=== PATIENT | female | born 1995 | race Caucasian/White ===

== ENCOUNTER 2021-10-05 17:05 | Outpatient (CLI) | payer OTHER, SELFPAY ==
[2021-10-11 13:43] LABS: HPV Reflexed? NOT INDICATED
== END 2021-10-05 23:59 | disposition home or self-care (01) ==
PROVIDERS: Visit Provider Obstetrics & Gynecology
DX: Z12.4 Encounter for screening for malignant neoplasm of cervix (principal)
CPT/HCPCS: 88175; G0145

== ENCOUNTER → 2023-07-27 | Outpatient (CLI) | payer OTHER, SELFPAY ==
--- NOTE | 2023-07-27 13:58 | ECHOD_ITS ---
Reason For Study: Murmur Procedure This was a 2D Doppler, Color Flow transthoracic echocardiogram. Exam performed in department. Left Ventricle Normal size and thickness. The left ventricular ejection fraction is 70 %. Normal diastololic function. Right Ventricle Normal right ventricle. Atria The left and right atria are normal. Mitral Valve Trivial mitral valve insufficiency. Tricuspid Valve Mild tricuspid valve insufficiency. Normal pulmonary artery pressure. Aortic Valve Trisinus/trileaflet aortic valve. Pulmonic Valve The pulmonic valve is not well visualized. Great Vessels Normal sized aortic root. Pericardium/Pleural No pericardial effusion. MMode/2D Measurements & Calculations LVIDd: 5.0 cm IVSd: 0.59 cm Ao root diam: 2.6 cm LVIDs: 3.3 cm LVPWd: 0.76 cm LA dimension: 4.2 cm RVDd: 4.3 cm FS: 33.3 % LAV(MOD-bp): 57.5 ml LVAd ap4: 24.7 cm2 SV(MOD-sp4): 46.9 ml LAV(MOD-bp) Indexed: 30.5 ml/m2 LVLd ap4: 6.9 cm LAV(MOD-sp2): 51.2 ml EDV(MOD-sp4): 71.1 ml LAV(MOD-sp4): 54.7 ml EDV(sp4-el): 75.1 ml LVAs ap4: 12.5 cm2 LVLs ap4: 5.5 cm ESV(MOD-sp4): 24.2 ml ESV(sp4-el): 24.2 ml EF(MOD-sp4): 66.0 % EF(sp4-el): 67.7 % SV(sp4-el): 50.9 ml LA A4 area: 19.9 cm2 RA A4 area: 16.2 cm2 TAPSE: 2.3 cm Time Measurements MV dec time: 0.12 sec Doppler Measurements & Calculations MV E max victor manuel: 101.2 cm/sec Lat Peak E' Victor Manuel: 20.2 cm/sec Med Peak E' Victor Manuel: 13.2 cm/sec MV A max victor manuel: 65.8 cm/sec E/E' lat: 5.0 E/E' med: 7.6 MV E/A: 1.5 MV V2 max: 128.2 cm/sec MV P1/2t max victor manuel: 129.4 cm/sec Ao V2 max: 177.6 cm/sec MV max P.6 mmHg MV P1/2t: 48.0 msec Ao max P.6 mmHg MV V2 mean: 61.7 cm/sec MV dec slope: 790.3 cm/sec2 Ao V2 mean: 124.6 cm/sec MV mean P.9 mmHg Ao mean P.1 mmHg MV V2 VTI: 27.0 cm MVA(P1/2t): 4.6 cm2 Ao V2 VTI: 34.5 cm AV (velocity ratio): 0.90 LV V1 max: 157.7 cm/sec PA V2 max: 107.5 cm/sec TR max victor manuel: 245.4 cm/sec LV V1 max P.0 mmHg PA V2 mean: 75.7 cm/sec TR max P.1 mmHg LV V1 mean P.6 mmHg LV V1 mean: 111.9 cm/sec LV V1 VTI: 31.2 cm ECHO/Echo Complete Interpretation Summary The left ventricular ejection fraction is 70 %. Mild tricuspid valve insufficiency. Ordering Physician: Sandra Kimbrough Referring Physician: Sandra Kimbrough Performed By: Mukesh Kern RCS
== END | disposition home or self-care (01) ==
LOC: CVS 13:57
PROVIDERS: PCP Family Medicine; Referring Provider Family Medicine; Visit Provider Family Medicine
DX: R01.1 Cardiac murmur, unspecified (principal)
CPT/HCPCS: 93306

== ENCOUNTER → 2024-03-20 | Outpatient (CLI) | payer OTHER, SELFPAY ==
--- NOTE | 2024-03-20 16:10 | RAD_ITS ---
STUDY: X-RAY - LUMBAR SPINE REASON FOR EXAM: Female, 28 years old. SCIATICA TECHNIQUE: 5 view(s) of the lumbar spine were obtained. COMPARISON: None FINDINGS: Normal lumbar lordosis. There is no substantial scoliosis. 2 mm retrolisthesis of L4 on L5. Normal vertebral bodies and endplates. Focal disc space narrowing and osteophyte formation at L4/L5. The soft tissue structures are unremarkable. RAD/L/S Spine Min 4 Views IMPRESSION: Focal degenerative disc disease at L4/L5 with 2 mm retrolisthesis of L4 on L5. MRI may be useful. Electronically Signed: Gerson Morales MD at 9:33 EDT ,
== END | disposition home or self-care (01) ==
LOC: MTRAD 16:07
PROVIDERS: PCP Family Medicine; Referring Provider Family Medicine; Visit Provider Family Medicine
DX: M54.30 Sciatica, unspecified side (principal)
CPT/HCPCS: 72110

== ENCOUNTER → 2024-04-23 | Outpatient (CLI) | payer OTHER, SELFPAY ==
--- NOTE | 2024-04-23 16:10 | MRI_ITS ---
STUDY: MRI LUMBAR SPINE WITHOUT CONTRAST REASON FOR EXAM: Female, 28 years old. L4L5 degeneration TECHNIQUE: Standardized fat and water weighted pulse sequences were obtained in the sagittal and axial planes. COMPARISON: X-ray March 20, 2024 FINDINGS: T12-L1: Normal endplates. Normal disc height, hydration and morphology. Normal bilateral facet joints. Normal central canal and bilateral lateral recesses. Normal bilateral intervertebral neural foramina. Normal lumbar lordosis. There is grade 1 retrolisthesis at L4-5. There is no substantial scoliosis. Normal conus medullaris that terminates at the L1 level. L1-2: Normal endplates. Normal disc height, hydration and morphology. Normal bilateral facet joints. Normal central canal and bilateral lateral recesses. Normal bilateral intervertebral neural foramina. L2-3: Normal endplates. Normal disc height, hydration and morphology. Normal bilateral facet joints. Normal central canal and bilateral lateral recesses. Normal bilateral intervertebral neural foramina. L3-4: Disc bulge with shallow central disc protrusion. Normal bilateral facet joints. Normal central canal and bilateral lateral recesses. Normal bilateral intervertebral neural foramina. L4-5: Disc space narrowing with endplate change. Disc bulging, spurring, and right paracentral disc extrusion with fragment extending superior to the disc space encroaching upon the right lateral recess, series 10 images 11 through 13. Facet spurring with effusions. Moderately severe canal stenosis. Bilateral foraminal narrowing L5-S1: Disc space narrowing. Central left paracentral disc protrusion series 10 image 6. Facet spurring. No canal stenosis. Left foraminal narrowing. Normal visualized sacral ala. Normal visualized paraspinous soft tissue structures. MRI/Spine Lumbar (Routine) IMPRESSION: Degenerative change with disc herniations. There is extruded fragment, endplate change, canal stenosis, and foraminal narrowing at L4-5. Electronically Signed: Uzair Zamora MD at 23:41 EDT ,
== END | disposition home or self-care (01) ==
LOC: MRI 15:49
PROVIDERS: PCP Family Medicine; Referring Provider Family Medicine; Visit Provider Family Medicine
DX: M54.30 Sciatica, unspecified side (principal); M47.816 Spondylosis without myelopathy or radiculopathy, lumbar region
CPT/HCPCS: 72148

== ENCOUNTER → 2024-12-02 | Outpatient (CLI) | payer OTHER, SELFPAY ==
[2024-12-02 17:11] LABS: hCG Titer Quant., Serum 457 mIU/mL (<9 non-preg)
== END | disposition home or self-care (01) ==
PROVIDERS: PCP Family Medicine; Referring Provider Obstetrics & Gynecology; Visit Provider Obstetrics & Gynecology
DX: Z34.90 Encounter for supervision of normal pregnancy, unspecified, unspecified trimester (principal)
CPT/HCPCS: 36415; 84702

== ENCOUNTER → 2024-12-04 | Outpatient (CLI) | payer OTHER, SELFPAY ==
[2024-12-04 17:39] LABS: hCG Titer Quant., Serum 1022 mIU/mL (<9 non-preg)
== END | disposition home or self-care (01) ==
PROVIDERS: Obstetrics & Gynecology; PCP Family Medicine; Referring Provider Obstetrics & Gynecology; Visit Provider Obstetrics & Gynecology
DX: Z34.90 Encounter for supervision of normal pregnancy, unspecified, unspecified trimester (principal); Z3A.00 Weeks of gestation of pregnancy not specified
CPT/HCPCS: 36415; 84702

== ENCOUNTER → 2024-12-23 | Outpatient (CLI) | payer OTHER, SELFPAY ==
[2024-12-23 18:24] LABS: hCG Titer Quant., Serum 26543 mIU/mL (<9 non-preg)
== END | disposition home or self-care (01) ==
LOC: BWCLAB 16:32
PROVIDERS: PCP Family Medicine; Visit Provider Obstetrics & Gynecology
DX: Z34.90 Encounter for supervision of normal pregnancy, unspecified, unspecified trimester (principal)
CPT/HCPCS: 36415; 84702

== ENCOUNTER → 2024-12-25 | Outpatient (CLI) | payer OTHER, SELFPAY ==
[2024-12-25 17:44] LABS: hCG Titer Quant., Serum 30175 mIU/mL (<9 non-preg)
== END | disposition home or self-care (01) ==
LOC: BWCLAB 16:04
PROVIDERS: PCP Family Medicine; Referring Provider Obstetrics & Gynecology; Visit Provider Obstetrics & Gynecology
DX: O26.859 Spotting complicating pregnancy, unspecified trimester (principal); Z3A.00 Weeks of gestation of pregnancy not specified
CPT/HCPCS: 36415; 84702

== ENCOUNTER → 2025-01-02 | Outpatient (CLI) | payer OTHER, SELFPAY ==
[2025-01-06 23:07] LABS: Chlamydia By Nucleic Acid AMP Negative (Negative); Gonococcus By Nucleic Acid AMP Negative (Negative)
== END | disposition home or self-care (01) ==
LOC: LABSPEC 16:20
PROVIDERS: PCP Family Medicine; Visit Provider Obstetrics & Gynecology
DX: O09.90 Supervision of high risk pregnancy, unspecified, unspecified trimester (principal); Z3A.00 Weeks of gestation of pregnancy not specified
CPT/HCPCS: 87086; 87491; 87591; 88175; G0145

== ENCOUNTER → 2025-01-29 | Outpatient (CLI) | payer OTHER, SELFPAY ==
[2025-01-29 16:28] LABS: Basophil# 0.05 X10^3/uL; Basophil% 0.4 % (0-1); Eosinophil# 0.11 X10^3/uL; Eosinophils% 0.9 % (0-5); Hematocrit 39.2 % (37-47); Hemoglobin 13.6 g/dL (12.0-15.0); Lymphocyte % 16.8 % (19-41); Mean Corp Hgb Conc 34.7 g/dL (32-36); Mean Corpuscular Hgb 29.2 pg (27.0-32.0); Mean Corpuscular Volume 84.1 fL (81-99); Mean Platelet Vol. 10.6 fl (6.2-12.0); Monocyte# 0.63 X10^3/uL; Monocyte% 5.3 % (0-10); NRBC Flagged by Analyzer 0 % (0-5); Neutrophil # 9.04 X10^3/uL (2.7-7.7); Neutrophil % 76.1 % (47-70); Platelet Count 275 K/mm3 (150-450); RBC Distribution Width CV 12.2 % (11.6-14.6); RBC Distribution Width SD 36.7 fl (35.1-43.9); Red Blood Count 4.66 M/mm3 (4.2-5.4); White Blood Count 11.9 K/mm3 (4.4-11.0)
[2025-01-29 17:45] LABS: HIV Nonreactive (Nonreactive); Hepatitis B Surface Antigen Nonreactive (Nonreactive); Hepatitis C Antibody Nonreactive (Nonreactive); Rubella IgG REAC (Nonreactive); Syphilis Antibodies Nonreactive (Nonreactive)
== END | disposition home or self-care (01) ==
PROVIDERS: Obstetrics & Gynecology; PCP Family Medicine; Referring Provider Advanced Practice Midwife; Visit Provider Advanced Practice Midwife
DX: O99.210 Obesity complicating pregnancy, unspecified trimester (principal); Z3A.00 Weeks of gestation of pregnancy not specified
CPT/HCPCS: 36415; 83036; 85025; 86703; 86762; 86780; 86803; 86850; 86900; 86901; 87340

== ENCOUNTER → 2025-05-19 | Outpatient (CLI) | payer OTHER, SELFPAY ==
--- OUTSIDE RECORDS SUMMARY | 2025-04-24 13:29 | XMS RPT_ITS ---
Author Name Auto Generated Organization [facility] Care Team Providers Care Pedicurist Name Role Phone PAUL WIGGINS Primary Care Unavailable EDITA PENA Referring Unavailable LANDON SORTO Attending Unavailable NICHOLAS THORPE Attending Unavailable YARITZA BELLAMY Referring Unavailab PAUL [facility] Unavailable PROBLEMS No Problem Records Found PROCEDURES No Procedure Records Found RESULTS No Result Records Found ALLERGIES No Allergies Records Found ENCOUNTERS ADMIT/DISCHARGE ACCOUNT NUMBER ADMITTING ENCOUNTER CLASS LOCATION SOURCE 04/24/2025/04/24/2025 [id number] Ambulatory Saavedra lding:[facility] 03/17/2025/03/17/2025 [id number] Ambulatory Saavedra lding:[facility] PAYERS ENCOUNTER GUARANTOR PAYER SUBSCRIBER SOURCE [address] JOSE L MARRERO: [place], [place] [address]Pon: [phone] Primary Insurance:BERTPo fabian Number: [id number] kateryna Date: JOSE L MARRERO: [id number] [place] [address] [facility] 03/17/2025 JOSE L MARRERO: [place], [place] [address]Lmk: ~[phone] Primary Insurance:CIGNAPo licy Number: [id number] kateryna Date: JOSE L MARRERO: [id number] [place] [address] [facility]
[2025-05-19 16:39] LABS: Hematocrit 33.8 % (37-47); Hemoglobin 11.8 g/dL (12.0-15.0); Immature Granulocytes Count 0.130 X10^3/uL (0.0-0.0); Mean Corp Hgb Conc 34.9 g/dL (32-36); Mean Corpuscular Volume 85.6 fL (81-99); Mean Platelet Vol. 10.1 fl (6.2-12.0); NRBC Flagged by Analyzer 0 % (0-5); Platelet Count 235 K/mm3 (150-450); RBC Distribution Width CV 12.6 % (11.6-14.6); RBC Distribution Width SD 38.6 fl (35.1-43.9); Red Blood Count 3.95 M/mm3 (4.2-5.4); White Blood Count 10.5 K/mm3 (4.4-11.0)
[2025-05-19 17:22] LABS: Glucose Challenge Gest 1H 50g 148 mg/dL (70-140); HIV Nonreactive (Nonreactive); Syphilis Antibodies Nonreactive (Nonreactive)
== END | disposition home or self-care (01) ==
LOC: BWCLAB 15:15
PROVIDERS: PCP Family Medicine; Referring Provider Obstetrics & Gynecology; Visit Provider Obstetrics & Gynecology
DX: O09.92 Supervision of high risk pregnancy, unspecified, second trimester (principal); Z3A.00 Weeks of gestation of pregnancy not specified
CPT/HCPCS: 36415; 82950; 85025; 86703; 86780

== ENCOUNTER 2025-05-28 06:50 | Outpatient (CLI) | payer OTHER, SELFPAY ==
[2025-05-28 07:34] LABS: Glucose GTT-Gestation. Fasting 90 mg/dL (<105)
[2025-05-28 09:49] LABS: Glucose GTT-Gestational 1 Hr 126 mg/dL (<190)
[2025-05-28 11:20] LABS: Glucose GTT-Gestational 2 Hr 103 mg/dL (<165)
[2025-05-28 11:33] LABS: Glucose GTT-Gestational 3 Hr 68 L (<145)
== END 2025-05-28 23:59 | disposition home or self-care (01) ==
PROVIDERS: PCP Family Medicine; Referring Provider Obstetrics & Gynecology; Visit Provider Obstetrics & Gynecology
DX: O99.810 Abnormal glucose complicating pregnancy (principal); Z3A.00 Weeks of gestation of pregnancy not specified
CPT/HCPCS: 36415; 82951; 82952

== ENCOUNTER → 2025-07-08 | Outpatient (CLI) | payer OTHER, SELFPAY ==
--- NOTE | 2025-07-08 17:44 | US_ITS ---
PROCEDURE: OB LIMITED WITH BIOMETRICS 07/08/2025 REASON FOR EXAM: GROWTH TECHNIQUE: Procedure Code: [id number] Modality: US Procedure: OB LIMITED WITH BIOMETRICS COMPARISON: None FINDINGS LMP: November 02, 2024. Number: 1 Position: Vertex Placental Position: Posterior and not low-lying Placental Abnormalities: No evidence of previa. DIMENSIONS: Biparietal Diameter: 9.4 cm: 38 weeks and 2 days: 9 9 percentile/ Head Circumference: 34.2 cm: 39 weeks and 3 days: 96 percentile/ Abdominal Circumference: 31.4 cm: 35 weeks and 2 days: 55th percentile/ Femur Length: 6.1 cm: 31 weeks and 5 days: 1 percentile/ ESTIMATED WEIGHT: 2543 g plus/-381 g ESTIMATED WEIGHT PERCENTILE (24+ weeks): 34 ESTIMATED GESTATIONAL AGE: Baseline: 35 weeks and 3 days By Ultrasound: 36 weeks and 4 days ESTIMATED DATE OF DELIVERY: Baseline: August 09, 2025 By Ultrasound: August 01, 2025 BIOPHYSICAL ASSESSMENT: Amniotic Fluid Volume: 7.6 cm Amniotic Fluid Index: 20.1 (8-24 cm normal range) Cardiac Motion: 145 beats per minute (average) Trunk and Limb Motion: Present. MATERNAL ANATOMY: Adnexa: Both maternal ovaries are visualized and unremarkable. US/OB Limited With Biometrics IMPRESSION: Single live intrauterine gestation with a mean gestational age of 36 weeks and 4 days. Reading Location: [id number]
== END | disposition home or self-care (01) ==
LOC: US 17:42
PROVIDERS: PCP Family Medicine; Referring Provider Obstetrics & Gynecology; Visit Provider Obstetrics & Gynecology
DX: Z34.90 Encounter for supervision of normal pregnancy, unspecified, unspecified trimester (principal)
CPT/HCPCS: 76816

== ENCOUNTER → 2025-07-15 | Outpatient (CLI) | payer OTHER, SELFPAY | END | disposition home or self-care (01) | LOC: LABSPEC 16:35 | PROVIDERS: PCP Family Medicine; Referring Provider Obstetrics & Gynecology; Visit Provider Obstetrics & Gynecology | DX: O09.92 Supervision of high risk pregnancy, unspecified, second trimester (principal); Z3A.00 Weeks of gestation of pregnancy not specified | CPT/HCPCS: 87081 ==

== ENCOUNTER → 2025-08-06 | Outpatient (CLI) | payer OTHER, SELFPAY ==
[2025-08-06 15:45] LABS: ROM Internal Control Test YES-OK TO RESULT pt. (Internal QC); ROM Patient Test Negative (Negative); Record Kit Lot#, ROM+ K3607
== END | disposition home or self-care (01) ==
LOC: LABSPEC 14:35
PROVIDERS: PCP Family Medicine; Visit Provider Nurse Practitioner Women's Health
DX: O26.899 Other specified pregnancy related conditions, unspecified trimester (principal); N89.8 Other specified noninflammatory disorders of vagina; Z3A.00 Weeks of gestation of pregnancy not specified; O99.891 Other specified diseases and conditions complicating pregnancy
CPT/HCPCS: 84112

== ENCOUNTER 2025-08-11 07:53 | Inpatient (IN) | payer OTHER, SELFPAY ==
[2025-08-11] VITALS (50 sets, daily range): BP systolic 111–189; BP diastolic 57–136; PULSE 82–125; RESP 15–18; TEMP 35.8–37.4; O2SAT 94–100; BMI 37.7
--- OUTSIDE RECORDS SUMMARY | 2025-08-11 06:34 | XMS RPT_ITS | CCD ---
Author Organization [facility] Care Team Providers Care Senior Scheduler Name Role Phone LUANN MAHER (PRESSURE TANK OPERATOR) Unavailable Unavailabl e [facility] Unavailable Unavailable [facility] Unavailable Unavailable LUANN MAHER (PRESSURE TANK OPERATOR) Unavailable Unavailabl e [facility] Unavailable Unavailable LUANN MAHER (PRESSURE TANK OPERATOR) Unavailable Unavailabl e LUANN MAHER (PRESSURE TANK OPERATOR) Unavailable Unavailabl e LUANN MAHER (PRESSURE TANK OPERATOR) Unavailable Unavailabl e LUANN MAHER (PRESSURE TANK OPERATOR) Unavailable Unavailabl e DO Sandra Kimbrough Primary Care Provider 1([facility] )[phone] Dr. Tia Goldman Attending Provider [phone] Dr. Yao Owusu MD Primary Care Provider 1([facility] )[phone] Dr. Ceci Spencer DO Attending Provider Dr. Ceci Spencer DO Referring Provider Dr. Isabel Muñoz MD Attending Provider Dr. Isabel Muñoz MD Referring Provider [phone] Dr. Yao Owusu MD Referring Provider 1([facility])[phone] Caro Cho CNM Attending Provider 1([facility]) -[phone] Edita Padilla Attending Provider Caro Cho CNM Referring Provider [phone] Dr. Yao Owusu MD Primary Care Provider Dr. Ceci Spencer DO Attending Provider Dr. Ceci Spencer DO Referring Provider Dr. Yao Owusu MD Referring Provider 1([facility])[phone] PAUL WIGGINS Primary Care Unavailable EDITA PENA Referring Unavailable LANDON SORTO Attending Unavailable NICHOLAS THORPE Attending Unavailable CECI BELLAMY Referring Unavailab PAUL Henderson Primary Care Unavailable Francoise BRISENO, Dr. Samayoa Primary Care Physician [phone] Francoise BRISENO, Dr. Saamyoa Referring Provider Caro Cho CNM Attending Physician [phone] Hollie DOCUMENT CLERK-CEdita Attending Physician [phone] Alexa Hall DO, Dr. Ornelas Attending Physician Toni BRISENO, Dr. Hall Attending Physician Toni BRISENO, Dr. Hall Referring Provider [phone] Francoise BRISENO, Dr. Samayoa Primary Care Physician Francoise BRISENO, Dr. Samayoa Referring Provider Hollie DOCUMENT CLERK-C, Edita Attending Physician [phone] Caro Cho CNM Attending Physician [phone] Yao Owusu Referring Unavailable Vande Isabel, Ceci Attending Unavailabl e Owusu, Yao Primary Care Unavailable Owusu, Yao Primary Care Unavailable Owusu, Yao Referring Unavailable Caro Cho Attending Unavailable Isabel Muñoz Attending Unavailable Owusu, Yao Referring Unavailable Owusu, Yao Primary Care Unavailable Owusu, Yao Referring Unavailable Caro Cho Attending Unavailable Owusu, Yao Primary Care Unavailable Owusu, Yao Primary Care Unavailable Caro Cho Attending Unavailable Owusu, Yao Referring Unavailable Vande Velde, Ceci Attending Unavailabl e Owusu, Yao Referring Unavailable Owusu, Yao Primary Care Unavailable Isabel Muñoz Attending Unavailable Owusu, Yao Referring Unavailable Owusu, Yao Primary Care Unavailable Owusu, Yao Referring Unavailable Owusu, Yao Primary Care Unavailable Vande Velayo, Ceci Attending UnavailCaro Richey Referring Unavailable Caro Cho Attending Unavailable Owusu, Yao Primary Care Unavailable Vande Velde, Ceci Referring Unavailabl e Vande Velde, Ceci Attending Unavailabl e Owusu, Yao Primary Care Unavailable Isabel Muñoz Referring Unavailable Isabel Muñoz Attending Unavailable Owusu, Yao Primary Care Unavailable Owusu, Yao Primary Care Unavailable Vande Velde, Ceci Attending UnavailIsabel Borges Referring Unavailable Isabel Muñoz Attending Unavailable Owusu, Yao Primary Care Unavailable Isabel Muñoz Attending Unavailable Isabel Muñoz Referring Unavailable Owusu, Yao Primary Care Unavailable Vande Velde, Ceci Referring Unavailabl e Owusu, Yao Primary Care Unavailable Alexa Hall, Ceci Attending Unavailabl e Alexa Hall, Ceci Attending Unavailabl e Owusu, Yao Primary Care Unavailable Owusu, Yao Referring Unavailable Hollie DOCUMENT CLERK, Edita Attending Unavailable Owusu, Yao Primary Care Unavailable Owusu, Yao Referring Unavailable Caro Cho Attending Unavailable Owusu, Yao Primary Care Unavailable Owusu, Yao Referring Unavailable Hollie DOCUMENT CLERK, Edita Attending Unavailable Owusu, Yao Primary Care Unavailable Medications Current Medications Medication Drug Class(es) Dates Sig (Normalized) Sig (Original) Multivit 90-Pbzn-Dzruol 1-Dha (Pnv-Dha) 27 mg iron-1 mg -300 mg capsule (14 sources) Start: 12-24-2024 Multivit 66-Voya-Hwaxrk 1-Dha (Pnv-Dha) 27 mg iron-1 mg -300 mg capsule Active NMA PO December 24, 2024 12:00am Complies with drug therapy Start: 12-24-2024 Start: 12-24-2024 Multivit 47-Ir on-Folate 1-Dha (Pnv-Dha) 27 mg iron-1 mg -300 mg capsule Active NMA PO December 24, 2024 12:00am Completed/Discontinued Medications Medication Drug Class(es) Dates Sig (Normalized) Sig (Original) copper 313 mg drug implant (17 sources) Copper-containing Intrauterine Device Start: 10-05-2021 End: 03-04-2024 Copper (Paragard T 380a) 380 square mm intrauterine device Discontinued 1 NMA INTRA-UTER ONCE October 05, 2021 1:00am March 04, 2024 2:19pm as a single dose Start: 10-05-2021 Copper (Paraga rd T 380a) 380 square mm intrauterine device Active 1 DEVICE INTRA-UTER ONCE October 05, 2021 12:00am as a single dose cyclobenzaprine hydrochloride 5 mg oral tablet (16 sources) Muscle Relaxant Start: 03-04-2024 End: 06-03-2024 take 1 tablet by mouth at bedtime as needed for muscle spasms Cyclobenzaprine 5 mg tablet Discontinued 5 mg PO AT BEDTIME as needed for muscle spasm 30 3 March 04, 2024 12:00am June 03, 2024 3:13pm docosahexaenoic acid 200 mg oral capsule (16 sources) Start: 06-03-2024 End: 12-24-2024 Docosahexaenoic Acid ( Dha) 200 mg capsule Discontinued mg PO June 03, 2024 12:00am December 24, 2024 10:09am Problems Active Problems Problem Classification Problem Date Documented Date Episodic/Chronic Diabetes or abnormal glucose tolerance complicating ; childbirth; or the puerperium (8 sources) Abnormal glucose level; Translations: [Abnormal glucose complicating ] Onset: 06-17-2025 05-21-2025 Episodic Comment on above: needs GTT nl GTT Heart valve disorders (20 sources) Heart murmur; Translations: [Cardiac murmur, unspecified] Onset: 05-19-2025 10-05-2021 Episodic Immunizations and screening for infectious disease (1 source) Encounter for immunization; Translations: [Encounter for immunization] Onset: 06-05-2025 Episodic Other complications of (20 sources) Maternal obesity complicating , childbirth and the puerperium, antepartum; Translations: [Obesity complicating , unspecified trimester] 12-24-2024 Chronic Comment on above: HgbA1c Other complications of (1 source) Obesity complicating , second trimester; Translations: [Obesity complicating , second trimester] Onset: 06-17-2025 Chronic Other complications of (1 source) Obesity complicating , unspecified trimester; Translations: [Obesity complicating , unspecified trimester] Onset: 02-04-2025 Chronic Other complications of (20 sources) Spotting per vagina in ; Translations: [Spotting complicating , unspecified trimester] 12-16-2024 Episodic Other complications of (20 sources) High risk ; Translations: [Supervision of high risk , unspecified, unspecified trimester] 12-24-2024 Episodic Comment on above: , WARREN 08/09/25, Wade PRR , WARREN , girl Wade Other complications of (1 source) Supervision of high risk , unspecified, second trimester; Translations: [Supervision of high risk , unspecified, second trimester] Onset: 06-17-2025 Episodic Other complications of (1 source) Spotting complicating , unspecified trimester; Translations: [Spotting complicating , unspecified trimester] Onset: 05-19-2025 Episodic Residual codes; unclassified (20 sources) Family history of malignant neoplasm of ovary; Translations: [Family history of malignant neoplasm of ovary] 12-24-2024 Episodic Comment on above: Maternal Grandmother Residual codes; unclassified (20 sources) Carrier of cystic fibrosis gene mutation; Translations: [Cystic fibrosis carrier] 02-10-2025 Episodic Comment on above: FOB negative Residual codes; unclassified (1 source) Cystic fibrosis carrier; Translations: [Cystic fibrosis carrier] Onset: 06-17-2025 Episodic Residual codes; unclassified (1 source) 32 weeks gestation of ; Translations: [32 weeks gestation of ] Onset: 06-17-2025 Episodic Residual codes; unclassified (1 source) 28 weeks gestation of ; Translations: [28 weeks gestation of ] Onset: 05-19-2025 Episodic Spondylosis; intervertebral disc disorders; other back problems (20 sources) Prolapsed lumbar intervertebral disc; Translations: [Other intervertebral disc displacement, lumbar region] Onset: 05-19-2025 06-04-2024 Chronic Spondylosis; intervertebral disc disorders; other back problems (20 sources) Low back pain; Translations: [Low back pain] 06-03-2024 Episodic Unclassified (1 source) Unknown / UNK(Unknown) Onset: 10-10-2017 Unclassified (1 source) Low back pain, unspecified; Translations: [Low back pain, unspecified] Onset: 05-19-2025 Past or Other Problems Problem Classification Problem Date Documented Da te Episodic/Chronic Other complications of (1 source) Supervision of high risk , unspecified, unspecified trimester; Translations: [Supervision of high risk , unspecified, unspecified trimester] Onset: 01-07-2025 Episodic Other and delivery including normal (20 sources) Early stage of ; Translations: [Encounter for supervision of normal , unspecified, unspecified trimester] Onset: 01-02-2025 12-02-2024 Episodic Comment on above: discussed NIPT & Car rier testing discussed NIPT, martin ier neg. discussed NIPT, martin ier neg. . nl anatomy. Other screening for suspected conditions (not mental disorders or infectious disease) (1 source) Encounter for screening for malignant neoplasm of cervix; Translations: [Encounter for screening for malignant neoplasm of cervix] Onset: 12-24-2024 Episodic Residual codes; unclassified (1 source) Family history of malignant neoplasm of ovary; Translations: [Family history of malignant neoplasm of ovary] Onset: 01-02-2025 Episodic Residual codes; unclassified (1 source) 8 weeks gestation of ; Translations: [8 weeks gestation of ] Onset: 01-02-2025 Episodic Unclassified (2 sources) Other general symptoms and signs; Translations: [Other general symptoms and signs] Onset: 10-10-2017 Episodic Results Test Name Value Interpretation Reference Range Facility Laboratory - Chemistry and C hemistry - challengeOrdered By: Isabel Muñoz on 06-17-2025 Glucose Ql (U) Negative [facility] Laboratory - UrinalysisOrder ed By: Isabel Muñoz on 06-17-2025 Protein Ql (U) Negative [facility] Flocculator Operator Office Visit Reporton 06-17-2025 Flocculator Operator Office Visit Report [facility] [address], [address] [place] [address] OFFICE VISIT Date of Service: 06/17/25 MR#: [id number] Acct: [id number] Name: JOVANYJOSE L HOUGH Rep #: [id number] : 1995 Provider: Dr. Isabel figueredo MD Age/Sex: 30/F Location: [facility] [place] Status: Signed Intake Vital Signs 04/24/25 15:11 06/05/25 15:57 06/17/25 15:07 Height 5 ft 3 in 5 ft 3 in 5 ft 3 in Weight: 203 lb 9 oz BMI 36.0 BP 111/73 Intake Visit Reasons: 32wk ob Occupational Therapist Assistants Required: No Is patient in pain?: No Allergies No Known Allergies Allergy (Verified 06/17/25 15:07) Medications ???Medication ???Instructions ???Recorded ???Confirmed ???Type multivitamin no.47-iron fum 27 cap PO 12/24/24 06/17/25 History mg-folate no.1 1 mg-dha 300 mg capsule (PNV-DHA) Last Menstrual Period: 11/02/24 Zika: Zika virus screening: Negative : No PFSH PFSH Medical History (Updated 06/17/25 @ 15:[address] Isabel Muñoz MD) Cystic fibrosis carrier FH: ovarian cancer Surgical History [place] teeth extracted H/O thumb surgery Family History Grandmother Ovarian cancer, Onset Age: 45 Maternal Heart disease Paternal Grandfather Lung cancer, Onset Age: 80 Paternal Cancer, Onset Age: 80 Paternal- Prostate Mother Diabetes Uncle Heart disease Maternal Father Hyperlipidemia Social History adopted: No household members: spouse housing: house current occupational status: employed current occupation: [employer] current occupational exposures/hazards: No pets and animals: Yes (Avoid litter) pets and animals: cat(s) history of recent travel: Yes (November) out of state: Yes out of country: No sexually active: Yes Smoking Status: Never smoker alcohol intake: current alcohol intake frequency: a few times a month details: not while substance use type: does not use well-balanced diet: daily or most days caffeine: No eating out: 1-3 times/week during the past year weight has: remained stable what type of physical activity do you participate in: walking frequency: 3-4 times per week duration: 15-30 minutes/day zoe/hoahaoism: Yazidi seatbelt use: always do you feel safe at home: Yes additional 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: --[place]- Photo Checker History 1 Elective abortions Hx Para 0 Spontaneous abortions Hx # Term Pregnancies Ectopic pregnancies Hx # Pregnancies Multiple births # of living children HPI 32wk ob Details: JOSE L MANZO is a 30 year old who presents for routine OB visit. OB Visit WARREN Calculator Estimated Delivery Date Method Current WG Current Estimate 08/09/25 LMP (Certain) 32w 3d Other Estimates 08/10/25 Ultrasound #1 32w 2d Expected Delivery Route/Plan Labor Preferences- CB/BF classes: [] labor support person: [] labor intervention preferences: [] pain management options preferred: epidural cut cord/dad catch: [] : [] PP control planned: [] discussed possible routes of delivery and associated risks: [] special requests: [] Specific Issue/Plans Covid status: [] Flu vaccine: declined Tdap vaccine: given Rhogam: na LARC form signed: [] movement and labor precautions reviewed. Problem list reviewed and updated with the most current plan of care details and appropriate orders placed. Relevant counseling for the gestational age provided. Continue routine care and follow up unless otherwise noted in visit notes/problem list details Initial Weight: 188 lb Date -???-???-???-???-???-???-? ??-???-???-???-???-???- EGA Weight BP Urine Prot -???-???-???-???-???-???-? ??-???-???-???-???-???- Glucose FHR FuHt Pres Dilation -???-???-???-???-???-???-? ??-???-???-???-???-???- Effaced St Visit Note 01/02/25 -???-???-???-???-???-???-? ??-???-???-???-???-???- 8w 5d 188 lb 8 oz (+8 oz) 132/84 -???-???-???-???-???-???-? ??-???-???-???-???-???- 185 -???-???-???-???-???-???-? ??-???-???-???-???-???- KW- CRL cons with dates. Accepts NIPT and carrier. 01/24/25 -???-???-???-???-???-???-? ??-???-???-???-???-???- 11w 6d 190 lb 4 oz (+2 lb 4 oz) 135/82 Negative -???-???-???-???-???-???-? ??-???-???-???-???-???- Negative 175 -???-???-???-???-???-???-? ??-???-???-???-???-???- KW- work in for FHT. had spotting over the last couple days. CRL cons with 12.0 weeks. active fetus on US 01/29/25 -???-???-???-???-???-???-? ??-???-???-???-???-???- 12w 4d 188 lb 4 oz (+4 oz) 120/78 Negative -???-???-???-???-???-???-? ??-???-???-???-???-???- Negative 163 -???-???-???-???-???-??? (more content not included)... Normal [facility] Laboratory - Chemistry and C hemistry - challengeOrdered By: Ceci Hall on 06-05-2025 Glucose Ql (U) Negative [facility] Laboratory - UrinalysisOrder ed By: Ceci Hall on 06-05-2025 Protein Ql (U) Negative [facility] Flocculator Operator Office Visit Reporton 06-05-2025 Flocculator Operator Office Visit Report [address], [address] [place] [address] OFFICE VISIT Date of Service: 06/05/25 MR#: [id number] Acct: [id number] Name: JOSE L MANZO Rep #: [id number] : 1995 Provider: Dr. Ceci Daniels DO Age/Sex: 30/F Location: [facility] [place] Status: Signed Intake Vital Signs 02/26/25 15:52 05/19/25 15:12 06/05/25 15:55 06/05/25 15:57 Height 5 ft 3 in 5 ft 3 in 5 ft 3 in 5 ft 3 in Weight: 200 lb 3 oz BMI 35.4 BP 124/81 H Intake Visit Reasons: 30 WK OB Occupational Therapist Assistants Required: No Is patient in pain?: No Allergies No Known Allergies Allergy (Verified 06/05/25 15:55) Medications ???Medication ???Instructions ???Recorded ???Confirmed ???Type multivitamin no.47-iron fum 27 cap PO 12/24/24 06/05/25 History mg-folate no.1 1 mg-dha 300 mg capsule (PNV-DHA) Last Menstrual Period: 11/02/24 Zika: Zika virus screening: Negative : No PFSH PFSH Medical History Cystic fibrosis carrier FH: ovarian cancer Surgical History [place] teeth extracted H/O thumb surgery Family History Grandmother Ovarian cancer, Onset Age: 45 Maternal Heart disease Paternal Grandfather Lung cancer, Onset Age: 80 Paternal Cancer, Onset Age: 80 Paternal- Prostate Mother Diabetes Uncle Heart disease Maternal Father Hyperlipidemia Social History adopted: No household members: spouse housing: house current occupational status: employed current occupation: [employer] current occupational exposures/hazards: No pets and animals: Yes (Avoid litter) pets and animals: cat(s) history of recent travel: Yes (November) out of state: Yes out of country: No sexually active: Yes Smoking Status: Never smoker alcohol intake: current alcohol intake frequency: a few times a month details: not while substance use type: does not use well-balanced diet: daily or most days caffeine: No eating out: 1-3 times/week during the past year weight has: remained stable what type of physical activity do you participate in: walking frequency: 3-4 times per week duration: 15-30 minutes/day zoe/hoahaoism: Yazidi seatbelt use: always do you feel safe at home: Yes additional 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: --[place]- Photo Checker History 1 Elective abortions Hx Para 0 Spontaneous abortions Hx # Term Pregnancies Ectopic pregnancies Hx # Pregnancies Multiple births # of living children HPI 30 WK OB Details: JOSE L MANZO is a 30 year old who presents for routine OB visit. OB Visit WARREN Calculator Estimated Delivery Date Method Current WG Current Estimate 08/09/25 LMP (Certain) 30w 5d Other Estimates 08/10/25 Ultrasound #1 30w 4d Expected Delivery Route/Plan Labor Preferences- CB/BF classes: [] labor support person: [] labor intervention preferences: [] pain management options preferred: [] cut cord/dad catch: [] : [] PP control planned: [] discussed possible routes of delivery and associated risks: [] special requests: [] Specific Issue/Plans Covid status: [] Flu vaccine: [] Tdap vaccine: [] Rhogam: [] LARC form signed: [] Problem list reviewed and updated with the most current plan of care details and appropriate orders placed. Relevant counseling for the gestational age provided. Continue routine care and follow up unless otherwise noted in visit notes/problem list details Initial Weight: 188 lb Date -???-???-???-???-???-???-? ??-???-???-???-???-???- EGA Weight BP Urine Prot -???-???-???-???-???-???-? ??-???-???-???-???-???- Glucose FHR FuHt Pres Dilation -???-???-???-???-???-???-? ??-???-???-???-???-???- Effaced St Visit Note 01/02/25 -???-???-???-???-???-???-? ??-???-???-???-???-???- 8w 5d 188 lb 8 oz (+8 oz) 132/84 -???-???-???-???-???-???-? ??-???-???-???-???-???- 185 -???-???-???-???-???-???-? ??-???-???-???-???-???- KW- CRL cons with dates. Accepts NIPT and carrier. 01/24/25 -???-???-???-???-???-???-? ??-???-???-???-???-???- 11w 6d 190 lb 4 oz (+2 lb 4 oz) 135/82 Negative -???-???-???-???-???-???-? ??-???-???-???-???-???- Negative 175 -???-???-???-???-???-???-? ??-???-???-???-???-???- KW- work in for FHT. had spotting over the last couple days. CRL cons with 12.0 weeks. active fetus on US 01/29/25 -???-???-???-???-???-???-? ??-???-???-???-???-???- 12w 4d 188 lb 4 oz (+4 oz) 120/78 Negative -???-???-???-???-???-???-? ??-???-???-???-???-???- Negative 163 -???-???-???-???-???-???-? ??-???-???-???-???-???- MH-No furthe (more content not included)... Normal [facility] Gestational GTT 3HR 100gon 1 GEST GTT 100gm Normal [facility] Comment on above: Order Comment: Y Result Comment: FAST ING 90 Col: 05/28/25 0656 GLUCOSE TOLERANCE TEST FOR Reference Interval GESTATIONAL DIABETES Fasting <105 mg/dL 1 hour <190 mg/dl 2 hour <165 mg/dl 3 hour <145 mg/dl 1 HR GLU 126 Col: 05/28/25 0845 2 HR GLU 103 Col: 05/28/25 0945 3 HR GLU 68 Col: 05/28/25 1045 Performed By: #### L 500.4710 ####[facility] [id number] [place], [address] Quantitative serum or plasma 3 hour gestational glucose tolerance panelOrdered By: Isabel Muñoz on 05-28-2025 Glucose tolerance 3 hours gestational panel See comment [facility] Comment on above: FASTING 90 Col: 04/14 0656GLUCOSE TOLERANCE TEST FOR Reference Interval GESTATIONAL DIABETES Fasting <105 mg/dL 1 hour <190 mg/dl 2 hour <165 mg/dl 3 hour <145 mg/dl 1 HR GLU 126 Col: 05/28/25 0845 2 HR GLU 103 Col: 05/28/25 0945 3 HR GLU 68 Col: 05/28/25 1045 Absolute lymphocyte countOrd ered By: Isabel Muñoz on 05-19-2025 Lymphocytes Auto (Unsp spec) [#/Vol] 1.61 10*3/uL 0.83-4.[address] [facility] Absolute neutrophil countOrd ered By: Isabel Muñoz on 05-19-2025 Neutrophils (Bld) [#/Vol] 8.2 10*3/uL High 2.0-7.[address] [facility] Automated lymphocyte count a s percentage of total leukocytesOrdered By: Isabel Muñoz on 05-19-2025 Lymphocytes/100 WBC Auto (Unsp spec) 15.3 % Low 19-[address] [facility] Basophil percentageOrdered B y: Isabel Mñuoz on 05-19-2025 Basophils/100 WBC (Bld) 0.2 % 0-[address] [facility] CBC W/Diff, [place] 04-22 Absolute Lymph 1.61 X10 3/uL Normal 0.83-4.[address] [facility] Comment on above: Performed By: #### L 3890.6006, L501.0250, L509.8002, L100.0100 #### [facility] [address] [place], [address] Absolute Neut 8.2 X10 3/uL High 2.0-7.[address] [facility] Comment on above: Performed By: #### L 3890.6006, L501.0250, L509.8002, L100.0100 #### [facility] [address] [place], [address] Basophils/100 WBC (Bld) 0.2 % Normal 0-[address] [facility] Comment on above: Performed By: #### L 3890.6006, L501.0250, L509.8002, L100.0100 #### [facility] [address] [place], [address] Eosinophils/100 WBC (Bld) 0.7 % Normal 0-[address] [facility] Comment on above: Performed By: #### L 3890.6006, L501.0250, L509.8002, L100.0100 #### [facility] [address] [place], [address] Erythrocyte distribution width (RBC) [Ratio] 12.6 % Normal 11.6-14.[address] [facility] Comment on above: Performed By: #### L 3890.6006, L501.0250, L509.8002, L100.0100 #### [facility] [address] [place], [address] Hematocrit (Bld) [Volume fraction] 33.8 % Low 37-[address] [facility] Comment on above: Performed By: #### L 3890.6006, L501.0250, L509.8002, L100.0100 #### [facility] [address] [place], [address] Hemoglobin (Bld) [Mass/Vol] 11.8 g/dL Low 12.0-15.[address] [facility] Comment on above: Performed By: #### L 3890.6006, L501.0250, L509.8002, L100.0100 #### [facility] [address] [place], [address] IG% 1.200 High 0.0-0.[address] [facility] Comment on above: Result Comment: IG% - Immature Granulocytes (promyelocytes, myelocytes and metamyelocytes) > 1% indicates that a LEFT SHIFT is Present. Performed By: #### L 3890.6006, L501.0250, L509.8002, L100.0100 #### [facility] [address] [place] [place], [address] Lymphocytes/100 WBC (Bld) 15.3 % Low 19-[address] [facility] Comment on above: Performed By: #### L 3890.6006, L501.0250, L509.8002, L100.0100 #### [facility] [facility] [address], [address] MCH (RBC) [Entitic mass] 29.9 pg Normal 27.0-32.[address] [facility] Comment on above: Performed By: #### L 3890.6006, L501.0250, L509.8002, L100.0100 #### [facility] [address] [place], [address] MCHC (RBC) [Mass/Vol] 34.9 g/dL Normal 32-36 [facility] Comment on above: Performed By: #### L 3890.6006, L501.0250, L509.8002, L100.0100 #### [facility] [address] [place], [address] MCV (RBC) [Entitic vol] 85.6 fL Normal 81-[address] [facility] Comment on above: Performed By: #### L 3890.6006, L501.0250, L509.8002, L100.0100 #### [facility] [address] [place], [address] Monocytes/100 WBC (Bld) 4.2 % Normal 0-[address] [facility] Comment on above: Performed By: #### L 3890.6006, L501.0250, L509.8002, L100.0100 #### [facility] [address] [place], [address] Neutrophils/100 WBC (Bld) 78.4 % High 47-[address] [facility] Comment on above: Performed By: #### L 3890.6006, L501.0250, L509.8002, L100.0100 #### [facility] [address] [place], [address] Nucleated RBC (Bld) [#/Vol] 0 10*3/uL Normal 0-[address] [facility] Comment on above: Performed By: #### L 3890.6006, L501.0250, L509.8002, L100.0100 #### [facility] [address] [place], [address] Platelet mean volume (Bld) [Entitic vol] 10.1 fL Normal 6.2-12.[address] [facility] Comment on above: Performed By: #### L 3890.6006, L501.0250, L509.8002, L100.0100 #### [facility] [address] [place], [address] Platelets (Bld) [#/Vol] 235 10*3/uL Normal 150-[address] [facility] Comment on above: Performed By: #### L 3890.6006, L501.0250, L509.8002, L100.0100 #### [facility] [address] [place], [address] RBC (Bld) [#/Vol] 3.95 10*6/uL Low 4.2-5.4 [facility] Comment on above: Performed By: #### L 3890.6006, L501.0250, L509.8002, L100.0100 #### [facility] [address] [place], [address] RDW SD 38.6 fl Normal 35.1-43.[address] [facility] Comment on above: Performed By: #### L 3890.6006, L501.0250, L509.8002, L100.0100 #### [facility] [address] [place], [address] WBC (Bld) [#/Vol] 10.5 10*3/uL Normal 4.4-11.0 [facility] Comment on above: Performed By: #### L 3890.6006, L501.0250, L509.8002, L100.0100 #### [facility] [address] [place], [address] Eosinophil percentageOrdered By: Isabel Muñoz on 05-19-2025 Eosinophils/100 WBC (Bld) 0.7 % 0-[address] [facility] Erythrocyte distribution wid th ratioOrdered By: Isabel Muñoz on 05-19-2025 Erythrocyte distribution width (RBC) [Ratio] 12.6 % 11.6-14.[address] [facility] Erythrocyte distribution wid th standard deviationOrdered By: Isabel Muñoz on 05-19-2025 Erythrocyte distribution width (RBC) [Ratio] 38.6 fl 35.1-43.[address] [facility] Glucose Challenge Gest 1H 50 yeimi 05-19-2025 GLU GEST 50g 1H 148 mg/dL High 70-[address] [facility] Comment on above: Performed By: #### L 3890.6006, L501.0250, L509.8002, L100.0100 #### [facility] [address] [place], [place], [id number] Glucose measurement at 2 melissa rs post-dose gestational glucose tolerance testOrdered By: Isabel Muñoz on 05-19-2025 Glucose [Mass/Vol] 148 mg/dL High 70-140 [facility] HIVon 05-19-2025 HIV Non-Reactive Normal Nonreactive [facility] Comment on above: Result Comment: Non- Reactive Reactive Repeatedly reactive samples must be confirmed according to CDC recommended confirmatory algorithms. The subresults for either HIVAG or AHIV can be used as an aid in the selection of the confirmation algorithm for reactive samples. Send out specimens with Reactive results to [facility] for confirmation. Order the HIV antibody detection and differentiation: lc#[id number] Performed By: #### L 3890.6006, L501.0250, L509.8002, L100.0100 #### [facility] [address] [place], [place], [id number] Hematocrit Auto (Bld) [Volum e fraction]Ordered By: Isabel Muñoz on 05-19-2025 Hematocrit (Bld) [Volume fraction] 33.8 % Low 37-[address] [facility] Hemoglobin measurementOrdere d By: Isabel Muñoz on 05-19-2025 Hemoglobin (Bld) [Mass/Vol] 11.8 g/dL Low 12.0-15.[address] [facility] Immature granulocytes/100 WB C Auto (Bld)Ordered By: Isabel Muñoz on 05-19-2025 Immature granulocytes/100 WBC (Bld) 1.200 % High 0.0-0.[address] [facility] Comment on above: IG% - Immature Granu locytes (promyelocytes, myelocytes and metamyelocytes) > 1% indicates that a LEFT SHIFT is Present. Laboratory - Chemistry and C hemistry - challengeOrdered By: Caro Cho on 05-19-2025 Glucose Ql (U) Negative [facility] - UrinalysisOrder ed By: Caro Cho on 05-19-2025 Protein Ql (U) Negative [facility] MCV (mean corpuscular volume ) determinationOrdered By: Isabel Muñoz on 05-19-2025 MCV (RBC) [Entitic vol] 85.6 fL 81-[address] [facility] Mean corpuscular hemoglobin (MCH) determinationOrdered By: Isabel Muñoz on 05-19-2025 MCH (RBC) [Entitic mass] 29.9 pg 27.0-32.[address] [facility] Mean corpuscular hemoglobin concentration (MCHC) determinationOrdered By: Isabel Muñoz on 05-19-2025 MCHC (RBC) [Mass/Vol] 34.9 g/dL 32-36 [facility] Mean platelet volume determi nationOrdered By: Isabel Muñoz on 05-19-2025 Platelet mean volume (Bld) [Entitic vol] 10.1 fL 6.2-12.[address] [facility] Monocyte percentageOrdered B y: Isabel Muñoz on 05-19-2025 Monocytes/100 WBC (Bld) 4.2 % 0-[address] [facility] Neutrophil percentageOrdered By: Isabel Muñoz on 05-19-2025 Neutrophils/100 WBC (Bld) 78.4 % High 47-[address] [facility] No Panel InformationOrdered By: Isabel Muñoz on 05-19-2025 HIV (1&2) Antibody Non-Reactive Nonreactive [facility] Comment on above: Non-ReactiveReactive Repeatedly reactive samples must be confirmed according to CDC recommended confirmatory algorithms. The subresults for either HIVAG or AHIV can be used as an aid in the selection of the confirmation algorithm for reactive samples.Send out specimens with Reactive results to [facility] for confirmation.Order the HIV antibody detection and differentiation: #[id number] Nucleated red blood cell per centageOrdered By: Isabel Muñoz on 05-19-2025 Nucleated RBC/100 WBC (Bld) [Ratio] 0 % 0-[address] [facility] Flocculator Operator Office Visit Reporton 05-19-2025 Flocculator Operator Office Visit Report [facility]'[address], [address] [place] [address] OFFICE VISIT Date of Service: 05/19/25 MR#: [id number] Acct: [id number] Name: JOSE L MANZO Rep #: [id number] : 1995 Provider: MIYA Alaniz ams Age/Sex: 30/F Location: [facility] [place] Status: Signed Intake Vital Signs 02/26/25 15:52 04/24/25 15:11 05/19/25 15:10 05/19/25 15:12 Height 5 ft 3 in 5 ft 3 in 5 ft 3 in 5 ft 3 in Weight: 198 lb 6 oz BMI 35.1 BP 121/79 H Intake Visit Reasons: 28wk ob/glucose Occupational Therapist Assistants Required: No Is patient in pain?: No Allergies No Known Allergies Allergy (Verified 05/19/25 15:10) Medications ???Medication ???Instructions ???Recorded ???Confirmed ???Type multivitamin no.47-iron fum 27 cap PO 12/24/24 05/19/25 History mg-folate no.1 1 mg-dha 300 mg capsule (PNV-DHA) Last Menstrual Period: 11/02/24 Zika: Zika virus screening: Negative : No PFSH PFSH Medical History Cystic fibrosis carrier FH: ovarian cancer Surgical History [place] teeth extracted H/O thumb surgery Family History Grandmother Ovarian cancer, Onset Age: 45 Maternal Heart disease Paternal Grandfather Lung cancer, Onset Age: 80 Paternal Cancer, Onset Age: 80 Paternal- Prostate Mother Diabetes Uncle Heart disease Maternal Father Hyperlipidemia Social History adopted: No household members: spouse housing: house current occupational status: employed current occupation: [employer] current occupational exposures/hazards: No pets and animals: Yes (Avoid litter) pets and animals: cat(s) history of recent travel: Yes (November) out of state: Yes out of country: No sexually active: Yes Smoking Status: Never smoker alcohol intake: current alcohol intake frequency: a few times a month details: not while substance use type: does not use well-balanced diet: daily or most days caffeine: No eating out: 1-3 times/week during the past year weight has: remained stable what type of physical activity do you participate in: walking frequency: 3-4 times per week duration: 15-30 minutes/day zoe/hoahaoism: Yazidi seatbelt use: always do you feel safe at home: Yes additional 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: --[place]- Photo Checker History 1 Elective abortions Hx Para 0 Spontaneous abortions Hx # Term Pregnancies Ectopic pregnancies Hx # Pregnancies Multiple births # of living children HPI 28wk ob/glucose Details: JOSE L MANZO is a 30 year old who presents for routine OB visit. OB Visit WARREN Calculator Estimated Delivery Date Method Current WG Current Estimate 08/09/25 LMP (Certain) 28w 2d Other Estimates 08/10/25 Ultrasound #1 28w 1d Expected Delivery Route/Plan Labor Preferences- CB/BF classes: [] labor support person: [] labor intervention preferences: [] pain management options preferred: [] cut cord/dad catch: [] : [] PP control planned: [] discussed possible routes of delivery and associated risks: [] special requests: [] Specific Issue/Plans Covid status: [] Flu vaccine: [] Tdap vaccine: [] Rhogam: [] LARC form signed: [] Problem list reviewed and updated with the most current plan of care details and appropriate orders placed. Relevant counseling for the gestational age provided. Continue routine care and follow up unless otherwise noted in visit notes/problem list details Initial Weight: 188 lb Date -???-???-???-???-???-???-? ??-???-???-???-???-???- EGA Weight BP Urine Prot -???-???-???-???-???-???-? ??-???-???-???-???-???- Glucose FHR FuHt Pres Dilation -???-???-???-???-???-???-? ??-???-???-???-???-???- Effaced St Visit Note 01/02/25 -???-???-???-???-???-???-? ??-???-???-???-???-???- 8w 5d 188 lb 8 oz (+8 oz) 132/84 -???-???-???-???-???-???-? ??-???-???-???-???-???- 185 -???-???-???-???-???-???-? ??-???-???-???-???-???- KW- CRL cons with dates. Accepts NIPT and carrier. 01/24/25 -???-???-???-???-???-???-? ??-???-???-???-???-???- 11w 6d 190 lb 4 oz (+2 lb 4 oz) 135/82 Negative -???-???-???-???-???-???-? ??-???-???-???-???-???- Negative 175 -???-???-???-???-???-???-? ??-???-???-???-???-???- KW- work in for FHT. had spotting over the last couple days. CRL cons with 12.0 weeks. active fetus on US 01/29/25 -???-???-???-???-???-???-? ??-???-???-???-???-???- 12w 4d 188 lb 4 oz (+4 oz) 120/78 Negative -???-???-???-???-???-???-? ??-???-???-???-???-???- Negative 163 -???-???-???-???-???-???-? ??-???-???-???-???-???- MH-No fu (more content not included)... Normal [facility] Platelet countOrdered By: Rom Muñoz on 05-19-2025 Platelets (Bld) [#/Vol] 235 10*3/uL 150-[address] [facility] RBC Auto (Bld) [#/Vol]Ordere d By: Isabel Muñoz on 05-19-2025 RBC (Bld) [#/Vol] 3.95 10*6/uL Low 4.2-5.4 [facility] Syphilis Antibodieson 2024 Syphilis Abs Non-Reactive Normal Nonreactive [facility] Comment on above: Performed By: #### L 3890.6006, L501.0250, L509.8002, L100.0100 #### [facility] [address] [place], [address] White blood cell (WBC) count Ordered By: Isabel Muñoz on 05-19-2025 WBC (Bld) [#/Vol] 10.5 10*3/uL 4.4-11.0 [facility] - Chemistry and C hemistry - challengeOrdered By: Isabel Muñoz on 2025 Glucose Ql (U) Negative [facility] - UrinalysisOrder ed By: Isabel Muñoz on 2025 Protein Ql (U) Negative [facility] Flocculator Operator Office Visit Reporton 2025 Flocculator Operator Office Visit Report [facility]'[address], [address] [place] [address] OFFICE VISIT Date of Service: 04/24/25 MR#: [id number] Acct: [id number] Name: JOVANYJOSE L HOUGH Rep #: [id number] : 1995 Provider: MIYA Alaniz ams Age/Sex: 30/F Location: [facility] [place] Status: Signed Intake Vital Signs 01/29/25 14:04 03/25/25 15:55 04/24/25 15:11 Height 5 ft 3 in 5 ft 3 in 5 ft 3 in Weight: 194 lb 6 oz BMI 34.4 BP 103/62 Intake Visit Reasons: 24 WK OB Occupational Therapist Assistants Required: No Is patient in pain?: No Allergies No Known Allergies Allergy (Verified 04/24/25 15:14) Medications ???Medication ???Instructions ???Recorded ???Confirmed ???Type multivitamin no.47-iron fum 27 cap PO 12/24/24 04/24/25 History mg-folate no.1 1 mg-dha 300 mg capsule (PNV-DHA) Last Menstrual Period: 11/02/24 Zika: Zika virus screening: Negative : No PFSH PFSH Medical History Cystic fibrosis carrier FH: ovarian cancer Surgical History [place] teeth extracted H/O thumb surgery Family History Grandmother Ovarian cancer, Onset Age: 45 Maternal Heart disease Paternal Grandfather Lung cancer, Onset Age: 80 Paternal Cancer, Onset Age: 80 Paternal- Prostate Mother Diabetes Uncle Heart disease Maternal Father Hyperlipidemia Social History adopted: No household members: spouse housing: house current occupational status: employed current occupation: [employer] current occupational exposures/hazards: No pets and animals: Yes (Avoid litter) pets and animals: cat(s) history of recent travel: Yes (November) out of state: Yes out of country: No sexually active: Yes Smoking Status: Never smoker alcohol intake: current alcohol intake frequency: a few times a month details: not while substance use type: does not use well-balanced diet: daily or most days caffeine: No eating out: 1-3 times/week during the past year weight has: remained stable what type of physical activity do you participate in: walking frequency: 3-4 times per week duration: 15-30 minutes/day zoe/hoahaoism: Yazidi seatbelt use: always do you feel safe at home: Yes additional 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: --[place]- Photo Checker History 1 Elective abortions Hx Para 0 Spontaneous abortions Hx # Term Pregnancies Ectopic pregnancies Hx # Pregnancies Multiple births # of living children HPI 24 WK OB Details: JOSE L MANZO is a 30 year old who presents for routine OB visit. OB Visit WARREN Calculator Estimated Delivery Date Method Current WG Current Estimate 08/09/25 LMP (Certain) 24w 5d Other Estimates 08/10/25 Ultrasound #1 24w 4d Expected Delivery Route/Plan Labor Preferences- CB/BF classes: [] labor support person: [] labor intervention preferences: [] pain management options preferred: [] cut cord/dad catch: [] : [] PP control planned: [] discussed possible routes of delivery and associated risks: [] special requests: [] Specific Issue/Plans Covid status: [] Flu vaccine: [] Tdap vaccine: [] Rhogam: [] LARC form signed: [] Problem list reviewed and updated with the most current plan of care details and appropriate orders placed. Relevant counseling for the gestational age provided. Continue routine care and follow up unless otherwise noted in visit notes/problem list details Initial Weight: 188 lb Date -???-???-???-???-???-???-? ??-???-???-???-???-???- EGA Weight BP Urine Prot -???-???-???-???-???-???-? ??-???-???-???-???-???- Glucose FHR FuHt Pres Dilation -???-???-???-???-???-???-? ??-???-???-???-???-???- Effaced St Visit Note 01/02/25 -???-???-???-???-???-???-? ??-???-???-???-???-???- 8w 5d 188 lb 8 oz (+8 oz) 132/84 -???-???-???-???-???-???-? ??-???-???-???-???-???- 185 -???-???-???-???-???-???-? ??-???-???-???-???-???- KW- CRL cons with dates. Accepts NIPT and carrier. 01/24/25 -???-???-???-???-???-???-? ??-???-???-???-???-???- 11w 6d 190 lb 4 oz (+2 lb 4 oz) 135/82 Negative -???-???-???-???-???-???-? ??-???-???-???-???-???- Negative 175 -???-???-???-???-???-???-? ??-???-???-???-???-???- KW- work in for FHT. had spotting over the last couple days. CRL cons with 12.0 weeks. active fetus on US 01/29/25 -???-???-???-???-???-???-? ??-???-???-???-???-???- 12w 4d 188 lb 4 oz (+4 oz) 120/78 Negative -???-???-???-???-???-???-? ??-???-???-???-???-???- Negative 163 -???-???-???-???-???-???-? ??-???-???-???-???-???- MH-No furthe r vaginal bleeding. Doing well. Br US confir (more content not included)... Normal [facility] - Chemistry and C hemistry - challengeOrdered By: Ceci Hall on 03-25-2025 Glucose Ql (U) Negative [facility] - UrinalysisOrder ed By: Ceci Hall on 03-25-2025 Protein Ql (U) Negative [facility] Flocculator Operator Office Visit Reporton 03-25-2025 Flocculator Operator Office Visit Report [facility]'s [address], [address] [place] [address] OFFICE VISIT Date of Service: 03/25/25 MR#: [id number] Acct: [id number] Name: JOSE L MANZO Rep #: [id number] : 1995 Provider: Dr. Ceci Daniels DO Age/Sex: 29/F Location: [facility] [place] Status: Signed Intake Vital Signs 01/29/25 14:04 02/26/25 15:52 03/25/25 15:55 03/25/25 15:55 Height 5 ft 3 in 5 ft 3 in 5 ft 3 in 5 ft 3 in Weight: 189 lb 8 oz BMI 33.5 BP 127/86 H Intake Visit Reasons: 20 WK OB Occupational Therapist Assistants Required: No Is patient in pain?: No Allergies No Known Allergies Allergy (Verified 03/25/25 15:54) Medications ???Medication ???Instructions ???Recorded ???Confirmed ???Type multivitamin no.47-iron fum 27 cap PO 12/24/24 03/25/25 History mg-folate no.1 1 mg-dha 300 mg capsule (PNV-DHA) Last Menstrual Period: 11/02/24 Zika: Zika virus screening: Negative : No PFSH PFSH Medical History Cystic fibrosis carrier FH: ovarian cancer Surgical History [place] teeth extracted H/O thumb surgery Family History Grandmother Ovarian cancer, Onset Age: 45 Maternal Heart disease Paternal Grandfather Lung cancer, Onset Age: 80 Paternal Cancer, Onset Age: 80 Paternal- Prostate Mother Diabetes Uncle Heart disease Maternal Father Hyperlipidemia Social History adopted: No household members: spouse housing: house current occupational status: employed current occupation: [employer] current occupational exposures/hazards: No pets and animals: Yes (Avoid litter) pets and animals: cat(s) history of recent travel: Yes (November) out of state: Yes out of country: No sexually active: Yes Smoking Status: Never smoker alcohol intake: current alcohol intake frequency: a few times a month details: not while substance use type: does not use well-balanced diet: daily or most days caffeine: No eating out: 1-3 times/week during the past year weight has: remained stable what type of physical activity do you participate in: walking frequency: 3-4 times per week duration: 15-30 minutes/day zoe/hoahaoism: Yazidi seatbelt use: always do you feel safe at home: Yes additional 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: --[place]- Photo Checker History 1 Elective abortions Hx Para 0 Spontaneous abortions Hx # Term Pregnancies Ectopic pregnancies Hx # Pregnancies Multiple births # of living children HPI 20 WK OB Details: JOSE L MANZO is a 29 year old who presents for routine OB visit. OB Visit WARREN Calculator Estimated Delivery Date Method Current WG Current Estimate 08/09/25 LMP (Certain) 20w 3d Other Estimates 08/10/25 Ultrasound #1 20w 2d Expected Delivery Route/Plan Labor Preferences- CB/BF classes: [] labor support person: [] labor intervention preferences: [] pain management options preferred: [] cut cord/dad catch: [] : [] PP control planned: [] discussed possible routes of delivery and associated risks: [] special requests: [] Specific Issue/Plans Covid status: [] Flu vaccine: [] Tdap vaccine: [] Rhogam: [] LARC form signed: [] Problem list reviewed and updated with the most current plan of care details and appropriate orders placed. Relevant counseling for the gestational age provided. Continue routine care and follow up unless otherwise noted in visit notes/problem list details Initial Weight: 188 lb Date -???-???-???-???-???-???-? ??-???-???-???-???-???- EGA Weight BP Urine Prot -???-???-???-???-???-???-? ??-???-???-???-???-???- Glucose FHR FuHt Pres Dilation -???-???-???-???-???-???-? ??-???-???-???-???-???- Effaced St Visit Note 01/02/25 -???-???-???-???-???-???-? ??-???-???-???-???-???- 8w 5d 188 lb 8 oz (+8 oz) 132/84 -???-???-???-???-???-???-? ??-???-???-???-???-???- 185 -???-???-???-???-???-???-? ??-???-???-???-???-???- KW- CRL cons with dates. Accepts NIPT and carrier. 01/24/25 -???-???-???-???-???-???-? ??-???-???-???-???-???- 11w 6d 190 lb 4 oz (+2 lb 4 oz) 135/82 Negative -???-???-???-???-???-???-? ??-???-???-???-???-???- Negative 175 -???-???-???-???-???-???-? ??-???-???-???-???-???- KW- work in for FHT. had spotting over the last couple days. CRL cons with 12.0 weeks. active fetus on US 01/29/25 -???-???-???-???-???-???-? ??-???-???-???-???-???- 12w 4d 188 lb 4 oz (+4 oz) 120/78 Negative -???-???-???-???-???-???-? ??-???-???-???-???-???- Negative 163 -???-???-???-???-???-???-? ??-???-???-???-???-???- MH-No furthe (more content not included)... Normal [facility] - Chemistry and C hemistry - challengeOrdered By: Edita Pena on 02-26-2025 Glucose Ql (U) Negative [facility] - UrinalysisOrder ed By: Edita Pena on 02-26-2025 Protein Ql (U) Negative [facility] Flocculator Operator Office Visit Reporton 02-26-2025 Flocculator Operator Office Visit Report [facility]'[address], [facility] [address] [place] [address] OFFICE VISIT Date of Service: 02/26/25 MR#: [id number] Acct: [id number] Name: JOSE L MANZO Rep #: [id number] : 1995 Provider: HERMILA richmond Age/Sex: 29/F Location: [facility] [place] Status: Signed Intake Vital Signs 01/02/25 14:13 01/29/25 14:04 02/26/25 15:52 Height 5 ft 3 in 5 ft 3 in 5 ft 3 in Weight: 190 lb 4 oz BMI 33.7 BP 114/77 Intake Visit Reasons: 16 wk ob Occupational Therapist Assistants Required: No Is patient in pain?: No Feel stressed/tense/nervous/anx ious/difficulty sleeping: not at all Allergies No Known Allergies Allergy (Verified 02/26/25 15:53) Medications ???Medication ???Instructions ???Recorded ???Confirmed ???Type multivitamin no.47-iron fum 27 cap PO 12/24/24 02/26/25 History mg-folate no.1 1 mg-dha 300 mg capsule (PNV-DHA) Last Menstrual Period: 11/02/24 Zika: Zika virus screening: Negative : No PFSH PFSH Medical History Cystic fibrosis carrier FH: ovarian cancer Surgical History [place] teeth extracted H/O thumb surgery Family History Grandmother Ovarian cancer, Onset Age: 45 Maternal Heart disease Paternal Grandfather Lung cancer, Onset Age: 80 Paternal Cancer, Onset Age: 80 Paternal- Prostate Mother Diabetes Uncle Heart disease Maternal Father Hyperlipidemia Social History adopted: No household members: spouse housing: house current occupational status: employed current occupation: [employer] current occupational exposures/hazards: No pets and animals: Yes (Avoid litter) pets and animals: cat(s) history of recent travel: Yes (November) out of state: Yes out of country: No sexually active: Yes Smoking Status: Never smoker alcohol intake: current alcohol intake frequency: a few times a month details: not while substance use type: does not use well-balanced diet: daily or most days caffeine: No eating out: 1-3 times/week during the past year weight has: remained stable what type of physical activity do you participate in: walking frequency: 3-4 times per week duration: 15-30 minutes/day zoe/hoahaoism: Yazidi seatbelt use: always do you feel safe at home: Yes additional 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: --[place]ade- Photo Checker History 1 Elective abortions Hx Para 0 Spontaneous abortions Hx # Term Pregnancies Ectopic pregnancies Hx # Pregnancies Multiple births # of living children HPI 16 wk ob Details: JOSE L MANZO is a 29 year old who presents for routine OB visit. OB Visit WARREN Calculator Estimated Delivery Date Method Current WG Current Estimate 08/09/25 LMP (Certain) 16w 4d Other Estimates 08/10/25 Ultrasound #1 16w 3d Expected Delivery Route/Plan Labor Preferences- CB/BF classes: [] labor support person: [] labor intervention preferences: [] pain management options preferred: [] cut cord/dad catch: [] : [] PP control planned: [] discussed possible routes of delivery and associated risks: [] special requests: [] Specific Issue/Plans Covid status: [] Flu vaccine: [] Tdap vaccine: [] Rhogam: [] LARC form signed: [] Problem list reviewed and updated with the most current plan of care details and appropriate orders placed. Relevant counseling for the gestational age provided. Continue routine care and follow up unless otherwise noted in visit notes/problem list details Initial Weight: 188 lb Date -???-???-???-???-???-???-? ??-???-???-???-???-???- EGA Weight BP Urine Prot -???-???-???-???-???-???-? ??-???-???-???-???-???- Glucose FHR FuHt Pres Dilation -???-???-???-???-???-???-? ??-???-???-???-???-???- Effaced St Visit Note 01/02/25 -???-???-???-???-???-???-? ??-???-???-???-???-???- 8w 5d 188 lb 8 oz (+8 oz) 132/84 -???-???-???-???-???-???-? ??-???-???-???-???-???- 185 -???-???-???-???-???-???-? ??-???-???-???-???-???- KW- CRL cons with dates. Accepts NIPT and carrier. 01/24/25 -???-???-???-???-???-???-? ??-???-???-???-???-???- 11w 6d 190 lb 4 oz (+2 lb 4 oz) 135/82 Negative -???-???-???-???-???-???-? ??-???-???-???-???-???- Negative 175 -???-???-???-???-???-???-? ??-???-???-???-???-???- KW- work in for FHT. had spotting over the last couple days. CRL cons with 12.0 weeks. active fetus on US 01/29/25 -???-???-???-???-???-???-? ??-???-???-???-???-???- 12w 4d 188 lb 4 oz (+4 oz) 120/78 Negative -???-???-???-???-???-???-? ??-???-???-???-???-???- Negative 163 -???-???-???-???-???-???-? ??-???-???-??? (more content not included)... Normal [facility] Absolute lymphocyte countOrd ered By: Ceci Hall on 01-29-2025 Lymphocytes Auto (Unsp spec) [#/Vol] 2.00 10*3/uL 0.83-4.[address] [facility] Absolute neutrophil countOrd ered By: Ceci Hall on 01-29-2025 Neutrophils (Bld) [#/Vol] 9.0 10*3/uL High 2.0-7.[address] [facility] Automated lymphocyte count a s percentage of total leukocytesOrdered By: Ceci Hall on 01-29-2025 Lymphocytes/100 WBC Auto (Unsp spec) 16.8 % Low 19-[address] [facility] Basophil percentageOrdered B y: Ceci Hall on 01-29-2025 Basophils/100 WBC (Bld) 0.4 % 0-[address] [facility] CBC W/Diff, Automatedon 01-19-2024 Absolute Lymph 2.00 X10 3/uL Normal 0.83-4.[address] [facility] Comment on above: Performed By: #### L 3890.6102, L100.0100, BTS, L3890.6006, L509.8002, L501.9985, L3890.6301, L509.4006 ####[facility] [address] [place], [address] Absolute Neut 9.0 X10 3/uL High 2.0-7.[address] [facility] Comment on above: Performed By: #### L 3890.6102, L100.0100, BTS, L3890.6006, L509.8002, L501.9985, L3890.6301, L509.4006 ####[facility] [address] [place], [address] Basophils/100 WBC (Bld) 0.4 % Normal 0-[address] [facility] Comment on above: Performed By: #### L 3890.6102, L100.0100, BTS, L3890.6006, L509.8002, L501.9985, L3890.6301, L509.4006 ####[facility] [address] [place], [address] Eosinophils/100 WBC (Bld) 0.9 % Normal 0-[address] [facility] Comment on above: Performed By: #### L 3890.6102, L100.0100, BTS, L3890.6006, L509.8002, L501.9985, L3890.6301, L509.4006 ####[facility] [address] [place], [address] Erythrocyte distribution width (RBC) [Ratio] 12.2 % Normal 11.6-14.[address] [facility] Comment on above: Performed By: #### L 3890.6102, L100.0100, BTS, L3890.6006, L509.8002, L501.9985, L3890.6301, L509.4006 ####[facility] [address] [place], [address] Hematocrit (Bld) [Volume fraction] 39.2 % Normal 37-[address] [facility] Comment on above: Performed By: #### L 3890.6102, L100.0100, BTS, L3890.6006, L509.8002, L501.9985, L3890.6301, L509.4006 ####[facility] [address] [place], [address] Hemoglobin (Bld) [Mass/Vol] 13.6 g/dL Normal 12.0-15.[address] [facility] Comment on above: Performed By: #### L 3890.6102, L100.0100, BTS, L3890.6006, L509.8002, L501.9985, L3890.6301, L509.4006 ####[facility] [address] [place], [address] IG% 0.500 Normal 0.0-0.[address] [facility] Comment on above: Result Comment: IG% - Immature Granulocytes (promyelocytes, myelocytes and metamyelocytes) > 1% indicates that a LEFT SHIFT is Present. Performed By: #### L 3890.6102, L100.0100, BTS, L3890.6006, L509.8002, L501.9985, L3890.6301, L509.4006 ####[facility] [address] [place], [address] Lymphocytes/100 WBC (Bld) 16.8 % Low 19-[address] [facility] Comment on above: Performed By: #### L 3890.6102, L100.0100, BTS, L3890.6006, L509.8002, L501.9985, L3890.6301, L509.4006 ####[facility] [address] [place], [address] MCH (RBC) [Entitic mass] 29.2 pg Normal 27.0-32.[address] [facility] Comment on above: Performed By: #### L 3890.6102, L100.0100, BTS, L3890.6006, L509.8002, L501.9985, L3890.6301, L509.4006 ####[facility] [address] [place], [address] MCHC (RBC) [Mass/Vol] 34.7 g/dL Normal 32-36 [facility] Comment on above: Performed By: #### L 3890.6102, L100.0100, BTS, L3890.6006, L509.8002, L501.9985, L3890.6301, L509.4006 ####[facility] [address] [place], [address] MCV (RBC) [Entitic vol] 84.1 fL Normal 81-[address] [facility] Comment on above: Performed By: #### L 3890.6102, L100.0100, BTS, L3890.6006, L509.8002, L501.9985, L3890.6301, L509.4006 ####[facility] [address] [place], [address] Monocytes/100 WBC (Bld) 5.3 % Normal 0-[address] [facility] Comment on above: Performed By: #### L 3890.6102, L100.0100, BTS, L3890.6006, L509.8002, L501.9985, L3890.6301, L509.4006 ####[facility] [address] [place], [address] Neutrophils/100 WBC (Bld) 76.1 % High 47-[address] [facility] Comment on above: Performed By: #### L 3890.6102, L100.0100, BTS, L3890.6006, L509.8002, L501.9985, L3890.6301, L509.4006 ####[facility] [address] [place], [address] Nucleated RBC (Bld) [#/Vol] 0 10*3/uL Normal 0-[address] [facility] Comment on above: Performed By: #### L 3890.6102, L100.0100, BTS, L3890.6006, L509.8002, L501.9985, L3890.6301, L509.4006 ####[facility] [address] [place], [address] Platelet mean volume (Bld) [Entitic vol] 10.6 fL Normal 6.2-12.[address] [facility] Comment on above: Performed By: #### L 3890.6102, L100.0100, BTS, L3890.6006, L509.8002, L501.9985, L3890.6301, L509.4006 ####[facility] [address] [place], [address] Platelets (Bld) [#/Vol] 275 10*3/uL Normal 150-[address] [facility] Comment on above: Performed By: #### L 3890.6102, L100.0100, BTS, L3890.6006, L509.8002, L501.9985, L3890.6301, L509.4006 ####[facility] [address] [place], [address] RBC (Bld) [#/Vol] 4.66 10*6/uL Normal 4.2-5.4 [facility] Comment on above: Performed By: #### L 3890.6102, L100.0100, BTS, L3890.6006, L509.8002, L501.9985, L3890.6301, L509.4006 ####[facility] [address] [place], [address] RDW SD 36.7 fl Normal 35.1-43.[address] [facility] Comment on above: Performed By: #### L 3890.6102, L100.0100, BTS, L3890.6006, L509.8002, L501.9985, L3890.6301, L509.4006 ####[facility] [address] [place], [address] WBC (Bld) [#/Vol] 11.9 10*3/uL High 4.4-11.0 [facility] Comment on above: Performed By: #### L 3890.6102, L100.0100, BTS, L3890.6006, L509.8002, L501.9985, L3890.6301, L509.4006 ####[facility] [address] [place], [address] Eosinophil percentageOrdered By: Ceci Hall on 01-29-2025 Eosinophils/100 WBC (Bld) 0.9 % 0-[address] [facility] Erythrocyte distribution wid th ratioOrdered By: Ceci Hall on 01-29-2025 Erythrocyte distribution width (RBC) [Ratio] 12.2 % 11.6-14.[address] [facility] Erythrocyte distribution wid th standard deviationOrdered By: Ceci Hall on 01-29-2025 Erythrocyte distribution width (RBC) [Ratio] 36.7 fl 35.1-43.[address] [facility] HIVon 01-29-2025 HIV Non-Reactive Normal Nonreactive [facility] Comment on above: Result Comment: Non- Reactive Reactive Repeatedly reactive samples must be confirmed according to CDC recommended confirmatory algorithms. The subresults for either HIVAG or AHIV can be used as an aid in the selection of the confirmation algorithm for reactive samples. Send out specimens with Reactive results to [facility] for confirmation. Order the HIV antibody detection and differentiation: lc#[id number] Performed By: #### L 3890.6102, L100.0100, BTS, L3890.6006, L509.8002, L501.9985, L3890.6301, L509.4006 ####[facility] [address] [place], [place], [id number] Hematocrit Auto (Bld) [Volum e fraction]Ordered By: Ceci Hall on 01-29-2025 Hematocrit (Bld) [Volume fraction] 39.2 % 37-[address] [facility] Hemoglobin A1con 01-29-2025 HbA1c (Bld) [Mass fraction] 5.0 % Normal <=5.[address] [facility] Comment on above: Result Comment: Norm al < 5.7 % Prediabetic 5.7 - 6.4 % Diabetic >or= 6.5 % Please note range changes. Performed By: #### L 3890.6102, L100.0100, BTS, L3890.6006, L509.8002, L501.9985, L3890.6301, L509.4006 ####[facility] [address] [place], [place], [phone]) Hemoglobin A1c percentageOrd ered By: Ceci Hall on 01-29-2025 HbA1c (Bld) [Mass fraction] 5.0 % <5.[address] [facility] Comment on above: Normal < 5.7 % Predi abetic 5.7 - 6.4 % Diabetic >or= 6.5 % Please note range changes. Hemoglobin measurementOrdere d By: Ceci Hlal on 01-29-2025 Hemoglobin (Bld) [Mass/Vol] 13.6 g/dL 12.0-15.[address] [facility] Hepatitis C Antibodyon 01-29 Hepatitis C Ab Non-Reactive Normal Nonreactive [facility] Comment on above: Result Comment: Reac tive: Presumptive evidence of antibodies to HCV. Follow CDC recommendations for supplemental testing. Non-Reactive: Antibodies to HCV were not detected; does not exclude the possibility of exposure to HCV Reactive Results are presumptive evidence of antibodies to HCV. Follow CDC recommendations for supplemental testing. Order confirmation testing: HCV Quant by PCR testing - HCVPCR #[id number] Non Reactive: < 0.8 Equivocal: >/= 0.8 to < 1.0 Reactive: >/= 1.0 The [facility] requires that a reactive/equivocal HCV antibody result be sent out for confirmation. HCV Quant by PCR testing. Performed By: #### L 3890.6102, L100.0100, BTS, L3890.6006, L509.8002, L501.9985, L3890.6301, L509.4006 ####[facility] [address] [place], [place], [id number] Immature granulocytes/100 WB C Auto (Bld)Ordered By: Ceci Hall on 01-29-2025 Immature granulocytes/100 WBC (Bld) 0.500 % 0.0-0.[address] [facility] Comment on above: IG% - Immature Granu locytes (promyelocytes, myelocytes and metamyelocytes) > 1% indicates that a LEFT SHIFT is Present. L3890.6102on 01-29-2025 HEP B Surf Ag Non-Reactive Normal Nonreactive [facility] Comment on above: Result Comment: Reac tive: Presumptive evidence of HBV. Repeatedly reactive samples must be confirmed using a neutralization test ([employer] HBsAg Confirmatory Test) Non-Reactive: HBsAg not detected; does not exclude the possibility of exposure to HBV Performed By: #### L 3890.6102, L100.0100, BTS, L3890.6006, L509.8002, L501.9985, L3890.6301, L509.4006 ####[facility] [address] [place], [place], [id number] L509.4006on 01-29-2025 Rubella IgG REAC Normal Nonreactive [facility] Comment on above: Result Comment: Anti body Result: Interpretation Non-Reactive: Non-Immune Reactive: Immune The following results were obtained with the [employer] Rubella IgG assay. Results from assays of other manufacturers cannot be used interchangeably. Performed By: #### L 3890.6102, L100.0100, BTS, L3890.6006, L509.8002, L501.9985, L3890.6301, L509.4006 ####[facility] [address] [place], [address] Laboratory - Chemistry and C hemistry - challengeOrdered By: Edita Pena on 01-29-2025 Glucose Ql (U) Negative [facility] Laboratory - Microbiology an d Antimicrobial susceptibilityOrdered By: Ceci Hall on 01-29-2025 HBV surface Ag Ql (S) Non-Reactive Nonreactive [facility] Comment on above: Reactive: Presumptiv e evidence of HBV. Repeatedly reactive samples must be confirmed using a neutralization test ([employer] HBsAg Confirmatory Test)Non-Reactive: HBsAg not detected; does not exclude the possibility of exposure to HBV Laboratory - UrinalysisOrder ed By: Edita Pena on 01-29-2025 Protein Ql (U) Negative [facility] MCV (mean corpuscular volume ) determinationOrdered By: Ceci Hall on 01-29-2025 MCV (RBC) [Entitic vol] 84.1 fL 81-[address] [facility] Mean corpuscular hemoglobin (MCH) determinationOrdered By: Ceci Hall on 01-29-2025 MCH (RBC) [Entitic mass] 29.2 pg 27.0-32.[address] [facility] Mean corpuscular hemoglobin concentration (MCHC) determinationOrdered By: Ceci Hall on 01-29-2025 MCHC (RBC) [Mass/Vol] 34.7 g/dL 32-36 [facility] Mean platelet volume determi nationOrdered By: Ceci Hall on 01-29-2025 Platelet mean volume (Bld) [Entitic vol] 10.6 fL 6.2-12.[address] [facility] Monocyte percentageOrdered B y: Ceci Hall on 01-29-2025 Monocytes/100 WBC (Bld) 5.3 % 0-[address] [facility] NATERAon 01-29-2025 NATURA SEE SCANNED REPORT Normal [facility] Comment on above: Performed By: #### L 900.0098 ####[facility] [address] [place], [address] Neutrophil percentageOrdered By: Ceci Hall on 01-29-2025 Neutrophils/100 WBC (Bld) 76.1 % High 47-[address] [facility] No Panel InformationOrdered By: Ceci Hall on 01-29-2025 HIV (1&2) Antibody Non-Reactive Nonreactive [facility] Comment on above: Non-ReactiveReactive Repeatedly reactive samples must be confirmed according to CDC recommended confirmatory algorithms. The subresults for either HIVAG or AHIV can be used as an aid in the selection of the confirmation algorithm for reactive samples.Send out specimens with Reactive results to [facility] for confirmation.Order the HIV antibody detection and differentiation: #[id number] Nucleated red blood cell per centageOrdered By: Ceci Hall on 01-29-2025 Nucleated RBC/100 WBC (Bld) [Ratio] 0 % 0-[address] [facility] Flocculator Operator Office Visit Reporton 01-29-2025 Flocculator Operator Office Visit Report [facility]'[address], [address] [place] [address] OFFICE VISIT Date of Service: 01/29/25 MR#: [id number] Acct: [id number] Name: JOSE L MANZO Rep #: [id number] : 1995 Provider: HERMILA richmond Age/Sex: 29/F Location: [facility] [place] Status: Signed Intake Vital Signs 03/04/24 14:15 01/24/25 14:51 01/29/25 14:04 Height 5 ft 3 in 5 ft 3 in 5 ft 3 in Weight: 188 lb 4 oz BMI 33.3 BP 120/78 Intake Visit Reasons: 12wk ob Chief Complaint: 12 Week OB Occupational Therapist Assistants Required: No Is patient in pain?: No Allergies No Known Allergies Allergy (Verified 01/29/25 14:06) Medications ???Medication ???Instructions ???Recorded ???Confirmed ???Type multivitamin no.47-iron fum 27 cap PO 12/24/24 01/29/25 History mg-folate no.1 1 mg-dha 300 mg capsule (PNV-DHA) Last Menstrual Period: 11/02/24 Zika: Zika virus screening: Negative : No PFSH PFSH Medical History FH: ovarian cancer Surgical History [place] teeth extracted H/O thumb surgery Family History Grandmother Ovarian cancer, Onset Age: 45 Maternal Heart disease Paternal Grandfather Lung cancer, Onset Age: 80 Paternal Cancer, Onset Age: 80 Paternal- Prostate Mother Diabetes Uncle Heart disease Maternal Father Hyperlipidemia Social History adopted: No household members: spouse housing: house current occupational status: employed current occupation: [employer] current occupational exposures/hazards: No pets and animals: Yes (Avoid litter) pets and animals: cat(s) history of recent travel: Yes (November) out of state: Yes out of country: No sexually active: Yes Smoking Status: Never smoker alcohol intake: current alcohol intake frequency: a few times a month details: not while substance use type: does not use well-balanced diet: daily or most days caffeine: No eating out: 1-3 times/week during the past year weight has: remained stable what type of physical activity do you participate in: walking frequency: 3-4 times per week duration: 15-30 minutes/day zoe/hoahaoism: Yazidi seatbelt use: always do you feel safe at home: Yes additional 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: --[place]- Photo Checker History 1 Elective abortions Hx Para 0 Spontaneous abortions Hx # Term Pregnancies Ectopic pregnancies Hx # Pregnancies Multiple births # of living children HPI 12wk ob Details: JOSE L MANZO is a 29 year old who presents for routine OB visit. OB Visit WARREN Calculator Estimated Delivery Date Method Current WG Current Estimate 08/09/25 LMP (Certain) 12w 4d Other Estimates 08/10/25 Ultrasound #1 12w 3d Expected Delivery Route/Plan Labor Preferences- CB/BF classes: [] labor support person: [] labor intervention preferences: [] pain management options preferred: [] cut cord/dad catch: [] : [] PP control planned: [] discussed possible routes of delivery and associated risks: [] special requests: [] Specific Issue/Plans Covid status: [] Flu vaccine: [] Tdap vaccine: [] Rhogam: [] LARC form signed: [] Problem list reviewed and updated with the most current plan of care details and appropriate orders placed. Relevant counseling for the gestational age provided. Continue routine care and follow up unless otherwise noted in visit notes/problem list details Initial Weight: 188 lb Date -???-???-???-???-???-???-? ??-???-???-???-???-???- EGA Weight BP Urine Prot -???-???-???-???-???-???-? ??-???-???-???-???-???- Glucose FHR FuHt Pres Dilation -???-???-???-???-???-???-? ??-???-???-???-???-???- Effaced St Visit Note 01/02/25 -???-???-???-???-???-???-? ??-???-???-???-???-???- 8w 5d 188 lb 8 oz (+8 oz) 132/84 -???-???-???-???-???-???-? ??-???-???-???-???-???- 185 -???-???-???-???-???-???-? ??-???-???-???-???-???- KW- CRL cons with dates. Accepts NIPT and carrier. 01/24/25 -???-???-???-???-???-???-? ??-???-???-???-???-???- 11w 6d 190 lb 4 oz (+2 lb 4 oz) 135/82 Negative -???-???-???-???-???-???-? ??-???-???-???-???-???- Negative 175 -???-???-???-???-???-???-? ??-???-???-???-???-???- KW- work in for FHT. had spotting over the last couple days. CRL cons with 12.0 weeks. active fetus on US 01/29/25 -???-???-???-???-???-???-? ??-???-???-???-???-???- 12w 4d 188 lb 4 oz (+4 oz) 120/78 Negative -???-???-???-???-???-???-? ??-???-???-???-???-???- Negative 163 -???-???-???-???-???-???-? ??-???-???-???-???-???- -No furthe r vaginal bleeding. 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 Normal [facility] Platelet countOrdered By: Jovan Hall on 01-29-2025 Platelets (Bld) [#/Vol] 275 10*3/uL 150-[address] [facility] RBC Auto (Bld) [#/Vol]Ordere d By: Ceci Hall on 01-29-2025 RBC (Bld) [#/Vol] 4.66 10*6/uL 4.2-5.4 [facility] Syphilis Antibodieson 2024 Syphilis Abs Non-Reactive Normal Nonreactive [facility] Comment on above: Performed By: #### L 3890.6102, L100.0100, BTS, L3890.6006, L509.8002, L501.9985, L3890.6301, L509.4006 ####[facility] [address] [place], [address] Type AND Screenon 01-29-2025 ABO and Rh group Nom (Bld) Blood group O Rh(D) positive Normal [facility] Comment on above: Order Comment: PN Performed By: #### L 3890.6102, L100.0100, BTS, L3890.6006, L509.8002, L501.9985, L3890.6301, L509.4006 ####[facility] [address] [place], [address] White blood cell (WBC) count Ordered By: Ceci Hall on 01-29-2025 WBC (Bld) [#/Vol] 11.9 10*3/uL High 4.4-11.0 [facility] Laboratory - Chemistry and C hemistry - challengeOrdered By: Caro Cho on 01-24-2025 Glucose Ql (U) Negative [facility] Laboratory - UrinalysisOrder ed By: Caro Cho on 01-24-2025 Protein Ql (U) Negative [facility] Flocculator Operator Office Visit Reporton 01-24-2025 Flocculator Operator Office Visit Report [facility] [address], [address] [place] [address] OFFICE VISIT Date of Service: 01/24/25 MR#: [id number] Acct: [id number] Name: JOSE L MANZO Rep #: [id number] : 1995 Provider: MIYA Alaniz ams Age/Sex: 29/F Location: [facility] [place] Status: Signed Intake Vital Signs 01/02/25 14:13 01/24/25 11:10 01/24/25 14:51 Height 5 ft 3 in 5 ft 3 in 5 ft 3 in Weight: 190 lb 4 oz BMI 33.7 BP 135/82 H Intake Visit Reasons: Heartbeat Check *spotting Chief Complaint: Spotting- Heartbeat check Occupational Therapist Assistants Required: No Is patient in pain?: No Allergies No Known Allergies Allergy (Verified 01/24/25 14:50) Medications ???Medication ???Instructions ???Recorded ???Confirmed ???Type multivitamin no.47-iron fum 27 cap PO 12/24/24 01/24/25 History mg-folate no.1 1 mg-dha 300 mg capsule (PNV-DHA) Last Menstrual Period: 11/02/24 Zika: Zika virus screening: Negative : No PFSH PFSH Surgical History [place] teeth extracted H/O thumb surgery Family History Grandmother Ovarian cancer, Onset Age: 45 Maternal Heart disease Paternal Grandfather Lung cancer, Onset Age: 80 Paternal Cancer, Onset Age: 80 Paternal- Prostate Mother Diabetes Uncle Heart disease Maternal Father Hyperlipidemia Social History adopted: No household members: spouse housing: house current occupational status: employed current occupation: [employer] current occupational exposures/hazards: No pets and animals: Yes (Avoid litter) pets and animals: cat(s) history of recent travel: Yes (November) out of state: Yes out of country: No sexually active: Yes Smoking Status: Never smoker alcohol intake: current alcohol intake frequency: a few times a month details: not while substance use type: does not use well-balanced diet: daily or most days caffeine: No eating out: 1-3 times/week during the past year weight has: remained stable what type of physical activity do you participate in: walking frequency: 3-4 times per week duration: 15-30 minutes/day zoe/hoahaoism: Yazidi seatbelt use: always do you feel safe at home: Yes additional 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: --Wade- Photo Checker History 1 Elective abortions Hx Para 0 Spontaneous abortions Hx # Term Pregnancies Ectopic pregnancies Hx # Pregnancies Multiple births # of living children HPI Heartbeat Check *spotting Details: JOSE L MANZO is a 29 year old who presents for routine OB visit. OB Visit WARREN Calculator Estimated Delivery Date Method Current WG Current Estimate 08/09/25 LMP (Certain) 11w 6d Other Estimates 08/10/25 Ultrasound #1 11w 5d Expected Delivery Route/Plan Labor Preferences- CB/BF classes: [] labor support person: [] labor intervention preferences: [] pain management options preferred: [] cut cord/dad catch: [] : [] PP control planned: [] discussed possible routes of delivery and associated risks: [] special requests: [] Specific Issue/Plans Covid status: [] Flu vaccine: [] Tdap vaccine: [] Rhogam: [] LARC form signed: [] Problem list reviewed and updated with the most current plan of care details and appropriate orders placed. Relevant counseling for the gestational age provided. Continue routine care and follow up unless otherwise noted in visit notes/problem list details Initial Weight: 188 lb Date -???-???-???-???-???-???-? ??-???-???-???-???-???- EGA Weight BP Urine Prot -???-???-???-???-???-???-? ??-???-???-???-???-???- Glucose FHR FuHt Pres Dilation -???-???-???-???-???-???-? ??-???-???-???-???-???- Effaced St Visit Note 01/02/25 -???-???-???-???-???-???-? ??-???-???-???-???-???- 8w 5d 188 lb 8 oz (+8 oz) 132/84 -???-???-???-???-???-???-? ??-???-???-???-???-???- 185 -???-???-???-???-???-???-? ??-???-???-???-???-???- KW- CRL cons with dates. Accepts NIPT and carrier. 01/24/25 -???-???-???-???-???-???-? ??-???-???-???-???-???- 11w 6d 190 lb 4 oz (+2 lb 4 oz) 135/82 -???-???-???-???-???-???-? ??-???-???-???-???-???- 175 -???-???-???-???-???-???-? ??-???-???-???-???-???- KW- work in for FHT. had spotting over the last couple days. CRL cons with 12.0 weeks. active fetus on US ACOG First Trimester First Trimester: Desire for , Alcohol, Tobacco Cessation, Illicit/Recreational Drug/Substance Use, Intimate Partner Violence, Barriers to care, Unstable Housing, Communication Barriers, Environmental/Work Hazards, Anticipated Course of Care, Toxoplasmosis Precations, Use of Any m (more content not included)... Normal [facility] PAP I-G w/rfx hrHPV-Aptimaon 01-07-2025 ADEQ Comment Normal . [facility] Comment on above: Order Comment: Coy gaines Comment: [id number] Comment: No. of containers..01 ThinPrep Vial Result Comment: Sati sfactory for evaluation. No endocervical component is identified. An endocervical component is not commonly seen in the patient. Performed By: #### L 7000.1800, L7400.0353, M100.2200 ####[facility] [address] [place], [address] COMM . Normal . [facility] Comment on above: Order Comment: Coy gaines Comment: [id number] Comment: No. of containers..01 ThinPrep Vial Performed By: #### L 7000.1800, L7400.0353, M100.2200 ####[facility] [address] [place], [place], [address] COMMENT Comment Normal . [facility] Comment on above: Order Comment: Speci men Comment: [id number] Comment: No. of containers..01 ThinPrep Vial Result Comment: This liquid based ThinPrep(R) pap test was screened with the use of an image guided system. Performed By: #### L 7000.1800, L7400.0353, M100.2200 ####[facility] [address] [place], [place], [id number] DIAG Comment Normal . [facility] Comment on above: Order Comment: Speci men Comment: [id number] Comment: No. of containers..01 ThinPrep Vial Result Comment: NEGA TIVE FOR INTRAEPITHELIAL LESION OR MALIGNANCY. Performed By: #### L 7000.1800, L7400.0353, M100.2200 ####[facility] [address] [place], [place], [address] HPV RFLX Comment Normal . [facility] Comment on above: Order Comment: Speci men Comment: [id number] Comment: No. of containers..01 ThinPrep Vial Result Comment: The HPV DNA reflex criteria were not met with this specimen result therefore, no HPV testing was performed. Performed at: - [facility] [id number] Paper Bags Sewing Machine Operator: Nereida Garcia MD, Phone: [phone] Performed By: #### L 7000.1800, L7400.0353, M100.2200 ####[facility] [address] [place], [place], [address] PAPSMR Comment Normal . [facility] Comment on above: Order Comment: Speci men Comment: [id number] Comment: No. of containers..01 ThinPrep Vial Result Comment: The Pap smear is a screening test designed to aid in the detection of premalignant and malignant conditions of the uterine cervix. It is not a diagnostic procedure and should not be used as the sole means of detecting cervical cancer. Both false-positive and false-negative reports do occur. Performed By: #### L 7000.1800, L7400.0353, M100.2200 ####[facility] [address] [place], [address] PERFORM Comment Normal . [facility] Comment on above: Order Comment: Speci men Comment: [id number] Comment: No. of containers..01 ThinPrep Vial Result Comment: Carol Ann Car, Educational Program Director (ASCP) Performed By: #### L 7000.1800, L7400.0353, M100.2200 ####[facility] [address] [place], [address] Chlamydia/GC DEEPALI aptimaon CHLAMY,NUC ACID Negative Normal Negative [facility] Comment on above: Performed By: #### L 7000.1800, L7400.0353, M100.2200 ####[facility] [address] [place], [address] GC BY NUC ACID Negative Normal Negative [facility] Comment on above: Result Comment: Perf ormed at: =G - [facility] [address] [id number] Paper Bags Sewing Machine Operator: Nereida Garcia MD, Phone: [phone] Performed By: #### L 7000.1800, L7400.0353, M100.2200 ####[facility] [address] [place], [address] Urine Cultureon 01-03-2025 URC Culture exhibits no growth. Normal [facility] Comment on above: Performed By: #### L 7000.1800, L7400.0353, M100.2200 ####[facility] [address] [place], [address] Cervical or vagninal specime n microscopic examination by cytology stain (reported asOrdered By: Ceci Hall on 01-02-2025 Cytology report Cyto stain Doc (Cvx/Vag) Comment . [facility] Comment on above: The Pap smear is a s creening test designed to aid in thedetection of premalignant and malignant conditions of theuterine cervix. It is not a diagnostic procedure andshould not be used as the sole means of detecting cervicalcancer. Both false-positive and false-negative reports dooccur. Chlamydia trachomatis rRNA d etection by probe and target amplification methodOrdered By: Ceci Hall on 01-02-2025 C. trachomatis rRNA DEEPALI+probe Ql (Unsp spec) Negative Negative [facility] Laboratory - CytologyOrdered By: Ceci Hall on 01-02-2025 Educational Program Director Cyto stain Nom (Cvx/Vag) [ID] Comment . [facility] Comment on above: Amita Car Cytolog ist (ASCP) Laboratory - Miscellaneous t estsOrdered By: Ceci Hall on 01-02-2025 Service comment (Unsp spec) [Interp] . . [facility] Neisseria gonorrhoeae nuclei c acid detection by amplified probe techniqueOrdered By: Ceci Hall on 01-02-2025 N. gonorrhoeae DNA DEEPALI+probe Ql (Unsp spec) Negative Negative [facility] Comment on above: Performed at: =[address] [id number] Director: Nereida Garcia MD, Phone: [phone] No Panel InformationOrdered By: Ceci Hall on 01-02-2025 Pap Smear Specimen Adequacy Comment . [facility] Comment on above: Satisfactory for rosario luation. No endocervical component is identified.An endocervical component is not commonly seen in the patient. Flocculator Operator Office Visit Reporton 01-02-2025 Flocculator Operator Office Visit Report [facility] [address], [address] [place] [address] OFFICE VISIT Date of Service: 01/02/25 MR#: [id number] Acct: [id number] Name: JOSE L MANZO Rep #: [id number] : 1995 Provider: MIYA Alaniz ams Age/Sex: 29/F [place] [facility] [place] Status: Signed Intake Vital Signs 03/04/24 14:15 12/24/24 11:14 01/02/25 14:13 Height 5 ft 3 in 5 ft 3 in 5 ft 3 in Weight: 188 lb 8 oz BMI 33.3 BP 132/84 H Intake Visit Reasons: NOB LMP 11/02 WARREN 08/09 Chief Complaint: New OB Occupational Therapist Assistants Required: No Is patient in pain?: No Allergies No Known Allergies Allergy (Verified 01/02/25 14:11) Medications ???Medication ???Instructions ???Recorded ???Confirmed ???Type multivitamin no.47-iron fum 27 cap PO 12/24/24 01/02/25 History mg-folate no.1 1 mg-dha 300 mg capsule (PNV-DHA) Last Menstrual Period: 11/02/24 : Yes PFSH PFSH Surgical History [place] teeth extracted H/O thumb surgery Family History Grandmother Ovarian cancer, Onset Age: 45 Maternal Heart disease Paternal Grandfather Lung cancer, Onset Age: 80 Paternal Cancer, Onset Age: 80 Paternal- Prostate Mother Diabetes Uncle Heart disease Maternal Father Hyperlipidemia Social History adopted: No household members: spouse housing: house current occupational status: employed current occupation: [employer] current occupational exposures/hazards: No pets and animals: Yes (Avoid litter) pets and animals: cat(s) history of recent travel: Yes (November) out of state: Yes out of country: No sexually active: Yes Smoking Status: Never smoker alcohol intake: current alcohol intake frequency: a few times a month details: not while substance use type: does not use well-balanced diet: daily or most days caffeine: No eating out: 1-3 times/week during the past year weight has: remained stable what type of physical activity do you participate in: walking frequency: 3-4 times per week duration: 15-30 minutes/day zoe/hoahaoism: Yazidi seatbelt use: always do you feel safe at home: Yes additional 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 OB Visit WARREN Calculator Estimated Delivery Date Method Current WG Current Estimate 08/09/25 LMP (Certain) 8w 5d Other Estimates 08/10/25 Ultrasound #1 8w 4d Estimated Due Date: 08/09/25 Expected Delivery Route/Plan Labor Preferences- CB/BF classes: [] labor support person: [] labor intervention preferences: [] pain management options preferred: [] cut cord/dad catch: [] : [] PP control planned: [] discussed possible routes of delivery and associated risks: [] special requests: [] Specific Issue/Plans Covid status: [] Flu vaccine: [] Tdap vaccine: [] Rhogam: [] LARC form signed: [] Problem list reviewed and updated with the most current plan of care details and appropriate orders placed. Relevant counseling for the gestational age provided. Continue routine care and follow up unless otherwise noted in visit notes/problem list details Initial Weight: 188 lb Date -???-???-???-???-???-???-? ??-???-???-???-???-???- EGA Weight BP Urine Prot -???-???-???-???-???-???-? ??-???-???-???-???-???- Glucose FHR FuHt Pres Dilation -???-???-???-???-???-???-? ??-???-???-???-???-???- Effaced St Visit Note 01/02/25 -???-???-???-???-???-???-? ??-???-???-???-???-???- 8w 5d 188 lb 8 oz (+8 oz) 132/84 -???-???-???-???-???-???-? ??-???-???-???-???-???- 185 -???-???-???-???-???-???-? ??-???-???-???-???-???- KW- CRL cons with dates. Accepts NIPT and carrier. Menstrual History Last Menstrual Period: 11/02/24 Reported LMP: definite Normal amount/duration: Yes Frequency in days: 28-29 On hormonal BC at conception: No hCG+: 11/29/24 Antepartum Record Genetic Screening: Congenital Heart Defect: Patient (heart murmur), Neural Tube Defect: Other, Hemoglobinopathy Or Carrier: Other, Cystic Fibrosis: Other, Chromosome Abnormality: Other, Perez- Sachs: Other, Hemophilia: Other, Intellectual Disability/Autism: Other, Recurrent Loss/Stillbirth: Other, Other Structural Defect: Other, Other Genetic Disease: Other and Maternal Metabolic Disorder: Other Infection History: Live with someone with TB or Exposed to TB: (more content not included)... Normal [facility] Urine cultureOrdered By: Diane Hall on 01-02-2025 Bacteria identified Cx Nom (U) Culture exhibits no growth. [facility] Serum human chorionic gonado tropin detection for pregnancyOrdered By: Ceci Hlal on 12-25-2024 HCG ( [place]) [place] [address] mIU/mL High <[address] [facility] Comment on above: Gestational Age0.2-1 Week: 5-50 mIU/mL1-2 Weeks: 50-500 mIU/mL2-3 Weeks: 100-5000 mIU/mL3-4 Weeks: 500-10,000 mIU/mL4-5 Weeks:1000-50,000 mIU/mL5-6 Weeks: 10,000-100,000 mIU/mL6-8 Weeks: 15,000-200,000 mIU/mL2-3 Months:10,000-100,000 mIU/mL hCG Titer Quant., Serumon HCG QUANT. 84550 mIU/mL High <9 non-preg [facility] Comment on above: Order Comment: itz dumas 48H Result Comment: Gest ational Age 0.2-1 Week: 5-50 mIU/mL 1-2 Weeks: 50-500 mIU/mL 2-3 Weeks: 100-5000 mIU/mL 3-4 Weeks: 500-10,000 mIU/mL 4-5 Weeks:1000-50,000 mIU/mL 5-6 Weeks: 10,000-100,000 mIU/mL 6-8 Weeks: 15,000-200,000 mIU/mL 2-3 Months:10,000-100,000 mIU/mL Performed By: #### L 700.8000 ####[facility] [address] [place], [address] Laboratory - Chemistry and C hemistry - challengeOrdered By: Ceci Hall on 12-24-2024 HCG ( test) Ql (U) Positive [facility] Office Visit Reporton 2024 Office Visit Report [facility] [address] [place] [address] OFFICE VISIT Date of Service: 12/24/24 MR#: [id number] Acct: [id number] Patient: JOSE L MANZO Rep #: [id number] : 1995 Provider: Dr. Ceci Daniels DO Age/Sex: 29/F Location: [facility] [place] Status: Signed Intake Vital Signs 03/04/24 14:15 12/24/24 11:14 Height 5 ft 3 in 5 ft 3 in Weight: 189 lb 4 oz BMI 33.5 BP 110/72 Blood Pressure Location Rt brachial Position Sitting Intake Visit Reasons: pre new ob, est/ vitals Occupational Therapist Assistants Required: No Is patient in pain?: No Allergies No Known Allergies Allergy (Verified 12/24/24 11:15) Medications ???Medication ???Instructions ???Recorded ???Confirmed ???Type multivitamin no.47-iron fum 27 cap PO 12/24/24 12/24/24 History mg-folate no.1 1 mg-dha 300 mg capsule (PNV-DHA) Is last menstrual period known: Yes Last menstrual period: 11/02/24 Post menopausal: No Patient : Yes Current gender identity: female Nurse's Note: Pt here for PNOB. Office UPT: positive. Vitals WNL. PNOB questions completed. Problem list, allergies, and medications updated. Results POC Urine Office , Urine Positive Last Edit by Naomi Cotter on 12/24/24 11:16 Assessment and Plan Assessment and Plan (1) Obesity affecting : Status: Acute Comment: HgbA1c (2) Supervision of high-risk : Status: Acute Comment: , WARREN 08/09/25, Wade (3) FH: ovarian cancer: Status: Acute Comment: Maternal Grandmother (4) : Status: Acute Comment: discussed NIPT Carrier testing (5) Heart murmur: Status: Acute (6) Spotting in early : Status: Acute (7) at early stage: Status: Acute (8) Lumbar disc herniation: Status: Acute (9) Low back pain: Status: Acute (10) Heart murmur: Status: Acute Orders: Orders CBC W/Diff, Automated 12/24/24 O09.90 - Supervision of high risk , unspecified, unspecified trimester Type Screen 12/24/24 O09.90 - Supervision of high risk , unspecified, unspecified trimester Rubella IgG 12/24/24 O09.90 - Supervision of high risk , unspecified, unspecified trimester Hepatitis C Antibody 12/24/24 O09.90 - Supervision of high risk , unspecified, unspecified trimester Hepatitis B Surface Antigen 12/24/24 O09.90 - Supervision of high risk , unspecified, unspecified trimester Culture, Urine 12/24/24 O09.90 - Supervision of high risk , unspecified, unspecified trimester Syphilis Antibodies 12/24/24 O09.90 - Supervision of high risk , unspecified, unspecified trimester Chlamydia/GC DEEPALI aptima 12/24/24 O09.90 - Supervision of high risk , unspecified, unspecified trimester HIV 12/24/24 O09.90 - Supervision of high risk , unspecified, unspecified trimester Hemoglobin A1c 12/24/24 O09.90 - Supervision of high risk , unspecified, unspecified trimester, O99.210 - Obesity complicating , unspecified trimester PAP I-G w/rfx hrHPV-Aptima 12/24/24 O09.90 - Supervision of high risk , unspecified, unspecified trimester, Z12.4 - Encounter for screening for malignant neoplasm of cervix POC Urine 12/24/24 N91.2 - Amenorrhea, unspecified Plan patient is here for prenew ob intake with nurse. RTO for new ob exam with provider soon 12/26/24 1419 Date Ceci Spencer DO [facility] Signature: Date (if applicable) CC: Normal [facility] Serum human chorionic gonado tropin detection for pregnancyOrdered By: Ceci Hall on 12-23-2024 HCG ( [place]) [place]l [address] mIU/mL High <[address] [facility] Comment on above: Gestational Age0.2-1 Week: 5-50 mIU/mL1-2 Weeks: 50-500 mIU/mL2-3 Weeks: 100-5000 mIU/mL3-4 Weeks: 500-10,000 mIU/mL4-5 Weeks:1000-50,000 mIU/mL5-6 Weeks: 10,000-100,000 mIU/mL6-8 Weeks: 15,000-200,000 mIU/mL2-3 Months:10,000-100,000 mIU/mL hCG Titer Quant., Serumon HCG QUANT. 46582 mIU/mL High <9 non-preg [facility] Comment on above: Order Comment: PER P T JUST THIS TEST Result Comment: Gest ational Age 0.2-1 Week: 5-50 mIU/mL 1-2 Weeks: 50-500 mIU/mL 2-3 Weeks: 100-5000 mIU/mL 3-4 Weeks: 500-10,000 mIU/mL 4-5 Weeks:1000-50,000 mIU/mL 5-6 Weeks: 10,000-100,000 mIU/mL 6-8 Weeks: 15,000-200,000 mIU/mL 2-3 Months:10,000-100,000 mIU/mL Performed By: #### L 700.8000 #### [facility] [address] [place], [address] HCG ( test) QlOrder ed By: Ceci Hall on 12-04-2024 Human Chorionic Gonadotropin, Quant 1022 mIU/mL High <[address] [facility] Comment on above: Gestational Age0.2-1 Week: 5-50 mIU/mL1-2 Weeks: 50-500 mIU/mL2-3 Weeks: 100-5000 mIU/mL3-4 Weeks: 500-10,000 mIU/mL4-5 Weeks:1000-50,000 mIU/mL5-6 Weeks: 10,000-100,000 mIU/mL6-8 Weeks: 15,000-200,000 mIU/mL2-3 Months:10,000-100,000 mIU/mL Serum human chorionic gonado tropin detection for pregnancyOrdered By: Ceci Hall on 12-04-2024 HCG ( test) Ql 1022 mIU/mL High <[address] [facility] Comment on above: Gestational Age0.2-1 Week: 5-50 mIU/mL1-2 Weeks: 50-500 mIU/mL2-3 Weeks: 100-5000 mIU/mL3-4 Weeks: 500-10,000 mIU/mL4-5 Weeks:1000-50,000 mIU/mL5-6 Weeks: 10,000-100,000 mIU/mL6-8 Weeks: 15,000-200,000 mIU/mL2-3 Months:10,000-100,000 mIU/mL hCG Titer Quant., Serumon HCG QUANT. 1022 mIU/mL High <9 non-preg [facility] Comment on above: Result Comment: Gest ational Age 0.2-1 Week: 5-50 mIU/mL 1-2 Weeks: 50-500 mIU/mL 2-3 Weeks: 100-5000 mIU/mL 3-4 Weeks: 500-10,000 mIU/mL 4-5 Weeks:1000-50,000 mIU/mL 5-6 Weeks: 10,000-100,000 mIU/mL 6-8 Weeks: 15,000-200,000 mIU/mL 2-3 Months:10,000-100,000 mIU/mL Performed By: #### L 700.8000 ####[facility] [address] [place], [address] HCG ( test) QlOrder ed By: Ceci Hall on 12-02-2024 Human Chorionic Gonadotropin, Quant 457 mIU/mL High <[address] [facility] Comment on above: Gestational Age0.2-1 Week: 5-50 mIU/mL1-2 Weeks: 50-500 mIU/mL2-3 Weeks: 100-5000 mIU/mL3-4 Weeks: 500-10,000 mIU/mL4-5 Weeks:1000-50,000 mIU/mL5-6 Weeks: 10,000-100,000 mIU/mL6-8 Weeks: 15,000-200,000 mIU/mL2-3 Months:10,000-100,000 mIU/mL Serum human chorionic gonado tropin detection for pregnancyOrdered By: Ceci Hall on 12-02-2024 HCG ( test) Ql 457 mIU/mL High <[address] [facility] Comment on above: Gestational Age0.2-1 Week: 5-50 mIU/mL1-2 Weeks: 50-500 mIU/mL2-3 Weeks: 100-5000 mIU/mL3-4 Weeks: 500-10,000 mIU/mL4-5 Weeks:1000-50,000 mIU/mL5-6 Weeks: 10,000-100,000 mIU/mL6-8 Weeks: 15,000-200,000 mIU/mL2-3 Months:10,000-100,000 mIU/mL hCG Titer Quant., Serumon HCG QUANT. 457 mIU/mL High <9 non-preg [facility] Comment on above: Result Comment: Gest ational Age 0.2-1 Week: 5-50 mIU/mL 1-2 Weeks: 50-500 mIU/mL 2-3 Weeks: 100-5000 mIU/mL 3-4 Weeks: 500-10,000 mIU/mL 4-5 Weeks:1000-50,000 mIU/mL 5-6 Weeks: 10,000-100,000 mIU/mL 6-8 Weeks: 15,000-200,000 mIU/mL 2-3 Months:10,000-100,000 mIU/mL Performed By: #### L 700.8000 #### [facility] [address] [place], [address] CNCOon 10-13-2017 CN[facility] Letter TextLuann Maher RN, MSN, CNPCertified Nurse PractitionerTallmad Express [facility] [place], [place] [address]Jbfats:[phone] brured oak 2017[address] [place] [address]XFR#: [id number] Esvin Eagle,This letter is to notify you of your positive influenza culture. The resultsheet is attached for your information. If you have any questions pleasefeel free to call.Yours Truly,Luann Maher RN, MSN, PRESSURE TANK OPERATOR [facility] Office Visit (EXPTALAG) JSOE L EAGLE ([id number]) 1995 FDate Time Provider Department10/10/17 6:45 PM LUANN MAHER (VNAESSA) EXPTALAG During your visit today, we recorded the following information about you: Temperature Pulse Respiration Blood pressure 99.1 degrees 115/minute 18/minute 137/84 Weight Height 70.3 kg 1.6 Randee Maher CNP 10/10/2017 6:48 PM SignedSubjectiveHPI Comments: Presents for evaluation of: body aches, sore throat, chills,fever (100 TMAX yesterday), and cough for one day.OTC: Ibuprofen, Tylenol, SudafedReports influenza vaccination this year.Patient is a 22 year old female presenting with cough. The history is providedby the patient. No foreign language teacher was used.CoughThis is a new problem. The current episode started yesterday. The problemoccurs every few minutes. The problem has not changed since onset.The cough isnon-productive. The maximum temperature recorded prior to her arrival was 100to 100.9 F. The fever has been present for less than 1 day. Associated symptomsinclude chills, rhinorrhea, sore throat and myalgias. Pertinent negativesinclude no chest pain, no sweats, no weight loss, no ear congestion, no earpain, no headaches, no shortness of breath, no wheezing and no eye redness. Sheis not a smoker. Her past medical history does not include COPD, emphysema orasthma.Review of SystemsConstitutional: Positive for chills and fever. Negative for diaphoresis,malaise/fatigu e and weight loss.HENT: Positive for rhinorrhea and sore throat. Negative for congestion, earpain and sinus pain.Eyes: Negative for pain, discharge and redness.Respiratory: Positive for cough. Negative for hemoptysis, sputum production,shortness of breath and wheezing.Cardiovascular: Negative for chest pain and palpitations.Gastrointesti nal: Negative for abdominal pain, diarrhea, nausea and vomiting.Musculoskeletal: Positive for myalgias. Negative for neck pain.Skin: Negative for itching and rash.Neurological: Negative for dizziness and headaches.ObjectivePhysica l ExamConstitutional: She is oriented to person, place, and time and well-developed,well-nouris hed, and in no distress. She appears healthy. No distress.HENT:Head: Normocephalic and atraumatic.Right Ear: Hearing, tympanic membrane, external ear and ear canal normal. Nodrainage, swelling or tenderness. Tympanic membrane is not injected, notscarred, not perforated, not erythematous, not retracted and not bulging. Nomiddle ear effusion. No decreased hearing is noted.Left Ear: Hearing, tympanic membrane, external ear and ear canal normal. Nodrainage, swelling or tenderness. Tympanic membrane is not injected, notscarred, not perforated, not erythematous, not retracted and not bulging. Nomiddle ear effusion. No decreased hearing is noted.Nose: Mucosal edema and rhinorrhea (clear) present. Right sinus exhibits nomaxillary sinus tenderness and no frontal sinus tenderness. Left sinus exhibitsno maxillary sinus tenderness and no frontal sinus tenderness.Mouth/Throat: Uvula is midline and oropharynx is clear and moist. Nooropharyngeal exudate, posterior oropharyngeal edema or posterior oropharyngealerythema.Eyes : Conjunctivae are normal. Right eye exhibits no discharge. Left eyeexhibits no discharge.Neck: Normal range of motion. Neck supple.Cardiovascular: Normal rate, regular rhythm and intact distal pulses.Pulmonary/Chest: Effort normal and breath sounds normal. No respiratorydistress. She has no decreased breath sounds. She has no wheezes. She has norhonchi. She has no rales. She exhibits no tenderness.Respirations are easy and non-labored. There is good air exchange appreciatedto bilateral upper and lower lobes. Frequent cough present during exam.Musculoskeletal: Normal range of motion. She exhibits no edema, tenderness ordeformity.Lymphadenopath y: She has no cervical adenopathy.Neurological: She is alert and oriented to person, place, and time. Gaitnormal.Skin: Skin is warm and dry. No rash noted. She is not diaphoretic. No erythema.No pallor.Psychiatric: Memory, affect and judgment normal.Nursing note and vitals reviewed. ASSESSMENT/PLAN:1. Flu-like symptoms - ICD9: 780.99, ICD10: R68.89- Increase oral hydration- Monitor for signs and symptoms of worsening disease including wheezing,shortness of breath, fever, fatigue, and/or chest pain- Discussed viral etiology- Educated on course of illness and contagiousness- Follow up in 3-5 days with PCP or ER if symptoms worsen or fail to improve- RAPID FLU A AND B (AG/LAKEWOOD/SHEFF/AMHERST ONLY)- OSELTAMIVIR 75 MG CAPSULE- BENZONATATE 100 MG Troy Oliveira CNP 10/10/2017 6:46 PM SignedFlu (Influenza)What is the flu?The flu is a viral infection of the nose, throat, trachea, and bronchi thatoccurs every winter. Major epidemics every 3 or 4 years (for example, Asianinfluenza). The main symptoms are a stuffy nose, sore throat, and naggingcough. There may be more muscle pain, headache, fever, and chills than coldsusually cause.For most people, influenza is just a ANDquot;badANDquot; cold and bed rest is notnecessary. Flu is not dangerous to people who are otherwise healthy.How can I take care of my child?The treatment of flu depends on a child's main symptoms and is no differentfrom the treatment for other viral respiratory infections. Bed rest is notnecessary.Fever or aches Use acetaminophen (Tylenol) every 6 hours or ibuprofen (Advil)every 8 hours for fever over 102?F (39?C). Children and adolescents who mayhave influenza should never take aspirin because it may cause Guilherme's syndrome.Cough or hoarseness For children over age 4 give cough drops. If your child is1 to 4 years old, give corn syrup (1/2 to 1 teaspoon as needed).Sore throat Use hard candy for children over 4 years old. Warm chicken brothmay also help children over 1 year old.Stuffy nose Warm-water or saline nosedrops and suction (or nose blowing) willopen most blocked noses. Use nasal washes at least four times a day or wheneveryour child can't breathe through the nose. Saline nosedrops are made by adding1/2 teaspoon of salt to 1 cup of warm water.Contagiousness Influenza spreads rapidly because the incubation period is only24 to 36 hours and the virus is very contagious. Your child may return to daycare or school after the fever is gone and he feels up to it.Does my child need antiviral medicine?Most healthcare providers do not use antiviral medicines because they onlyreduce the time that your child is sick by a day or so. Usually the runny noselasts 7 to 14 days and the cough lasts 2 to 3 weeks. All antiviral medicinesmust be given within 48 hours of the start of influenza symptoms to have aneffect. Antiviral medicine is usually only used to treat children at high-riskfor complications from the flu. Talk with your healthcare provider about this.Does my child need a flu shot?Yearly flu shots have always been recommended for high-risk children over 6months of age. These children often have complications from influenza, such aspneumonia. Parents and siblings of high-risk children should also get a flushot. Children are considered high-risk if they have the following conditions:Lung disease, such as asthmaHeart disease, such as a congenital heart diseaseMuscle disease, such as muscular dystrophyMetabolic disease, such as diabetesRenal disease, such as nephrotic syndromeCancer or immune system conditionsDiseases requiring long-term aspirin therapy.In 2006, the [place] [employer] added all children age 6 months to5 years to the list of people who should get a flu shot. Recent research hasshown that healthy children younger than 24 months are at as great a risk ofcomplications as children with the high-risk conditions listed above.When should I call my child's healthcare provider?Call IMMEDIATELY if:Your child is having trouble breathing.Your child starts to act very sick.Call during office hours if:Your child develops any complications such as an earache, sinus pain orpressure, or a fever lasting over 3 days.You have other questions or concerns.Published by [employer].This content is reviewed periodically and is subject to change as new healthinformation becomes available. The information is intended to inform andeducate and is not a replacement for medical evaluation, advice, diagnosis ortreatment by a healthcare professional.Written by Mehrdad Padilla M.D., author of ANDquot;Your Child's Health,ANDquot;[employer].Copyright ? 2007 [employer] and/or one of its subsidiaries. AllRights Reserved.Copyright ? [employer] 2008Pediatric AdvisorIf you begin to experience a severe reaction or complication from the [facility], please go to the nearest emergency room forfurther evaluation.? Follow up with your primary care doctor in 2-3 days? Report to Emergency Department with any worsening of symptoms orlife-threatening concerns? Warning signs of worsening conditions explained to patient? Educational information regarding today's complaint given to patient? Patient left in stable condition after questions answered? Patient verbalized understandingReferring Provider: SELF [[id number]]Allergies As of Date: 10/10/2017(No Known Allergies)Date Reviewed: 10/10/2017Reviewed by: Lynn Bustamante) Aleksandr - Shruti AssessedReason for Visit: Cough [28]Primary Visit Diagnosis:Flu-like symptoms [R68.89]Order(s):RAPID FLU A AND B (AG/LAKEWOOD/SHEFF/AMHERST ONLY) [SQFLUEIA] Order #: [id number] FUTURE [] oseltamivir (TAMIFLU) 75 mg capsuleTake 1 capsule by mouth twice daily for 5 days.Disp: 10 capsuleRfl: 0 benzonatate (TESSALON PERLE) 100 mg capsuleTake 1 capsule by mouth three times daily as needed for up to 10 days.Disp: 30 capsuleRfl: 0Prescriptions as of 10/10/2017 Sig: OSELTAMIVIR 75 MG CAPSULE Take 1 capsule by mouth twice* BENZONATATE 100 MG CAPSULE Take 1 capsule by mouth three* NUVARING 0.12 MG -0.015 MG/24*Problem List As Of Date: 10/10/2017(None) Other instructions from your clinician: Flu (Influenza) What is the flu? The flu is a viral infection of the nose, throat, trachea, and bronchi that occurs every winter. Major epidemics every 3 or 4 years (for example, influenza). The main symptoms are a stuffy nose, sore throat, and nagging cough. There may be more muscle pain, headache, fever, and chills than colds usually cause. For most people, influenza is just a bad cold and bed rest is not necessary. Flu is not dangerous to people who are otherwise healthy. How can I take care of my child? The treatment of flu depends on a child's main symptoms and is no different from the treatment for other viral respiratory infections. Bed rest is not necessary. Fever or aches Use acetaminophen (Tylenol) every 6 hours or ibuprofen (Advil) every 8 hours for fever over 102?F (39?C). Children and adolescents who may have influenza should never take aspirin because it may cause Guilherme's syndrome. Cough or hoarseness For children over age 4 give cough drops. If your child is 1 to 4 years old, give corn syrup (1/2 to 1 teaspoon as needed). Sore throat Use hard candy for children over 4 years old. Warm chicken broth may also help children over 1 year old. Stuffy nose Warm-water or saline nosedrops and suction (or nose blowing) will open most blocked noses. Use nasal washes at least four times a day or whenever your child can't breathe through the nose. Saline nosedrops are made by adding 1/2 teaspoon of salt to 1 cup of warm water. Contagiousness Influenza spreads rapidly because the incubation period is only 24 to 36 hours and the virus is very contagious. Your child may return to day care or school after the fever is gone and he feels up to it. Does my child need antiviral medicine? Most healthcare providers do not use antiviral medicines because they only reduce the time that your child is sick by a day or so. Usually the runny nose lasts 7 to 14 days and the cough lasts 2 to 3 weeks. All antiviral medicines must be given within 48 hours of the start of influenza symptoms to have an effect. Antiviral medicine is usually only used to treat children at high-risk for complications from the flu. Talk with your healthcare provider about this. Does my child need a flu shot? Yearly flu shots have always been recommended for high-risk children over 6 months of age. These children often have complications from influenza, such as pneumonia. Parents and siblings of high-risk children should also get a flu shot. Children are considered high-risk if they have the following conditions: Lung disease, such as asthma Heart disease, such as a congenital heart disease Muscle disease, such as muscular dystrophy Metabolic disease, such as diabetes Renal disease, such as nephrotic syndrome Cancer or immune system conditions Diseases requiring long-term aspirin therapy. In 2006, the [place] [employer] added all children age 6 months to 5 years to the list of people who should get a flu shot. Recent research has shown that healthy children younger than 24 months are at as great a risk of complications as children with the high-risk conditions listed above. When should I call my child's healthcare provider? Call IMMEDIATELY if: Your child is having trouble breathing. Your child starts to act very sick. Call during office hours if: Your child develops any complications such as an earache, sinus pain or pressure, or a fever lasting over 3 days. You have other questions or concerns. Published by [employer]. This content is reviewed periodically and is subject to change as new health information becomes available. The information is intended to inform and educate and is not a replacement for medical evaluation, advice, diagnosis or treatment by a healthcare professional. Written by Mehrdad Padilla M.D., author of Your Child's Health, [employer]. Copyright ? 2006 [employer] and/or one of its subsidiaries. All Rights Reserved. Copyright ? [employer] 2008 Pediatric Advisor If you begin to experience a severe reaction or complication from the treatment you received at the [facility], please go to the nearest emergency room for further evaluation. ? Follow up with your primary care doctor in 2-3 days ? Report to Emergency Department with any worsening of symptoms or life-threatening concerns ? Warning signs of worsening conditions explained to patient ? Educational information regarding today's complaint given to patient ? Patient left in stable condition after questions answered ? Patient verbalized understandingPrescriptions ordered this encounter Disp Refills Start End OSELTAMIVIR 75 MG CAPSULE 10 c* 0 10/10/2017 10/15/2017 Route: ORAL Sig: Take 1 capsule by mouth twice daily for 5 days. BENZONATATE 100 MG CAPSULE 30 c* 0 10/10/2017 10/20/2017 Route: ORAL Sig: Take 1 capsule by mouth three times daily as needed for up to 10 days.Letter TextEncounter Number: [id number] Status:Closed by LUANN MAHER CNP on 10/10/17 [facility] PROGRESSon 10-10-2017 PROGRESS HNO ID: [id number] thor: Luann (Vanessa) NikaService: (none)Author Type: Nurse PractitionerType: Progress NotesFiled: 10/10/2017 6:48 PMNote Text:SubjectiveHPI Comments: Presents for evaluation of: body aches, sore throat, chills,fever (100 TMAX yesterday), and cough for one day.OTC: Ibuprofen, Tylenol, SudafedReports influenza vaccination this year.Patient is a 22 year old female presenting with cough. The history isprovided by the patient. No foreign language teacher was used.CoughThis is a new problem. The current episode started yesterday. The problemoccurs every few minutes. The problem has not changed since onset.Thecough is non-productive. The maximum temperature recorded prior to herarrival was 100 to 100.9 F. The fever has been present for less than 1day. Associated symptoms include chills, rhinorrhea, sore throat andmyalgias. Pertinent negatives include no chest pain, no sweats, no weightloss, no ear congestion, no ear pain, no headaches, no shortness ofbreath, no wheezing and no eye redness. She is not a smoker. Her pastmedical history does not include COPD, emphysema or asthma.Review of SystemsConstitutional: Positive for chills and fever. Negative for diaphoresis,malaise/fatigu e and weight loss.HENT: Positive for rhinorrhea and sore throat. Negative for congestion,ear pain and sinus pain.Eyes: Negative for pain, discharge and redness.Respiratory: Positive for cough. Negative for hemoptysis, sputumproduction, shortness of breath and wheezing.Cardiovascular: Negative for chest pain and palpitations.Gastrointesti nal: Negative for abdominal pain, diarrhea, nausea andvomiting.Musculoskeleta l: Positive for myalgias. Negative for neck pain.Skin: Negative for itching and rash.Neurological: Negative for dizziness and headaches.ObjectivePhysica l ExamConstitutional: She is oriented to person, place, and time andwell-developed, well-nourished, and in no distress. She appears healthy.No distress.HENT:Head: Normocephalic and atraumatic.Right Ear: Hearing, tympanic membrane, external ear and ear canal normal.No drainage, swelling or tenderness. Tympanic membrane is not injected,not scarred, not perforated, not erythematous, not retracted and notbulging. No middle ear effusion. No decreased hearing is noted.Left Ear: Hearing, tympanic membrane, external ear and ear canal normal.No drainage, swelling or tenderness. Tympanic membrane is not injected,not scarred, not perforated, not erythematous, not retracted and notbulging. No middle ear effusion. No decreased hearing is noted.Nose: Mucosal edema and rhinorrhea (clear) present. Right sinus exhibitsno maxillary sinus tenderness and no frontal sinus tenderness. Left sinusexhibits no maxillary sinus tenderness and no frontal sinus tenderness.Mouth/Throat: Uvula is midline and oropharynx is clear and moist. Nooropharyngeal exudate, posterior oropharyngeal edema or posteriororopharyngeal erythema.Eyes: Conjunctivae are normal. Right eye exhibits no discharge. Left eyeexhibits no discharge.Neck: Normal range of motion. Neck supple.Cardiovascular: Normal rate, regular rhythm and intact distal pulses.Pulmonary/Chest: Effort normal and breath sounds normal. No respiratorydistress. She has no decreased breath sounds. She has no wheezes. She hasno rhonchi. She has no rales. She exhibits no tenderness.Respirations are easy and non-labored. There is good air exchangeappreciated to bilateral upper and lower lobes. Frequent cough presentduring exam.Musculoskeletal: Normal range of motion. She exhibits no edema, tendernessor deformity.Lymphadenopathy: She has no cervical adenopathy.Neurological: She is alert and oriented to person, place, and time. Gaitnormal.Skin: Skin is warm and dry. No rash noted. She is not diaphoretic. Noerythema. No pallor.Psychiatric: Memory, affect and judgment normal.Nursing note and vitals reviewed. ASSESSMENT/PLAN:1. Flu-like symptoms - ICD9: 780.99, ICD10: R68.89- Increase oral hydration- Monitor for signs and symptoms of worsening disease including wheezing,shortness of breath, fever, fatigue, and/or chest pain- Discussed viral etiology- Educated on course of illness and contagiousness- Follow up in 3-5 days with PCP or ER if symptoms worsen or fail toimprove- RAPID FLU A AND B (AG/EWING/NAVIN/YISSELERST ONLY)- OSELTAMIVIR 75 MG CAPSULE- BENZONATATE 100 MG CAPSULELuann Maher CNP Normal [facility] Rapid Influenza A/B Agon Rapid Influenza A/B Ag Test performed at [facility] Influenza A antigen detected Presumptive negative for the presence of Influenza B antigen Normal [facility] Comment on above: Performed By: #### I NAB3 ####[facility] [place], [place] [address] Vital Signs Date Time Vital Sign Value Performing Clinician Luiz coronado 06-17-2025 15:07-0400 Body height 160.[address] Yao Owusu MD Work Phone: [facility] 06-17-2025 15:07-0400 Body mass index (BMI) [Ratio] 36 kg/m2 Dr. Yao Owusu MD Work Phone: 2(183)991-901048 [place] [address] 06-17-2025 15:07-0400 Body weight 92.[address] Yao Owusu MD Work Phone: 4(357)300-892248 [place] [address] 06-17-2025 15:07-0400 Diastolic blood pressure 73 mm[Hg] Dr. Yao Owusu MD Work Phone: 6(377)076-523968 [address] 06-17-2025 15:07-0400 Systolic blood pressure 111 mm[Hg] Dr. Yao Owusu MD Work Phone: 9(666)869-698449 [place] [address] 06-05-2025 15:57-0400 Body height 160.[address] Yao Owusu MD Work Phone: 9(902)349-424049 [place] [address] 06-05-2025 15:55-0400 Body mass index (BMI) [Ratio] 35.4 kg/m2 Dr. Yao Owusu MD Work Phone: 9(719)434-195849 [place] [address] 06-05-2025 15:55-0400 Body weight 90.[address] Yao Owusu MD Work Phone: 9(489)350-901049 [place] [address] 06-05-2025 15:55-0400 Diastolic blood pressure 81 mm[Hg] Dr. Yao Owusu MD Work Phone: 6(856)567-260549 [place] [address] 06-05-2025 15:55-0400 Systolic blood pressure 124 mm[Hg] Dr. Yao Owusu MD Work Phone: 0(628)912-046248 [place] [address] 05-19-2025 15:12-0400 Body height 160.[address] Yao Owusu MD Work Phone: 5(049)461-698468 [address] 05-19-2025 15:10-0400 Body mass index (BMI) [Ratio] 35.1 kg/m2 Dr. Yao Owusu MD Work Phone: 6(115)586-774548 [place] [address] 05-19-2025 15:10-0400 Body weight 89.[address] Yao Owusu MD Work Phone: 9(489)807-072148 [place] [address] 05-19-2025 15:10-0400 Diastolic blood pressure 79 mm[Hg] Dr. Yao Owusu MD Work Phone: [facility] 05-19-2025 15:10-0400 Systolic blood pressure 121 mm[Hg] Dr. Yao Owusu MD Work Phone: [facility] 2025 15:11-0400 Body height 160.[address] Yao Owusu MD Work Phone: 3(638)733-474048 [place] [address] 2025 15:11-0400 Body mass index (BMI) [Ratio] 34.4 kg/m2 Dr. Yao Owusu MD Work Phone: 9(355)236-015848 [place] [address] 2025 15:11-0400 Body weight 88.[address] Yao Owusu MD Work Phone: 8(079)354-167868 [address] 2025 15:11-0400 Diastolic blood pressure 62 mm[Hg] Dr. Yao Owusu MD Work Phone: 0(546)452-749148 [place] [address] 2025 15:11-0400 Systolic blood pressure 103 mm[Hg] Dr. Yao Owusu MD Work Phone: 0(530)035-449548 [place] [address] 03-25-2025 15:55-0400 Body height 160.[address] Yao Owusu MD Work Phone: 7(340)126-158048 [place] [address] 03-25-2025 15:55-0400 Body mass index (BMI) [Ratio] 33.5 kg/m2 Dr. Yao Owusu MD Work Phone: [facility] 03-25-2025 15:55-0400 Body weight 85.[address] Yao Owusu MD Work Phone: [facility] 03-25-2025 15:55-0400 Diastolic blood pressure 86 mm[Hg] Dr. Yao Owusu MD Work Phone: [facility] 03-25-2025 15:55-0400 Systolic blood pressure 127 mm[Hg] Dr. Yao Owusu MD Work Phone: [facility] 02-26-2025 15:52-0400 Body height 160.[address] Yao Owusu MD Work Phone: 6(606)780-248848 [place] [address] 02-26-2025 15:52-0400 Body mass index (BMI) [Ratio] 33.7 kg/m2 Dr. Yao Owusu MD Work Phone: 6(266)905-352748 [place] [address] 02-26-2025 15:52-0400 Body weight 86.[address] Yao Owusu MD Work Phone: 7(553)644-552448 [place] [address] 02-26-2025 15:52-0400 Diastolic blood pressure 77 mm[Hg] Dr. Yao Owusu MD Work Phone: 4(099)076-985849 [place] [address] 02-26-2025 15:52-0400 Systolic blood pressure 114 mm[Hg] Dr. Yao Owusu MD Work Phone: 8(660)799-970249 [place] [address] 01-29-2025 14:04-0400 Body height 160.[address] Yao Owusu MD Work Phone: 1(695)483-917349 [place] [address] 01-29-2025 14:04-0400 Body mass index (BMI) [Ratio] 33.3 kg/m2 Dr. Yao Owusu MD Work Phone: 5(464)175-983049 [place] [address] 01-29-2025 14:04-0400 Body weight 85.[address] Yao Owusu MD Work Phone: 4(632)416-547049 [place] [address] 01-29-2025 14:04-0400 Diastolic blood pressure 78 mm[Hg] Dr. Yao Owusu MD Work Phone: 7(421)041-513668 [address] 01-29-2025 14:04-0400 Systolic blood pressure 120 mm[Hg] Dr. Yao Owusu MD Work Phone: 9(219)475-338249 [place] [address] 01-24-2025 14:51-0400 Body height 160.[address] Yao Owusu MD Work Phone: 7(960)805-442049 [place] [address] 01-24-2025 14:51-0400 Body mass index (BMI) [Ratio] 33.7 kg/m2 Dr. Yao Owusu MD Work Phone: 5(212)518-139648 [place] [address] 01-24-2025 14:51-0400 Body weight 86.[address] Yao Owusu MD Work Phone: 2(103)013-472248 [place] [address] 01-24-2025 14:51-0400 Diastolic blood pressure 82 mm[Hg] Dr. Yao Owusu MD Work Phone: 2(614)854-694848 [place] [address] 01-24-2025 14:51-0400 Systolic blood pressure 135 mm[Hg] Dr. Yao Owusu MD Work Phone: 7(218)952-764668 [address] 01-02-2025 14:13-0400 Body height 160.[address] Yao Owusu MD Work Phone: 8(437)225-020449 [place] [address] 01-02-2025 14:13-0400 Body mass index (BMI) [Ratio] 33.3 kg/m2 Dr. Yao Owusu MD Work Phone: 6(705)837-465749 [place] [address] 01-02-2025 14:13-0400 Body weight 85.[address] Yao Owusu MD Work Phone: 0(227)244-073649 [place] [address] 01-02-2025 14:13-0400 Diastolic blood pressure 84 mm[Hg] Dr. Yao Owusu MD Work Phone: 2(509)665-606868 [address] 01-02-2025 14:13-0400 Systolic blood pressure 132 mm[Hg] Dr. Yao Owusu MD Work Phone: 6(164)078-899668 [address] 12-24-2024 11:14-0400 Body height 160.[address] Yao Owusu MD Work Phone: 1(477)564-214168 [address] 12-24-2024 11:14-0400 Body mass index (BMI) [Ratio] 33.5 kg/m2 Dr. Yao Owusu MD Work Phone: 1(692)725-734468 [address] 12-24-2024 11:14-0400 Body weight 85.[address] Yao Owusu MD Work Phone: [phone] [place] [address] 12-24-2024 11:14-0400 Diastolic blood pressure 72 mm[Hg] Dr. Yao Owusu MD Work Phone: [phone] [address] 12-24-2024 11:14-0400 Systolic blood pressure 110 mm[Hg] Dr. Yao Owusu MD Work Phone: [facility] Encounters Encounter Date Encounter Type Care Provider Facility Start: 07-02-2025 ambulatory Isabel Andinomarni lity:[facility] Start: 06-17-2025 End: 06-17-2025 ambulatory Isabel Mñuoz Facility[facility] Start: 06-05-2025 End: 06-05-[address] [facility] Work Phone: Start: 06-05-2025 End: 06-05-[address] Yao Owusu MD [facility] Phone[facility] Start: 05-28-2025 End: 05-28-[address] Isabel Muñoz MD -Laboratory Work Phone: Start: 05-28-2025 End: 05-28-[address] Yao Owusu MD Work Phone: -Laboratory Start: 05-19-2025 End: 05-19-2025 Patient encounter procedure Caro Cho CN[facility] Work Phone: Start: 05-19-2025 End: 05-19-[address] Yao Owusu MD Work Phone: [facility] Start: 05-19-2025 End: 05-19-2025 ambulatory Isabel Muñoz Facility:[facility] Start: 2025 End: 2025 Patient encounter procedure Caro Cho CNM [facility] Work Phone: Start: 2025 End: [address] Yao Owusu MD Work Phone: [facility] Start: 2025 End: [address] [facility] Start: 03-25-2025 End: 03-25-[address] Ceci [facility] Work Phone: Start: 03-25-2025 End: 03-25-[address] Yao Owusu MD Work Phone: [facility] Start: 03-17-2025 End: 03-17-2025 ambulatory PAUL [facility] Start: 02-26-2025 End: 02-26-[address] Yao Owusu MD Work Phone: [facility] Start: 02-26-2025 End: 02-26-2025 Patient encounter procedure Edita Pena DOCUMENT CLERK-C [facility] Work Phone: Start: 01-29-2025 End: 01-29-2025 Patient encounter procedure Edita Pena DOCUMENT CLERK-C [facility] Work Phone: Start: 01-29-2025 End: 01-29-[address] Yao Owusu MD Work Phone: [facility] Work Phone: Start: 01-29-2025 End: 01-29-2025 ambulatory Caro Cho Facility:[facility] Start: 01-24-2025 End: 01-24-2025 Patient encounter procedure Caro Cho [facility] Work Phone: Start: 01-24-2025 End: 01-24-[address] Yao Owusu MD Work Phone: [facility] Work Phone: Start: 01-02-2025 End: 01-02-[address] Yao Owusu MD Work Phone: [facility] Work Phone: Start: 01-02-2025 End: 01-02-[address] Ceci Spencer DO -Laboratory Specimen Work Phone: Start: 01-02-2025 End: 01-02-2025 Patient encounter procedure Caro Cho [facility] Work Phone: Start: 01-02-2025 End: 01-02-[address] Yao Owusu MD Work Phone: [facility] Work Phone: Start: 01-02-2025 End: 01-02-20[facility] Start: 12-25-2024 End: 12-25-[address] Yao Owusu MD Work Phone: [facility] Work Phone: Start: 12-25-2024 End: 12-25-[address] [facility] Start: 12-24-2024 End: 12-24-[address] Ceci Spencer DO [facility] Work Phone: Start: 12-24-2024 End: 12-25-2024 ambulatory [facility] Facility:[facility] Start: 12-23-2024 End: 12-23-[address] Yao Owusu MD Work Phone: [facility] Work Phone: Start: 12-23-2024 End: 12-23-[address] Ceic [facility] Start: 12-23-2024 End: 12-23-2024 ambulatory Yao Owusu Facility:[facility] Start: 12-04-2024 End: 12-04-[address] Yao Owusu MD Work Phone: [facility] Work Phone: Start: 12-04-2024 End: 12-04-[address] Isabel Mu[facility]oz [facility] Start: 12-04-2024 End: 12-04-2024 ambulatory Isabel Muñoz Facility:[facility] Start: 12-02-2024 End: 12-02-[address] Yao Owusu MD Work Phone: [facility] Work Phone: Start: 12-02-2024 End: 12-02-[address] Ceci Spencer DO [facility] Start: 12-02-2024 End: 12-02-2024 ambulatory Ceci Spencer Facility:[facility] Start: 07-27-2023 Non-patient / Non-visit DO Sandra Kimbrough Work Phone: [facility] Start: 07-27-2023 End: 07-27-2023 ambulatory DO Sandra Kimbrough Work Phone: [facility] Work Phone: Start: 07-27-2023 End: 07-27-2023 Patient encounter procedure DO Sandra Kimbrough Work Phone: [facility] Work Phone: Start: 10-11-2017 Ambulatory LUANN (PRESSURE TANK OPERATOR) NIKA [facility] Start: 10-10-2017 Ambulatory LUANN (PRESSURE TANK OPERATOR) NIKA Fa cility:[facility] Start: 10-10-2017 End: 10-11-2017 Ambulatory LUANN (PRESSURE TANK OPERATOR) NIKA Facility:[facility] Procedures Date Procedure Procedure Detail Performing Clinician Start: 05-19-2025 Serologic test for syphilis Dr. Yao Owusu MD Work Phone: Start: 01-29-[address] Yao casillas MD Work Phone: Start: 01-29-2025 Hepatitis C antibody measurement Dr. Yao Owusu MD Work Phone: Comment on above: Reactive: Presumptiv e evidence of antibodies to HCV. Follow CDC recommendations for supplemental testing.Non-Reactive: Antibodies to HCV were not detected; does not exclude the possibility of exposure to HCVReactive Results are presumptive evidence of antibodies to HCV. Follow CDC recommendations for supplemental testing.Order confirmation testing: HCV Quant by PCR testing - HCVPCR #[id number] Non Reactive: < 0.8 Equivocal: >/= 0.8 to < 1.0 Reactive: >/= 1.0The CDC requires that a reactive/equivocal HCV antibody result be sent out for confirmation. HCV Quant by PCR testing. Start: 01-29-[address] Yao Owusu MD Work Phone: Comment on above: Antibody Result: Int erpretationNon-Reactive: Non- ImmuneReactive: ImmuneThe following results were obtained with the [employer] Rubella IgG assay. Results from assays of other manufacturers cannot be used interchangeably. Start: 01-29-2025 Serologic test for syphilis Dr. Yao Owusu MD Work Phone: Start: 01-02-2025 Liquid based cervica l cytology screening Dr. Yao Owusu MD Work Phone: Comment on above: NEGATIVE FOR INTRAEP ITHELIAL LESION OR MALIGNANCY. This liquid based Th inPrep(R) pap test was screened withthe use of an image guided system. The HPV DNA reflex c riteria were not met with this specimenresult therefore, no HPV testing was performed.Performed at: [facility] [id number] Director: Nereida Garcia MD, Phone: [phone] Start: 01-02-[address] Yao Owusu MD Work Phone: Plan of Treatment Date Care Activity Detail Author Start: 06-17-2025 End: 06-17-2025 Patient encounter procedure Abnormal glucose affecting -[facility] Work Phone: Start: 01-29-2025 CBC W Auto Differential panel - Blood [facility] Start: 01-29-2025 Hemoglobin A1c/Hemoglobin.total in Blood [facility] Start: 01-29-2025 Hepatitis C antibody measurement [facility] Start: 01-29-2025 Rubella IgG measurement [facility] Start: 01-29-2025 Serologic test for syphilis [facility] Start: 01-29-[address] [facility] Start: 01-02-2025 Liquid based cervical cytology screening [facility] CBC W Auto Different ial panel - Blood [facility] CBC W Auto Different ial panel - Blood [facility] Chlamydia deoxyribon ucleic acid detection [facility] Chlamydia deoxyribon ucleic acid detection [facility] Erythrocyte mean cor puscular volume determination [facility] Hematocrit [Volume F raction] of Blood [facility] Hemoglobin [Mass/vol ume] in Blood [facility] Hemoglobin A1c/Hemoglobin.total in Blood [facility] Hepatitis B virus rene rface Ag [Presence] in Serum [facility] Hepatitis C antibody measurement [facility] Leukocytes [#/volume ] in Blood [facility] Liquid based cervica l cytology screening [facility] Mean corpuscular hem oglobin concentration determination [facility] Mean corpuscular hem oglobin determination [facility] Measurement of gluco se 2 hours after glucose challenge for glucose tolerance test [facility] Neutrophil count [facility] Neutrophil percent differential count [facility] Platelets [#/volume] in Blood [facility] Procedure [facility] Red blood cell count [facility] Red cell distributio n width determination [facility] Rubella IgG measurement [facility] Serologic test for syphilis [facility] Serologic test for syphilis [facility] Immunizations Immunization Date Immunization Notes Care Provider Fa willem 06-05-2025 tetanus toxoid, redu bertha diphtheria toxoid, and acellular pertussis vaccine, adsorbed Dr. Yao Owusu MD Work Phone: [facility] Payers Date Payer Category Payer Private Health Insurance [id number] [id number] Self-pay [id number] 1995 Unknown [id number] 1995 Unknown [id number] .[id number]. [id number] Unknown [id number] Unknown [id number] .16.8 40.1.555954.3.579.2.462 Unknown [id number] 2.16.8 40.1.285115.3.579.2.462 Unknown [id number] 2.16.8 40.1.386325.3.579.2.462 Unknown [id number] 2.16.8 40.1.093164.3.579.2.462 Unknown [id number] 2.16.8 40.1.689598.3.579.2.462 Unknown [id number] 2.16.8 40.1.364926.3.579.2.462 Unknown [id number] 2.16.8 40.1.275365.3.579.2.462 Unknown [id number] 2.16.8 40.1.379928.3.579.2.462 Unknown [id number] 2.16.8 40.1.373659.3.579.2.462 Unknown [id number] 2.16.8 40.1.841936.3.579.2.462 Unknown [id number] 2.16.8 40.1.778391.3.579.2.462 Unknown [id number] 2.16.8 40.1.510371.3.579.2.462 Unknown [id number] 2.16.8 40.1.805228.3.579.2.462 Unknown [id number] 2.16.8 40.1.500372.3.579.2.462 Unknown [id number] 2.16.8 40.1.248001.3.579.2.462 Unknown [id number] 2.16.8 40.1.015168.3.579.2.462 Unknown [id number] 2.16.8 40.1.597807.3.579.2.462 Unknown [id number] 2.16.8 40.1.207983.3.579.2.462 Unknown [id number] 2.16.8 40.1.611217.3.579.2.462 Social History Date Type Detail Facility Start: 11-29-2022 Tobacco smoking stat us NHIS Unknown if ever smoked [facility] Start: 1995 Sex Assigned At Female W [facility] Start: 03-04-2024 End: 01-24-2025 Tobacco smoking status NHIS Never smoked tobacco (finding) [facility] Start: 12-05-2024 End: 12-11-2024 Sex Female (finding) [facility] Gender Identity Identifies as fe male gender (finding) [facility] Clinical Notes 12-24-2024 to 06-05-2025 Note Date & Type Note Facility 06-05-2025 Progress note [facility] 06-05-2025 Progress note Note Date/Time June 05, 2025 4:28pm [facility] [address], [address] [place] [address] OFFICE VISIT Date of Service: 06/05/25 MR#: [id number] Acct: [id number] Name: JOSE L MANZO Rep #: [id number] : 1995 Provider: Dr. Aliyah Spencer DO Age/Sex: 30/F Location: [facility] Status: Signed Intake Vital Signs 02/26/25 15:52 05/19/25 15:12 06/05/25 15:55 06/05/25 15:57 Height 5 ft 3 in 5 ft 3 in 5 ft 3 in 5 ft 3 in Weight: 200 lb 3 oz BMI 35.4 BP 124/81 H Intake Visit Reasons: 30 WK OB Occupational Therapist Assistants Required: No Is patient in pain?: No Allergies No Known Allergies Allergy (Verified 06/05/25 15:55) Medications ?Medication ?Instructions ?Recorded ?Confirmed ?Type multivitamin no.47-iron fum 27 cap PO 12/24/24 5 History mg-folate no.1 1 mg-dha 300 mg capsule (PNV-DHA) Last Menstrual Period: 11/02/24 Zika: Zika virus screening: Negative : No PFSH PFSH Medical History Cystic fibrosis carrier FH: ovarian cancer Surgical History [place] teeth extracted H/O thumb surgery Family History Grandmother Ovarian cancer, Onset Age: 45 Maternal Heart disease Paternal Grandfather Lung cancer, Onset Age: 80 Paternal Cancer, Onset Age: 80 Paternal- Prostate Mother Diabetes Uncle Heart disease Maternal Father Hyperlipidemia Social History adopted: No household members: spouse housing: house current occupational status: employed current occupation: [employer] current occupational exposures/hazards: No pets and animals: Yes (Avoid litter) pets and animals: cat(s) history of recent travel: Yes (November) out of state: Yes out of country: No sexually active: Yes Smoking Status: Never smoker alcohol intake: current alcohol intake frequency: a few times a month details: not while substance use type: does not use well-balanced diet: daily or most days caffeine: No eating out: 1-3 times/week during the past year weight has: remained stable what type of physical activity do you participate in: walking frequency: 3-4 times per week duration: 15-30 minutes/day zoe/hoahaoism: Yazidi seatbelt use: always do you feel safe at home: Yes additional 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: --[place]- Photo Checker History 1 Elective abortions Hx Para 0 Spontaneous abortions Hx # Term Pregnancies Ectopic pregnancies Hx # Pregnancies Multiple births # of living children HPI 30 WK OB Details: JOSE L MANZO is a 30 year old who presents for routine OB visit. OB Visit WARREN Calculator Estimated Delivery Date Method Current WG Current Estimate 08/09/25 LMP (Certain) 30w 5d Other Estimates 08/10/25 Ultrasound #1 30w 4d Expected Delivery Route/Plan Labor Preferences- CB/BF classes: [] labor support person: [] labor intervention preferences: [] pain management options preferred: [] cut cord/dad catch: [] : [] PP control planned: [] discussed possible routes of delivery and associated risks: [] special requests: [] Specific Issue/Plans Covid status: [] Flu vaccine: [] Tdap vaccine: [] Rhogam: [] LARC form signed: [] Problem list reviewed and updated with the most current plan of care details and appropriate orders placed. Relevant counseling for the gestational age provided. Continue routine care and follow up unless otherwise noted in visit notes/problem list details Initial Weight: 188 lb Date -?-?-?-?-?-?-?-?-?-?-?-?- EGA Weight BP Urine Prot -?-?-?-?-?-?-?-?-?-?-?-?- Glucose FHR FuHt Pres Dilation -?-?-?-?-?-?-?-?-?-?-?-?- Effaced St Visit Note 01/02/25 -?-?-?-?-?-?-?-?-?-?-?-?- 8w 5d 188 lb 8 oz (+8 oz) 132/84 -?-?-?-?-?-?-?-?-?-?-?-?- 185 -?-?-?-?-?-?-?-?-?-?-?-?- KW- CRL cons wit h dates. Accepts NIPT and carrier. 01/24/25 -?-?-?-?-?-?-?-?-?-?-?-?- 11w 6d 190 lb 4 oz (+2 lb 4 oz) 135/82 Negative -?-?-?-?-?-?-?-?-?-?-?-?- Negative 175 -?-?-?-?-?-?-?-?-?-?-?-?- KW- work in for FHT. had spotting over the last couple days. CRL cons with 12.0 weeks. active fetus on US 01/29/25 -?-?-?-?-?-?-?-?-?-?-?-?- 12w 4d 188 lb 4 oz (+4 oz) 120/78 Negative -?-?--?-?-?-?-?-?-?-?-?-?- Negative 163 -?-?-?-?-?-?-?-?-?-?-?-?- MH-No further va ginal bleeding. Doing well. Br US confirm FHT. PN labs today 02/26/25 -?-?-?-?-?-?-?-?-?-?-?-?- 16w 4d 190 lb 4 oz (+2 lb 4 oz) 114/77 Negative -?-?-?-?-?-?-?-?-?-?-?-?- Negative 153 -?-?-?-?-?-?-?-?-?-?--?-?- MH-No VB. No flu tters yet. Denies concerns 03/25/25 -?-?-?-?-?-?-?-?-?-?-?-?- 20w 3d 189 lb 8 oz (+1 lb 8 oz) 127/86 Negative -?-?-?-?-?-?-?-?-?-?-?-?- Negative 150 -?-?-?-?-?-?-?-?-?-?-?-?- JV- patient has questions about her anatomy scan that was done a week ago. results not to us yet. will request. no other complaints. 04/24/25 -?-?-?-?-?-?-?-?-?-?-?-?- 24w 5d 194 lb 6 oz (+6 lb 6 oz) 103/62 Negative -?-?-?-?--?-?-?-?-?-?-?-?- Negative 145 24 -?-?-?-?-?-?-?-?-?-?-?-?- KW- work in for . had follow up US for additional views. no vb/cramping. 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 05/19/25 -?-?-?-?-?-?-?-?-?-?-?-?- 28w 2d 198 lb 6 oz (+10 lb 6 oz) 121/79 Negative -?-?-?-?-?-?-?-?-?-?-?-?- Negative 150 80 -?-?-?-?-?-?-?-?-?-?-?-?- KW- no vb/crampi ng. good fm. US reviewed. glucose pending. tdap next visit. 06/05/25 -?-?-?-?-?-?-?-?-?-?-?-?- 30w 5d 200 lb 3 oz (+12 lb 3 oz) 124/81 Negative -?-?-?-?-?-?-?-?-?-?-?-?- Negative 144 30 -?-?-?-?-?-?-?-?-?-?-?-?- JV- no lof, vagi nal bleeding, or cramping. discussed vaccines. recommend flu and rsv but did tdap today. will offer next visit. ACOG First Trimester First Trimester: Desire for , Alcohol, Tobacco Cessation, Illicit/Recreational Drug/Substance Use, Intimate Partner Violence, Barriers to care, Unstable Housing, Communication Barriers, Environmental/Work Hazards, Anticipated Course of Care, Toxoplasmosis Precations, Use of Any medications, Sexual activity, Exercise, Dental Care, Sauna/Hot tub use, Seat Belt use, Childbirth classes/Hospital facilities, Travel, Indications for Ultrasound and Screening for Aneuploidy; Discussed Second Trimester Second Trimester: Signs and Symptoms of Labor, Selecting a care provider, Reproductive Life Planning & Contreception, Care Planning, Depression/Anxiety and Intimate Partner Violence; Discussed Tobacco Cessation Third Trimester Third Trimester: Pain Management Plans, Labor support person(s), Immediate Larc, Signs and Symptoms of Preeclampsia, Infant Feeding No , [place] Education and Family Medical Leave or Disability Forms Results POC Urinalysis 2 Dip (Clinic) Office Urine Glucose Negative Last Edit by Lexus Jimenez on 06/05/25 16: 08 Office Urine Protein Negative Last Edit by Lexus Jimenez on 06/05/25 16: 08 Immunizations Adacel(Tdap Adolesn/Adult)(PF) 2 Lf-(2.5-5-3-5)-5 Lf/0.5 mL IM syringe Performing Provider: Ceci Spencer DO Performing Location: [facility] Administered by: Lexus Jimenez on 06/05/25 16:06 Dose Route Admin Location Dispensed Lot Number Expiration Date Pack age NDC NDC Fitting Room Maintenance Mechanic 0.5 mL IM Left Deltoid 0.5 mL [id number] 04/20/27 [id number] SANOFI- PASTEUR VIS Given Date VIS Provided VIS Publication Date 06/05/25 Single Vaccine 24 Eligibility Eligibility Date Funding Source Not Applicable Coding Level of Care Code OB Routine Diagnoses Abnormal glucose affecting O99.810 Cystic fibrosis carrier Z14.1 Obesity affecting in second trimester, unspecified obesity type O99.212 Trimester: second trimester Obesity type affecting : unspecified obesity Supervision of high risk in second trimester O09.92 Trimester: second trimester 28 weeks gestation of Z3A.28 Weeks of gestation: 28 weeks Heart murmur R01.1 Spotting in early O26.859 Lumbar disc herniation M51.26 Low back pain M54.50 Assessment and Plan Assessment and Plan (1) Abnormal glucose affecting : Status: Acute Comment: needs GTT (2) Cystic fibrosis carrier: Status: Acute (3) Obesity affecting : Status: Acute Qualifiers: Trimester: second trimester Obesity type affecting : unspecified obesity Qualified Code(s): O99.212 - Obesity complicating , second trimester Comment: HgbA1c (4) Supervision of high-risk : Status: Acute Qualifiers: Trimester: second trimester Qualified Code(s): O09.92 - Supervision of high risk , unspecified, second trimester Comment: , WARREN 08/09/25, Wade (5) : Status: Acute Qualifiers: Weeks of gestation: 28 weeks Qualified Code(s): Z3A.28 - 28 weeks gestation of Comment: discussed NIPT, carrier neg. (6) Heart murmur: Status: Acute (7) Spotting in early : Status: Acute (8) Lumbar disc herniation: Status: Acute (9) Low back pain: Status: Acute (10) Heart murmur: Status: Acute Orders: Orders POC Urinalysis 2 Dip (Clinic) Today Tdap Immunization Today Z23 - Encounter for immunization 06/05/25 1628 <Electronically signed by Ceci Zavala DO> Date _ Ceci Spencer DO Cosigner Signature: Date (if applicable) CC: ~ [facility] Work Phone: 1(994) 146-806609-29-2025 [facility] [address], [address] [place] [address] OFFICE VISIT Date of Service: 05/19/25 MR#: [id number] Acct: [id number] Name: JOSE L MANZO Rep #: [id number] : 1995 Provider: MIYA Cho Age/Sex: 30/F Location: [facility] Status: Signed Intake Vital Signs 02/26/25 15:52 04/24/25 15:11 05/19/25 15:10 05/19/25 15:12 Height 5 ft 3 in 5 ft 3 in 5 ft 3 in 5 ft 3 in Weight: 198 lb 6 oz BMI 35.1 BP 121/79 H Intake Visit Reasons: 28wk ob/glucose Occupational Therapist Assistants Required: No Is patient in pain?: No Allergies No Known Allergies Allergy (Verified 05/19/25 15:10) Medications ?Medication ?Instructions ?Recorded ?Confirmed ?Type multivitamin no.47-iron fum 27 cap PO 12/24/24 5 History mg-folate no.1 1 mg-dha 300 mg capsule (PNV-DHA) Last Menstrual Period: 11/02/24 Zika: Zika virus screening: Negative : No PFSH PFSH Medical History Cystic fibrosis carrier FH: ovarian cancer Surgical History [place] teeth extracted H/O thumb surgery Family History Grandmother Ovarian cancer, Onset Age: 45 Maternal Heart disease Paternal Grandfather Lung cancer, Onset Age: 80 Paternal Cancer, Onset Age: 80 Paternal- Prostate Mother Diabetes Uncle Heart disease Maternal Father Hyperlipidemia Social History adopted: No household members: spouse housing: house current occupational status: employed current occupation: [employer] current occupational exposures/hazards: No pets and animals: Yes (Avoid litter) pets and animals: cat(s) history of recent travel: Yes (November) out of state: Yes out of country: No sexually active: Yes Smoking Status: Never smoker alcohol intake: current alcohol intake frequency: a few times a month details: not while substance use type: does not use well-balanced diet: daily or most days caffeine: No eating out: 1-3 times/week during the past year weight has: remained stable what type of physical activity do you participate in: walking frequency: 3-4 times per week duration: 15-30 minutes/day zoe/hoahaoism: Yazidi seatbelt use: always do you feel safe at home: Yes additional 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: --[place]- Photo Checker History 1 Elective abortions Hx Para 0 Spontaneous abortions Hx # Term Pregnancies Ectopic pregnancies Hx # Pregnancies Multiple births # of living children HPI 28wk ob/glucose Details: JOSE L MANZO is a 30 year old who presents for routine OB visit. OB Visit WARREN Calculator Estimated Delivery Date Method Current WG Current Estimate 08/09/25 LMP (Certain) 28w 2d Other Estimates 08/10/25 Ultrasound #1 28w 1d Expected Delivery Route/Plan Labor Preferences- CB/BF classes: [] labor support person: [] labor intervention preferences: [] pain management options preferred: [] cut cord/dad catch: [] : [] PP control planned: [] discussed possible routes of delivery and associated risks: [] special requests: [] Specific Issue/Plans Covid status: [] Flu vaccine: [] Tdap vaccine: [] Rhogam: [] LARC form signed: [] Problem list reviewed and updated with the most current plan of care details and appropriate ordersplaced. Relevant counseling for the gestational age provided. Continue routine care and follow up unless otherwise noted in visit notes/problem list details Initial Weight: 188 lb Date -?-?-?-?-?-?-?-?-?-?-?-?- EGA Weight BP Urine Prot -?-?-?-?-?-?-?-?-?-?-?-?- Glucose FHR FuHt Pres Dilation -?-?-?-?-?-?-?-?-?-?-?-?- Effaced St Visit Note 01/02/25 -?-?-?-?-?-?-?-?-?-?-?-?- 8w 5d 188 lb 8 oz (+8 oz) 132/84 -?-?-?-?-?-?-?-?-?-?-?-?- 185 -?-?-?-?-?-?-?-?-?-?-?-?- KW- CRL cons wit h dates. Accepts NIPT and carrier. 01/24/25 -?-?-?-?-?-?-?-?-?-?-?-?- 11w 6d 190 lb 4 oz (+2 lb 4 oz) 135/82 Negative -?-?-?-?-?-?-?-?-?-?-?-?- Negative 175 -?-?-?-?-?-?-?-?-?-?-?-?- KW- work in for FHT. had spotting over the last couple days. CRL cons with 12.0 weeks. active fetus on US 01/29/25 -?-?-?-?-?-?-?-?-?-?-?-?- 12w 4d 188 lb 4 oz (+4 oz) 120/78 Negative -?-?-?-?-?-?-?-?-?-?-?-?- Negative 163 -?-?-?-?-?-?-?-?-?-?-?-?- -No further va ginal bleeding. Doing well. Br US confirm FHT. PN labs today 02/26/25 -?-?-?-?-?-?-?-?-?-?-?-?- 16w 4d 190 lb 4 oz (+2 lb 4 oz) 114/77 Negative -?-?-?-?-?-?-?-?-?-?-?-?- Negative 153 -?-?-?-?-?--?-?-?-?-?-?-?- MH-No VB. No flu tters yet. Denies concerns 03/25/25 -?-?-?-?-?-?-?-?-?-?-?-?- 20w 3d 189 lb 8 oz (+1 lb 8 oz) 127/86 Negative -?-?-?-?-?-?-?-?-?-?-?-?- Negative 150 -?-?-?-?-?-?-?-?-?-?-?-?- JV- patient has questions about her anatomy scan that was done a week ago. results not to us yet. will request. no other complaints. 04/24/25 -?-?-?-?-?-?-?-?-?-?-?-?- 24w 5d 194 lb 6 oz (+6 lb 6 oz) 103/62 Negative -?-?-?-?-?-?-?-?-?-?-?-?- Negative 145 24 -?-?-?-?-?-?-?-?-?-?-?-?- KW- work in for . had follow up US for additional views. no vb/cramping. yessy munson. 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 05/19/25 -?-?-?-?-?-?-?-?-?-?-?-?- 28w 2d 198 lb 6 oz (+10 lb 6 oz) 121/79 Negative -?-?-?-?-?-?-?-?-?-?-?-?- Negative 150 80 -?-?-?-?-?-?-?-?-?-?-?-?- KW- no vb/crampi ng. yessy munson. US reviewed. glucose pending. tdap next visit. ACOG First Trimester First Trimester: Desire for , Alcohol, Tobacco Cessation, Illicit/Recreational Drug/Substance Use, Intimate Partner Violence, Barriers to care, Unstable Housing, Communication Barriers, Environmental/Work Hazards, Anticipated Course of Care, Toxoplasmosis Precations, Use of Any med ications, Sexual activity, Exercise, Dental Care, Sauna/Hot tub use, Seat Belt use, Childbirth classes/Hospital facilities, Travel, Indications for Ultrasound and Screening for Aneuploidy; Discussed Second Trimester Second Trimester: Signs and Symptoms of Labor, Selecting a care provider, Reproductive Life Planning & Contreception, Care Planning, Depression/Anxiety and Intimate Partner Violence; Discussed Tobacco Cessation Third Trimester Third Trimester: Pain Management Plans, Labor support person(s), Immediate Larc, Signs and Symptoms of Preeclampsia, Infant Feeding No , [place] Education and Family Medical Leave or Disability Forms ROS Const Reports system reviewed and no additional complaints, except as documented Eyes Reports system reviewed and no additional complaints, except as documented ENT Reports system reviewed and no additional complaints, except as documented Card Reports system reviewed and no additional complaints, except as documented Resp Reports system reviewed and no additional complaints, except as documented GI Reports system reviewed and no additional complaints, except as documented, Denies nausea and Denies vomiting Reports system reviewed and no additional complaints, except as documented Musc Reports system reviewed and no additional complaints, except as documented Skin/Breast Reports system reviewed and no additional complaints, except as documented Neuro Yes system reviewed and no additional complaints, except as documented Psych Reports system reviewed and no additional complaints, except as documented Endo Reports system reviewed and no additional complaints, except as documented Siddhartha/Lymph Reports system reviewed and no additional complaints, except as documented Aller/Immun Reports system reviewed and no additional complaints, except as documented Exam Const General: cooperative, healthy appearing and no acute distress Orientation: alert, awake and oriented x3 Neck Neck: normal visual inspection and full ROM Resp Effort & Inspection: normal respiratory effort, able to speak in complete sentences and symmetric chest movement GI Inspection: normal to inspection Palpation: soft and other Other: gravid Skin General: no rashes or lesions noted Neuro General: patient alert, patient awake and patient oriented x3 Cognition: normal cognition Speech: speech normal Gait: normal gait Motor: muscle tone normal throughout Extrem General: normal to inspection and full ROM Psych Appearance: grossly normal Mental Status: mental status grossly normal Mood: congruent mood Affect: normal affect Speech and Movement: speech and movement normal Attitude: cooperative Thought Process: normal Thought Content: normal Judgment: judgment good Results POC Urinalysis 2 Dip (Clinic) Office Urine Glucose Negative Last Edit by Lexus Jimenez on 05/19/25 15: 25 Office Urine Protein Negative Last Edit by Lexus Jimenez on 05/19/25 15: 25 Coding Level of Care Code OB Routine Diagnoses Cystic fibrosis carrier Z14.1 Obesity affecting in second trimester, unspecified obesity type O99.212 Obesity type affecting : unspecified obesity Trimester: second trimester Supervision of high risk in second trimester O09.92 Trimester: second trimester 28 weeks gestation of Z3A.28 Weeks of gestation: 28 weeks Heart murmur R01.1 Spotting in early O26.859 Lumbar disc herniation M51.26 Low back pain M54.50 Assessment and Plan Assessment and Plan (1) Cystic fibrosis carrier: Status: Acute (2) Obesity affecting : Status: Acute Qualifiers: Obesity type affecting : unspecified obesity Trimester: second trimester Qualified Code(s): O99.212 - Obesity complicating , second trimester Comment: HgbA1c (3) Supervision of high-risk : Status: Acute Qualifiers: Trimester: second trimester Qualified Code(s): O09.92 - Supervision of high risk , unspecified, second trimester Comment: , WARREN 08/09/25, Wade (4) : Status: Acute Qualifiers: Weeks of gestation: 28 weeks Qualified Code(s): Z3A.28 - 28 weeks gestation of Comment: discussed NIPT, carrier neg. (5) Heart murmur: Status: Acute (6) Spotting in early : Status: Acute (7) Lumbar disc herniation: Status: Acute (8) Low back pain: Status: Acute (9) Heart murmur: Status: Acute Orders: Orders POC Urinalysis 2 Dip (Clinic) Today Plan Details Additional Comments: ACOG trimester education reviewed and updated. see problem list details for updated plan management information and see below for orders placed atthis visit. [place] appropriate handout given. 05/19/25 1542 s CNM> Date _ Caro Cho CNM Cosigner Signature: Date (if applicable) CC: ~ [facility]09-29-2025 Progress note Author Caro Cho [facility] Note Date/Time May 19, 2025 3:42pm [facility] [address], [address] [place] [address] OFFICE VISIT Date of Service: 05/19/25 MR#: [id number] Acct: [id number] Name: JOSE L MANZO Rep #: [id number] : 1995 Provider: MIYA Cho Age/Sex: 30/F Location: [facility] [place] Status: Signed Intake Vital Signs 02/26/25 15:52 04/24/25 15:11 05/19/25 15:10 05/19/25 15:12 Height 5 ft 3 in 5 ft 3 in 5 ft 3 in 5 ft 3 in Weight: 198 lb 6 oz BMI 35.1 BP 121/79 H Intake Visit Reasons: 28wk ob/glucose Occupational Therapist Assistants Required: No Is patient in pain?: No Allergies No Known Allergies Allergy (Verified 05/19/25 15:10) Medications ?Medication ?Instructions ?Recorded ?Confirmed ?Type multivitamin no.47-iron fum 27 cap PO 12/24/24 5 History mg-folate no.1 1 mg-dha 300 mg capsule (PNV-DHA) Last Menstrual Period: 11/02/24 Zika: Zika virus screening: Negative : No PFSH PFSH Medical History Cystic fibrosis carrier FH: ovarian cancer Surgical History [place] teeth extracted H/O thumb surgery Family History Grandmother Ovarian cancer, Onset Age: 45 Maternal Heart disease Paternal Grandfather Lung cancer, Onset Age: 80 Paternal Cancer, Onset Age: 80 Paternal- Prostate Mother Diabetes Uncle Heart disease Maternal Father Hyperlipidemia Social History adopted: No household members: spouse housing: house current occupational status: employed current occupation: [employer] current occupational exposures/hazards: No pets and animals: Yes (Avoid litter) pets and animals: cat(s) history of recent travel: Yes (November) out of state: Yes out of country: No sexually active: Yes Smoking Status: Never smoker alcohol intake: current alcohol intake frequency: a few times a month details: not while substance use type: does not use well-balanced diet: daily or most days caffeine: No eating out: 1-3 times/week during the past year weight has: remained stable what type of physical activity do you participate in: walking frequency: 3-4 times per week duration: 15-30 minutes/day zoe/hoahaoism: Yazidi seatbelt use: always do you feel safe at home: Yes additional 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: --Wade- Photo Checker History 1 Elective abortions Hx Para 0 Spontaneous abortions Hx # Term Pregnancies Ectopic pregnancies Hx # Pregnancies Multiple births # of living children HPI 28wk ob/glucose Details: JOSE L MANZO is a 30 year old who presents for routine OB visit. OB Visit WARREN Calculator Estimated Delivery Date Method Current WG Current Estimate 08/09/25 LMP (Certain) 28w 2d Other Estimates 08/10/25 Ultrasound #1 28w 1d Expected Delivery Route/Plan Labor Preferences- CB/BF classes: [] labor support person: [] labor intervention preferences: [] pain management options preferred: [] cut cord/dad catch: [] : [] PP control planned: [] discussed possible routes of delivery and associated risks: [] special requests: [] Specific Issue/Plans Covid status: [] Flu vaccine: [] Tdap vaccine: [] Rhogam: [] LARC form signed: [] Problem list reviewed and updated with the most current plan of care details and appropriate orders placed. Relevant counseling for the gestational age provided. Continue routine care and follow up unless otherwise noted in visit notes/problem list details Initial Weight: 188 lb Date -?-?-?-?-?-?-?-?-?-?-?-?- EGA Weight BP Urine Prot -?-?-?-?-?-?-?-?-?-?-?-?- Glucose FHR FuHt Pres Dilation -?-?-?-?-?-?-?-?-?-?-?-?- Effaced St Visit Note 01/02/25 -?-?-?-?-?-?-?-?-?-?-?-?- 8w 5d 188 lb 8 oz (+8 oz) 132/84 -?-?-?-?-?-?-?-?-?-?-?-?- 185 -?-?-?-?-?-?-?-?-?-?-?-?- KW- CRL cons wit h dates. Accepts NIPT and carrier. 01/24/25 -?-?-?-?-?-?-?-?-?-?-?-?- 11w 6d 190 lb 4 oz (+2 lb 4 oz) 135/82 Negative -?-?-?-?-?-?-?-?-?-?-?-?- Negative 175 -?-?-?-?-?-?-?-?-?-?-?-?- KW- work in for FHT. had spotting over the last couple days. CRL cons with 12.0 weeks. active fetus on US 01/29/25 -?-?-?-?-?-?-?-?-?-?-?-?- 12w 4d 188 lb 4 oz (+4 oz) 120/78 Negative -?-?-?-?-?-?-?-?-?-?-?-?- Negative 163 -?-?-?-?-?-?-?-?-?-?-?-?- -No further va ginal bleeding. Doing well. Br US confirm FHT. PN labs today 02/26/25 -?-?-?-?-?-?-?-?-?-?-?-?- 16w 4d 190 lb 4 oz (+2 lb 4 oz) 114/77 Negative -?-?-?-?-?-?-?-?-?-?-?-?- Negative 153 -?-?-?-?-?--?-?-?-?-?-?-?- MH-No VB. No flu tters yet. Denies concerns 03/25/25 -?-?-?-?-?-?-?-?-?-?-?-?- 20w 3d 189 lb 8 oz (+1 lb 8 oz) 127/86 Negative -?-?-?-?-?-?-?-?-?-?-?-?- Negative 150 -?-?-?-?-?-?-?-?-?-?-?-?- JV- patient has questions about her anatomy scan that was done a week ago. results not to us yet. will request. no other complaints. 04/24/25 -?-?-?-?-?-?-?-?-?-?-?-?- 24w 5d 194 lb 6 oz (+6 lb 6 oz) 103/62 Negative -?-?-?-?-?-?-?-?-?-?-?-?- Negative 145 24 -?-?-?-?-?-?-?-?-?-?-?-?- KW- work in for . had follow up US for additional views. no vb/cramping. yessy munson. 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 05/19/25 -?-?-?-?-?-?-?-?-?-?-?-?- 28w 2d 198 lb 6 oz (+10 lb 6 oz) 121/79 Negative -?-?-?-?-?-?-?-?-?-?-?-?- Negative 150 80 -?-?-?-?-?-?-?-?-?-?-?-?- KW- no vb/crampi ng. yessy munson. US reviewed. glucose pending. tdap next visit. ACOG First Trimester First Trimester: Desire for , Alcohol, Tobacco Cessation, Illicit/Recreational Drug/Substance Use, Intimate Partner Violence, Barriers to care, Unstable Housing, Communication Barriers, Environmental/Work Hazards, Anticipated Course of Care, Toxoplasmosis Precations, Use of Any medications, Sexual activity, Exercise, Dental Care, Sauna/Hot tub use, Seat Belt use, Childbirth classes/Hospital facilities, Travel, Indications for Ultrasound and Screening for Aneuploidy; Discussed Second Trimester Second Trimester: Signs and Symptoms of Labor, Selecting a care provider, Reproductive Life Planning & Contreception, Care Planning, Depression/Anxiety and Intimate Partner Violence; Discussed Tobacco Cessation Third Trimester Third Trimester: Pain Management Plans, Labor support person(s), Immediate Larc, Signs and Symptoms of Preeclampsia, Feeding No , Education and Family Medical Leave or Disability Forms ROS Const Reports system reviewed and no additional complaints, except as documented Eyes Reports system reviewed and no additional complaints, except as documented ENT Reports system reviewed and no additional complaints, except as documented Card Reports system reviewed and no additional complaints, except as documented Resp Reports system reviewed and no additional complaints, except as documented GI Reports system reviewed and no additional complaints, except as documented, Denies nausea and Denies vomiting Reports system reviewed and no additional complaints, except as documented Musc Reports system reviewed and no additional complaints, except as documented Skin/Breast Reports system reviewed and no additional complaints, except as documented Neuro Yes system reviewed and no additional complaints, except as documented Psych Reports system reviewed and no additional complaints, except as documented Endo Reports system reviewed and no additional complaints, except as documented Siddhartha/Lymph Reports system reviewed and no additional complaints, except as documented Aller/Immun Reports system reviewed and no additional complaints, except as documented Exam Const General: cooperative, healthy appearing and no acute distress Orientation: alert, awake and oriented x3 Neck Neck: normal visual inspection and full ROM Resp Effort & Inspection: normal respiratory effort, able to speak in complete sentences and symmetric chest movement GI Inspection: normal to inspection Palpation: soft and other Other: gravid Skin General: no rashes or lesions noted Neuro General: patient alert, patient awake and patient oriented x3 Cognition: normal cognition Speech: speech normal Gait: normal gait Motor: muscle tone normal throughout Extrem General: normal to inspection and full ROM Psych Appearance: grossly normal Mental Status: mental status grossly normal Mood: congruent mood Affect: normal affect Speech and Movement: speech and movement normal Attitude: cooperative Thought Process: normal Thought Content: normal Judgment: judgment good Results POC Urinalysis 2 Dip (Clinic) Office Urine Glucose Negative Last Edit by Lexus Jimenez on 05/19/25 15: 25 Office Urine Protein Negative Last Edit by Lexus Jimenez on 05/19/25 15: 25 Coding Level of Care Code OB Routine Diagnoses Cystic fibrosis carrier Z14.1 Obesity affecting in second trimester, unspecified obesity type O99.212 Obesity type affecting : unspecified obesity Trimester: second trimester Supervision of high risk in second trimester O09.92 Trimester: second trimester 28 weeks gestation of Z3A.28 Weeks of gestation: 28 weeks Heart murmur R01.1 Spotting in early O26.859 Lumbar disc herniation M51.26 Low back pain M54.50 Assessment and Plan Assessment and Plan (1) Cystic fibrosis carrier: Status: Acute (2) Obesity affecting : Status: Acute Qualifiers: Obesity type affecting : unspecified obesity Trimester: second trimester Qualified Code(s): O99.212 - Obesity complicating , second trimester Comment: HgbA1c (3) Supervision of high-risk : Status: Acute Qualifiers: Trimester: second trimester Qualified Code(s): O09.92 - Supervision of high risk , unspecified, second trimester Comment: , WARREN 08/09/25, Wade (4) : Status: Acute Qualifiers: Weeks of gestation: 28 weeks Qualified Code(s): Z3A.28 - 28 weeks gestation of Comment: discussed NIPT, carrier neg. (5) Heart murmur: Status: Acute (6) Spotting in early : Status: Acute (7) Lumbar disc herniation: Status: Acute (8) Low back pain: Status: Acute (9) Heart murmur: Status: Acute Orders: Orders POC Urinalysis 2 Dip (Clinic) Today Plan Details Additional Comments: ACOG trimester education reviewed and updated. see problem list details for updated plan management information and see below for orders placed at this visit. [place] appropriate handout given. 05/19/25 [id number] <Electronically signed by Caro gonzalez CNM> Date _ Caro Maldonado Signature: Date (if applicable) CC: ~ [facility] Work Phone: [phone]) 971-383909-04-2025 [facility] [address] [place] [address], [address] [place] [address] OFFICE VISIT Date of Service: 04/24/25 MR#: [id number] Acct: [id number] Name: JOSE L MANZO Rep #: [id number] : 1995 Provider: MIYA Cho Age/Sex: 30/F Location: [facility] Status: Signed Intake Vital Signs 01/29/25 14:04 03/25/25 15:55 04/24/25 15:11 Height 5 ft 3 in 5 ft 3 in 5 ft 3 in Weight: 194 lb 6 oz BMI 34.4 BP 103/62 Intake Visit Reasons: 24 WK OB Occupational Therapist Assistants Required: No Is patient in pain?: No Allergies No Known Allergies Allergy (Verified 04/24/25 15:14) Medications ?Medication ?Instructions ?Recorded ?Confirmed ?Type multivitamin no.47-iron fum 27 cap PO 12/24/24 5 History mg-folate no.1 1 mg-dha 300 mg capsule (PNV-DHA) Last Menstrual Period: 11/02/24 Zika: Zika virus screening: Negative : No PFSH PFSH Medical History Cystic fibrosis carrier FH: ovarian cancer Surgical History [place] teeth extracted H/O thumb surgery Family History Grandmother Ovarian cancer, Onset Age: 45 Maternal Heart disease Paternal Grandfather Lung cancer, Onset Age: 80 Paternal Cancer, Onset Age: 80 Paternal- Prostate Mother Diabetes Uncle Heart disease Maternal Father Hyperlipidemia Social History adopted: No household members: spouse housing: house current occupational status: employed current occupation: [employer] current occupational exposures/hazards: No pets and animals: Yes (Avoid litter) pets and animals: cat(s) history of recent travel: Yes (November) out of state: Yes out of country: No sexually active: Yes Smoking Status: Never smoker alcohol intake: current alcohol intake frequency: a few times a month details: not while substance use type: does not use well-balanced diet: daily or most days caffeine: No eating out: 1-3 times/week during the past year weight has: remained stable what type of physical activity do you participate in: walking frequency: 3-4 times per week duration: 15-30 minutes/day zoe/hoahaoism: Yazidi seatbelt use: always do you feel safe at home: Yes additional 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: --Wade- Photo Checker History 1 Elective abortions Hx Para 0 Spontaneous abortions Hx # Term Pregnancies Ectopic pregnancies Hx # Pregnancies Multiple births # of living children HPI 24 WK OB Details: JOSE L MANZO is a 30 year old who presents for routine OB visit. OB Visit WARREN Calculator Estimated Delivery Date Method Current WG Current Estimate 08/09/25 LMP (Certain) 24w 5d Other Estimates 08/10/25 Ultrasound #1 24w 4d Expected Delivery Route/Plan Labor Preferences- CB/BF classes: [] labor support person: [] labor intervention preferences: [] pain management options preferred: [] cut cord/dad catch: [] : [] PP control planned: [] discussed possible routes of delivery and associated risks: [] special requests: [] Specific Issue/Plans Covid status: [] Flu vaccine: [] Tdap vaccine: [] Rhogam: [] LARC form signed: [] Problem list reviewed and updated with the most current plan of care details and appropriate ordersplaced. Relevant counseling for the gestational age provided. Continue routine care and follow up unless otherwise noted in visit notes/problem list details Initial Weight: 188 lb Date -?-?-?-?-?-?-?-?-?-?-?-?- EGA Weight BP Urine Prot -?-?-?-?-?-?-?-?-?-?-?-?- Glucose FHR FuHt Pres Dilation -?-?-?-?-?-?-?-?-?-?-?-?- Effaced St Visit Note 01/02/25 -?-?-?-?-?-?-?-?-?-?--?-?- 8w 5d 188 lb 8 oz (+8 oz) 132/84 -?-?-?-?-?-?-?-?-?-?-?-?- 185 -?-?-?-?-?-?-?-?-?-?-?-?- KW- CRL cons wit h dates. Accepts NIPT and carrier. 01/24/25 -?-?-?-?-?-?-?-?-?-?-?-?- 11w 6d 190 lb 4 oz (+2 lb 4 oz) 135/82 Negative -?-?-?-?-?-?-?-?-?-?-?-?- Negative 175 -?-?-?-?-?-?-?-?-?-?-?-?- KW- work in for FHT. had spotting over the last couple days. CRL cons with 12.0 weeks. active fetus on US 01/29/25 -?-?-?-?-?-?-?-?-?-?-?-?- 12w 4d 188 lb 4 oz (+4 oz) 120/78 Negative -?-?-?-?-?-?-?-?-?-?-?-?- Negative 163 -?-?-?-?-?-?-?-?-?-?-?-?- MH-No further va ginal bleeding. Doing well. Br US confirm FHT. PN labs today 02/26/25 -?-?-?-?-?-?-?-?-?-?-?-?- 16w 4d 190 lb 4 oz (+2 lb 4 oz) 114/77 Negative -?-?-?-?-?-?-?-?-?-?-?-?- Negative 153 -?-?-?-?-?-?-?-?-?-?-?-?- MH-No VB. No flu tters yet. Denies concerns 03/25/25 -?-?-?-?-?-?-?-?-?-?-?-?- 20w 3d 189 lb 8 oz (+1 lb 8 oz) 127/86 Negative -?-?-?-?-?-?-?-?-?-?-?-?- Negative 150 -?-?-?-?-?-?-?-?-?-?-?-?- JV- patient has questions about her anatomy scan that was done a week ago. results not to us yet. will request. no other complaints. 04/24/25 -?-?-?-?-?-?-?-?-?-?-?-?- 24w 5d 194 lb 6 oz (+6 lb 6 oz) 103/62 Negative -?-?-?-?-?-?-?-?-?-?-?-?- Negative 145 24 -?-?-?-?-?-?-?-?-?-?-?-?- KW- work in for SM. had follow up US for additional views. no vb/cramping. 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 ACOG First Trimester First Trimester: Desire for , Alcohol, Tobacco Cessation, Illicit/Recreational Drug/Substance Use, Intimate Partner Violence, Barriers to care, Unstable Housing, Communication Barriers, Environmental/Work Hazards, Anticipated Course of Care, Toxoplasmosis Precations, Use of Any med ications, Sexual activity, Exercise, Dental Care, Sauna/Hot tub use, Seat Belt use, Childbirth classes/Hospital facilities, Travel, Indications for Ultrasound and Screening for Aneuploidy; Discussed Second Trimester Second Trimester: Signs and Symptoms of Labor, Selecting a care provider, Reproductive Life Planning & Contreception, Care Planning, Depression/Anxiety and Intimate Partner Violence; Discussed Tobacco Cessation Third Trimester Third Trimester: Pain Management Plans, Labor support person(s), Immediate Larc, Signs and Symptoms of Preeclampsia, Feeding No , Education and Family Medical Leave or Disability Forms ROS Const Reports system reviewed and no additional complaints, except as documented Eyes Reports system reviewed and no additional complaints, except as documented ENT Reports system reviewed and no additional complaints, except as documented Card Reports system reviewed and no additional complaints, except as documented Resp Reports system reviewed and no additional complaints, except as documented GI Reports system reviewed and no additional complaints, except as documented, Denies nausea and Denies vomiting Reports system reviewed and no additional complaints, except as documented Musc Reports system reviewed and no additional complaints, except as documented Skin/Breast Reports system reviewed and no additional complaints, except as documented Neuro Yes system reviewed and no additional complaints, except as documented Psych Reports system reviewed and no additional complaints, except as documented Endo Reports system reviewed and no additional complaints, except as documented Siddhartha/Lymph Reports system reviewed and no additional complaints, except as documented Aller/Immun Reports system reviewed and no additional complaints, except as documented Exam Const General: cooperative, healthy appearing and no acute distress Orientation: alert, awake and oriented x3 Neck Neck: normal visual inspection and full ROM Resp Effort & Inspection: normal respiratory effort, able to speak in complete sentences and symmetric chest movement GI Inspection: normal to inspection Palpation: soft and other Other: gravid Skin General: no rashes or lesions noted Neuro General: patient alert, patient awake and patient oriented x3 Cognition: normal cognition Speech: speech normal Gait: normal gait Motor: muscle tone normal throughout Extrem General: normal to inspection and full ROM Psych Appearance: grossly normal Mental Status: mental status grossly normal Mood: congruent mood Affect: normal affect Speech and Movement: speech and movement normal Attitude: cooperative Thought Process: normal Thought Content: normal Judgment: judgment good Results POC Urinalysis 2 Dip (Clinic) Office Urine Glucose Negative Last Edit by Edita Duckworth on 04/24/25 15:24 Office Urine Protein Negative Last Edit by Edita Duckworth on 04/24/25 15:24 Coding Level of Care Code OB Routine Diagnoses Cystic fibrosis carrier Z14.1 Obesity affecting in second trimester, unspecified obesity type O99.212 Obesity type affecting : unspecified obesity Trimester: second trimester Supervision of high risk in second trimester O09.92 Trimester: second trimester 24 weeks gestation of Z3A.24 Weeks of gestation: 24 weeks Heart murmur R01.1 Spotting in early O26.859 Lumbar disc herniation M51.26 Low back pain M54.50 Assessment and Plan Assessment and Plan (1) Cystic fibrosis carrier: Status: Acute (2) Obesity affecting : Status: Acute Qualifiers: Obesity type affecting : unspecified obesity Trimester: second trimester Qualified Code(s): O99.212 - Obesity complicating , second trimester Comment: HgbA1c (3) Supervision of high-risk : Status: Acute Qualifiers: Trimester: second trimester Qualified Code(s): O09.92 - Supervision of high risk , unspecified, second trimester Comment: , WARREN 08/09/25, Wade (4) : Status: Acute Qualifiers: Weeks of gestation: 24 weeks Qualified Code(s): Z3A.24 - 24 weeks gestation of Comment: discussed NIPT, carrier neg. (5) Heart murmur: Status: Acute (6) Spotting in early : Status: Acute (7) Lumbar disc herniation: Status: Acute (8) Low back pain: Status: Acute (9) Heart murmur: Status: Acute Orders: Orders POC Urinalysis 2 Dip (Clinic) Today O09.92 - Supervision of high risk , unspecified, second trimester CBC W/Diff, Automated Today O09. - Supervision of high risk , unspecified, second trimester Glucose Challenge Gest 1H 50g Today O09.92 - Supervision of high risk , unspecified, second trimester, Z13.1 - Encounter for screening for diabetes mellitus HIV Today O09.92 - Supervision of high risk , unspecified, second trimester Syphilis Antibodies Today O09.92 - Supervision of high risk , unspecified, second trimester Plan Details Additional Comments: ACOG trimester education reviewed and updated. see problem list details for updated plan management information and see below for orders placed atthis visit. [place] appropriate handout given. 04/24/25 1553 s MIYA> Date _ Caro Marquis MIYA Cosigner Signature: Date (if applicable) CC: ~ [facility]09-04-2025 Progress note Author Caro Cho [facility] Note Date/Time 2025 3:53pm [facility] [address] [place] [address], [address] [place] [address] OFFICE VISIT Date of Service: 04/24/25 MR#: [id number] Acct: [id number] Name: JOSE L MANZO Rep #: [id number] : 1995 Provider: MIYA Cho Age/Sex: 30/F Location: [facility] [place] Status: Signed Intake Vital Signs 01/29/25 14:04 03/25/25 15:55 04/24/25 15:11 Height 5 ft 3 in 5 ft 3 in 5 ft 3 in Weight: 194 lb 6 oz BMI 34.4 BP 103/62 Intake Visit Reasons: 24 WK OB Occupational Therapist Assistants Required: No Is patient in pain?: No Allergies No Known Allergies Allergy (Verified 04/24/25 15:14) Medications ?Medication ?Instructions ?Recorded ?Confirmed ?Type multivitamin no.47-iron fum 27 cap PO 12/24/24 5 History mg-folate no.1 1 mg-dha 300 mg capsule (PNV-DHA) Last Menstrual Period: 11/02/24 Zika: Zika virus screening: Negative : No PFSH PFSH Medical History Cystic fibrosis carrier FH: ovarian cancer Surgical History [place] teeth extracted H/O thumb surgery Family History Grandmother Ovarian cancer, Onset Age: 45 Maternal Heart disease Paternal Grandfather Lung cancer, Onset Age: 80 Paternal Cancer, Onset Age: 80 Paternal- Prostate Mother Diabetes Uncle Heart disease Maternal Father Hyperlipidemia Social History adopted: No household members: spouse housing: house current occupational status: employed current occupation: [employer] current occupational exposures/hazards: No pets and animals: Yes (Avoid litter) pets and animals: cat(s) history of recent travel: Yes (November) out of state: Yes out of country: No sexually active: Yes Smoking Status: Never smoker alcohol intake: current alcohol intake frequency: a few times a month details: not while substance use type: does not use well-balanced diet: daily or most days caffeine: No eating out: 1-3 times/week during the past year weight has: remained stable what type of physical activity do you participate in: walking frequency: 3-4 times per week duration: 15-30 minutes/day zoe/hoahaoism: Yazidi seatbelt use: always do you feel safe at home: Yes additional 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: --Wade- Photo Checker History 1 Elective abortions Hx Para 0 Spontaneous abortions Hx # Term Pregnancies Ectopic pregnancies Hx # Pregnancies Multiple births # of living children HPI 24 WK OB Details: JOSE L MANZO is a 30 year old who presents for routine OB visit. OB Visit WARREN Calculator Estimated Delivery Date Method Current WG Current Estimate 08/09/25 LMP (Certain) 24w 5d Other Estimates 08/10/25 Ultrasound #1 24w 4d Expected Delivery Route/Plan Labor Preferences- CB/BF classes: [] labor support person: [] labor intervention preferences: [] pain management options preferred: [] cut cord/dad catch: [] : [] PP control planned: [] discussed possible routes of delivery and associated risks: [] special requests: [] Specific Issue/Plans Covid status: [] Flu vaccine: [] Tdap vaccine: [] Rhogam: [] LARC form signed: [] Problem list reviewed and updated with the most current plan of care details and appropriate orders placed. Relevant counseling for the gestational age provided. Continue routine care and follow up unless otherwise noted in visit notes/problem list details Initial Weight: 188 lb Date -?-?-?-?-?-?-?-?-?-?-?-?- EGA Weight BP Urine Prot -?-?-?-?-?-?-?-?-?-?-?-?- Glucose FHR FuHt Pres Dilation -?-?-?-?-?-?-?-?-?-?-?-?- Effaced St Visit Note 01/02/25 -?-?-?-?-?-?-?-?-?-?--?-?- 8w 5d 188 lb 8 oz (+8 oz) 132/84 -?-?-?-?-?-?-?-?-?-?-?-?- 185 -?-?-?-?-?-?-?-?-?-?-?-?- KW- CRL cons wit h dates. Accepts NIPT and carrier. 01/24/25 -?-?-?-?-?-?-?-?-?-?-?-?- 11w 6d 190 lb 4 oz (+2 lb 4 oz) 135/82 Negative -?-?-?-?-?-?-?-?-?-?-?-?- Negative 175 -?-?-?-?-?-?-?-?-?-?-?-?- KW- work in for FHT. had spotting over the last couple days. CRL cons with 12.0 weeks. active fetus on US 01/29/25 -?-?-?-?-?-?-?-?-?-?-?-?- 12w 4d 188 lb 4 oz (+4 oz) 120/78 Negative -?-?-?-?-?-?-?-?-?-?-?-?- Negative 163 -?-?-?-?-?-?-?-?-?-?-?-?- MH-No further va ginal bleeding. Doing well. Br US confirm FHT. PN labs today 02/26/25 -?-?-?-?-?-?-?-?-?-?-?-?- 16w 4d 190 lb 4 oz (+2 lb 4 oz) 114/77 Negative -?-?-?-?-?-?-?-?-?-?-?-?- Negative 153 -?-?-?-?-?-?-?-?-?-?-?-?- MH-No VB. No flu tters yet. Denies concerns 03/25/25 -?-?-?-?-?-?-?-?-?-?-?-?- 20w 3d 189 lb 8 oz (+1 lb 8 oz) 127/86 Negative -?-?-?-?-?-?-?-?-?-?-?-?- Negative 150 -?-?-?-?-?-?-?-?-?-?-?-?- JV- patient has questions about her anatomy scan that was done a week ago. results not to us yet. will request. no other complaints. 04/24/25 -?-?-?-?-?-?-?-?-?-?-?-?- 24w 5d 194 lb 6 oz (+6 lb 6 oz) 103/62 Negative -?-?-?-?-?-?-?-?-?-?-?-?- Negative 145 24 -?-?-?-?-?-?-?-?-?-?-?-?- KW- work in for . had follow up US for additional views. no vb/cramping. 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 ACOG First Trimester First Trimester: Desire for , Alcohol, Tobacco Cessation, Illicit/Recreational Drug/Substance Use, Intimate Partner Violence, Barriers to care, Unstable Housing, Communication Barriers, Environmental/Work Hazards, Anticipated Course of Care, Toxoplasmosis Precations, Use of Any medications, Sexual activity, Exercise, Dental Care, Sauna/Hot tub use, Seat Belt use, Childbirth classes/Hospital facilities, Travel, Indications for Ultrasound and Screening for Aneuploidy; Discussed Second Trimester Second Trimester: Signs and Symptoms of Labor, Selecting a care provider, Reproductive Life Planning & Contreception, Care Planning, Depression/Anxiety and Intimate Partner Violence; Discussed Tobacco Cessation Third Trimester Third Trimester: Pain Management Plans, Labor support person(s), Immediate Larc, Signs and Symptoms of Preeclampsia, Infant Feeding No , [place] Education and Family Medical Leave or Disability Forms ROS Const Reports system reviewed and no additional complaints, except as documented Eyes Reports system reviewed and no additional complaints, except as documented ENT Reports system reviewed and no additional complaints, except as documented Card Reports system reviewed and no additional complaints, except as documented Resp Reports system reviewed and no additional complaints, except as documented GI Reports system reviewed and no additional complaints, except as documented, Denies nausea and Denies vomiting Reports system reviewed and no additional complaints, except as documented Musc Reports system reviewed and no additional complaints, except as documented Skin/Breast Reports system reviewed and no additional complaints, except as documented Neuro Yes system reviewed and no additional complaints, except as documented Psych Reports system reviewed and no additional complaints, except as documented Endo Reports system reviewed and no additional complaints, except as documented Siddhartha/Lymph Reports system reviewed and no additional complaints, except as documented Aller/Immun Reports system reviewed and no additional complaints, except as documented Exam Const General: cooperative, healthy appearing and no acute distress Orientation: alert, awake and oriented x3 Neck Neck: normal visual inspection and full ROM Resp Effort & Inspection: normal respiratory effort, able to speak in complete sentences and symmetric chest movement GI Inspection: normal to inspection Palpation: soft and other Other: gravid Skin General: no rashes or lesions noted Neuro General: patient alert, patient awake and patient oriented x3 Cognition: normal cognition Speech: speech normal Gait: normal gait Motor: muscle tone normal throughout Extrem General: normal to inspection and full ROM Psych Appearance: grossly normal Mental Status: mental status grossly normal Mood: congruent mood Affect: normal affect Speech and Movement: speech and movement normal Attitude: cooperative Thought Process: normal Thought Content: normal Judgment: judgment good Results POC Urinalysis 2 Dip (Clinic) Office Urine Glucose Negative Last Edit by Edita Duckworth on 04/24/25 15:24 Office Urine Protein Negative Last Edit by Edita Duckworth on 04/24/25 15:24 Coding Level of Care Code OB Routine Diagnoses Cystic fibrosis carrier Z14.1 Obesity affecting in second trimester, unspecified obesity type O99.212 Obesity type affecting : unspecified obesity Trimester: second trimester Supervision of high risk in second trimester O09.92 Trimester: second trimester 24 weeks gestation of Z3A.24 Weeks of gestation: 24 weeks Heart murmur R01.1 Spotting in early O26.859 Lumbar disc herniation M51.26 Low back pain M54.50 Assessment and Plan Assessment and Plan (1) Cystic fibrosis carrier: Status: Acute (2) Obesity affecting : Status: Acute Qualifiers: Obesity type affecting : unspecified obesity Trimester: second trimester Qualified Code(s): O99.212 - Obesity complicating , second trimester Comment: HgbA1c (3) Supervision of high-risk : Status: Acute Qualifiers: Trimester: second trimester Qualified Code(s): O09.92 - Supervision of high risk , unspecified, second trimester Comment: , WARREN 08/09/25, Wade (4) : Status: Acute Qualifiers: Weeks of gestation: 24 weeks Qualified Code(s): Z3A.24 - 24 weeks gestation of Comment: discussed NIPT, carrier neg. (5) Heart murmur: Status: Acute (6) Spotting in early : Status: Acute (7) Lumbar disc herniation: Status: Acute (8) Low back pain: Status: Acute (9) Heart murmur: Status: Acute Orders: Orders POC Urinalysis 2 Dip (Clinic) Today O09.92 - Supervision of high risk , unspecified, second trimester CBC W/Diff, Automated Today O09.92 - Supervision of high risk , unspecified, second trimester Glucose Challenge Gest 1H 50g Today O09.92 - Supervision of high risk , unspecified, second trimester, Z13.1 - Encounter for screening for diabetes mellitus HIV Today O09.92 - Supervision of high risk , unspecified, second trimester Syphilis Antibodies Today O09.92 - Supervision of high risk , unspecified, second trimester Plan Details Additional Comments: ACOG trimester education reviewed and updated. see problem list details for updated plan management information and see below for orders placed at this visit. [place] appropriate handout given. 04/24/25 3857 <Electronically signed by Caro gonzalez CNM> Date _ Caro Cho CNM [facility] Signature: Date (if applicable) CC: ~ [facility] Work Phone: [phone] [facility] [address], [address] [place] [address] OFFICE VISIT Date of Service: 03/25/25 MR#: [id number] Acct: [id number] Name: JOSE L MANZO Rep #: [id number] : 1995 Provider: Dr. Aliyah Spencer DO Age/Sex: 29/F Location: [facility] [place] Status: Signed Intake Vital Signs 01/29/25 14:04 02/26/25 15:52 03/25/25 15:55 03/25/25 15:55 Height 5 ft 3 in 5 ft 3 in 5 ft 3 in 5 ft 3 in Weight: 189 lb 8 oz BMI 33.5 BP 127/86 H Intake Visit Reasons: 20 WK OB Occupational Therapist Assistants Required: No Is patient in pain?: No Allergies No Known Allergies Allergy (Verified 03/25/25 15:54) Medications ?Medication ?Instructions ?Recorded ?Confirmed ?Type multivitamin no.47-iron fum 27 cap PO 12/24/24 5 History mg-folate no.1 1 mg-dha 300 mg capsule (PNV-DHA) Last Menstrual Period: 11/02/24 Zika: Zika virus screening: Negative : No PFSH PFSH Medical History Cystic fibrosis carrier FH: ovarian cancer Surgical History [place] teeth extracted H/O thumb surgery Family History Grandmother Ovarian cancer, Onset Age: 45 Maternal Heart disease Paternal Grandfather Lung cancer, Onset Age: 80 Paternal Cancer, Onset Age: 80 Paternal- Prostate Mother Diabetes Uncle Heart disease Maternal Father Hyperlipidemia Social History adopted: No household members: spouse housing: house current occupational status: employed current occupation: [employer] current occupational exposures/hazards: No pets and animals: Yes (Avoid litter) pets and animals: cat(s) history of recent travel: Yes (November) out of state: Yes out of country: No sexually active: Yes Smoking Status: Never smoker alcohol intake: current alcohol intake frequency: a few times a month details: not while substance use type: does not use well-balanced diet: daily or most days caffeine: No eating out: 1-3 times/week during the past year weight has: remained stable what type of physical activity do you participate in: walking frequency: 3-4 times per week duration: 15-30 minutes/day zoe/hoahaoism: Yazidi seatbelt use: always do you feel safe at home: Yes additional 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: --Wade- Photo Checker History 1 Elective abortions Hx Para 0 Spontaneous abortions Hx # Term Pregnancies Ectopic pregnancies Hx # Pregnancies Multiple births # of living children HPI 20 WK OB Details: JOSE L MANZO is a 29 year old who presents for routine OB visit. OB Visit WARREN Calculator Estimated Delivery Date Method Current WG Current Estimate 08/09/25 LMP (Certain) 20w 3d Other Estimates 08/10/25 Ultrasound #1 20w 2d Expected Delivery Route/Plan Labor Preferences- CB/BF classes: [] labor support person: [] labor intervention preferences: [] pain management options preferred: [] cut cord/dad catch: [] : [] PP control planned: [] discussed possible routes of delivery and associated risks: [] special requests: [] Specific Issue/Plans Covid status: [] Flu vaccine: [] Tdap vaccine: [] Rhogam: [] LARC form signed: [] Problem list reviewed and updated with the most current plan of care details and appropriate ordersplaced. Relevant counseling for the gestational age provided. Continue routine care and follow up unless otherwise noted in visit notes/problem list details Initial Weight: 188 lb Date -?-?-?-?-?-?-?-?-?-?-?-?- EGA Weight BP Urine Prot -?-?-?-?-?-?-?-?-?-?-?-?- Glucose FHR FuHt Pres Dilation -?-?-?-?-?-?-?-?-?-?-?-?- Effaced St Visit Note 01/02/25 -?-?-?-?-?-?-?-?-?-?-?-?- 8w 5d 188 lb 8 oz (+8 oz) 132/84 -?-?-?-?-?-?-?-?-?-?-?-?- 185 -?-?-?-?-?-?-?-?-?-?-?-?- KW- CRL cons wit h dates. Accepts NIPT and carrier. 01/24/25 -?-?-?-?-?-?-?-?-?-?-?-?- 11w 6d 190 lb 4 oz (+2 lb 4 oz) 135/82 Negative -?-?-?-?-?-?-?-?-?-?-?-?- Negative 175 -?-?-?-?-?-?-?-?-?-?-?-?- KW- work in for FHT. had spotting over the last couple days. CRL cons with 12.0 weeks. active fetus on US 01/29/25 -?-?-?-?-?-?-?-?-?-?-?-?- 12w 4d 188 lb 4 oz (+4 oz) 120/78 Negative -?--?-?-?-?-?-?-?-?-?-?-?- Negative 163 -?-?-?-?-?-?-?-?-?-?-?-?- MH-No further va ginal bleeding. Doing well. Br US confirm FHT. PN labs today 02/26/25 -?-?-?-?-?-?-?-?-?-?-?-?- 16w 4d 190 lb 4 oz (+2 lb 4 oz) 114/77 Negative -?-?-?-?-?-?-?-?-?-?-?-?- Negative 153 -?-?-?-?-?-?-?-?-?--?-?-?- MH-No VB. No flu tters yet. Denies concerns 03/25/25 -?-?-?-?-?-?-?-?-?-?-?-?- 20w 3d 189 lb 8 oz (+1 lb 8 oz) 127/86 Negative -?-?-?-?-?-?-?-?-?-?-?-?- Negative 150 -?-?-?-?-?-?-?-?-?-?-?-?- JV- patient has questions about her anatomy scan that was done a week ago. results not to us yet. will request. no other complaints. ACOG First Trimester First Trimester: Desire for , Alcohol, Tobacco Cessation, Illicit/Recreational Drug/Substance Use, Intimate Partner Violence, Barriers to care, Unstable Housing, Communication Barriers, Environmental/Work Hazards, Anticipated Course of Care, Toxoplasmosis Precations, Use of Any med ications, Sexual activity, Exercise, Dental Care, Sauna/Hot tub use, Seat Belt use, Childbirth classes/Hospital facilities, Travel, Indications for Ultrasound and Screening for Aneuploidy; Discussed Second Trimester Second Trimester: Signs and Symptoms of Labor, Selecting a care provider, Reproductive Life Planning & Contreception, Care Planning, Depression/Anxiety and Intimate Partner Violence; Discussed Tobacco Cessation Third Trimester Third Trimester: Pain Management Plans, Labor support person(s), Immediate Larc, Signs and Symptoms of Preeclampsia, Infant Feeding No , [place] Education and Family Medical Leave or Disability Forms Results POC Urinalysis 2 Dip (Clinic) Office Urine Glucose Negative Last Edit by Lexus Jimenez on 03/25/25 16: 18 Office Urine Protein Negative Last Edit by Lexus Jimenez on 03/25/25 16: 18 Coding Level of Care Code OB Routine Diagnoses Cystic fibrosis carrier Z14.1 Obesity affecting in second trimester, unspecified obesity type O99.212 Obesity type affecting : unspecified obesity Trimester: second trimester Supervision of high risk in second trimester O09.92 Trimester: second trimester 20 weeks gestation of Z3A.20 Weeks of gestation: 20 weeks Heart murmur R01.1 Spotting in early O26.859 Lumbar disc herniation M51.26 Low back pain M54.50 Assessment and Plan Assessment and Plan (1) Cystic fibrosis carrier: Status: Acute (2) Obesity affecting : Status: Acute Qualifiers: Obesity type affecting : unspecified obesity Trimester: second trimester Qualified Code(s): O99.212 - Obesity complicating , second trimester Comment: HgbA1c (3) Supervision of high-risk : Status: Acute Qualifiers: Trimester: second trimester Qualified Code(s): O09.92 - Supervision of high risk , unspecified, second trimester Comment: , WARREN 08/09/25, Wade (4) : Status: Acute Qualifiers: Weeks of gestation: 20 weeks Qualified Code(s): Z3A.20 - 20 weeks gestation of Comment: discussed NIPT, carrier neg. (5) Heart murmur: Status: Acute (6) Spotting in early : Status: Acute (7) Lumbar disc herniation: Status: Acute (8) Low back pain: Status: Acute (9) Heart murmur: Status: Acute Orders: Orders POC Urinalysis 2 Dip (Clinic) Today 03/25/25 1630 e Isabel DO> Date _ Ceci Spencer DO [facility] Signature: Date (if applicable) CC: ~ [facility]08-05-2025 Progress note Author Ceci Hall [facility] Note Date/Time March 25, 2025 4:3 0pm [facility] [address], [address] [place] [address] OFFICE VISIT Date of Service: 03/25/25 MR#: [id number] Acct: [id number] Name: JOSE L MANZO Rep #: [id number] : 1995 Provider: Dr. Aliyah Spencer DO Age/Sex: 29/F Location: [facility] [place] Status: Signed Intake Vital Signs 01/29/25 14:04 02/26/25 15:52 03/25/25 15:55 03/25/25 15:55 Height 5 ft 3 in 5 ft 3 in 5 ft 3 in 5 ft 3 in Weight: 189 lb 8 oz BMI 33.5 BP 127/86 H Intake Visit Reasons: 20 WK OB Occupational Therapist Assistants Required: No Is patient in pain?: No Allergies No Known Allergies Allergy (Verified 03/25/25 15:54) Medications ?Medication ?Instructions ?Recorded ?Confirmed ?Type multivitamin no.47-iron fum 27 cap PO 12/24/24 5 History mg-folate no.1 1 mg-dha 300 mg capsule (PNV-DHA) Last Menstrual Period: 11/02/24 Zika: Zika virus screening: Negative : No PFSH PFSH Medical History Cystic fibrosis carrier FH: ovarian cancer Surgical History [place] teeth extracted H/O thumb surgery Family History Grandmother Ovarian cancer, Onset Age: 45 Maternal Heart disease Paternal Grandfather Lung cancer, Onset Age: 80 Paternal Cancer, Onset Age: 80 Paternal- Prostate Mother Diabetes Uncle Heart disease Maternal Father Hyperlipidemia Social History adopted: No household members: spouse housing: house current occupational status: employed current occupation: [employer] current occupational exposures/hazards: No pets and animals: Yes (Avoid litter) pets and animals: cat(s) history of recent travel: Yes (November) out of state: Yes out of country: No sexually active: Yes Smoking Status: Never smoker alcohol intake: current alcohol intake frequency: a few times a month details: not while substance use type: does not use well-balanced diet: daily or most days caffeine: No eating out: 1-3 times/week during the past year weight has: remained stable what type of physical activity do you participate in: walking frequency: 3-4 times per week duration: 15-30 minutes/day zoe/hoahaoism: Yazidi seatbelt use: always do you feel safe at home: Yes additional 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: --Wade- Photo Checker History 1 Elective abortions Hx Para 0 Spontaneous abortions Hx # Term Pregnancies Ectopic pregnancies Hx # Pregnancies Multiple births # of living children HPI 20 WK OB Details: JOSE L MANZO is a 29 year old who presents for routine OB visit. OB Visit WARREN Calculator Estimated Delivery Date Method Current WG Current Estimate 08/09/25 LMP (Certain) 20w 3d Other Estimates 08/10/25 Ultrasound #1 20w 2d Expected Delivery Route/Plan Labor Preferences- CB/BF classes: [] labor support person: [] labor intervention preferences: [] pain management options preferred: [] cut cord/dad catch: [] : [] PP control planned: [] discussed possible routes of delivery and associated risks: [] special requests: [] Specific Issue/Plans Covid status: [] Flu vaccine: [] Tdap vaccine: [] Rhogam: [] LARC form signed: [] Problem list reviewed and updated with the most current plan of care details and appropriate orders placed. Relevant counseling for the gestational age provided. Continue routine care and follow up unless otherwise noted in visit notes/problem list details Initial Weight: 188 lb Date -?-?-?-?-?-?-?-?-?-?-?-?- EGA Weight BP Urine Prot -?-?-?-?-?-?-?-?-?-?-?-?- Glucose FHR FuHt Pres Dilation -?-?-?-?-?-?-?-?-?-?-?-?- Effaced St Visit Note 01/02/25 -?-?-?-?-?-?-?-?-?-?-?-?- 8w 5d 188 lb 8 oz (+8 oz) 132/84 -?-?-?-?-?-?-?-?-?-?-?-?- 185 -?-?-?-?-?-?-?-?-?-?-?-?- KW- CRL cons wit h dates. Accepts NIPT and carrier. 01/24/25 -?-?-?-?-?-?-?-?-?-?-?-?- 11w 6d 190 lb 4 oz (+2 lb 4 oz) 135/82 Negative -?-?-?-?-?-?-?-?-?-?-?-?- Negative 175 -?-?-?-?-?-?-?-?-?-?-?-?- KW- work in for FHT. had spotting over the last couple days. CRL cons with 12.0 weeks. active fetus on US 01/29/25 -?-?-?-?-?-?-?-?-?-?-?-?- 12w 4d 188 lb 4 oz (+4 oz) 120/78 Negative -?--?-?-?-?-?-?-?-?-?-?-?- Negative 163 -?-?-?-?-?-?-?-?-?-?-?-?- -No further va ginal bleeding. Doing well. Br US confirm FHT. PN labs today 02/26/25 -?-?-?-?-?-?-?-?-?-?-?-?- 16w 4d 190 lb 4 oz (+2 lb 4 oz) 114/77 Negative -?-?-?-?-?-?-?-?-?-?-?-?- Negative 153 -?-?-?-?-?-?-?-?-?--?-?-?- -No VB. No flu tters yet. Denies concerns 03/25/25 -?-?-?-?-?-?-?-?-?-?-?-?- 20w 3d 189 lb 8 oz (+1 lb 8 oz) 127/86 Negative -?-?-?-?-?-?-?-?-?-?-?-?- Negative 150 -?-?-?-?-?-?-?-?-?-?-?-?- JV- patient has questions about her anatomy scan that was done a week ago. results not to us yet. will request. no other complaints. ACOG First Trimester First Trimester: Desire for , Alcohol, Tobacco Cessation, Illicit/Recreational Drug/Substance Use, Intimate Partner Violence, Barriers to care, Unstable Housing, Communication Barriers, Environmental/Work Hazards, Anticipated Course of Care, Toxoplasmosis Precations, Use of Any medications, Sexual activity, Exercise, Dental Care, Sauna/Hot tub use, Seat Belt use, Childbirth classes/Hospital facilities, Travel, Indications for Ultrasound and Screening for Aneuploidy; Discussed Second Trimester Second Trimester: Signs and Symptoms of Labor, Selecting a care provider, Reproductive Life Planning & Contreception, Care Planning, Depression/Anxiety and Intimate Partner Violence; Discussed Tobacco Cessation Third Trimester Third Trimester: Pain Management Plans, Labor support person(s), Immediate Larc, Signs and Symptoms of Preeclampsia, Feeding No , [place] Education and Family Medical Leave or Disability Forms Results POC Urinalysis 2 Dip (Clinic) Office Urine Glucose Negative Last Edit by Lexus Jimenez on 03/25/25 16: 18 Office Urine Protein Negative Last Edit by Lexus Jimenez on 03/25/25 16: 18 Coding Level of Care Code OB Routine Diagnoses Cystic fibrosis carrier Z14.1 Obesity affecting in second trimester, unspecified obesity type O99.212 Obesity type affecting : unspecified obesity Trimester: second trimester Supervision of high risk in second trimester O09.92 Trimester: second trimester 20 weeks gestation of Z3A.20 Weeks of gestation: 20 weeks Heart murmur R01.1 Spotting in early O26.859 Lumbar disc herniation M51.26 Low back pain M54.50 Assessment and Plan Assessment and Plan (1) Cystic fibrosis carrier: Status: Acute (2) Obesity affecting : Status: Acute Qualifiers: Obesity type affecting : unspecified obesity Trimester: second trimester Qualified Code(s): O99.212 - Obesity complicating , second trimester Comment: HgbA1c (3) Supervision of high-risk : Status: Acute Qualifiers: Trimester: second trimester Qualified Code(s): O09.92 - Supervision of high risk , unspecified, second trimester Comment: , WARREN 08/09/25, Wade (4) : Status: Acute Qualifiers: Weeks of gestation: 20 weeks Qualified Code(s): Z3A.20 - 20 weeks gestation of Comment: discussed NIPT, carrier neg. (5) Heart murmur: Status: Acute (6) Spotting in early : Status: Acute (7) Lumbar disc herniation: Status: Acute (8) Low back pain: Status: Acute (9) Heart murmur: Status: Acute Orders: Orders POC Urinalysis 2 Dip (Clinic) Today 03/25/25 1630 <Electronically signed by Ceci Zavala DO> Date _ Ceci Spencer DO Cosigner Signature: Date (if applicable) CC: ~ [facility] Work Phone: 1(870) 499-435707-09-2025 Evaluation note* Diagnosis Onset Date Resolution Status Admit Date Cystic fibrosis carrier acute J ruth [id number] 3:50pm Heart murmur acute February 26 3:50pm Obesity affecting acute February 26, 2025 3:50pm acute February 26, 2025 3:50pm Supervision of high-risk acute February 26, 2025 3 :50pm Cystic fibrosis carrier acute A [id number] 3:49pm Heart murmur acute March 25, 2025 3:49pm Low back pain acute March 25, 2025 3:49pm Lumbar disc herniation acute Au 2024 3:49pm Obesity affecting acute March 25, 2025 3:49pm acute March 25 3:49pm Spotting in early acute March 25, 2025 3:49pm Supervision of high-risk acute March 25, 2025 3:49pm Cystic fibrosis carrier acute S eptember 2024 3:29pm Heart murmur acute April 3:29pm Low back pain acute April 242024 3:29pm Lumbar disc herniation acute Se ptember 2024 3:29pm Obesity affecting acute 2025 3:29pm acute 2025 3:29pm Spotting in early acute 2025 3:29pm Supervision of high-risk acute April 24, 025 3:29pm Cystic fibrosis carrier acute S eptember 2024 3:09pm Heart murmur acute May 192024 3:09pm Low back pain acute April 222024 3:09pm Lumbar disc herniation acute Se ptember 2024 3:09pm Obesity affecting acute May 19, 2025 3:09pm acute April 3:09pm Spotting in early acute May 19, 2025 3:09pm Supervision of high-risk acute May 19, 2025 3:09pm Abnormal glucose affecting acute June 05 3:53pm Cystic fibrosis carrier acute O ctober 2024 3:53pm Heart murmur acute May 3:53pm Low back pain acute May 3:53pm Lumbar disc herniation acute Oc tober 2024 3:53pm Obesity affecting acute June 05, 2025 3:53pm acute June 05, 2025 3:53pm Spotting in early acute June 05, 2025 3:53pm Supervision of high-risk acute June 05 3:53pm [facility] Work Phone: 1(449) 355-348807-09-2025 Evaluation note* Diagnosis Onset Date Resolution Status Admit Date Cystic fibrosis carrier acute J ruth ann 2024 3:50pm Obesity affecting acute February 26, 2025 3:50pm acute February 26, 2025 3:50pm Supervision of high-risk acute February 26, 2025 3 :50pm Heart murmur resolved February 26 3:50pm Cystic fibrosis carrier acute A [id number] 3:49pm Obesity affecting acute March 25, 2025 3:49pm acute March 25 3:49pm Supervision of high-risk acute March 25, 2025 3:49pm Heart murmur resolved March 25, 2025 3:49pm Low back pain resolved March 25, 2025 3:49pm Lumbar disc herniation resolved Au omar 2024 3:49pm Spotting in early resolved March 25, 2025 3:49pm Cystic fibrosis carrier acute S eptember 2024 3:29pm Obesity affecting acute 2025 3:29pm acute 2025 3:29pm Supervision of high-risk acute April 24 025 3:29pm Heart murmur resolved April 3:29pm Low back pain resolved April 242024 3:29pm Lumbar disc herniation resolved Se ptember 2024 3:29pm Spotting in early resolved 2025 3:29pm Cystic fibrosis carrier acute S eptember 2024 3:09pm Obesity affecting acute May 19, 2025 3:09pm acute April 3:09pm Supervision of high-risk acute May 19, 2025 3:09pm Heart murmur resolved May 192024 3:09pm Low back pain resolved April 222024 3:09pm Lumbar disc herniation resolved Se ptember 2024 3:09pm Spotting in early resolved May 19, 2025 3:09pm Abnormal glucose affecting acute June 05 3:53pm Cystic fibrosis carrier acute O ctober 2024 3:53pm Obesity affecting acute June 05, 2025 3:53pm acute June 05, 2025 3:53pm Supervision of high-risk acute June 05 3:53pm Heart murmur resolved May 3:53pm Low back pain resolved May 3:53pm Lumbar disc herniation resolved Oc tober 2024 3:53pm Spotting in early resolved June 05, 2025 3:53pm Abnormal glucose affecting acute June 17 3:04pm Cystic fibrosis carrier acute O ctober 2024 3:04pm Obesity affecting acute June 17, 2025 3:04pm acute June 17, 2025 3:04pm Supervision of high-risk acute June 17 3:04pm [facility] Work Phone: 1(301) 985-907406-06-2025 Evaluation note* Diagnosis Onset Date Resolution Status Admit Date Heart murmur acute January 24 2:47pm Low back pain acute January 24, 2 025 2:47pm Lumbar disc herniation acute Ju 2024 2:47pm Obesity affecting acute January 24, 2025 2:47pm acute January 24, 2025 2:47pm Spotting in early acute January 24, 2025 2:47pm Supervision of high-risk acute January 24, 2025 2 :47pm FH: ovarian cancer inactive January 242024 2:47pm at early stage deleted January 24, 2025 2:47pm Heart murmur acute January 29, 2 025 2:00pm Lumbar disc herniation acute Ju 2024 2:00pm Obesity affecting acute January 29, 2025 2:00pm acute January 29 2:00pm Spotting in early acute January 29, 2025 2:00pm Supervision of high-risk acute January 29, 2025 2:00pm Cystic fibrosis carrier acute J ruth ann 2024 3:50pm Heart murmur acute February 26 3:50pm Obesity affecting acute February 26, 2025 3:50pm acute February 26, 2025 3:50pm Supervision of high-risk acute February 26, 2025 3 :50pm Cystic fibrosis carrier acute A ug2024 3:49pm Heart murmur acute March 25, 2025 3:49pm Low back pain acute March 25, 2025 3:49pm Lumbar disc herniation acute Au omar 2024 3:49pm Obesity affecting acute March 25, 2025 3:49pm acute March 25 3:49pm Spotting in early acute March 25, 2025 3:49pm Supervision of high-risk acute March 25, 2025 3:49pm Cystic fibrosis carrier acute S eptember 2024 3:29pm Heart murmur acute April 3:29pm Low back pain acute April 242024 3:29pm Lumbar disc herniation acute Se ptember 2024 3:29pm Obesity affecting acute 2025 3:29pm acute 2025 3:29pm Spotting in early acute 2025 3:29pm Supervision of high-risk acute April 24 3:29pm Cystic fibrosis carrier acute S eptember 2024 3:09pm Heart murmur acute May 192024 3:09pm Low back pain acute April 222024 3:09pm Lumbar disc herniation acute Se ptember 2024 3:09pm Obesity affecting acute May 19, 2025 3:09pm acute April 3:09pm Spotting in early acute May 19, 2025 3:09pm Supervision of high-risk acute May 19, 2025 3:09pm [facility] Work Phone: 1(369) 572-273406-06-2025 [facility] [address] [place] [address], [address] [place] [address] OFFICE VISIT Date of Service: 01/24/25 MR#: [id number] Acct: [id number] Name: JOSE L MANZO Rep #: [id number] : 1995 Provider: MIYA Cho Age/Sex: 29/F Location: [facility] [place] Status: Signed Intake Vital Signs 01/02/25 14:13 01/24/25 11:10 01/24/25 14:51 Height 5 ft 3 in 5 ft 3 in 5 ft 3 in Weight: 190 lb 4 oz BMI 33.7 BP 135/82 H Intake Visit Reasons: Heartbeat Check *spotting Chief Complaint: Spotting- Heartbeat check Occupational Therapist Assistants Required: No Is patient in pain?: No Allergies No Known Allergies Allergy (Verified 01/24/25 14:50) Medications ?Medication ?Instructions ?Recorded ?Confirmed ?Type multivitamin no.47-iron fum 27 cap PO 12/24/24 5 History mg-folate no.1 1 mg-dha 300 mg capsule (PNV-DHA) Last Menstrual Period: 11/02/24 Zika: Zika virus screening: Negative : No PFSH PFSH Surgical History [place] teeth extracted H/O thumb surgery Family History Grandmother Ovarian cancer, Onset Age: 45 Maternal Heart disease Paternal Grandfather Lung cancer, Onset Age: 80 Paternal Cancer, Onset Age: 80 Paternal- Prostate Mother Diabetes Uncle Heart disease Maternal Father Hyperlipidemia Social History adopted: No household members: spouse housing: house current occupational status: employed current occupation: [employer] current occupational exposures/hazards: No pets and animals: Yes (Avoid litter) pets and animals: cat(s) history of recent travel: Yes (November) out of state: Yes out of country: No sexually active: Yes Smoking Status: Never smoker alcohol intake: current alcohol intake frequency: a few times a month details: not while substance use type: does not use well-balanced diet: daily or most days caffeine: No eating out: 1-3 times/week during the past year weight has: remained stable what type of physical activity do you participate in: walking frequency: 3-4 times per week duration: 15-30 minutes/day zoe/hoahaoism: Yazidi seatbelt use: always do you feel safe at home: Yes additional 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: --Wade- Photo Checker History 1 Elective abortions Hx Para 0 Spontaneous abortions Hx # Term Pregnancies Ectopic pregnancies Hx # Pregnancies Multiple births # of living children HPI Heartbeat Check *spotting Details: JOSE L MANZO is a 29 year old who presents for routine OB visit. OB Visit WARREN Calculator Estimated Delivery Date Method Current WG Current Estimate 08/09/25 LMP (Certain) 11w 6d Other Estimates 08/10/25 Ultrasound #1 11w 5d Expected Delivery Route/Plan Labor Preferences- CB/BF classes: [] labor support person: [] labor intervention preferences: [] pain management options preferred: [] cut cord/dad catch: [] : [] PP control planned: [] discussed possible routes of delivery and associated risks: [] special requests: [] Specific Issue/Plans Covid status: [] Flu vaccine: [] Tdap vaccine: [] Rhogam: [] LARC form signed: [] Problem list reviewed and updated with the most current plan of care details and appropriate ordersplaced. Relevant counseling for the gestational age provided. Continue routine care and follow up unless otherwise noted in visit notes/problem list details Initial Weight: 188 lb Date -?-?-?-?-?-?-?-?-?-?-?-?- EGA Weight BP Urine Prot -?-?-?-?-?-?-?-?-?-?-?-?- Glucose FHR FuHt Pres Dilation -?-?-?-?-?-?-?-?-?-?-?-?- Effaced St Visit Note 01/02/25 -?-?-?-?-?-?-?-?-?-?-?-?- 8w 5d 188 lb 8 oz (+8 oz) 132/84 -?-?-?-?-?-?-?-?-?-?-?-?- 185 -?-?-?-?-?-?-?-?-?-?-?-?- KW- CRL cons wit h dates. Accepts NIPT and carrier. 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 had spotting over the last couple days. CRL cons with 12.0 weeks. active fetus on US ACOG First Trimester First Trimester: Desire for , Alcohol, Tobacco Cessation, Illicit/Recreational Drug/Substance Use, Intimate Partner Violence, Barriers to care, Unstable Housing, Communication Barriers, Environmental/Work Hazards, Anticipated Course of Care, Toxoplasmosis Precations, Use of Any med ications, Sexual activity, Exercise, Dental Care, Sauna/Hot tub use, Seat Belt use, Childbirth classes/Hospital facilities, Travel, Indications for Ultrasound and Screening for Aneuploidy; Discussed Second Trimester Second Trimester: Signs and Symptoms of Labor, Selecting a care provider, Reproductive Life Planning & Contreception, Care Planning, Depression/Anxiety and Intimate Partner Violence; Discussed Tobacco Cessation Third Trimester Third Trimester: Pain Management Plans, Labor support person(s), Immediate Larc, Signs and Symptoms of Preeclampsia, Infant Feeding No , Education and Family Medical Leave or Disability Forms ROS Const Reports system reviewed and no additional complaints, except as documented Eyes Reports system reviewed and no additional complaints, except as documented ENT Reports system reviewed and no additional complaints, except as documented Card Reports system reviewed and no additional complaints, except as documented Resp Reports system reviewed and no additional complaints, except as documented GI Reports system reviewed and no additional complaints, except as documented, Denies nausea and Denies vomiting Reports system reviewed and no additional complaints, except as documented Musc Reports system reviewed and no additional complaints, except as documented Skin/Breast Reports system reviewed and no additional complaints, except as documented Neuro Yes system reviewed and no additional complaints, except as documented Psych Reports system reviewed and no additional complaints, except as documented Endo Reports system reviewed and no additional complaints, except as documented Siddhartha/Lymph Reports system reviewed and no additional complaints, except as documented Aller/Immun Reports system reviewed and no additional complaints, except as documented Exam Const General: cooperative, healthy appearing and no acute distress Orientation: alert, awake and oriented x3 Neck Neck: normal visual inspection and full ROM Resp Effort & Inspection: normal respiratory effort, able to speak in complete sentences and symmetric chest movement GI Inspection: normal to inspection Palpation: soft and other Other: gravid Skin General: no rashes or lesions noted Neuro General: patient alert, patient awake and patient oriented x3 Cognition: normal cognition Speech: speech normal Gait: normal gait Motor: muscle tone normal throughout Extrem General: normal to inspection and full ROM Psych Appearance: grossly normal Mental Status: mental status grossly normal Mood: congruent mood Affect: normal affect Speech and Movement: speech and movement normal Attitude: cooperative Thought Process: normal Thought Content: normal Judgment: judgment good Coding Level of Care Code OB Routine Diagnoses 11 weeks gestation of Z3A.11 Weeks of gestation: 11 weeks Supervision of high-risk O09.90 Obesity affecting O99.210 FH: ovarian cancer Z80.41 Heart murmur R01.1 Spotting in early O26.859 at early stage Z34.90 Lumbar disc herniation M51.26 Low back pain M54.50 Assessment and Plan Assessment and Plan (1) : Status: Acute Qualifiers: Weeks of gestation: 11 weeks Qualified Code(s): Z3A.11 - 11 weeks gestation of Comment: discussed NIPT & Carrier testing (2) Supervision of high-risk : Status: Acute Comment: , WARREN 08/09/25, Wade (3) Obesity affecting : Status: Acute Comment: HgbA1c (4) FH: ovarian cancer: Status: Acute Comment: Maternal Grandmother (5) Heart murmur: Status: Acute (6) Spotting in early : Status: Acute (7) at early stage: Status: Acute (8) Lumbar disc herniation: Status: Acute (9) Low back pain: Status: Acute (10) Heart murmur: Status: Acute Orders: Orders POC Urinalysis 2 Dip (Clinic) Today Plan Details Additional Comments: ACOG trimester education reviewed and updated. see problem list details for updated plan management information and see below for orders placed atthis visit. GA appropriate handout given. 01/24/25 1524 s IANM> Date _ Caro Cho CNM Cosigner Signature: Date (if applicable) CC: ~ [facility]06-06-2025 Progress note Author Caro Cho [facility] Note Date/Time January 24, 2025 3:24p [facility] [address], [address] [place] [address] OFFICE VISIT Date of Service: 01/24/25 MR#: [id number] Acct: [id number] Name: JOSE L MANZO Rep #: [id number] : 1995 Provider: MIYA Cho Age/Sex: 29/F Location: [facility] [place] Status: Signed Intake Vital Signs 01/02/25 14:13 01/24/25 11:10 01/24/25 14:51 Height 5 ft 3 in 5 ft 3 in 5 ft 3 in Weight: 190 lb 4 oz BMI 33.7 BP 135/82 H Intake Visit Reasons: Heartbeat Check *spotting Chief Complaint: Spotting- Heartbeat check Occupational Therapist Assistants Required: No Is patient in pain?: No Allergies No Known Allergies Allergy (Verified 01/24/25 14:50) Medications ?Medication ?Instructions ?Recorded ?Confirmed ?Type multivitamin no.47-iron fum 27 cap PO 12/24/24 5 History mg-folate no.1 1 mg-dha 300 mg capsule (PNV-DHA) Last Menstrual Period: 11/02/24 Zika: Zika virus screening: Negative : No PFSH PFSH Surgical History [place] teeth extracted H/O thumb surgery Family History Grandmother Ovarian cancer, Onset Age: 45 Maternal Heart disease Paternal Grandfather Lung cancer, Onset Age: 80 Paternal Cancer, Onset Age: 80 Paternal- Prostate Mother Diabetes Uncle Heart disease Maternal Father Hyperlipidemia Social History adopted: No household members: spouse housing: house current occupational status: employed current occupation: [employer] current occupational exposures/hazards: No pets and animals: Yes (Avoid litter) pets and animals: cat(s) history of recent travel: Yes (November) out of state: Yes out of country: No sexually active: Yes Smoking Status: Never smoker alcohol intake: current alcohol intake frequency: a few times a month details: not while substance use type: does not use well-balanced diet: daily or most days caffeine: No eating out: 1-3 times/week during the past year weight has: remained stable what type of physical activity do you participate in: walking frequency: 3-4 times per week duration: 15-30 minutes/day zoe/hoahaoism: Yazidi seatbelt use: always do you feel safe at home: Yes additional 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: --Wade- Photo Checker History 1 Elective abortions Hx Para 0 Spontaneous abortions Hx # Term Pregnancies Ectopic pregnancies Hx # Pregnancies Multiple births # of living children HPI Heartbeat Check *spotting Details: JOSE L MANZO is a 29 year old who presents for routine OB visit. OB Visit WARREN Calculator Estimated Delivery Date Method Current WG Current Estimate 08/09/25 LMP (Certain) 11w 6d Other Estimates 08/10/25 Ultrasound #1 11w 5d Expected Delivery Route/Plan Labor Preferences- CB/BF classes: [] labor support person: [] labor intervention preferences: [] pain management options preferred: [] cut cord/dad catch: [] : [] PP control planned: [] discussed possible routes of delivery and associated risks: [] special requests: [] Specific Issue/Plans Covid status: [] Flu vaccine: [] Tdap vaccine: [] Rhogam: [] LARC form signed: [] Problem list reviewed and updated with the most current plan of care details and appropriate orders placed. Relevant counseling for the gestational age provided. Continue routine care and follow up unless otherwise noted in visit notes/problem list details Initial Weight: 188 lb Date -?-?-?-?-?-?-?-?-?-?-?-?- EGA Weight BP Urine Prot -?-?-?-?-?-?-?-?-?-?-?-?- Glucose FHR FuHt Pres Dilation -?-?-?-?-?-?-?-?-?-?-?-?- Effaced St Visit Note 01/02/25 -?-?-?-?-?-?-?-?-?-?-?-?- 8w 5d 188 lb 8 oz (+8 oz) 132/84 -?-?-?-?-?-?-?-?-?-?-?-?- 185 -?-?-?-?-?-?-?-?-?-?-?-?- KW- CRL cons wit h dates. Accepts NIPT and carrier. 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 had spotting over the last couple days. CRL cons with 12.0 weeks. active fetus on US ACOG First Trimester First Trimester: Desire for , Alcohol, Tobacco Cessation, Illicit/Recreational Drug/Substance Use, Intimate Partner Violence, Barriers to care, Unstable Housing, Communication Barriers, Environmental/Work Hazards, Anticipated Course of Care, Toxoplasmosis Precations, Use of Any medications, Sexual activity, Exercise, Dental Care, Sauna/Hot tub use, Seat Belt use, Childbirth classes/Hospital facilities, Travel, Indications for Ultrasound and Screening for Aneuploidy; Discussed Second Trimester Second Trimester: Signs and Symptoms of Labor, Selecting a care provider, Reproductive Life Planning & Contreception, Care Planning, Depression/Anxiety and Intimate Partner Violence; Discussed Tobacco Cessation Third Trimester Third Trimester: Pain Management Plans, Labor support person(s), Immediate Larc, Signs and Symptoms of Preeclampsia, Infant Feeding No , [place] Education and Family Medical Leave or Disability Forms ROS Const Reports system reviewed and no additional complaints, except as documented Eyes Reports system reviewed and no additional complaints, except as documented ENT Reports system reviewed and no additional complaints, except as documented Card Reports system reviewed and no additional complaints, except as documented Resp Reports system reviewed and no additional complaints, except as documented GI Reports system reviewed and no additional complaints, except as documented, Denies nausea and Denies vomiting Reports system reviewed and no additional complaints, except as documented Musc Reports system reviewed and no additional complaints, except as documented Skin/Breast Reports system reviewed and no additional complaints, except as documented Neuro Yes system reviewed and no additional complaints, except as documented Psych Reports system reviewed and no additional complaints, except as documented Endo Reports system reviewed and no additional complaints, except as documented Siddhartha/Lymph Reports system reviewed and no additional complaints, except as documented Aller/Immun Reports system reviewed and no additional complaints, except as documented Exam Const General: cooperative, healthy appearing and no acute distress Orientation: alert, awake and oriented x3 Neck Neck: normal visual inspection and full ROM Resp Effort & Inspection: normal respiratory effort, able to speak in complete sentences and symmetric chest movement GI Inspection: normal to inspection Palpation: soft and other Other: gravid Skin General: no rashes or lesions noted Neuro General: patient alert, patient awake and patient oriented x3 Cognition: normal cognition Speech: speech normal Gait: normal gait Motor: muscle tone normal throughout Extrem General: normal to inspection and full ROM Psych Appearance: grossly normal Mental Status: mental status grossly normal Mood: congruent mood Affect: normal affect Speech and Movement: speech and movement normal Attitude: cooperative Thought Process: normal Thought Content: normal Judgment: judgment good Coding Level of Care Code OB Routine Diagnoses 11 weeks gestation of Z3A.11 Weeks of gestation: 11 weeks Supervision of high-risk O09.90 Obesity affecting O99.210 FH: ovarian cancer Z80.41 Heart murmur R01.1 Spotting in early O26.859 at early stage Z34.90 Lumbar disc herniation M51.26 Low back pain M54.50 Assessment and Plan Assessment and Plan (1) : Status: Acute Qualifiers: Weeks of gestation: 11 weeks Qualified Code(s): Z3A.11 - 11 weeks gestation of Comment: discussed NIPT & Carrier testing (2) Supervision of high-risk : Status: Acute Comment: , WARREN 08/09/25, Wade (3) Obesity affecting : Status: Acute Comment: HgbA1c (4) FH: ovarian cancer: Status: Acute Comment: Maternal Grandmother (5) Heart murmur: Status: Acute (6) Spotting in early : Status: Acute (7) at early stage: Status: Acute (8) Lumbar disc herniation: Status: Acute (9) Low back pain: Status: Acute (10) Heart murmur: Status: Acute Orders: Orders POC Urinalysis 2 Dip (Clinic) Today Plan Details Additional Comments: ACOG trimester education reviewed and updated. see problem list details for updated plan management information and see below for orders placed at this visit. GA appropriate handout given. 01/24/25 1524 <Electronically signed by Caro gonzalez CNM> Date _ Caro Cho CNM Cosigner Signature: Date (if applicable) CC: ~ [facility] Work Phone: 1(141) 488-150405-15-2025 Evaluation note* Diagnosis Onset Date Resolution Status Admit Date Heart murmur acute January 02 2:09pm Low back pain acute May 15th, 2 025 2:09pm Lumbar disc herniation acute Ma y 2024 2:09pm Obesity affecting acute January 02, 2025 2:09pm acute January 02, 2025 2:09pm Spotting in early acute January 02, 2025 2:09pm Supervision of high-risk acute January 02, 2025 2 :09pm FH: ovarian cancer inactive January 022024 2:09pm at early stage deleted January 02, 2025 2:09pm Heart murmur acute January 24 2:47pm Low back pain acute January 24, 2 025 2:47pm Lumbar disc herniation acute Ju 2024 2:47pm Obesity affecting acute January 24, 2025 2:47pm acute January 24, 2025 2:47pm Spotting in early acute January 24, 2025 2:47pm Supervision of high-risk acute January 24, 2025 2 :47pm FH: ovarian cancer inactive January 242024 2:47pm at early stage deleted January 24, 2025 2:47pm Heart murmur acute January 29, 2 025 2:00pm Lumbar disc herniation acute Ju 2024 2:00pm Obesity affecting acute January 29, 2025 2:00pm acute January 29 2:00pm Spotting in early acute January 29, 2025 2:00pm Supervision of high-risk acute January 29, 2025 2:00pm Cystic fibrosis carrier acute J ruth [id number] 3:50pm Heart murmur acute February 26 3:50pm Obesity affecting acute February 26, 2025 3:50pm acute February 26, 2025 3:50pm Supervision of high-risk acute February 26, 2025 3 :50pm Cystic fibrosis carrier acute A [id number] 3:49pm Heart murmur acute March 25, 2025 3:49pm Low back pain acute March 25, 2025 3:49pm Lumbar disc herniation acute Au omar 2024 3:49pm Obesity affecting acute March 25, 2025 3:49pm acute March 25 3:49pm Spotting in early acute March 25, 2025 3:49pm Supervision of high-risk acute March 25, 2025 3:49pm Cystic fibrosis carrier acute S eptember 2024 3:29pm Heart murmur acute April 3:29pm Low back pain acute April 242024 3:29pm Lumbar disc herniation acute Se ptember 2024 3:29pm Obesity affecting acute 2025 3:29pm acute 2025 3:29pm Spotting in early acute 2025 3:29pm Supervision of high-risk acute April 24, 025 3:29pm [facility] Work Phone: 1(795) 398-429705-15-2025 [facility] [address] [place] [address], [address] [place] [address] OFFICE VISIT Date of Service: 01/02/25 MR#: [id number] Acct: [id number] Name: JOSE L MANZO Rep #: [id number] : 1995 Provider: MIYA Cho Age/Sex: 29/F Location: [facility] [place] Status: Signed Intake Vital Signs 03/04/24 14:15 12/24/24 11:14 01/02/25 14:13 Height 5 ft 3 in 5 ft 3 in 5 ft 3 in Weight: 188 lb 8 oz BMI 33.3 BP 132/84 H Intake Visit Reasons: NOB LMP 11/02 WARREN 08/09 Chief Complaint: New OB Occupational Therapist Assistants Required: No Is patient in pain?: No Allergies No Known Allergies Allergy (Verified 01/02/25 14:11) Medications ?Medication ?Instructions ?Recorded ?Confirmed ?Type multivitamin no.47-iron fum 27 cap PO 12/24/24 5 History mg-folate no.1 1 mg-dha 300 mg capsule (PNV-DHA) Last Menstrual Period: 11/02/24 : Yes PFSH PFSH Surgical History [place] teeth extracted H/O thumb surgery Family History Grandmother Ovarian cancer, Onset Age: 45 Maternal Heart disease Paternal Grandfather Lung cancer, Onset Age: 80 Paternal Cancer, Onset Age: 80 Paternal- Prostate Mother Diabetes Uncle Heart disease Maternal Father Hyperlipidemia Social History adopted: No household members: spouse housing: house current occupational status: employed current occupation: [employer] current occupational exposures/hazards: No pets and animals: Yes (Avoid litter) pets and animals: cat(s) history of recent travel: Yes (November) out of state: Yes out of country: No sexually active: Yes Smoking Status: Never smoker alcohol intake: current alcohol intake frequency: a few times a month details: not while substance use type: does not use well-balanced diet: daily or most days caffeine: No eating out: 1-3 times/week during the past year weight has: remained stable what type of physical activity do you participate in: walking frequency: 3-4 times per week duration: 15-30 minutes/day zoe/hoahaoism: Yazidi seatbelt use: always do you feel safe at home: Yes additional 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 OB Visit WARREN Calculator Estimated Delivery Date Method Current WG Current Estimate 08/09/25 LMP (Certain) 8w 5d Other Estimates 08/10/25 Ultrasound #1 8w 4d Estimated Due Date: 08/09/25 Expected Delivery Route/Plan Labor Preferences- CB/BF classes: [] labor support person: [] labor intervention preferences: [] pain management options preferred: [] cut cord/dad catch: [] : [] PP control planned: [] discussed possible routes of delivery and associated risks: [] special requests: [] Specific Issue/Plans Covid status: [] Flu vaccine: [] Tdap vaccine: [] Rhogam: [] LARC form signed: [] Problem list reviewed and updated with the most current plan of care details and appropriate ordersplaced. Relevant counseling for the gestational age provided. Continue routine care and follow up unless otherwise noted in visit notes/problem list details Initial Weight: 188 lb Date -?-?-?-?-?-?-?-?-?-?-?-?- EGA Weight BP Urine Prot -?-?-?-?-?-?-?-?-?-?-?-?- Glucose FHR FuHt Pres Dilation -?-?-?-?-?-?-?-?-?-?-?-?- Effaced St Visit Note 01/02/25 -?-?-?-?-?-?-?-?-?-?-?-?- 8w 5d 188 lb 8 oz (+8 oz) 132/84 -?-?-?-?-?-?-?-?-?-?-?-?- 185 -?-?-?-?-?-?-?-?-?-?-?-?- KW- CRL cons wit h dates. Accepts NIPT and carrier. Menstrual History Last Menstrual Period: 11/02/24 Reported LMP: definite Normal amount/duration: Yes Frequency in days: 28-29 On hormonal BC at conception: No hCG+: 11/29/24 Antepartum Record Genetic Screening: Congenital Heart Defect: Patient (heart murmur), Neural Tube Defect: Other, Hemoglobinopathy Or Carrier: Other, Cystic Fibrosis: Other, Chromosome Abnormality: Other, Perez-Sachs: Other, Hemophilia: Other, Intellectual Disability/Autism: Other, Recurrent Loss/Stillbirth: Other, Other Structural Defect: Other, Other Genetic Disease: Other and Maternal Metabolic Disorder: Other Infection History: Live with someone with TB or Exposed to TB: No, Patient or Partner has history of Genital Herpes: No, Rash or Viral illness since last mentrual period: No, Prior GBS-Infected child: No, History of STD: No, HIV Infection: No, History of Hepatitis: No, Recent travel outside of [place]: No, Concern for hepatitis exposure: No, Varicella immune: Yes (immune-virus) and Covid Vaccinated: No Medical History Medical History: Positive: Operations/hospitalizations (thumb, wisdom teeth), Relevant family history (See PFSH) and Other (herniated disc 2023 L4&L5) and Negative: Diabetes, Hypertension, Heart disease, Auto-immune disorder, Kidney disease/UTI, Neurologic/epilepsy, Psychiatric, Depression/ depression, Hepatitis/liver disease, Varicosities/phlebitis, Thyroid dysfunction, Trauma/domestic violence, History of blood transfusions, D (Rh) Sensitized, Pulmonary (e.g.,TB,Asthma), Seasonal allergies, Drug/latex allergies/reactions, Breast, 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, Anesthetic complications, History of abnormal pap, Uterine anomaly/minerva, Infertility and Anti-retroviral treatment ACOG First Trimester First Trimester: Desire for , Alcohol, Tobacco Cessation, Illicit/Recreational Drug/Substance Use, Intimate Partner Violence, Barriers to care, Unstable Housing, Communication Barriers, Environmental/Work Hazards, Anticipated Course of Care, Toxoplasmosis Precations, Use of Any med ications, Sexual activity, Exercise, Dental Care, Sauna/Hot tub use, Seat Belt use, Childbirth classes/Hospital facilities, , Travel, Indications for Ultrasound and Screening for Aneuploidy Second Trimester Second Trimester: Signs and Symptoms of Labor, Selecting a care provider, Reproductive Life Planning & Contreception, Care Planning, Depression/Anxiety and Intimate Partner Violence; Discussed Tobacco Cessation Third Trimester Third Trimester: Pain Management Plans, Labor support person(s), Immediate Larc, Signs and Symptoms of Preeclampsia, Feeding Yes , [place] Education and Family Medical Leave or Disability Forms ROS Const Reports system reviewed and no additional complaints, except as documented, Denies fatigue, Denies headache(s) and Denies lethargy ENT Denies headache(s) Card Reports system reviewed and no additional complaints, except as documented Resp Reports system reviewed and no additional complaints, except as documented GI Reports system reviewed and no additional complaints, except as documented, Denies abdominal pain, Denies constipation, Denies cramping, Denies diarrhea and Denies dyspepsia Reports system reviewed and no additional complaints, except as documented, Denies abnormal vaginalbleeding, Denies difficulty voiding, Denies dyspareunia and Denies dysuria Musc Reports system reviewed and no additional complaints, except as documented Skin/Breast Reports system reviewed and no additional complaints, except as documented Neuro Yes system reviewed and no additional complaints, except as documented and No headache(s) Psych Reports system reviewed and no additional complaints, except as documented, Denies anhedonia and Denies anxiety Endo Reports system reviewed and no additional complaints, except as documented and Denies fatigue Exam Const General: cooperative, healthy appearing and comfortable Neck Neck: normal visual inspection and full ROM Chest Chest palpation & inspection: normal inspection of the chest Breast inspection: normal inspection of the breasts and normal inspection of the axillae Breast palpation: normal palpation of the breasts and normal palpation of the axillae Resp Effort & Inspection: normal respiratory effort and able to speak in complete sentences GI Inspection: normal to inspection Palpation: soft External Female Exam: normal external appearance and normal appearance of the urethra Urethra: normal appearance of the urethra Skin General: no rashes or lesions noted Neuro General: patient alert, patient awake and patient oriented x3 Extrem General: normal to inspection and full ROM Psych Appearance: grossly normal and well kempt Mental Status: mental status grossly normal Mood: congruent mood Affect: normal affect Speech and Movement: speech and movement normal Thought Process: normal Thought Content: normal Coding Level of Care Code OB Routine Diagnoses Obesity affecting O99.210 Supervision of high-risk O09.90 FH: ovarian cancer Z80.41 8 weeks gestation of Z3A.08 Weeks of gestation: 8 weeks Heart murmur R01.1 Spotting in early O26.859 at early stage Z34.90 Low back pain M54.50 Lumbar disc herniation M51.26 Assessment and Plan Assessment and Plan (1) Obesity affecting : Status: Acute Comment: HgbA1c (2) Supervision of high-risk : Status: Acute Comment: , WARREN 08/09/25, Wade (3) FH: ovarian cancer: Status: Acute Comment: Maternal Grandmother (4) : Status: Acute Qualifiers: Weeks of gestation: 8 weeks Qualified Code(s): Z3A.08 - 8 weeks gestation of Comment: discussed NIPT & Carrier testing (5) Heart murmur: Status: Acute (6) Spotting in early : Status: Acute (7) at early stage: Status: Acute (8) Low back pain: Status: Acute (9) Lumbar disc herniation: Status: Acute (10) Heart murmur: Status: Acute Comments Comments: Patient oriented to practice and discussed care expectations and screenings. ACOG book offered to patient. Discussed routine and specially indicated labs if needed- patient consents to testing. See problem list details for plan information. Optional screening including maternal carrier screenings, neural tube defect screening, genetic screening options including quad screen, nuchal translucency, sequential screening, and NIPT screening offered to patient and patient chose: NIPT and carrier 05/15/25 1452 s CNM> Date _ Caro Cho CNM Cosigner Signature: Date (if applicable) CC: ~ [facility]05-15-2025 Progress note Author Caro Cho [facility] Note Date/Time January 02, 2025 2:52p [facility] [address], [address] [place] [address] OFFICE VISIT Date of Service: 01/02/25 MR#: [id number] Acct: [id number] Name: JOSE L MANZO Rep #: [id number] : 1995 Provider: MIYA Cho Age/Sex: 29/F Location: [facility] [place] Status: Signed Intake Vital Signs 03/04/24 14:15 12/24/24 11:14 01/02/25 14:13 Height 5 ft 3 in 5 ft 3 in 5 ft 3 in Weight: 188 lb 8 oz BMI 33.3 BP 132/84 H Intake Visit Reasons: NOB LMP 11/02 WARREN 08/09 Chief Complaint: New OB Occupational 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 Assistants Required: No Is patient in pain?: No Allergies No Known Allergies Allergy (Verified 01/02/25 14:11) Medications ?Medication ?Instructions ?Recorded ?Confirmed ?Type multivitamin no.47-iron fum 27 cap PO 12/24/24 5 History mg-folate no.1 1 mg-dha 300 mg capsule (PNV-DHA) Last Menstrual Period: 11/02/24 : Yes PFSH PFSH Surgical History [place] teeth extracted H/O thumb surgery Family History Grandmother Ovarian cancer, Onset Age: 45 Maternal Heart disease Paternal Grandfather Lung cancer, Onset Age: 80 Paternal Cancer, Onset Age: 80 Paternal- Prostate Mother Diabetes Uncle Heart disease Maternal Father Hyperlipidemia Social History adopted: No household members: spouse housing: house current occupational status: employed current occupation: [employer] current occupational exposures/hazards: No pets and animals: Yes (Avoid litter) pets and animals: cat(s) history of recent travel: Yes (November) out of state: Yes out of country: No sexually active: Yes Smoking Status: Never smoker alcohol intake: current alcohol intake frequency: a few times a month details: not while substance use type: does not use well-balanced diet: daily or most days caffeine: No eating out: 1-3 times/week during the past year weight has: remained stable what type of physical activity do you participate in: walking frequency: 3-4 times per week duration: 15-30 minutes/day zoe/hoahaoism: Yazidi seatbelt use: always do you feel safe at home: Yes additional 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 OB Visit WRAREN Calculator Estimated Delivery Date Method Current WG Current Estimate 08/09/25 LMP (Certain) 8w 5d Other Estimates 08/10/25 Ultrasound #1 8w 4d Estimated Due Date: 08/09/25 Expected Delivery Route/Plan Labor Preferences- CB/BF classes: [] labor support person: [] labor intervention preferences: [] pain management options preferred: [] cut cord/dad catch: [] : [] PP control planned: [] discussed possible routes of delivery and associated risks: [] special requests: [] Specific Issue/Plans Covid status: [] Flu vaccine: [] Tdap vaccine: [] Rhogam: [] LARC form signed: [] Problem list reviewed and updated with the most current plan of care details and appropriate orders placed. Relevant counseling for the gestational age provided. Continue routine care and follow up unless otherwise noted in visit notes/problem list details Initial Weight: 188 lb Date -?-?-?-?-?-?-?-?-?-?-?-?- EGA Weight BP Urine Prot -?-?-?-?-?-?-?-?-?-?-?-?- Glucose FHR FuHt Pres Dilation -?-?-?-?-?-?-?-?-?-?-?-?- Effaced St Visit Note 01/02/25 -?-?-?-?-?-?-?-?-?-?-?-?- 8w 5d 188 lb 8 oz (+8 oz) 132/84 -?-?-?-?-?-?-?-?-?-?-?-?- 185 -?-?-?-?-?-?-?-?-?-?-?-?- KW- CRL cons wit h dates. Accepts NIPT and carrier. Menstrual History Last Menstrual Period: 11/02/24 Reported LMP: definite Normal amount/duration: Yes Frequency in days: 28-29 On hormonal BC at conception: No hCG+: 11/29/24 Antepartum Record Genetic Screening: Congenital Heart Defect: Patient (heart murmur), Neural Tube Defect: Other, Hemoglobinopathy Or Carrier: Other, Cystic Fibrosis: Other, Chromosome Abnormality: Other, Perez-Sachs: Other, Hemophilia: Other, Intellectual Disability/Autism: Other, Recurrent Loss/Stillbirth: Other, Other Structural Defect: Other, Other Genetic Disease: Other and Maternal Metabolic Disorder: Other Infection History: Live with someone with TB or Exposed to TB: No, Patient or Partner has history of Genital Herpes: No, Rash or Viral illness since last mentrual period: No, Prior GBS-Infected child: No, History of STD: No, HIV Infection: No, History of Hepatitis: No, Recent travel outside of [place]: No, Concern for hepatitis exposure: No, Varicella immune: Yes (immune-virus) and Covid Vaccinated: No Medical History Medical History: Positive: Operations/hospitalizations (thumb, wisdom teeth), Relevant family history (See PFSH) and Other (herniated disc 2023 L4&L5) and Negative: Diabetes, Hypertension, Heart disease, Auto-immune disorder, Kidney disease/UTI, Neurologic/epilepsy, Psychiatric, Depression/ depression, Hepatitis/liver disease, Varicosities/phlebitis, Thyroid dysfunction, Trauma/domestic violence, History of blood transfusions, D (Rh) Sensitized, Pulmonary (e.g.,TB,Asthma), Seasonal allergies, Drug/latex allergies/reactions, Breast, 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, Anesthetic complications, History of abnormal pap, Uterine anomaly/minerva, Infertility and Anti-retroviral treatment ACOG First Trimester First Trimester: Desire for , Alcohol, Tobacco Cessation, Illicit/Recreational Drug/Substance Use, Intimate Partner Violence, Barriers to care, Unstable Housing, Communication Barriers, Environmental/Work Hazards, Anticipated Course of Care, Toxoplasmosis Precations, Use of Any medications, Sexual activity, Exercise, Dental Care, Sauna/Hot tub use, Seat Belt use, Childbirth classes/Hospital facilities, , Travel, Indications for Ultrasound and Screening for Aneuploidy Second Trimester Second Trimester: Signs and Symptoms of Labor, Selecting a care provider, Reproductive Life Planning & Contreception, Care Planning, Depression/Anxiety and Intimate Partner Violence; Discussed Tobacco Cessation Third Trimester Third Trimester: Pain Management Plans, Labor support person(s), Immediate Larc, Signs and Symptoms of Preeclampsia, Infant Feeding Yes , [place] Education and Family Medical Leave or Disability Forms ROS Const Reports system reviewed and no additional complaints, except as documented, Denies fatigue, Denies headache(s) and Denies lethargy ENT Denies headache(s) Card Reports system reviewed and no additional complaints, except as documented Resp Reports system reviewed and no additional complaints, except as documented GI Reports system reviewed and no additional complaints, except as documented, Denies abdominal pain, Denies constipation, Denies cramping, Denies diarrhea and Denies dyspepsia Reports system reviewed and no additional complaints, except as documented, Denies abnormal vaginal bleeding, Denies difficulty voiding, Denies dyspareunia and Denies dysuria Musc Reports system reviewed and no additional complaints, except as documented Skin/Breast Reports system reviewed and no additional complaints, except as documented Neuro Yes system reviewed and no additional complaints, except as documented and No headache(s) Psych Reports system reviewed and no additional complaints, except as documented, Denies anhedonia and Denies anxiety Endo Reports system reviewed and no additional complaints, except as documented and Denies fatigue Exam Const General: cooperative, healthy appearing and comfortable Neck Neck: normal visual inspection and full ROM Chest Chest palpation & inspection: normal inspection of the chest Breast inspection: normal inspection of the breasts and normal inspection of the axillae Breast palpation: normal palpation of the breasts and normal palpation of the axillae Resp Effort & Inspection: normal respiratory effort and able to speak in complete sentences GI Inspection: normal to inspection Palpation: soft External Female Exam: normal external appearance and normal appearance of the urethra Urethra: normal appearance of the urethra Skin General: no rashes or lesions noted Neuro General: patient alert, patient awake and patient oriented x3 Extrem General: normal to inspection and full ROM Psych Appearance: grossly normal and well kempt Mental Status: mental status grossly normal Mood: congruent mood Affect: normal affect Speech and Movement: speech and movement normal Thought Process: normal Thought Content: normal Coding Level of Care Code OB Routine Diagnoses Obesity affecting O99.210 Supervision of high-risk O09.90 FH: ovarian cancer Z80.41 8 weeks gestation of Z3A.08 Weeks of gestation: 8 weeks Heart murmur R01.1 Spotting in early O26.859 at early stage Z34.90 Low back pain M54.50 Lumbar disc herniation M51.26 Assessment and Plan Assessment and Plan (1) Obesity affecting : Status: Acute Comment: HgbA1c (2) Supervision of high-risk : Status: Acute Comment: , WARREN 08/09/25, Wade (3) FH: ovarian cancer: Status: Acute Comment: Maternal Grandmother (4) : Status: Acute Qualifiers: Weeks of gestation: 8 weeks Qualified Code(s): Z3A.08 - 8 weeks gestation of Comment: discussed NIPT & Carrier testing (5) Heart murmur: Status: Acute (6) Spotting in early : Status: Acute (7) at early stage: Status: Acute (8) Low back pain: Status: Acute (9) Lumbar disc herniation: Status: Acute (10) Heart murmur: Status: Acute Comments Comments: Patient oriented to practice and discussed care expectations and screenings. ACOG book offered to patient. Discussed routine and specially indicated labs if needed- patient consents to testing. See problem list details for plan information. Optional screening including maternal carrier screenings, neural tube defect screening, genetic screening options including quad screen, nuchal translucency, sequential screening, and NIPT screening offered to patient and patient chose: NIPT and carrier 01/02/25 5102 <Electronically signed by Caro Rigoberto s CNM> Date _ Caro Cho CNM Cosigner Signature: Date (if applicable) CC: ~ [facility] Work Phone: 1(169) 637-322505-06-2025 Evaluation note* Diagnosis Onset Date Resolution Status Admit Date FH: ovarian cancer acute December h2024 9:58am Heart murmur acute December 24 9:58am Low back pain acute December 24 9:58am Lumbar disc herniation acute Ma y 2024 9:58am Obesity affecting acute December 24, 2024 9:58am acute December 24, 2024 9:58am at early stage acute December 24, 2024 9:58am Spotting in early acute December 24, 2024 9:58am Supervision of high-risk a cute December 24, 2024 9:58am [facility] Work Phone: [phone]) 372-770605-06-2025 Evaluation note* Diagnosis Onset Date Resolution Status Admit Date FH: ovarian cancer acute December h2024 9:58am Heart murmur acute December 24 9:58am Low back pain acute December 24 9:58am Lumbar disc herniation acute Ma y 2024 9:58am Obesity affecting acute December 24, 2024 9:58am acute December 24, 2024 9:58am at early stage acute December 24, 2024 9:58am Spotting in early acute December 24, 2024 9:58am Supervision of high-risk a cute December 24, 2024 9:58am FH: ovarian cancer acute January 022024 2:09pm Heart murmur acute January 02, 2:09pm Low back pain acute January 02, 2 025 2:09pm Lumbar disc herniation acute Ma y 2024 2:09pm Obesity affecting acute January 02, 2025 2:09pm acute January 02, 2025 2:09pm at early stage acute January 02, 2025 2:09pm Spotting in early acute January 02, 2025 2:09pm Supervision of high-risk a cute January 02, 2025 2:09pm [employer] [facility] Work Phone: [phone] 416-647905-06-2025 Evaluation note* Diagnosis Onset Date Resolution Status Admit Date FH: ovarian cancer acute December 9:58am Heart murmur acute December 24 9:58am Low back pain acute December 24 9:58am Lumbar disc herniation acute Ma 2024 9:58am Obesity affecting acute December 24, 2024 9:58am acute December 24, 2024 9:58am at early stage acute December 24, 2024 9:58am Spotting in early acute December 24, 2024 9:58am Supervision of high-risk a cute December 24, 2024 9:58am FH: ovarian cancer acute January 022024 2:09pm Heart murmur acute January 02 2:09pm Low back pain acute January 02, 2 025 2:09pm Lumbar disc herniation acute Ma 2024 2:09pm Obesity affecting acute January 02, 2025 2:09pm acute January 02, 2025 2:09pm at early stage acute January 02, 2025 2:09pm Spotting in early acute January 02, 2025 2:09pm Supervision of high-risk a cute January 02, 2025 2:09pm FH: ovarian cancer acute January 242024 2:47pm Heart murmur acute January 24 2:47pm Low back pain acute January 24, 2 025 2:47pm Lumbar disc herniation acute 2024 2:47pm Obesity affecting acute January 24, 2025 2:47pm acute January 24, 2025 2:47pm at early stage acute January 24, 2025 2:47pm Spotting in early acute January 24, 2025 2:47pm Supervision of high-risk a cute January 24, 2025 2:47pm [employer] [facility] Work Phone: [phone] 555-183405-06-2025 Evaluation note* Diagnosis Onset Date Resolution Status Admit Date Heart murmur acute December 24 9:58am Low back pain acute December 24 9:58am Lumbar disc herniation acute Ma 2024 9:58am Obesity affecting acute December 24, 2024 9:58am acute December 24, 2024 9:58am Spotting in early acute December 24, 2024 9:58am Supervision of high-risk acute December 24, 2024 9: 58am FH: ovarian cancer inactive December 9:58am at early stage deleted December 24, 2024 9:58am Heart murmur acute January 02 2:09pm Low back pain acute January 02, 2 025 2:09pm Lumbar disc herniation acute Ma 2024 2:09pm Obesity affecting acute January 02, 2025 2:09pm acute January 02, 2025 2:09pm Spotting in early acute January 02, 2025 2:09pm Supervision of high-risk acute January 02, 2025 2 :09pm FH: ovarian cancer inactive January 022024 2:09pm at early stage deleted January 02, 2025 2:09pm Heart murmur acute January 24 2:47pm Low back pain acute January 24, 2 025 2:47pm Lumbar disc herniation acute 2024 2:47pm Obesity affecting acute January 24, 2025 2:47pm acute January 24, 2025 2:47pm Spotting in early acute January 24, 2025 2:47pm Supervision of high-risk acute January 24, 2025 2 :47pm FH: ovarian cancer inactive January 242024 2:47pm at early stage deleted January 24, 2025 2:47pm Heart murmur acute January 29, 2 025 2:00pm Low back pain acute January 29, 2025 2:00pm Lumbar disc herniation acute Ju 2024 2:00pm Obesity affecting acute January 29, 2025 2:00pm acute January 29 2:00pm Spotting in early acute January 29, 2025 2:00pm Supervision of high-risk acute January 29, 2025 2:00pm [facility] Work Phone: [phone]) 403-475005-06-2025 Evaluation note* Diagnosis Onset Date Resolution Status Admit Date Heart murmur acute December 24 9:58am Low back pain acute December 24 9:58am Lumbar disc herniation acute Ma 2024 9:58am Obesity affecting acute December 24, 2024 9:58am acute December 24, 2024 9:58am Spotting in early acute December 24, 2024 9:58am Supervision of high-risk acute December 24, 2024 9: 58am FH: ovarian cancer inactive December 9:58am at early stage deleted December 24, 2024 9:58am Heart murmur acute January 02 2:09pm Low back pain acute January 02, 2 025 2:09pm Lumbar disc herniation acute Ma y 2024 2:09pm Obesity affecting acute January 02, 2025 2:09pm acute January 02, 2025 2:09pm Spotting in early acute January 02, 2025 2:09pm Supervision of high-risk acute January 02, 2025 2 :09pm FH: ovarian cancer inactive January 022024 2:09pm at early stage deleted January 02, 2025 2:09pm Heart murmur acute January 24 2:47pm Low back pain acute January 24, 2 025 2:47pm Lumbar disc herniation acute 2024 2:47pm Obesity affecting acute January 24, 2025 2:47pm acute January 24, 2025 2:47pm Spotting in early acute January 24, 2025 2:47pm Supervision of high-risk acute January 24, 2025 2 :47pm FH: ovarian cancer inactive January 242024 2:47pm at early stage deleted January 24, 2025 2:47pm Heart murmur acute January 29, 2 025 2:00pm Lumbar disc herniation acute Ju ne 2024 2:00pm Obesity affecting acute January 29, 2025 2:00pm acute January 29 2:00pm Spotting in early acute January 29, 2025 2:00pm Supervision of high-risk acute January 29, 2025 2:00pm [facility] Work Phone: [phone] Evaluation note* Diagnosis Onset Date Resolution Status Admit Date Heart murmur acute December 24 9:58am Low back pain acute December 24 9:58am Lumbar disc herniation acute Ma 2024 9:58am Obesity affecting acute December 24, 2024 9:58am acute December 24, 2024 9:58am Spotting in early acute December 24, 2024 9:58am Supervision of high-risk acute December 24, 2024 9: 58am FH: ovarian cancer inactive December 9:58am at early stage deleted December 24, 2024 9:58am Heart murmur acute January 02 2:09pm Low back pain acute January 02, 2 025 2:09pm Lumbar disc herniation acute Ma y 2024 2:09pm Obesity affecting acute January 02, 2025 2:09pm acute January 02, 2025 2:09pm Spotting in early acute January 02, 2025 2:09pm Supervision of high-risk acute January 02, 2025 2 :09pm FH: ovarian cancer inactive January 022024 2:09pm at early stage deleted January 02, 2025 2:09pm Heart murmur acute January 24 2:47pm Low back pain acute January 24, 2 025 2:47pm Lumbar disc herniation acute 2024 2:47pm Obesity affecting acute January 24, 2025 2:47pm acute January 24, 2025 2:47pm Spotting in early acute January 24, 2025 2:47pm Supervision of high-risk acute January 24, 2025 2 :47pm FH: ovarian cancer inactive January 242024 2:47pm at early stage deleted January 24, 2025 2:47pm Heart murmur acute January 29, 2 025 2:00pm Lumbar disc herniation acute Ju 2024 2:00pm Obesity affecting acute January 29, 2025 2:00pm acute January 29 2:00pm Spotting in early acute January 29, 2025 2:00pm Supervision of high-risk acute January 29, 2025 2:00pm Cystic fibrosis carrier acute J ruth ann 2024 3:50pm Heart murmur acute February 26 3:50pm Low back pain acute February 26, 2 025 3:50pm Lumbar disc herniation acute Ju ly 2024 3:50pm Obesity affecting acute February 26, 2025 3:50pm acute February 26, 2025 3:50pm Spotting in early acute February 26, 2025 3:50pm Supervision of high-risk acute February 26, 2025 3 :50pm [facility] Work Phone: [phone] 610-691805-06-2025 Evaluation note* Diagnosis Onset Date Resolution Status Admit Date Heart murmur acute December 24 9:58am Low back pain acute December 24 9:58am Lumbar disc herniation acute Ma 2024 9:58am Obesity affecting acute December 24, 2024 9:58am acute December 24, 2024 9:58am Spotting in early acute December 24, 2024 9:58am Supervision of high-risk acute December 24, 2024 9: 58am FH: ovarian cancer inactive December 9:58am at early stage deleted December 24, 2024 9:58am Heart murmur acute January 02 2:09pm Low back pain acute January 02, 2 025 2:09pm Lumbar disc herniation acute Ma y 2024 2:09pm Obesity affecting acute January 02, 2025 2:09pm acute January 02, 2025 2:09pm Spotting in early acute January 02, 2025 2:09pm Supervision of high-risk acute January 02, 2025 2 :09pm FH: ovarian cancer inactive January 022024 2:09pm at early stage deleted January 02, 2025 2:09pm Heart murmur acute January 24 2:47pm Low back pain acute January 24, 2 025 2:47pm Lumbar disc herniation acute Ju 2024 2:47pm Obesity affecting acute January 24, 2025 2:47pm acute January 24, 2025 2:47pm Spotting in early acute January 24, 2025 2:47pm Supervision of high-risk acute January 24, 2025 2 :47pm FH: ovarian cancer inactive January 242024 2:47pm at early stage deleted January 24, 2025 2:47pm Heart murmur acute January 29, 2 025 2:00pm Lumbar disc herniation acute Ju 2024 2:00pm Obesity affecting acute January 29, 2025 2:00pm acute January 29 2:00pm Spotting in early acute January 29, 2025 2:00pm Supervision of high-risk acute January 29, 2025 2:00pm Cystic fibrosis carrier acute J ruth [email or web address] 3:50pm Heart murmur acute February 26 3:50pm Obesity affecting acute February 26, 2025 3:50pm acute February 26, 2025 3:50pm Supervision of high-risk acute February 26, 2025 3 :50pm Cystic fibrosis carrier acute A [id number] 3:49pm Heart murmur acute March 25, 2025 3:49pm Low back pain acute March 25, 2025 3:49pm Lumbar disc herniation acute Au 2024 3:49pm Obesity affecting acute March 25, 2025 3:49pm acute March 25 3:49pm Spotting in early acute March 25, 2025 3:49pm Supervision of high-risk acute March 25, 2025 3:49pm [employer] [facility] Work Phone: Evaluation noteNo assessment information available [facility] Work Phone: Reason for referral (narrative)No reason for referral information [facility] Work Phone: Summary Purpose Family History No Family History Records Found Relationship Condition Age at Onset Recorded Date/T lissett grandmother Malignant neoplasm of lung Unknown Malignant neoplasm of ovary Unknown Cardiac disease Unknown grandfather Malignant neoplasm of lung Unknown mother Diabetes mellitus Unknown Hyperlipidemia Unknown uncle Cardiac disease Unknown father Hyperlipidemia Unknown Relationship Condition Age at Onset Recorded Date/T lissett grandmother Malignant neoplasm of ovary 45 Cardiac disease Unknown grandfather Malignant neoplasm of lung 80 Malignant neoplasm 80 mother Diabetes mellitus Unknown uncle Cardiac disease Unknown father Hyperlipidemia Unknown Advance Directives No Advanced Directives Records FoundNo Advanced Directives Records FoundNo Advanced Directives Records FoundNo Advanced Directives Records Found Chief Complaint and Reason for Visit Chief Complaint Cardiac murmur, unsp ecified Chief Complaint Admit Date pre new ob, est/ vitals December 24, 2024 9: 58am Reason for Visit Admit Date FH: ovarian cancer December 24, 2024 9:58am Heart murmur December 24, 2024 9:58am Low back pain December 24, 2024 9:58am Lumbar disc herniation December 24, 2024 9:5 8am Obesity affecting December 24 9:58am December 24, 2024 9:58am at early stage December 24, 2024 9 :58am Spotting in early December 24 9:58am Supervision of high-risk December 242024 9:58am Chief Complaint Admit Date pre new ob, est/ vitals December 24, 2024 9: 58am NOB LMP 11/02 WARREN 08/09January 02, 2025 2: 09pm Reason for Visit Admit Date FH: ovarian cancer December 24, 2024 9:58am Heart murmur December 24, 2024 9:58am Low back pain December 24, 2024 9:58am Lumbar disc herniation December 24, 2024 9:5 8am Obesity affecting December 24 9:58am December 24, 2024 9:58am at early stage December 24, 2024 9 :58am Spotting in early December 24 9:58am Supervision of high-risk December 242024 9:58am FH: ovarian cancer January 02, 2025 2:09p m Heart murmur January 02, 2025 2:09p m Low back pain January 02, 2025 2:09p m Lumbar disc herniation January 02, 2025 2: 09pm Obesity affecting January 02 2:09pm January 02, 2025 2:09p m at early stage January 02, 2025 2:09pm Spotting in early January 02 2:09pm Supervision of high-risk December 192024 2:09pm Chief Complaint Admit Date pre new ob, est/ vitals December 24, 2024 9: 58am NOB LMP 11/02 WARREN 08/09January 02, 2025 2: 09pm Heartbeat Check *spotting January 24, 2025 2:47pm Reason for Visit Admit Date FH: ovarian cancer December 24, 2024 9:58am Heart murmur December 24, 2024 9:58am Low back pain December 24, 2024 9:58am Lumbar disc herniation December 24, 2024 9:5 8am Obesity affecting December 24 9:58am December 24, 2024 9:58am at early stage December 24, 2024 9 :58am Spotting in early December 24 9:58am Supervision of high-risk December 242024 9:58am FH: ovarian cancer January 02, 2025 2:09p m Heart murmur January 02, 2025 2:09p m Low back pain January 02, 2025 2:09p m Lumbar disc herniation January 02, 2025 2: 09pm Obesity affecting January 02 2:09pm January 02, 2025 2:09p m at early stage January 02, 2025 2:09pm Spotting in early January 02 2:09pm Supervision of high-risk December 192024 2:09pm FH: ovarian cancer January 24, 2025 2:47p m Heart murmur January 24, 2025 2:47p m Low back pain January 24, 2025 2:47p m Lumbar disc herniation January 24, 2025 2: 47pm Obesity affecting January 24 2:47pm January 24, 2025 2:47p m at early stage January 24, 2025 2:47pm Spotting in early January 24 2:47pm Supervision of high-risk January 24, 2025 2:47pm Chief Complaint Admit Date pre new ob, est/ vitals December 24, 2024 9: 58am NOB LMP 11/02 WARREN 08/09January 02, 2025 2: 09pm Heartbeat Check *spotting January 24, 2025 2:47pm 12wk ob January 29, 2025 2:00 pm Reason for Visit Admit Date Heart murmur December 24, 2024 9:58am Low back pain December 24, 2024 9:58am Lumbar disc herniation December 24, 2024 9:5 8am Obesity affecting December 24 9:58am December 24, 2024 9:58am Spotting in early December 24 9:58am Supervision of high-risk December 242024 9:58am FH: ovarian cancer December 24, 2024 9:58am at early stage December 24, 2024 9 :58am Heart murmur January 02, 2025 2:09p m Low back pain January 02, 2025 2:09p m Lumbar disc herniation January 02, 2025 2: 09pm Obesity affecting January 02 2:09pm January 02, 2025 2:09p m Spotting in early January 02 2:09pm Supervision of high-risk December 192024 2:09pm FH: ovarian cancer January 02, 2025 2:09p m at early stage January 02, 2025 2:09pm Heart murmur January 24, 2025 2:47p m Low back pain January 24, 2025 2:47p m Lumbar disc herniation January 24, 2025 2: 47pm Obesity affecting January 24 2:47pm January 24, 2025 2:47p m Spotting in early January 24 2:47pm Supervision of high-risk January 24, 2025 2:47pm FH: ovarian cancer January 24, 2025 2:47p m at early stage January 24, 2025 2:47pm Heart murmur January 29, 2025 2:00 pm Low back pain January 29, 2025 2:00 pm Lumbar disc herniation January 29, 2025 2 :00pm Obesity affecting January 29, 2 025 2:00pm January 29, 2025 2:00 pm Spotting in early January 29, 2 025 2:00pm Supervision of high-risk January 29, 2025 2:00pm Reason for Visit Admit Date Heart murmur December 24, 2024 9:58am Low back pain December 24, 2024 9:58am Lumbar disc herniation December 24, 2024 9:5 8am Obesity affecting December 24 9:58am December 24, 2024 9:58am Spotting in early December 24 9:58am Supervision of high-risk December 242024 9:58am FH: ovarian cancer December 24, 2024 9:58am at early stage December 24, 2024 9 :58am Heart murmur January 02, 2025 2:09p m Low back pain January 02, 2025 2:09p m Lumbar disc herniation January 02, 2025 2: 09pm Obesity affecting January 02 2:09pm January 02, 2025 2:09p m Spotting in early January 02 2:09pm Supervision of high-risk December 192024 2:09pm FH: ovarian cancer January 02, 2025 2:09p m at early stage January 02, 2025 2:09pm Heart murmur January 24, 2025 2:47p m Low back pain January 24, 2025 2:47p m Lumbar disc herniation January 24, 2025 2: 47pm Obesity affecting January 24 2:47pm January 24, 2025 2:47p m Spotting in early January 24 2:47pm Supervision of high-risk January 24, 2025 2:47pm FH: ovarian cancer January 24, 2025 2:47p m at early stage January 24, 2025 2:47pm Heart murmur January 29, 2025 2:00 pm Lumbar disc herniation January 29, 2025 2 :00pm Obesity affecting January 29, 2 025 2:00pm January 29, 2025 2:00 pm Spotting in early January 29, 2 025 2:00pm Supervision of high-risk January 29, 2025 2:00pm Chief Complaint Admit Date pre new ob, est/ vitals December 24, 2024 9: 58am NOB LMP 11/02 WARREN 08/09January 02, 2025 2: 09pm Heartbeat Check *spotting January 24, 2025 2:47pm 12wk ob January 29, 2025 2:00 pm 16 wk ob February 26, 2025 3:50p m Reason for Visit Admit Date Heart murmur December 24, 2024 9:58am Low back pain December 24, 2024 9:58am Lumbar disc herniation December 24, 2024 9:5 8am Obesity affecting December 24 9:58am December 24, 2024 9:58am Spotting in early December 24 9:58am Supervision of high-risk December 242024 9:58am FH: ovarian cancer December 24, 2024 9:58am at early stage December 24, 2024 9 :58am Heart murmur January 02, 2025 2:09p m Low back pain January 02, 2025 2:09p m Lumbar disc herniation January 02, 2025 2: 09pm Obesity affecting January 02 2:09pm January 02, 2025 2:09p m Spotting in early January 02 2:09pm Supervision of high-risk December 192024 2:09pm FH: ovarian cancer January 02, 2025 2:09p m at early stage January 02, 2025 2:09pm Heart murmur January 24, 2025 2:47p m Low back pain January 24, 2025 2:47p m Lumbar disc herniation January 24, 2025 2: 47pm Obesity affecting January 24 2:47pm January 24, 2025 2:47p m Spotting in early January 24 2:47pm Supervision of high-risk January 24, 2025 2:47pm FH: ovarian cancer January 24, 2025 2:47p m at early stage January 24, 2025 2:47pm Heart murmur January 29, 2025 2:00 pm Lumbar disc herniation January 29, 2025 2 :00pm Obesity affecting January 29, 2 025 2:00pm January 29, 2025 2:00 pm Spotting in early January 29, 2 025 2:00pm Supervision of high-risk January 29, 2025 2:00pm Cystic fibrosis carrier February 26, 2025 3 :50pm Heart murmur February 26, 2025 3:50p m Low back pain February 26, 2025 3:50p m Lumbar disc herniation February 26, 2025 3: 50pm Obesity affecting February 26 3:50pm February 26, 2025 3:50p m Spotting in early February 26 3:50pm Supervision of high-risk February 26, 2025 3:50pm Chief Complaint Admit Date pre new ob, est/ vitals December 24, 2024 9: 58am NOB LMP 11/02 WARREN 08/09January 02, 2025 2: 09pm Heartbeat Check *spotting January 24, 2025 2:47pm 12wk ob January 29, 2025 2:00 pm 16 wk ob February 26, 2025 3:50p m 20 WK OB March 25, 2025 3:4 9pm Reason for Visit Admit Date Heart murmur December 24, 2024 9:58am Low back pain December 24, 2024 9:58am Lumbar disc herniation December 24, 2024 9:5 8am Obesity affecting December 24 9:58am December 24, 2024 9:58am Spotting in early December 24 9:58am Supervision of high-risk December 242024 9:58am FH: ovarian cancer December 24, 2024 9:58am at early stage December 24, 2024 9 :58am Heart murmur January 02, 2025 2:09p m Low back pain January 02, 2025 2:09p m Lumbar disc herniation January 02, 2025 2: 09pm Obesity affecting January 02 2:09pm January 02, 2025 2:09p m Spotting in early January 02 2:09pm Supervision of high-risk December 192024 2:09pm FH: ovarian cancer January 02, 2025 2:09p m at early stage January 02, 2025 2:09pm Heart murmur January 24, 2025 2:47p m Low back pain January 24, 2025 2:47p m Lumbar disc herniation January 24, 2025 2: 47pm Obesity affecting January 24 2:47pm January 24, 2025 2:47p m Spotting in early January 24 2:47pm Supervision of high-risk January 24, 2025 2:47pm FH: ovarian cancer January 24, 2025 2:47p m at early stage January 24, 2025 2:47pm Heart murmur January 29, 2025 2:00 pm Lumbar disc herniation January 29, 2025 2 :00pm Obesity affecting January 29, 2 025 2:00pm January 29, 2025 2:00 pm Spotting in early January 29, 2 025 2:00pm Supervision of high-risk January 29, 2025 2:00pm Cystic fibrosis carrier February 26, 2025 3 :50pm Heart murmur February 26, 2025 3:50p m Obesity affecting February 26 3:50pm February 26, 2025 3:50p m Supervision of high-risk February 26, 2025 3:50pm Cystic fibrosis carrier March 25, 2025 3:49pm Heart murmur March 25, 2025 3:4 9pm Low back pain March 25, 2025 3:4 9pm Lumbar disc herniation March 25, 2025 3:49pm Obesity affecting March 25, 2025 3:49pm March 25, 2025 3:4 9pm Spotting in early March 25, 2025 3:49pm Supervision of high-risk Augus t 2024 3:49pm Chief Complaint Admit Date NOB LMP 11/02 WARREN 08/09January 02, 2025 2: 09pm Heartbeat Check *spotting January 24, 2025 2:47pm 12wk ob January 29, 2025 2:00 pm 16 wk ob February 26, 2025 3:50p m 20 WK OB March 25, 2025 3:4 9pm 24 WK OB 2025 3:29pm Reason for Visit Admit Date Heart murmur January 02, 2025 2:09p m Low back pain January 02, 2025 2:09p m Lumbar disc herniation January 02, 2025 2: 09pm Obesity affecting January 02 2:09pm January 02, 2025 2:09p m Spotting in early January 02 2:09pm Supervision of high-risk December 192024 2:09pm FH: ovarian cancer January 02, 2025 2:09p m at early stage January 02, 2025 2:09pm Heart murmur January 24, 2025 2:47p m Low back pain January 24, 2025 2:47p m Lumbar disc herniation January 24, 2025 2: 47pm Obesity affecting January 24 2:47pm January 24, 2025 2:47p m Spotting in early January 24 2:47pm Supervision of high-risk January 24, 2025 2:47pm FH: ovarian cancer January 24, 2025 2:47p m at early stage January 24, 2025 2:47pm Heart murmur January 29, 2025 2:00 pm Lumbar disc herniation January 29, 2025 2 :00pm Obesity affecting January 29, 2 025 2:00pm January 29, 2025 2:00 pm Spotting in early January 29, 2 025 2:00pm Supervision of high-risk January 29, 2025 2:00pm Cystic fibrosis carrier February 26, 2025 3 :50pm Heart murmur February 26, 2025 3:50p m Obesity affecting February 26 3:50pm February 26, 2025 3:50p m Supervision of high-risk February 26, 2025 3:50pm Cystic fibrosis carrier March 25, 2025 3:49pm Heart murmur March 25, 2025 3:4 9pm Low back pain March 25, 2025 3:4 9pm Lumbar disc herniation March 25, 2025 3:49pm Obesity affecting March 25, 2025 3:49pm March 25, 2025 3:4 9pm Spotting in early March 25, 2025 3:49pm Supervision of high-risk Augus 2024 3:49pm Cystic fibrosis carrier April 24, 2 025 3:29pm Heart murmur 2025 3:29pm Low back pain 2025 3:29pm Lumbar disc herniation April 24 3:29pm Obesity affecting April 3:29pm 2025 3:29pm Spotting in early April 3:29pm Supervision of high-risk Septe mber 2024 3:29pm Chief Complaint Admit Date Heartbeat Check *spotting January 24, 2025 2:47pm 12wk ob January 29, 2025 2:00 pm 16 wk ob February 26, 2025 3:50p m 20 WK OB March 25, 2025 3:4 9pm 24 WK OB 2025 3:29pm 28wk ob/glucose May 19, 2025 3:09pm Reason for Visit Admit Date Heart murmur January 24, 2025 2:47p m Low back pain January 24, 2025 2:47p m Lumbar disc herniation January 24, 2025 2: 47pm Obesity affecting January 24 2:47pm January 24, 2025 2:47p m Spotting in early January 24 2:47pm Supervision of high-risk January 24, 2025 2:47pm FH: ovarian cancer January 24, 2025 2:47p m at early stage January 24, 2025 2:47pm Heart murmur January 29, 2025 2:00 pm Lumbar disc herniation January 29, 2025 2 :00pm Obesity affecting January 29, 2 025 2:00pm January 29, 2025 2:00 pm Spotting in early January 29, 2 025 2:00pm Supervision of high-risk January 29, 2025 2:00pm Cystic fibrosis carrier February 26, 2025 3 :50pm Heart murmur February 26, 2025 3:50p m Obesity affecting February 26 3:50pm February 26, 2025 3:50p m Supervision of high-risk February 26, 2025 3:50pm Cystic fibrosis carrier March 25, 2025 3:49pm Heart murmur March 25, 2025 3:4 9pm Low back pain March 25, 2025 3:4 9pm Lumbar disc herniation March 25, 2025 3:49pm Obesity affecting March 25, 2025 3:49pm March 25, 2025 3:4 9pm Spotting in early March 25, 2025 3:49pm Supervision of high-risk Augus 2024 3:49pm Cystic fibrosis carrier April 24, 2 025 3:29pm Heart murmur 2025 3:29pm Low back pain 2025 3:29pm Lumbar disc herniation April 24 3:29pm Obesity affecting April 3:29pm 2025 3:29pm Spotting in early April 3:29pm Supervision of high-risk Rajat mber 2024 3:29pm Cystic fibrosis carrier May 19, 2025 3:09pm Heart murmur May 19, 2025 3:09pm Low back pain May 19, 2025 3:09pm Lumbar disc herniation May 19, 2 025 3:09pm Obesity affecting May 192024 3:09pm May 19, 2025 3:09pm Spotting in early May 192024 3:09pm Supervision of high-risk Rajat mber 2024 3:09pm Chief Complaint Admit Date 16 wk ob February 26, 2025 3:50p m 20 WK OB March 25, 2025 3:4 9pm 24 WK OB 2025 3:29pm 28wk ob/glucose May 19, 2025 3:09pm Abnormal glucose affecting Oct tucker 2024 6:50am 30 WK OB June 05, 2025 3 :53pm Reason for Visit Admit Date Cystic fibrosis carrier February 26, 2025 3 :50pm Heart murmur February 26, 2025 3:50p m Obesity affecting February 26 3:50pm February 26, 2025 3:50p m Supervision of high-risk February 26, 2025 3:50pm Cystic fibrosis carrier March 25, 2025 3:49pm Heart murmur March 25, 2025 3:4 9pm Low back pain March 25, 2025 3:4 9pm Lumbar disc herniation March 25, 2025 3:49pm Obesity affecting March 25, 2025 3:49pm March 25, 2025 3:4 9pm Spotting in early March 25, 2025 3:49pm Supervision of high-risk Augus 2024 3:49pm Cystic fibrosis carrier April 24, 2 025 3:29pm Heart murmur 2025 3:29pm Low back pain 2025 3:29pm Lumbar disc herniation April 24 3:29pm Obesity affecting April 3:29pm 2025 3:29pm Spotting in early April 3:29pm Supervision of high-risk Septe mber 2024 3:29pm Cystic fibrosis carrier May 19, 2025 3:09pm Heart murmur May 19, 2025 3:09pm Low back pain May 19, 2025 3:09pm Lumbar disc herniation May 19, 2 025 3:09pm Obesity affecting May 192024 3:09pm May 19, 2025 3:09pm Spotting in early May 192024 3:09pm Supervision of high-risk Septe mber 2024 3:09pm Abnormal glucose affecting Oct tucker 2024 3:53pm Cystic fibrosis carrier June 05 3:53pm Heart murmur June 05, 2025 3 :53pm Low back pain June 05, 2025 3 :53pm Lumbar disc herniation June 05 3:53pm Obesity affecting May 3:53pm June 05, 2025 3 :53pm Spotting in early May 3:53pm Supervision of high-risk Octob er 2024 3:53pm Chief Complaint Admit Date 16 wk ob February 26, 2025 3:50p m 20 WK OB March 25, 2025 3:4 9pm 24 WK OB 2025 3:29pm 28wk ob/glucose May 19, 2025 3:09pm Abnormal glucose affecting Oct tucker 2024 6:50am 30 WK OB June 05, 2025 3 :53pm 32wk ob June 17, 2025 3 :04pm Reason for Visit Admit Date Cystic fibrosis carrier February 26, 2025 3 :50pm Obesity affecting February 26 3:50pm February 26, 2025 3:50p m Supervision of high-risk February 26, 2025 3:50pm Heart murmur February 26, 2025 3:50p m Cystic fibrosis carrier March 25, 2025 3:49pm Obesity affecting March 25, 2025 3:49pm March 25, 2025 3:4 9pm Supervision of high-risk Augus t 2024 3:49pm Heart murmur March 25, 2025 3:4 9pm Low back pain March 25, 2025 3:4 9pm Lumbar disc herniation March 25, 2025 3:49pm Spotting in early March 25, 2025 3:49pm Cystic fibrosis carrier April 24, 2 025 3:29pm Obesity affecting April 3:29pm 2025 3:29pm Supervision of high-risk Septe mb2024 3:29pm Heart murmur 2025 3:29pm Low back pain 2025 3:29pm Lumbar disc herniation April 24 3:29pm Spotting in early April 3:29pm Cystic fibrosis carrier May 19, 2025 3:09pm Obesity affecting May 192024 3:09pm May 19, 2025 3:09pm Supervision of high-risk Septe mber 2024 3:09pm Heart murmur May 19, 2025 3:09pm Low back pain May 19, 2025 3:09pm Lumbar disc herniation May 19, 2 025 3:09pm Spotting in early May 192024 3:09pm Abnormal glucose affecting Oct tucker 2024 3:53pm Cystic fibrosis carrier June 05 3:53pm Obesity affecting May 3:53pm June 05, 2025 3 :53pm Supervision of high-risk Octob er 2024 3:53pm Heart murmur June 05, 2025 3 :53pm Low back pain June 05, 2025 3 :53pm Lumbar disc herniation June 05 3:53pm Spotting in early May 3:53pm Abnormal glucose affecting Oct tucker 2024 3:04pm Cystic fibrosis carrier June 17 3:04pm Obesity affecting May 3:04pm June 17, 2025 3 :04pm Supervision of high-risk Octob er 2024 3:04pm Additional Source Comments INFORMATION SOURCE (unrecogn ized section and content) DATE CREATED AUTHOR 02/09/2018 [facility]rie Marie [facility] DATE CREATED AUTHOR AUTHOR'S ORGANIZ ATION 02/09/2018 [facility] DATE CREATED AUTHOR AUTHOR'S ORGANIZ ATION 04/26/2025 [facility] DATE CREATED AUTHOR AUTHOR'S ORGANIZ ATION 07/02/2025 [facility] Care Teams (unrecognized sec tion and content) Team Status: Active Member Role Status Dates Sandra Kimbrough , Primary Care Provider Active Team Status: Active Member Role Status Dates Sandra Kimbrough DO Primary Care Provider Active Dr. Tia Goldman MD Attending Provider Active Team Status: Inactive Member Role Status Dates Sandra Kimbrough DO Primary Care Provi andres, Attending Provider, Referring Provider Active Team Status: Active Member Role Status Dates Dr. Yao Owusu MD Primary Care Provider Active Team Status: Inactive Member Role Status Dates Dr. Yao Owusu MD Primary Care Provider Active Start: December 02, 2024 End: December 02, 2024 Dr. Ceci Spencer DO Attending Provider Activ e Start: December 02, 2024 End: December 02, 2024 Dr. Ceci Spencer DO Referring Provider Activ e Start: December 02, 2024 End: December 02, 2024 Team Status: Active Member Role Status Dates Dr. Yao Owusu MD Primary Care Provider Active Start: December 04, 2024 Dr. Isabel Muñoz MD Attending Provider Active Start: December 04, 2024 Dr. Isabel Muñoz MD Referring Provider Active Start: December 04, 2024 Team Status: Inactive Member Role Status Dates Dr. Yao Owusu MD Primary Care Provider Active Start: December 04, 2024 End: December 04, 2024 Dr. Isabel Muñoz MD Attending Provider Active Start: December 04, 2024 End: December 04, 2024 Dr. Isabel Muñoz MD Referring Provider Active Start: December 04, 2024 End: December 04, 2024 Team Status: Inactive Member Role Status Dates Dr. Yao Owusu MD Primary Care Provider Active Start: December 23, 2024 End: December 23, 2024 Dr. Ceci Spencer DO Attending Provider Activ e Start: December 23, 2024 End: December 23, 2024 Team Status: Inactive Member Role Status Dates Dr. Yao Owusu MD Primary Care Provider Active Start: December 24, 2024 End: December 24, 2024 Dr. Yao Owusu MD Referring Provider Active Start: December 24, 2024 End: December 24, 2024 Dr. Ceci Spencer DO Attending Provider Activ e Start: December 24, 2024 End: December 24, 2024 Team Status: Active Member Role Status Dates Dr. Yao Owusu MD Primary Care Provider Active Start: December 25, 2024 Dr. Ceci Spencer DO Attending Provider Activ e Start: December 25, 2024 Dr. Ceci Spencer DO Referring Provider Activ e Start: December 25, 2024 Team Status: Inactive Member Role Status Dates Dr. Yao Owusu MD Primary Care Provider Active Start: December 25, 2024 End: December 25, 2024 Dr. Ceci Spencer DO Attending Provider Activ e Start: December 25, 2024 End: December 25, 2024 Dr. Ceci Spencer DO Referring Provider Activ e Start: December 25, 2024 End: December 25, 2024 Team Status: Inactive Member Role Status Dates Dr. Yao Owusu MD Primary Care Provider Active Start: January 02, 2025 End: January 02, 2025 Dr. Yao Owusu MD Referring Provider Active Start: January 02, 2025 End: January 02, 2025 Caro Cho CNM Attending Provider Active S tart: January 02, 2025 End: January 02, 2025 Team Status: Inactive Member Role Status Dates Dr. Yao Owusu MD Primary Care Provider Active Start: January 02, 2025 End: January 02, 2025 Dr. Ceci Spencer DO Attending Provider Activ e Start: January 02, 2025 End: January 02, 2025 Team Status: Inactive Member Role Status Dates Dr. Yao Owusu MD Primary Care Provider Active Start: January 24, 2025 End: January 24, 2025 Dr. Yao Owusu MD Referring Provider Active Start: January 24, 2025 End: January 24, 2025 Caro Cho CNM Attending Provider Active S tart: January 24, 2025 End: January 24, 2025 Team Status: Inactive Member Role Status Dates Dr. Yao Owusu MD Primary Care Provider Active Start: January 29, 2025 End: January 29, 2025 Dr. Yao Owusu MD Referring Provider Active Start: January 29, 2025 End: January 29, 2025 Ediat Pena NP, DOCUMENT CLERK-C Attending Provider Active Start: January 29, 2025 End: January 29, 2025 Team Status: Active Member Role Status Dates Dr. Yao Owusu MD Primary Care Provider Active Start: January 29, 2025 Caro Cho CNM Attending Provider Active S tart: January 29, 2025 Caro Cho CNM Referring Provider Active S tart: January 29, 2025 Team Status: Inactive Member Role Status Dates Dr. Yao Owusu MD Primary Care Provider Active Start: January 29, 2025 End: January 29, 2025 Caro Cho CNM Attending Provider Active S tart: January 29, 2025 End: January 29, 2025 Caro Cho CNM Referring Provider Active S tart: January 29, 2025 End: January 29, 2025 Team Status: Active Member Role/Relationship Status Dates Dr. Yao Owusu MD Primary Care Provider Active Team Status: Inactive Member Role/Relationship Status Dates Dr. Yao Owusu MD Primary Care Provider Active Start: December 02, 2024 End: December 02, 2024 Dr. Ceci Spencer DO Attending Provider Activ e Start: December 02, 2024 End: December 02, 2024 Dr. Ceci Spencer DO Referring Provider Activ e Start: December 02, 2024 End: December 02, 2024 Team Status: Inactive Member Role/Relationship Status Dates Dr. Yao Owusu MD Primary Care Provider Active Start: December 04, 2024 End: December 04, 2024 Dr. Isabel Muñoz MD Attending Provider Active Start: December 04, 2024 End: December 04, 2024 Dr. Isabel Muñoz MD Referring Provider Active Start: December 04, 2024 End: December 04, 2024 Team Status: Inactive Member Role/Relationship Status Dates Dr. Yao Owusu MD Primary Care Provider Active Start: December 23, 2024 End: December 23, 2024 Dr. Ceci Spencer DO Attending Provider Activ e Start: December 23, 2024 End: December 23, 2024 Team Status: Inactive Member Role/Relationship Status Dates Dr. Yao Owusu MD Primary Care Provider Active Start: December 24, 2024 End: December 24, 2024 Dr. Yao Owusu MD Referring Provider Active Start: December 24, 2024 End: December 24, 2024 Dr. Ceci Spencer DO Attending Provider Activ e Start: December 24, 2024 End: December 24, 2024 Team Status: Inactive Member Role/Relationship Status Dates Dr. Yao Owusu MD Primary Care Provider Active Start: December 25, 2024 End: December 25, 2024 Dr. Ceci Spencer DO Attending Provider Activ e Start: December 25, 2024 End: December 25, 2024 Dr. Ceci Spencer DO Referring Provider Activ e Start: December 25, 2024 End: December 25, 2024 Team Status: Inactive Member Role/Relationship Status Dates Dr. Yao Owusu MD Primary Care Provider Active Start: January 02, 2025 End: January 02, 2025 Dr. Yao Owusu MD Referring Provider Active Start: January 02, 2025 End: January 02, 2025 Caro Cho CNM Attending Provider Active S tart: January 02, 2025 End: January 02, 2025 Team Status: Inactive Member Role/Relationship Status Dates Dr. Yao Owusu MD Primary Care Provider Active Start: January 02, 2025 End: January 02, 2025 Dr. Ceci Spencer DO Attending Provider Activ e Start: January 02, 2025 End: January 02, 2025 Team Status: Inactive Member Role/Relationship Status Dates Dr. Yao Owusu MD Primary Care Provider Active Start: January 24, 2025 End: January 24, 2025 Dr. Yao Owusu MD Referring Provider Active Start: January 24, 2025 End: January 24, 2025 Caro Cho CNM Attending Provider Active S tart: January 24, 2025 End: January 24, 2025 Team Status: Inactive Member Role/Relationship Status Dates Dr. Yao Owusu MD Primary Care Provider Active Start: January 29, 2025 End: January 29, 2025 Dr. Yao Owusu MD Referring Provider Active Start: January 29, 2025 End: January 29, 2025 Edita Pena NP, DOCUMENT CLERK-C Attending Provider Active Start: January 29, 2025 End: January 29, 2025 Team Status: Inactive Member Role/Relationship Status Dates Dr. Yao Owusu MD Primary Care Provider Active Start: January 29, 2025 End: January 29, 2025 Caro Cho CNM Attending Provider Active S tart: January 29, 2025 End: January 29, 2025 Caro Cho CNM Referring Provider Active S tart: January 29, 2025 End: January 29, 2025 Team Status: Inactive Member Role/Relationship Status Dates Dr. Yao Owusu MD Primary Care Provider Active Start: February 26, 2025 End: February 26, 2025 Dr. Yao Owusu MD Referring Provider Active Start: February 26, 2025 End: February 26, 2025 Edita Pena DOCUMENT CLERK, DOCUMENT CLERK-C Attending Provider Active Start: February 26, 2025 End: February 26, 2025 Team Status: Inactive Member Role/Relationship Status Dates Dr. Yao Owusu MD Primary Care Provider Active Start: March 25, 2025 End: March 25, 2025 Dr. Yao Owusu MD Referring Provider Active Start: March 25, 2025 End: March 25, 2025 Dr. Ceci Spencer DO Attending Provider Activ e Start: March 25, 2025 End: March 25, 2025 Team Status: Inactive Member Role/Relationship Status Dates Dr. Yao Owusu MD Primary Care Provider Active Start: December 25, 2024 End: December 25, 2024 Dr. Ceci Spencer DO Attending Provider Activ e Start: December 25, 2024 End: December 25, 2024 Dr. Ceci Spencer DO Referring Provider Activ e Start: December 25, 2024 End: December 25, 2024 Team Status: Inactive Member Role/Relationship Status Dates Dr. Yao Owusu MD Primary Care Provider Active Start: January 02, 2025 End: January 02, 2025 Dr. Yao Owusu MD Referring Provider Active Start: January 02, 2025 End: January 02, 2025 Caro Cho CNM Attending Provider Active S tart: January 02, 2025 End: January 02, 2025 Team Status: Inactive Member Role/Relationship Status Dates Dr. Yao Owusu MD Primary Care Provider Active Start: January 02, 2025 End: January 02, 2025 Dr. Ceci Spencer DO Attending Provider Activ e Start: January 02, 2025 End: January 02, 2025 Team Status: Inactive Member Role/Relationship Status Dates Dr. Yao Owusu MD Primary Care Provider Active Start: January 24, 2025 End: January 24, 2025 Dr. Yao Owusu MD Referring Provider Active Start: January 24, 2025 End: January 24, 2025 Caro Cho CNM Attending Provider Active S tart: January 24, 2025 End: January 24, 2025 Team Status: Inactive Member Role/Relationship Status Dates Dr. Yao Owusu MD Primary Care Provider Active Start: January 29, 2025 End: January 29, 2025 Dr. Yao Owusu MD Referring Provider Active Start: January 29, 2025 End: January 29, 2025 Edita Pena NP, DOCUMENT CLERK-C Attending Provider Active Start: January 29, 2025 End: January 29, 2025 Team Status: Inactive Member Role/Relationship Status Dates Dr. Yao Owusu MD Primary Care Provider Active Start: January 29, 2025 End: January 29, 2025 Caro Cho CNM Attending Provider Active S tart: January 29, 2025 End: January 29, 2025 Caro Cho CNM Referring Provider Active S tart: January 29, 2025 End: January 29, 2025 Team Status: Inactive Member Role/Relationship Status Dates Dr. Yao Owusu MD Primary Care Provider Active Start: February 26, 2025 End: February 26, 2025 Dr. Yao Owusu MD Referring Provider Active Start: February 26, 2025 End: February 26, 2025 Edita Pena NP, DOCUMENT CLERK-C Attending Provider Active Start: February 26, 2025 End: February 26, 2025 Team Status: Inactive Member Role/Relationship Status Dates Dr. Yao Owusu MD Primary Care Provider Active Start: March 25, 2025 End: March 25, 2025 Dr. Yao Owusu MD Referring Provider Active Start: March 25, 2025 End: March 25, 2025 Dr. Ceci Spencer DO Attending Provider Activ e Start: March 25, 2025 End: March 25, 2025 Team Status: Inactive Member Role/Relationship Status Dates Dr. Yao Owusu MD Primary Care Provider Active Start: 2025 End: 2025 Dr. Yao Owusu MD Referring Provider Active Start: 2025 End: 2025 Caro Cho CNM Attending Provider Active S tart: 2025 End: 2025 Team Status: Active Member Role/Relationship Status Dates Dr. Yao Owusu MD Primary care physician Active Team Status: Inactive Member Role/Relationship Status Dates Dr. Yao Owusu MD Primary care physician Active Start: January 24, 2025 End: January 24, 2025 Dr. Yao Owusu MD Referring Provider Active Start: January 24, 2025 End: January 24, 2025 Caro Cho CNM Attending physician Active Start: January 24, 2025 End: January 24, 2025 Team Status: Inactive Member Role/Relationship Status Dates Dr. Yao Owusu MD Primary care physician Active Start: January 29, 2025 End: January 29, 2025 Dr. Yao Owusu MD Referring Provider Active Start: January 29, 2025 End: January 29, 2025 Edita Pena NP DOCUMENT CLERK-C Attending physician Active Start: January 29, 2025 End: January 29, 2025 Team Status: Inactive Member Role/Relationship Status Dates Dr. Yao Owusu MD Primary care physician Active Start: January 29, 2025 End: January 29, 2025 Caro Cho CNM Attending physician Active Start: January 29, 2025 End: January 29, 2025 Caro Cho CNM Referring Provider Active S tart: January 29, 2025 End: January 29, 2025 Team Status: Inactive Member Role/Relationship Status Dates Dr. Yao Owusu MD Primary care physician Active Start: February 26, 2025 End: February 26, 2025 Dr. Yao Owusu MD Referring Provider Active Start: February 26, 2025 End: February 26, 2025 Edita Pena NP DOCUMENT CLERK-C Attending physician Active Start: February 26, 2025 End: February 26, 2025 Team Status: Inactive Member Role/Relationship Status Dates Dr. Yao Owusu MD Primary care physician Active Start: March 25, 2025 End: March 25, 2025 Dr. Yao Owusu MD Referring Provider Active Start: March 25, 2025 End: March 25, 2025 Dr. Ceci Spencer DO Attending physician Acti ve Start: March 25, 2025 End: March 25, 2025 Team Status: Inactive Member Role/Relationship Status Dates Dr. Yao Owusu MD Primary care physician Active Start: 2025 End: 2025 Dr. Yao Owusu MD Referring Provider Active Start: 2025 End: 2025 Caro Cho CNM Attending physician Active Start: 2025 End: 2025 Team Status: Inactive Member Role/Relationship Status Dates Dr. Yao Owusu MD Primary care physician Active Start: May 19, 2025 End: May 19, 2025 Dr. Yao Owusu MD Referring Provider Active Start: May 19, 2025 End: May 19, 2025 Caro Cho CNM Attending physician Active Start: May 19, 2025 End: May 19, 2025 Team Status: Active Member Role/Relationship Status Dates Dr. Yao Owusu MD Primary care physician Active Start: May 19, 2025 Dr. Isabel Muñoz MD Attending physician Active Start: May 19, 2025 Dr. Isabel Muñoz MD Referring Provider Active Start: May 19, 2025 Team Status: Inactive Member Role/Relationship Status Dates Dr. Yao Owusu MD Primary care physician Active Start: May 19, 2025 End: May 19, 2025 Dr. Isabel Muñoz MD Attending physician Active Start: May 19, 2025 End: May 19, 2025 Dr. Isabel Muñoz MD Referring Provider Active Start: May 19, 2025 End: May 19, 2025 Team Status: Inactive Member Role/Relationship Status Dates Dr. Yao Owusu MD Primary care physician Active Start: February 26, 2025 End: February 26, 2025 Dr. Yao Owusu MD Referring Provider Active Start: February 26, 2025 End: February 26, 2025 Edita Pena NP, DOCUMENT CLERK-C Attending physician Active Start: February 26, 2025 End: February 26, 2025 Team Status: Inactive Member Role/Relationship Status Dates Dr. Yao Owusu MD Primary care physician Active Start: March 25, 2025 End: March 25, 2025 Dr. Yao Owusu MD Referring Provider Active Start: March 25, 2025 End: March 25, 2025 Dr. Ceci Spencer DO Attending physician Acti ve Start: March 25, 2025 End: March 25, 2025 Team Status: Inactive Member Role/Relationship Status Dates Dr. Yao Owusu MD Primary care physician Active Start: 2025 End: 2025 Dr. Yao Owusu MD Referring Provider Active Start: 2025 End: 2025 Caro Cho CNM Attending physician Active Start: 2025 End: 2025 Team Status: Inactive Member Role/Relationship Status Dates Dr. Yao Owusu MD Primary care physician Active Start: May 19, 2025 End: May 19, 2025 Dr. Yao Owusu MD Referring Provider Active Start: May 19, 2025 End: May 19, 2025 Caro Cho CNM Attending physician Active Start: May 19, 2025 End: May 19, 2025 Team Status: Inactive Member Role/Relationship Status Dates Dr. Yao Owusu MD Primary care physician Active Start: May 19, 2025 End: May 19, 2025 Dr. Isabel Muñoz MD Attending physician Active Start: May 19, 2025 End: May 19, 2025 Dr. Isabel Muñoz MD Referring Provider Active Start: May 19, 2025 End: May 19, 2025 Team Status: Inactive Member Role/Relationship Status Dates Dr. Yao Owusu MD Primary care physician Active Start: May 28, 2025 End: May 28, 2025 Dr. Isabel Muñoz MD Attending physician Active Start: May 28, 2025 End: May 28, 2025 Dr. Isabel Muñoz MD Referring Provider Active Start: May 28, 2025 End: May 28, 2025 Team Status: Inactive Member Role/Relationship Status Dates Dr. Yao Owusu MD Primary care physician Active Start: June 05, 2025 End: June 05, 2025 Dr. Yao Owusu MD Referring Provider Active Start: June 05, 2025 End: June 05, 2025 Dr. Ceci Spencer DO Attending physician Acti ve Start: June 05, 2025 End: June 05, 2025 Team Status: Inactive Member Role/Relationship Status Dates Dr. Yao Owusu MD Primary care physician Active Start: June 17, 2025 End: June 17, 2025 Dr. Yao Owusu MD Referring Provider Active Start: June 17, 2025 End: June 17, 2025 Dr. Isabel Muñoz MD Attending physician Active Start: June 17, 2025 End: June 17, 2025 Goals (unrecognized section and content) Type Care Experience Labor Preferences-CB /BF classes: []labor support person: []labor intervention preferences: []pain management options preferred: []cut cord/dad catch: []: []PP control planned: []discussed possible routes of delivery and associated risks: []special requests: [] Type Detail Care Experience svdLabor Preferences -CB/BF classes: []labor support person: []labor intervention preferences: []pain management options preferred: epiduralcut cord/dad catch: []: []PP control planned: []discussed possible routes of delivery and associated risks: []special requests: [] FOR RECORDS PERTAINING TO PATIENTS WHO ARE OR HAVE BEEN ENROLLED IN A CHEMICAL DEPENDENCY/SUBSTANCEABUSE PROGRAM, SOME INFORMATION MAY BE OMITTED. This clinical summary was aggregated from multiple sources. Caution should be exercised in using it in the provision of clinical care. This summary normalizes information from multiple sources, and as a consequence, information in this document may materially change the coding, format and clinical context of patient data. In addition, data may be omitted in some cases. CLINICAL DECISIONS SHOULD BE BASED ON THE PRIMARY CLINICAL RECORDS. [facility]. provides no warranty or guarantee of the accuracy or completeness of information in this document.
[2025-08-11 07:21] LABS: ROM Internal Control Test YES-OK TO RESULT pt. (Internal QC)
[2025-08-11 07:23] LABS: ROM Patient Test POSITIVE (Negative); Record Kit Lot#, ROM+ K3607
--- NOTE | 2025-08-11 07:59 | HP.PCM.OB_ITS ---
HPI - General General Date of Admission: 08/11/25 HPI Narrative JOSE L MANZO, is a 30 F who presents [ ] Maternal Data Information WARREN Calculator Estimated Delivery Date Method Current WG Current Estimate 08/09/25 LMP (Certain) 40w 2d Other Estimates 08/10/25 Ultrasound #1 40w 1d PFSH PFSH Medical History (Updated 08/11/25 @ 07:46 by Barbra Florez) Mitral valve insufficiency Cystic fibrosis carrier FH: ovarian cancer Home Medications ?Medication ?Instructions ?Recorded ?Last Taken ?Type multivitamin no.47-iron fum 27 1 cap PO DAILY pregnanc y 12/24/24 08/10/25 History mg-folate no.1 1 mg-dha 300 mg capsule (PNV-DHA) Allergy/AdvReac Type Severity Reaction Status Date / Time No Known Allergies Allergy Verified 08/11/25 06:48 Family History Grandmother Ovarian cancer, Onset Age: 45 Maternal Heart disease Paternal Grandfather Lung cancer, Onset Age: 80 Paternal Cancer, Onset Age: 80 Paternal- Prostate Mother Diabetes Uncle Heart disease Maternal Father Hyperlipidemia Surgical History [place] teeth extracted H/O thumb surgery Social History adopted: No household members: spouse housing: house current occupational status: employed current occupation: [employer] current occupational exposures/hazards: No pets and animals: Yes (Avoid litter) pets and animals: cat(s) history of recent travel: Yes (November) out of state: Yes out of country: No sexually active: Yes Smoking Status: Never smoker alcohol intake: current alcohol intake frequency: a few times a month details: not while substance use type: does not use well-balanced diet: daily or most days caffeine: No eating out: 1-3 times/week during the past year weight has: remained stable what type of physical activity do you participate in: walking frequency: 3-4 times per week duration: 15-30 minutes/day zoe/cheondoism: Oriental Orthodox seatbelt use: always do you feel safe at home: Yes 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 History 1 Elective abortions Hx Para 0 Spontaneous abortions Hx # Term Pregnancies Ectopic pregnancies Hx # Pregnancies Multiple births # of living children Visit Details Expected Delivery Route/Plan Labor Preferences- CB/BF classes: done labor support person: Wade labor intervention preferences: [] pain management options preferred: epidural cut cord/dad catch: cord : yes PP control planned: [] discussed possible routes of delivery and associated risks: [] special requests: [] Plans Covid status: [] Flu vaccine: declined Tdap vaccine: given Rhogam: na LARC form signed: yes movement and labor precautions reviewed. Problem list reviewed and updated with the most current plan of care details and appropriate orders placed. Relevant counseling for the gestational age provided. Continue routine care and follow up unless otherwise noted in visit notes/problem list details OB Flowsheet Initial Weight: 188 lb Date -?-?-?-?-?-?-?-?-?-?-?-?- EGA Weight BP Urine Prot -?-?-?-?-?-?-?-?-?-?--?-?- Glucose FHR FuHt Pres Dilation -?-?-?-?-?-?-?-?-?-?-?-?- Effaced St Visit Note 01/02/25 -?-?-?-?-?-?-?-?-?-?-?-?- 8w 5d 188 lb 8 oz (+8 oz) 132/84 -?-?-?-?-?-?-?-?-?-?-?-?- 185 -?-?-?-?-?-?-?-?-?-?-?-?- KW- CRL cons wit h dates. Accepts NIPT and carrier. 01/24/25 -?-?-?-?-?-?-?-?-?-?-?-?- 11w 6d 190 lb 4 oz (+2 lb 4 oz) 135/82 Negative -?-?-?-?-?-?-?-?-?-?-?-?- Negative 175 -?-?-?-?-?-?-?-?-?-?-?-?- KW- work in for FHT. had spotting over the last couple days. CRL cons with 12.0 weeks. active fetus on US 01/29/25 -?-?-?-?-?-?-?-?-?-?-?-?- 12w 4d 188 lb 4 oz (+4 oz) 120/78 Negative -?-?-?-?-?-?-?-?-?-?-?-?- Negative 163 -?-?-?-?-?-?-?-?-?-?-?-?- MH-No further va ginal bleeding. Doing well. Br US confirm FHT. PN labs today 02/26/25 -?-?-?-?-?-?-?-?-?-?-?-?- 16w 4d 190 lb 4 oz (+2 lb 4 oz) 114/77 Negative -?-?-?-?-?-?-?-?-?-?-?-?- Negative 153 -?-?-?-?-?-?-?-?-?-?-?-?- MH-No VB. No flu tters yet. Denies concerns 03/25/25 -?-?-?-?-?-?-?-?-?-?-?-?- 20w 3d 189 lb 8 oz (+1 lb 8 oz) 127/86 Negative -?-?-?-?-?-?-?-?-?-?-?-?- Negative 150 -?-?-?-?-?-?-?-?-?-?-?-?- JV- patient has questions about her anatomy scan that was done a week ago. results not to us yet. will request. no other complaints. 04/24/25 -?-?-?-?-?-?-?-?-?-?-?-?- 24w 5d 194 lb 6 oz (+6 lb 6 oz) 103/62 Negative -?-?-?-?-?-?-?-?-?-?-?-?- Negative 145 24 -?-?-?-?-?-?-?-?-?-?-?-?- KW- work in for . had follow up US for additional views. no vb/cramping. good fm. 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 05/19/25 -?-?-?-?-?-?-?-?-?-?-?-?- 28w 2d 198 lb 6 oz (+10 lb 6 oz) 121/79 Negative -?-?-?-?-?-?-?-?-?-?-?-?- Negative 150 80 -?-?-?-?-?-?-?-?-?-?-?-?- KW- no vb/crampi ng. good fm. US reviewed. glucose pending. tdap next visit. 06/05/25 -?-?-?-?-?-?-?-?-?-?-?-?- 30w 5d 200 lb 3 oz (+12 lb 3 oz) 124/81 Negative -?-?-?-?-?-?-?-?-?-?-?-?- Negative 144 30 -?-?-?-?-?-?-?-?-?-?-?-?- JV- no lof, vagi nal bleeding, or cramping. discussed vaccines. recommend flu and rsv but did tdap today. will offer next visit. 06/17/25 -?-?-?-?-?-?-?-?-?-?-?-?- 32w 3d 203 lb 9 oz (+15 lb 9 oz) 111/73 Negative -?-?-?-?-?-?-?-?-?-?-?-?- Negative 145 32 -?-?-?-?-?-?-?-?-?-?-?-?- SM- no vb lof go od fm no regular ctx 07/02/25 -?-?-?-?-?-?-?-?-?-?-?-?- 34w 4d 206 lb 8 oz (+18 lb 8 oz) 134/83 Negative -?-?-?-?-?-?-?-?-?-?-?-?- Negative 145 32 -?-?-?-?-?-?-?-?-?-?-?-?- SM- no vb lof go od fm no reuglar ctx uterine size low ordered growth us 07/15/25 -?-?-?-?-?-?-?-?-?-?-?-?- 36w 3d 207 lb 2 oz (+19 lb 2 oz) 132/85 Negative -?-?-?-?-?-?-?-?-?-?-?-?- Negative 145 35 Cephalic 0 -?-?-?-?-?-?-?-?-?-?-?-?- SM- no vb lof go od fm no regular ctx gbs today 07/23/25 -?-?-?-?-?-?-?-?-?-?-?-?- 37w 4d 211 lb 2 oz (+23 lb 2 oz) 138/81 Negative -?-?-?-?-?-?-?-?-?-?-?-?- Negative 144 36 Cephalic 0 -?-?-?-?-?-?-?-?-?-?-?-?- KV- Good FM. No ctx/LOF/VB. More pelvic pressure. 08/01/25 -?-?-?-?-?-?-?-?-?-?-?-?- 38w 6d 213 lb 6 oz (+25 lb 6 oz) 131/88 136/87 137/83 130/88 Negative -?-?-?-?-?-?-?-?-?-?-?-?- Negative 142 37 Cephalic 0 -?-?-?-?-?-?-?-?-?-?-?-?- KV- Good FM. Renard e ctx, no LOF/VB. Endorses more feet and hand swelling and occasional lightheadedness better with rest. 08/06/25 -?-?-?-?-?-?-?-?-?-?-?-?- 39w 4d 213 lb 2 oz (+25 lb 2 oz) 130/73 Negative -?-?-?-?-?-?-?-?-?-?-?-?- Negative 146 38 Cephalic 1 -?-?-?-?-?-?-?-?-?-?-?-?- 30 -3 MH-No VB. Has had a couple of episodes each day X 3 days of loss of clear fluid. ROM swab pending. Vital Signs Vital Signs Vital Signs: 08/11/25 06:37 08/11/25 06:37 08/11/25 06:37 Temperature 96.5 F L Temperature Source Temporal Pulse Rate Respiratory Rate 18 Blood Pressure BP Systolic BP Diastolic Pulse Ox 08/11/25 06:40 08/11/25 06:40 08/11/25 06:41 Temperature Temperature Source Pulse Rate 93 Respiratory Rate Blood Pressure 156/98 H BP Systolic 156 BP Diastolic 98 Pulse Ox 95 08/11/25 06:41 08/11/25 06:45 08/11/25 06:45 Temperature Temperature Source Pulse Rate 95 92 Respiratory Rate Blood Pressure BP Systolic BP Diastolic Pulse Ox 97 08/11/25 06:50 08/11/25 06:50 08/11/25 06:55 Temperature Temperature Source Pulse Rate 103 H 99 Respiratory Rate Blood Pressure BP Systolic BP Diastolic Pulse Ox 98 08/11/25 06:55 08/11/25 06:57 08/11/25 06:57 Temperature Temperature Source Pulse Rate 92 Respiratory Rate Blood Pressure 150/93 H BP Systolic 150 BP Diastolic 93 Pulse Ox 97 08/11/25 07:27 08/11/25 07:27 Temperature Temperature Source Pulse Rate 82 Respiratory Rate Blood Pressure 145/90 H BP Systolic 145 BP Diastolic 90 Pulse Ox Weight Weight: 213 lb Body Mass Index (BMI) 37.7 PRE- weight 189 lb PRE- Body Mass Index 33.5 (BMI) Labs Labs Labs: Blood Type O POSITIVE Antibody Screen NEGATIVE Hct, (37-47) 33.8 % L Hgb, (12.0-15.0) 11.8 g/dL L Pap Smear Negative Obstetrics Ultrasound Syphilis Total Ab, (Nonreactive) Nonreactive Rubella IgG Antibody, (Nonreactive) REAC Hep Bs Antigen, (Nonreactive) Nonreactive Hepatitis C Antibody, (Nonreactive) Nonreactive Chlamydia DNA (DEEPALI), (Negative) Negative N.gonorrhoeae DNA (DEEPALI), (Negative) Negative HIV 1&2 Antibody, (Nonreactive) Nonreactive Glucose 1 Hr 50 gm, (70-140) 148 mg/dL H Gest Glucose Tolerance mg/dL
--- NOTE | 2025-08-11 07:59 | PCM.HP.OB ---
HPI - General General Date of Admission: 08/11/25 HPI Narrative JOSE L MANZO, is a 30 F who presents for SROM clear fluid no bleeding since 5 am no regular ctx, elevated bps on admission no pearce bv Maternal Data Information WARREN Calculator Estimated Delivery Date Method Current WG Current Estimate 08/09/25 LMP (Certain) 40w 2d Other Estimates 08/10/25 Ultrasound #1 40w 1d PFSH PFSH Medical History (Updated 08/11/25 @ 09:[address] Isabel Muñoz MD) Mitral valve insufficiency Cystic fibrosis carrier FH: ovarian cancer Home Medications ?Medication ?Instructions ?Recorded ?Last Taken ?Type multivitamin no.47-iron fum 27 1 cap PO DAILY 12/24/24 08/10/25 History mg-folate no.1 1 mg-dha 300 mg capsule (PNV-DHA) Allergy/AdvReac Type Severity Reaction Status Date / Time No Known Allergies Allergy Verified 08/11/25 06:48 Family History Grandmother Ovarian cancer, Onset Age: 45 Maternal Heart disease Paternal Grandfather Lung cancer, Onset Age: 80 Paternal Cancer, Onset Age: 80 Paternal- Prostate Mother Diabetes Uncle Heart disease Maternal Father Hyperlipidemia Surgical History [place] teeth extracted H/O thumb surgery Social History adopted: No household members: spouse housing: house current occupational status: employed current occupation: [employer] current occupational exposures/hazards: No pets and animals: Yes (Avoid litter) pets and animals: cat(s) history of recent travel: Yes (November) out of state: Yes out of country: No sexually active: Yes Smoking Status: Never smoker alcohol intake: current alcohol intake frequency: a few times a month details: not while substance use type: does not use well-balanced diet: daily or most days caffeine: No eating out: 1-3 times/week during the past year weight has: remained stable what type of physical activity do you participate in: walking frequency: 3-4 times per week duration: 15-30 minutes/day zoe/hinduism: Druze seatbelt use: always do you feel safe at home: Yes additional 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: --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 History 1 Elective abortions Hx Para 0 Spontaneous abortions Hx # Term Pregnancies Ectopic pregnancies Hx # Pregnancies Multiple births # of living children Visit Details Expected Delivery Route/Plan Labor Preferences- CB/BF classes: done labor support person: Wade labor intervention preferences: [] pain management options preferred: epidural cut cord/dad catch: cord : yes PP control planned: [] discussed possible routes of delivery and associated risks: [] special requests: [] Plans Covid status: [] Flu vaccine: declined Tdap vaccine: given Rhogam: na LARC form signed: yes movement and labor precautions reviewed. Problem list reviewed and updated with the most current plan of care details and appropriate orders placed. Relevant counseling for the gestational age provided. Continue routine care and follow up unless otherwise noted in visit notes/problem list details OB Flowsheet Initial Weight: 188 lb Date <del>?</del> EGA Weight BP Urine Prot <del>?</del> Glucose FHR FuHt Pres Dilation <del>?</del> Effaced St Visit Note 01/02/25 <del>?</del> 8w 5d 188 lb 8 oz (+8 oz) 132/84 <del>?</del> 185 <del>?</del> KW- CRL cons with dates. Accepts NIPT and carrier. 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 had spotting over the last couple days. CRL cons with 12.0 weeks. active fetus on US 01/29/25 <del>?</del> 12w 4d 188 lb 4 oz (+4 oz) 120/78 Negative <del>?</del> Negative 163 <del>?</del> MH-No further vaginal bleeding. Doing well. Br US confirm FHT. PN labs today 02/26/25 <del>?</del> 16w 4d 190 lb 4 oz (+2 lb 4 oz) 114/77 Negative <del>?</del> Negative 153 <del>?</del> MH-No VB. No flutters yet. Denies concerns 03/25/25 <del>?</del> 20w 3d 189 lb 8 oz (+1 lb 8 oz) 127/86 Negative <del>?</del> Negative 150 <del>?</del> JV- patient has questions about her anatomy scan that was done a week ago. results not to us yet. will request. no other complaints. 04/24/25 <del>?</del> 24w 5d 194 lb 6 oz (+6 lb 6 oz) 103/62 Negative <del>?</del> Negative 145 24 <del>?</del> KW- work in for SM. had follow up US for additional views. no vb/cramping. good fm. 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 05/19/25 <del>?</del> 28w 2d 198 lb 6 oz (+10 lb 6 oz) 121/79 Negative <del>?</del> Negative 150 80 <del>?</del> KW- no vb/cramping. good fm. US reviewed. glucose pending. tdap next visit. 06/05/25 <del>?</del> 30w 5d 200 lb 3 oz (+12 lb 3 oz) 124/81 Negative <del>?</del> Negative 144 30 <del>?</del> JV- no lof, vaginal bleeding, or cramping. discussed vaccines. recommend flu and rsv but did tdap today. will offer next visit. 06/17/25 <del>?</del> 32w 3d 203 lb 9 oz (+15 lb 9 oz) 111/73 Negative <del>?</del> Negative 145 32 <del>?</del> SM- no vb lof good fm no regular ctx 07/02/25 <del>?</del> 34w 4d 206 lb 8 oz (+18 lb 8 oz) 134/83 Negative <del>?</del> Negative 145 32 <del>?</del> SM- no vb lof good fm no reuglar ctx uterine size low ordered growth 07/15/25 <del>?</del> 36w 3d 207 lb 2 oz (+19 lb 2 oz) 132/85 Negative <del>?</del> Negative 145 35 Cephalic 0 <del>?</del> SM- no vb lof good fm no regular ctx gbs today 07/23/25 <del>?</del> 37w 4d 211 lb 2 oz (+23 lb 2 oz) 138/81 Negative <del>?</del> Negative 144 36 Cephalic 0 <del>?</del> KV- Good FM. No ctx/LOF/VB. More pelvic pressure. 08/01/25 <del>?</del> 38w 6d 213 lb 6 oz (+25 lb 6 oz) 131/88 136/87 137/83 130/88 Negative <del>?</del> Negative 142 37 Cephalic 0 <del>?</del> KV- Good FM. Some ctx, no LOF/VB. Endorses more feet and hand swelling and occasional lightheadedness better with rest. 08/06/25 <del>?</del> 39w 4d 213 lb 2 oz (+25 lb 2 oz) 130/73 Negative <del>?</del> Negative 146 38 Cephalic 1 <del>?</del> 30 -3 MH-No VB. Has had a couple of episodes each day X 3 days of loss of clear fluid. ROM swab pending. 08/11/25 <del>?</del> 40w 2d 213 lb (+25 lb) 156/98 150/93 145/90 128/83 <del>?</del> <del>?</del> NST FHR Rate Baby A Baseline: 130 Variability:: Moderate Accelerations:: 15 x 15 Decelerations:: None NST Reactive:: Yes FHR Category:: Category I Uterine Activity:: irregular ROS Constitutional Constitutional: Reports systems reviewed and no addt'l complaints, except as documented Eyes Eyes: Denies change in vision ENT HEENT: Reports systems reviewed and no addt'l complaints, except as documented; Denies headache(s) Cardiovascular Cardiovascular: Reports systems reviewed and no addt'l complaints, except as documented; Denies chest pain or dyspnea Respiratory/Chest Respiratory/Chest: Reports systems reviewed and no addt'l complaints, except as documented Gastrointestinal Gastrointestinal: Reports systems reviewed and no addt'l complaints, except as documented; Denies abdominal pain Genitourinary Genitourinary: Reports systems reviewed and no addt'l complaints, except as documented, contractions Details: present (irregular) and movement Details: present; Denies dysuria or genital lesions Musculoskeletal Musculoskeletal: Reports systems reviewed and no addt'l complaints, except as documented Neurologic Neurologic: Reports systems reviewed and no addt'l complaints, except as documented Endocrine Endocrinology: Reports systems reviewed and no addt'l complaints, except as documented Vital Signs Vital Signs Vital Signs: 08/11/25 06:37 08/11/25 06:37 08/11/25 06:37 Temperature 96.5 F L Temperature Source Temporal Pulse Rate Respiratory Rate 18 Blood Pressure BP Systolic BP Diastolic Pulse Ox 08/11/25 06:40 08/11/25 06:40 08/11/25 06:41 Temperature Temperature Source Pulse Rate 93 Respiratory Rate Blood Pressure 156/98 H BP Systolic 156 BP Diastolic 98 Pulse Ox 95 08/11/25 06:41 08/11/25 06:45 08/11/25 06:45 Temperature Temperature Source Pulse Rate 95 92 Respiratory Rate Blood Pressure BP Systolic BP Diastolic Pulse Ox 97 08/11/25 06:50 08/11/25 06:50 08/11/25 06:55 Temperature Temperature Source Pulse Rate 103 H 99 Respiratory Rate Blood Pressure BP Systolic BP Diastolic Pulse Ox 98 08/11/25 06:55 08/11/25 06:57 08/11/25 06:57 Temperature Temperature Source Pulse Rate 92 Respiratory Rate Blood Pressure 150/93 H BP Systolic 150 BP Diastolic 93 Pulse Ox 97 08/11/25 07:27 08/11/25 07:27 Temperature Temperature Source Pulse Rate 82 Respiratory Rate Blood Pressure 145/90 H BP Systolic 145 BP Diastolic 90 Pulse Ox Weight Weight: 213 lb Body Mass Index (BMI) 37.7 PRE- weight 189 lb PRE- Body Mass Index 33.5 (BMI) Physical Exam Const alert, oriented x3, no apparent distress and healthy appearing HEENT normocephalic and moist oral mucous membranes Head and Scalp: atraumatic Neck full ROM, no lymphadenopathy, supple and thyroid normal General: trachea midline Lymph Lymphatic: no lymphadenopathy noted Chest inspection of chest normal Resp normal respiratory effort Cardio regular rate GI soft to palpation and non-tender GI Narrative: gravid Inspection: gravid external exam normal Manual OB Exam: estimated gestational size appropriate, presentation cephalic, dilated, effaced and station Extremity normal to inspection General Extremity: Negative for edema Skin no rashes or lesions noted Neuro no focal motor deficits and deep tendon reflexes 2+ bilaterally Motor Exam: strength 5/5 throughout and clonus absent Psych mental status grossly normal Labs Labs Labs: Blood Type O POSITIVE Antibody Screen NEGATIVE Hct, (37-47) 36.7 % L Hgb, (12.0-15.0) 12.6 g/dL Pap Smear Negative Obstetrics Ultrasound Syphilis Total Ab, (Nonreactive) Nonreactive Rubella IgG Antibody, (Nonreactive) REAC Hep Bs Antigen, (Nonreactive) Nonreactive Hepatitis C Antibody, (Nonreactive) Nonreactive Chlamydia DNA (DEEPALI), (Negative) Negative N.gonorrhoeae DNA (DEEPALI), (Negative) Negative HIV 1&2 Antibody, (Nonreactive) Nonreactive Glucose 1 Hr 50 gm, (70-140) 148 mg/dL H Gest Glucose Tolerance mg/dL Assessment & Plan (1) SROM (spontaneous rupture of membranes): (2) Obesity affecting : QUALIFIERS: Obesity type affecting : unspecified obesity Trimester: second trimester Qualified Code(s): O99.212 - Obesity complicating , second trimester COMMENT: HgbA1c 5.0 at NOB (3) Supervision of high-risk : QUALIFIERS: Trimester: third trimester Qualified Code(s): O09.93 - Supervision of high risk , unspecified, third trimester COMMENT: PRR , WARREN 08/09/25, girl Wade (4) : QUALIFIERS: Weeks of gestation: 39 weeks Qualified Code(s): Z3A.39 - 39 weeks gestation of COMMENT: low risk NIPT, carrier +CF neg for . nl anatomy. GBS Neg. (5) Cystic fibrosis carrier: COMMENT: FOB negative (6) Gestational hypertension: PLAN: Plan Patient presents plan pit augmentation. Pain management: plans epidural. GBS neg. Management of any complications: pree labs I have reviewed the [facility] and made any clinically relevant updates.
[2025-08-11 08:39] LABS: Hematocrit 36.7 % (37-47); Hemoglobin 12.6 g/dL (12.0-15.0); Immature Granulocytes Count 0.090 X10^3/uL (0.0-0.0); Mean Corp Hgb Conc 34.3 g/dL (32-36); Mean Corpuscular Volume 85.0 fL (81-99); Mean Platelet Vol. 10.5 fl (6.2-12.0); NRBC Flagged by Analyzer 0 % (0-5); Platelet Count 232 K/mm3 (150-450); RBC Distribution Width CV 13.0 % (11.6-14.6); RBC Distribution Width SD 39.9 fl (35.1-43.9); Red Blood Count 4.32 M/mm3 (4.2-5.4); White Blood Count 12.6 K/mm3 (4.4-11.0)
[2025-08-11] MEDS: Lactated Ringers 1,000 ML 50 ML IV ×2 (08:55→16:54)
[2025-08-11] MEDS: Oxytocin 15 Units/NS 250ml 15 UNITS/250 ML IV.SOLN 2 UNITS IV (08:56)
[2025-08-11 09:12] LABS: Syphilis Antibodies Nonreactive (Nonreactive)
[2025-08-11 09:48] LABS: AST(SGOT) 19 U/L (<=31); Alanine Aminotransfer ALT/SGPT 12 U/L (<=34); Estimated Creatinine Clearance 165.17 ml/min (50-250); Uric Acid 3.3 mg/dL (2.6-6.0)
[2025-08-11 10:39] LABS: Creatinine, Urine (random) 67.30 mg/dL (28.00-217.00); Protein, Urine (Random) 69.8 mg/dL (0.0-12.0); Protein:Creat Ratio 1037 mg/g CRE (0-200)
[2025-08-11] MEDS: Lactated Ringers 1,000 ML 999 ML IV (12:11)
[2025-08-11] MEDS: fentaNYL-bupivacaine (epidural) 100 ML BAG EPIDURAL ×3 (13:27→21:40)
[2025-08-11] MEDS: Lactated Ringers 1,000 ML 200 ML IV (21:56)
[2025-08-11] MEDS: Lidocaine 1% (20 ml mdv) 20 ML Vial INFILT (23:33)
[2025-08-12] VITALS (41 sets, daily range): BP systolic 102–167; BP diastolic 65–91; PULSE 71–110; RESP 16–18; TEMP 36.1–37; O2SAT 97–98
--- NOTE | 2025-08-12 00:10 | PCM.PN.BLA ---
Progress Note pushing with ocntinued progress, some difficulty with effective maternal effort but improving now, at +2 to +3 station. pudendal block performed, betadine prepped the vagina and 10 cc lidocaine injected medial and poterior to the sacrospinous ligament bilaterlaly due to inadequate anesthesia. improved anesthesia after injection. no complications Procedures Urinary/Genital [id number]: Other Procedure See Report (56249 pudendal nerve block)
--- NOTE | 2025-08-12 00:13 | OB.VAGDELI_ITS ---
Assessment & Plan (1) Vaginal delivery: COMMENT: SM vaVD IAL pushed 4 1/2 hours SROM preeclampsia girl adelyn 39 (2) Gestational hypertension: (3) SROM (spontaneous rupture of membranes): (4) Supervision of high-risk : QUALIFIERS: Trimester: third trimester Qualified Code(s): O09.93 - Supervision of high risk , unspecified, third trimester COMMENT: PRR , WARREN 08/09/25, girl Wade (5) : QUALIFIERS: Weeks of gestation: 39 weeks Qualified Code(s): Z3A.39 - 39 weeks gestation of COMMENT: low risk NIPT, carrier +CF neg for . nl anatomy. GBS Neg. Maternal Data Information WARREN Calculator Estimated Delivery Date Method Current WG Current Estimate 08/09/25 LMP (Certain) 40w 3d Other Estimates 08/10/25 Ultrasound #1 40w 2d Vaginal Delivery Maternal Presentation Maternal Presentation: see assessment and plan Vaginal Delivery Information Procedure Performed: Vacuum Assisted Vaginal Delivery (for arrest of descent +3 and protraction of pushing) Station at time of placement: +3 Number of vacuum pulls: 2 Number of vacuum pop offs: 0 Length of time vacuum on: 03:00 Surgeon/Practitioner: Isabel Muñoz Date of Procedure: 08/12/25 Pre-Procedure Diagnosis: see assessment and plan Post-Procedure Diagnosis: same Type of anesthesia: Epidural, Local with 1% Lidocaine and Pudendal Block Estimated Blood Loss: 200 Findings Description of procedure: Patient began pushing and after 4 1/2 hours had an arrest of descnet at +3 station, counseled regarding vacuum, decision for applicaiton and applied and with 2 pulls no pop offs but required an episiotomy right mediolateral, she delivered the head in the TIMBO presentation. The head was delivered atraumatically . The anterior and posterior shoulders delivered without complication followed by the rest of the and the infant was placed on the maternal abdomen. Delayed cord clamping was employed for approximately 60 seconds. Cord was clamped and cut and gentle traction was applied to the cord and the placenta delivered spontaneously immediately following it was noted to be intact with three-vessel cord. The perineum and vagina were inspected and was noted to have a third -degree laceration that was repaired in the usual fashion with 3-0 vicryl rapide . EBL was 200. Patient and tolerated delivery well. Presentation: Vertex Placental Delivery Description: Spontaneous Specimen collected: Yes Description of specimen(s) removed: placenta Cold Rolling Supervisor tailor apprentice: No Post Vaginal Deli Medications given after delivery: Other (pitocin) Complication Complications: No Multi Select Codes Urinary/Genital Urinary/Genital CPT Codes: 79221 Vaginal Delivery [facility]
--- NOTE | 2025-08-12 00:14 | DCINST_ITS ---
Discharge Instructions DC O2, CPAP, BIPAP needs Home O2 Discharge instructions: No Dressing / Incision Discharge Activity: Return to Normal Activity, May Not Drive (while taking narcotic pain medications.) and May Shower May resume sexual activity in: 4-6 weeks Dressing / Incision Call your doctor if your incision/area has: Continuous Slow Oozing, Sudden Increased Bleeding, Increased Pain/ Swelling, Increased Redness and Foul Smelling Discharge Follow Up Care Please Follow Up With: Isabel Muñoz MD When: Call [phone] to make an appointment with your doctor in 6 weeks. If you had elevated blood pressure or 4th degree laceration, you will need to be seen in 2 weeks. Test Results: Test results from this visit will be discussed in further detail at your follow- up appointment, if applicable. Discharge Plan Admission Admit Date/Time: 08/11/25 07:53 Attending Provider: Isabel Muñoz Primary Care Provider: Yao Owusu Discharge Orders/Prescriptions Prescriptions: No Action PNV-DHA 27 mg iron-1 mg -300 mg capsule 1 cap PO DAILY Referrals / Follow Up: Yao Owusu MD [Primary Care Provider, Family Practice]
[2025-08-12] MEDS: Oxytocin 15 Units/NS 250ml 15 UNITS/250 ML IV.SOLN 334 UNITS IV (01:06)
[2025-08-12] MEDS: Lidocaine 1% (20 ml mdv) 20 ML Vial INFILT (01:10)
--- OUTSIDE RECORDS SUMMARY | 2025-08-12 01:19 | XMS RPT_ITS | CCD ---
Author Organization [facility] Care Team Providers Care Regional Loss Prevention Manager Name Role Phone LUANN MAHER (DRYER FEEDER) Unavailable Unavailabl e [facility] Unavailable Unavailable [facility] Unavailable Unavailable LUANN MAHER (DRYER FEEDER) Unavailable Unavailabl e [facility] Unavailable Unavailable LUANN MAHER (DRYER FEEDER) Unavailable Unavailabl e LUANN MAHER (DRYER FEEDER) Unavailable Unavailabl e LUANN MAHER (DRYER FEEDER) Unavailable Unavailabl e LUANN MAHER (DRYER FEEDER) Unavailable Unavailabl e DO Sandra Kimbrough Primary Care Provider [phone]([facility] )[phone] Dr. Tia Goldman Attending Provider [phone] Dr. Yao Owusu MD Primary Care Provider 1([facility] )[phone] Dr. Ceci Spencer DO Attending Provider Dr. Ceci Spencer DO Referring Provider Dr. Isabel Muñoz MD Attending Provider Dr. Isabel Muñoz MD Referring Provider Dr. Yao Owusu MD Referring Provider 1([facility])[phone] Caro Cho CNM Attending Provider 1([facility]) [phone] Edita Padilla Attending Provider Caro Cho CNM Referring Provider [phone] Dr. Yao Owusu MD Primary Care Provider [phone] Dr. Ceci Spencer DO Attending Provider Dr. Ceci Spencer DO Referring Provider Dr. Yao Owusu MD Referring Provider 1([facility])[phone] PAUL WIGGINS Primary Care Unavailable EDITA PENA Referring Unavailable LANDON SORTO Attending Unavailable NICHOLAS THORPE Attending Unavailable CECI BELLAMY Referring Unavailab PAUL Henderson Primary Care Unavailable Francoise BRISENO, Dr. Samayoa Primary Care Physician [phone] Francoise BRISENO, Dr. Samayoa Referring Provider Caro Cho CNM Attending Physician [phone] Hollie BUTCHER ASSISTANT-CEdita Attending Physician [phone] Alexa Hall DO, Dr. Ornelas Attending Physician Toni BRISENO, Dr. Hall Attending Physician Toni BRISENO, Dr. Hall Referring Provider Francoise BRISENO, Dr. Samayoa Primary Care Physician Francoise BRISENO, Dr. Samayoa Referring Provider Hollie BUTCHER ASSISTANT-C, Edita Attending Physician [phone] Caro Cho [...] Borges Referring Unavailable Isabel Muñoz Attending Unavailable Ouwsu, Yao Primary Care Unavailable Isabel Muñoz Attending Unavailable Isabel Muñoz Referring Unavailable Owusu, Yao Primary Care Unavailable Vande Velde, Ceci Referring Unavailabl e Owusu, Yao Primary Care Unavailable Alexa Hall, Ceci Attending Unavailabl e Alexa Hall, Ceci Attending Unavailabl e Owusu, Yao Primary Care Unavailable Owusu, Yao Referring Unavailable Hollie BUTCHER ASSISTANT, Edita Attending Unavailable Owusu, Yao Primary Care Unavailable Owusu, Yao Referring Unavailable Caro Cho Attending Unavailable Owusu, Yao Primary Care Unavailable Owusu, Yao Referring Unavailable Hollie BUTCHER ASSISTANT, Edita Attending Unavailable Owusu, Yao Primary Care Unavailable Medications Current Medications Medication Drug Class(es) Dates Sig (Normalized) Sig (Original) Multivit 26-Tyky-Ogqazf 1-Dha (Pnv-Dha) 27 mg iron-1 mg -300 mg capsule (14 sources) Start: 12-24-2024 Multivit 82-Wlan-Dvwyam 1-Dha (Pnv-Dha) 27 mg iron-1 mg -300 [...] Muñoz on 06-17-2025 Glucose Ql (U) Negative [facility] Laboratory - UrinalysisOrder ed By: Isabel Muñoz on 06-17-2025 Protein Ql (U) Negative [facility] Fuel Dock Attendant Office Visit Reporton 06-17-2025 Fuel Dock Attendant Office Visit Report [facility]'s [address], [address] [place] [address] OFFICE VISIT Date of Service: 06/17/25 MR#: [id number] Acct: [id number] Name: JOVANYJOSE L HOUGH Rep #: [id number] : 1995 Provider: Dr. 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 (more content not included)... Normal [facility] Laboratory - Chemistry and C hemistry - challengeOrdered By: Ccei Hall on 06-05-2025 Glucose Ql (U) Negative [facility] Laboratory - UrinalysisOrder ed By: Ceci Hall on 06-05-2025 Protein Ql (U) Negative [facility] Fuel Dock Attendant Office Visit Reporton 06-05-2025 Fuel Dock Attendant Office Visit Report [address], [address] [place] [address] OFFICE VISIT Date of Service: 06/05/25 MR#: [id number] Acct: [id number] Name: JOSE L MANZO Rep #: [id number] : 1995 Provider: Dr. 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 Is patient in pain?: No Allergies No Known Allergies Allergy (Verified 06/05/25 15:55) Medications ???Medication ???Instructions ???Recorded ???Confirmed ???Type multivitamin no.47-iron fum 27 cap PO 12/24/24 06/05/25 History mg-folate no.1 1 mg-dha 300 mg capsule (PNV-DHA) Last Menstrual Period: 11/02/24 Zika: Zika virus screening: Negative : No PFSH PFSH Medical History Cystic fibrosis carrier FH: ovarian cancer Surgical History [place] teeth extracted H/O thumb surgery Family History [...] 3-4 times per week duration: 15-30 minutes/day zoe/hinduism: Nondenominational seatbelt use: always do you feel safe at home: Yes 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 Normal [facility] Gestational GTT 3HR 100gon 1 GEST GTT 100gm Normal [facility] Comment on above: Order Comment: Y Result Comment: FAST ING 90 Col: 05/28/25 0656 GLUCOSE TOLERANCE TEST FOR Reference Interval GESTATIONAL DIABETES Fasting <105 mg/dL 1 hour <190 mg/dl 2 hour <165 mg/dl 3 hour <145 mg/dl 1 HR GLU 126 Col: 05/28/25 0845 2 HR GLU 103 Col: 05/28/25 0945 3 HR GLU 68 Col: 05/28/25 1045 Performed By: #### L 500.4710 ####[facility] [id number] [place], [address] Quantitative serum or plasma 3 hour gestational glucose tolerance panelOrdered By: Isabel Muñoz on 05-28-2025 Glucose tolerance 3 hours gestational panel See comment [facility] Comment on above: FASTING 90 Col: 04/14 [...] Auto (Unsp spec) [#/Vol] 1.61 10*3/uL 0.83-4.51 [facility] Absolute neutrophil countOrd ered By: Isabel Muñoz on 05-19-2025 Neutrophils (Bld) [#/Vol] 8.2 10*3/uL High 2.0-7.7 [facility] Automated lymphocyte count a s percentage of total leukocytesOrdered By: Isabel Muñoz on 05-19-2025 Lymphocytes/100 WBC Auto (Unsp spec) 15.3 % Low 19-41 [facility] Basophil percentageOrdered B y: Isabel Muñoz on 05-19-2025 Basophils/100 WBC (Bld) 0.2 % 0-1 [facility] CBC W/Diff, [place] 04-22 Absolute Lymph 1.61 X10 3/uL Normal 0.83-4.51 [facility] Comment on above: Performed By: #### L 3890.6006, L501.0250, L509.8002, L100.0100 #### [facility] [address] [place], [address] Absolute Neut 8.2 X10 3/uL High 2.0-7.7 [facility] Comment on above: Performed By: #### L 3890.6006, L501.0250, L509.8002, L100.0100 #### [facility] [address] [place], [address] Basophils/100 WBC (Bld) 0.2 % Normal 0-1 [facility] Comment on above: Performed By: #### L 3890.6006, L501.0250, L509.8002, L100.0100 #### [facility] [address] [place], [address] Eosinophils/100 WBC (Bld) 0.7 % Normal 0-5 [facility] Comment on above: Performed By: #### L 3890.6006, L501.0250, L509.8002, L100.0100 #### [facility] [address] [place], [address] Erythrocyte distribution width (RBC) [Ratio] 12.6 % Normal 11.6-14.6 [facility] Comment on above: Performed By: #### L 3890.6006, L501.0250, L509.8002, L100.0100 #### [facility] [address] [place], [address] Hematocrit (Bld) [Volume fraction] 33.8 % Low 37-47 [facility] Comment on above: Performed By: #### L 3890.6006, L501.0250, L509.8002, L100.0100 #### [facility] [address] [place], [address] Hemoglobin (Bld) [Mass/Vol] 11.8 g/dL Low 12.0-15.0 [facility] Comment on above: Performed By: #### L 3890.6006, L501.0250, L509.8002, L100.0100 #### [facility] [address] [place], [address] IG% 1.200 High 0.0-0.9 [facility] Comment on above: Result Comment: IG% - Immature Granulocytes (promyelocytes, myelocytes and metamyelocytes) > 1% indicates that a LEFT SHIFT is Present. Performed By: #### L 3890.6006, L501.0250, L509.8002, L100.0100 #### [facility] [address] [place], [address] Lymphocytes/100 WBC (Bld) 15.3 % Low 19-41 [facility] Comment on above: Performed By: #### L 3890.6006, L501.0250, L509.8002, L100.0100 #### [facility] [address] [place], [address] MCH (RBC) [Entitic mass] 29.9 pg Normal 27.0-32.0 [facility] Comment on above: Performed By: #### L 3890.6006, L501.0250, L509.8002, L100.0100 #### [facility] [address] [place], [address] MCHC (RBC) [Mass/Vol] 34.9 g/dL Normal 32-36 [facility] Comment on above: Performed By: #### L 3890.6006, L501.0250, L509.8002, L100.0100 #### [facility] [address] [place], [address] MCV (RBC) [Entitic vol] 85.6 fL Normal 81-99 [facility] Comment on above: Performed By: #### L 3890.6006, L501.0250, L509.8002, L100.0100 #### [facility] [address] [place], [address] Monocytes/100 WBC (Bld) 4.2 % Normal 0-10 [facility] Comment on above: Performed By: #### L 3890.6006, L501.0250, L509.8002, L100.0100 #### [facility] [address] [place], [address] Neutrophils/100 WBC (Bld) 78.4 % High 47-70 [facility] Comment on above: Performed By: #### L 3890.6006, L501.0250, L509.8002, L100.0100 #### [facility] [address] [place], [address] Nucleated RBC (Bld) [#/Vol] 0 10*3/uL Normal 0-5 [facility] Comment on above: Performed By: #### L 3890.6006, L501.0250, L509.8002, L100.0100 #### [facility] [address] [place], [address] Platelet mean volume (Bld) [Entitic vol] 10.1 fL Normal 6.2-12.0 [facility] Comment on above: Performed By: #### L 3890.6006, L501.0250, L509.8002, L100.0100 #### [facility] [address] [place], [address] Platelets (Bld) [#/Vol] 235 10*3/uL Normal 150-450 [facility] Comment on above: Performed By: #### L 3890.6006, L501.0250, L509.8002, L100.0100 #### [facility] [address] [place], [address] RBC (Bld) [#/Vol] 3.95 10*6/uL Low 4.2-5.4 [facility] Comment on above: Performed By: #### L 3890.6006, L501.0250, L509.8002, L100.0100 #### [facility] [address] [place], [address] RDW SD 38.6 fl Normal 35.1-43.9 [facility] Comment on above: Performed By: #### L 3890.6006, L501.0250, L509.8002, L100.0100 #### [facility] [address] [place], [address] WBC (Bld) [#/Vol] 10.5 10*3/uL Normal 4.4-11.0 [facility] Comment on above: Performed By: #### L 3890.6006, L501.0250, L509.8002, L100.0100 #### [facility] [address] [place], [address] Eosinophil percentageOrdered By: Isabel Muñoz on 05-19-2025 Eosinophils/100 WBC (Bld) 0.7 % 0-5 [facility] Erythrocyte distribution wid th ratioOrdered By: Isabel Muñoz on 05-19-2025 Erythrocyte distribution width (RBC) [Ratio] 12.6 % 11.6-14.6 [facility] Erythrocyte distribution wid th standard deviationOrdered By: Isabel Muñoz on 05-19-2025 Erythrocyte distribution width (RBC) [Ratio] 38.6 fl 35.1-43.9 [facility] Glucose Challenge Gest 1H 50 yeimi 05-19-2025 GLU GEST 50g 1H 148 mg/dL High 70-140 [facility] Comment on above: Performed By: #### L 3890.6006, L501.0250, L509.8002, L100.0100 #### [facility] [address] [place], [place], [address] Glucose measurement at 2 melissa rs post-dose gestational glucose tolerance testOrdered By: Isabel Muñoz on 05-19-2025 Glucose [Mass/Vol] 148 mg/dL High 70-140 [facility] HIVon 05-19-2025 HIV Non-Reactive Normal Nonreactive [facility] Comment on above: Result Comment: Non- Reactive Reactive Repeatedly reactive samples must be confirmed according to CDC recommended confirmatory algorithms. The subresults for either HIVAG or AHIV can be used as an aid in the selection of the confirmation algorithm for reactive samples. Send out specimens with Reactive results to [facility] for confirmation. Order the HIV antibody detection and differentiation: lc#[id number] Performed By: #### L 3890.6006, L501.0250, L509.8002, L100.0100 #### [facility] [address] [place], [place], [address] Hematocrit Auto (Bld) [Volum e fraction]Ordered By: Isabel Muñoz on 05-19-2025 Hematocrit (Bld) [Volume fraction] 33.8 % Low 37-47 [facility] Hemoglobin measurementOrdere d By: Isabel Muñoz on 05-19-2025 Hemoglobin (Bld) [Mass/Vol] 11.8 g/dL Low 12.0-15.0 [facility] Immature granulocytes/100 WB C Auto (Bld)Ordered By: Isabel Muñoz on 05-19-2025 Immature granulocytes/100 WBC (Bld) 1.200 % High 0.0-0.9 [facility] Comment on above: IG% - Immature Granu locytes (promyelocytes, myelocytes and metamyelocytes) > 1% indicates that a LEFT SHIFT is Present. Laboratory - Chemistry and C hemistry - challengeOrdered By: Caro Cho on 05-19-2025 Glucose Ql (U) Negative [facility] Laboratory - UrinalysisOrder ed By: Caro Cho on 05-19-2025 Protein Ql (U) Negative [facility] MCV (mean corpuscular volume ) determinationOrdered By: Isabel Muñoz on 05-19-2025 MCV (RBC) [Entitic vol] 85.6 fL 81-99 [facility] Mean corpuscular hemoglobin (MCH) determinationOrdered By: Isabel Muñoz on 05-19-2025 MCH (RBC) [Entitic mass] 29.9 pg 27.0-32.0 [facility] Mean corpuscular hemoglobin concentration (MCHC) determinationOrdered By: Isabel Muñoz on 05-19-2025 MCHC (RBC) [Mass/Vol] 34.9 g/dL 32-36 [facility] Mean platelet volume determi nationOrdered By: Isabel Muñoz on 05-19-2025 Platelet mean volume (Bld) [Entitic vol] 10.1 fL 6.2-12.0 [facility] Monocyte percentageOrdered B y: Isabel Muñoz on 05-19-2025 Monocytes/100 WBC (Bld) 4.2 % 0-10 [facility] Neutrophil percentageOrdered By: Isabel Muñoz on 05-19-2025 Neutrophils/100 WBC (Bld) 78.4 % High 47-70 [facility] No Panel InformationOrdered By: Isabel Muñoz on 05-19-2025 HIV (1&2) Antibody Non-Reactive Nonreactive [facility] Comment on above: Non-ReactiveReactive Repeatedly reactive samples must be confirmed according to CDC recommended confirmatory algorithms. The subresults for either HIVAG or AHIV can be used as an aid in the selection of the confirmation algorithm for reactive samples.Send out specimens with Reactive results to [facility] for confirmation.Order the HIV antibody detection and differentiation: #[id number] Nucleated red blood cell per centageOrdered By: Isabel Muñoz on 05-19-2025 Nucleated RBC/100 WBC (Bld) [Ratio] 0 % 0-5 [facility] Fuel Dock Attendant Office Visit Reporton 05-19-2025 Fuel Dock Attendant Office Visit Report [facility]'[address], [address] [place] [address] OFFICE VISIT Date of Service: 05/19/25 MR#: [id number] Acct: [id number] Name: JOSE L MANZO Rep #: [id number] : 1995 Provider: MIYA Alaniz ams Age/Sex: 30/F Location: [facility] [place] Status: Signed Intake Vital Signs 02/26/25 15:52 04/24/25 15:11 05/19/25 15:10 05/19/25 15:12 Height 5 ft 3 in 5 ft 3 in 5 ft 3 in 5 ft 3 in Weight: 198 lb 6 oz BMI 35.1 BP 121/79 H Intake 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 Is patient in pain?: No Allergies No Known Allergies Allergy (Verified 05/19/25 15:10) Medications ???Medication ???Instructions ???Recorded ???Confirmed ???Type multivitamin no.47-iron fum 27 cap PO 12/24/24 05/19/25 History mg-folate no.1 1 mg-dha 300 mg capsule (PNV-DHA) Last Menstrual Period: 11/02/24 Zika: Zika virus screening: Negative : No PFSH PFSH Medical History Cystic fibrosis carrier FH: ovarian cancer Surgical History [place] teeth extracted H/O thumb surgery Family History [...] 3-4 times per week duration: 15-30 minutes/day zoe/hinduism: Nondenominational seatbelt use: always do you feel safe at home: Yes 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 Normal [facility] Platelet countOrdered By: Rom Muñoz on 05-19-2025 Platelets (Bld) [#/Vol] 235 10*3/uL 150-450 [facility] RBC Auto (Bld) [#/Vol]Ordere d By: Isabel Muñoz on 05-19-2025 RBC (Bld) [#/Vol] 3.95 10*6/uL Low 4.2-5.4 [facility] Syphilis Antibodieson 2024 Syphilis Abs Non-Reactive Normal Nonreactive [facility] Comment on above: Performed By: #### L 3890.6006, L501.0250, L509.8002, L100.0100 #### [facility] [address] [place], [address] White blood cell (WBC) count Ordered By: Isabel Muñoz on 05-19-2025 WBC (Bld) [#/Vol] 10.5 10*3/uL 4.4-11.0 [facility] Laboratory - Chemistry and C hemistry - challengeOrdered By: Isabel Muñoz on 2025 Glucose Ql (U) Negative [facility] Laboratory - UrinalysisOrder ed By: Isabel Muñoz on 2025 Protein Ql (U) Negative [facility] Fuel Dock Attendant Office Visit Reporton 2025 Fuel Dock Attendant Office Visit Report [facility]'[address], [address] [place] [address] OFFICE VISIT Date of Service: 04/24/25 MR#: [id number] Acct: [id number] Name: JOVANYJOSE L HOUGH Rep #: [id number] : 1995 Provider: MIYA Alaniz ams Age/Sex: 30/F Location: [facility] Status: Signed Intake Vital Signs 01/29/25 14:04 03/25/25 15:55 04/24/25 15:11 Height 5 ft 3 in 5 ft 3 in 5 ft 3 in Weight: 194 lb 6 oz BMI 34.4 BP 103/62 Intake Visit Reasons: 24 WK 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 Is patient in pain?: No Allergies No Known Allergies Allergy (Verified 04/24/25 15:14) Medications ???Medication ???Instructions ???Recorded ???Confirmed ???Type multivitamin no.47-iron fum 27 cap PO 12/24/24 04/24/25 History mg-folate no.1 1 mg-dha 300 mg capsule (PNV-DHA) Last Menstrual Period: 11/02/24 Zika: Zika virus screening: Negative : No PFSH PFSH Medical History Cystic fibrosis carrier FH: ovarian cancer Surgical History [place] teeth extracted H/O thumb surgery Family History [...] 3-4 times per week duration: 15-30 minutes/day zoe/hinduism: Nondenominational seatbelt use: always do you feel safe at home: Yes 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 Normal [facility] Laboratory - Chemistry and C hemistry - challengeOrdered By: Ceci Hall on 03-25-2025 Glucose Ql (U) Negative [facility] Laboratory - UrinalysisOrder ed By: Ceci Hall on 03-25-2025 Protein Ql (U) Negative [facility] Fuel Dock Attendant Office Visit Reporton 03-25-2025 Fuel Dock Attendant Office Visit Report [facility]'s [address], [address] [place] [address] OFFICE VISIT Date of Service: 03/25/25 MR#: [id number] Acct: [id number] Name: JOSE L MANZO Rep #: [id number] : 1995 Provider: Dr. 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 Is patient in pain?: No Allergies No Known Allergies Allergy (Verified 03/25/25 15:54) Medications ???Medication ???Instructions ???Recorded ???Confirmed ???Type multivitamin no.47-iron fum 27 cap PO 12/24/24 03/25/25 History mg-folate no.1 1 mg-dha 300 mg capsule (PNV-DHA) Last Menstrual Period: 11/02/24 Zika: Zika virus screening: Negative : No PFSH PFSH Medical History Cystic fibrosis carrier FH: ovarian cancer Surgical History [place] teeth extracted H/O thumb surgery Family History [...] 3-4 times per week duration: 15-30 minutes/day zeo/hinduism: Nondenominational seatbelt use: always do you feel safe at home: Yes 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 Normal [facility] Laboratory - Chemistry and C hemistry - challengeOrdered By: Edita Pena on 02-26-2025 Glucose Ql (U) Negative [facility] Laboratory - UrinalysisOrder ed By: Edita Pena on 02-26-2025 Protein Ql (U) Negative [facility] Fuel Dock Attendant Office Visit Reporton 02-26-2025 Fuel Dock Attendant Office Visit Report [facility]'[address], [facility] [address] [place] [address] OFFICE VISIT Date of Service: 02/26/25 MR#: [id number] Acct: [id number] Name: JOSE L MANZO Rep #: [id number] : 1995 Provider: HERMILA richmond Age/Sex: 29/F Location: [facility] Status: Signed Intake Vital Signs 01/02/25 14:13 01/29/25 14:04 02/26/25 15:52 Height 5 ft 3 in 5 ft 3 in 5 ft 3 in Weight: 190 lb 4 oz BMI 33.7 BP 114/77 Intake Visit Reasons: 16 wk 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 ??-???-???-??? (more content not included)... Normal [facility] Absolute lymphocyte countOrd ered By: Ceci Hall on 01-29-2025 Lymphocytes Auto (Unsp spec) [#/Vol] 2.00 10*3/uL 0.83-4.51 [facility] Absolute neutrophil countOrd ered By: Ceci Hall on 01-29-2025 Neutrophils (Bld) [#/Vol] 9.0 10*3/uL High 2.0-7.7 [facility] Automated lymphocyte count a s percentage of total leukocytesOrdered By: Ceci Hall on 01-29-2025 Lymphocytes/100 WBC Auto (Unsp spec) 16.8 % Low 19-41 [facility] Basophil percentageOrdered B y: Ceci Hall on 01-29-2025 Basophils/100 WBC (Bld) 0.4 % 0-1 [facility] CBC W/Diff, Automatedon 01-19-2024 Absolute Lymph 2.00 X10 3/uL Normal 0.83-4.51 [facility] Comment on above: Performed By: #### L 3890.6102, L100.0100, BTS, L3890.6006, L509.8002, L501.9985, L3890.6301, L509.4006 ####[facility] [address] [place], [address] Absolute Neut 9.0 X10 3/uL High 2.0-7.7 [facility] Comment on above: Performed By: #### L 3890.6102, L100.0100, BTS, L3890.6006, L509.8002, L501.9985, L3890.6301, L509.4006 ####[facility] [address] [place], [address] Basophils/100 WBC (Bld) 0.4 % Normal 0-1 [facility] Comment on above: Performed By: #### L 3890.6102, L100.0100, BTS, L3890.6006, L509.8002, L501.9985, L3890.6301, L509.4006 ####[facility] [address] [place], [address] Eosinophils/100 WBC (Bld) 0.9 % Normal 0-5 [facility] Comment on above: Performed By: #### L 3890.6102, L100.0100, BTS, L3890.6006, L509.8002, L501.9985, L3890.6301, L509.4006 ####[facility] [address] [place], [address] Erythrocyte distribution width (RBC) [Ratio] 12.2 % Normal 11.6-14.6 [facility] Comment on above: Performed By: #### L 3890.6102, L100.0100, BTS, L3890.6006, L509.8002, L501.9985, L3890.6301, L509.4006 ####[facility] [address] [place], [address] Hematocrit (Bld) [Volume fraction] 39.2 % Normal 37-47 [facility] Comment on above: Performed By: #### L 3890.6102, L100.0100, BTS, L3890.6006, L509.8002, L501.9985, L3890.6301, L509.4006 ####[facility] [address] [place], [address] Hemoglobin (Bld) [Mass/Vol] 13.6 g/dL Normal 12.0-15.0 [facility] Comment on above: Performed By: #### L 3890.6102, L100.0100, BTS, L3890.6006, L509.8002, L501.9985, L3890.6301, L509.4006 ####[facility] [address] [place], [address] IG% 0.500 Normal 0.0-0.9 [facility] Comment on above: Result Comment: IG% - Immature Granulocytes (promyelocytes, myelocytes and metamyelocytes) > 1% indicates that a LEFT SHIFT is Present. Performed By: #### L 3890.6102, L100.0100, BTS, L3890.6006, L509.8002, L501.9985, L3890.6301, L509.4006 ####[facility] [address] [place], [address] Lymphocytes/100 WBC (Bld) 16.8 % Low 19-41 [facility] Comment on above: Performed By: #### L 3890.6102, L100.0100, BTS, L3890.6006, L509.8002, L501.9985, L3890.6301, L509.4006 ####[facility] [address] [place], [address] MCH (RBC) [Entitic mass] 29.2 pg Normal 27.0-32.0 [facility] Comment on above: Performed By: #### L 3890.6102, L100.0100, BTS, L3890.6006, L509.8002, L501.9985, L3890.6301, L509.4006 ####[facility] [address] [place], [address] MCHC (RBC) [Mass/Vol] 34.7 g/dL Normal 32-36 [facility] Comment on above: Performed By: #### L 3890.6102, L100.0100, BTS, L3890.6006, L509.8002, L501.9985, L3890.6301, L509.4006 ####[facility] [address] [place], [address] MCV (RBC) [Entitic vol] 84.1 fL Normal 81-99 [facility] Comment on above: Performed By: #### L 3890.6102, L100.0100, BTS, L3890.6006, L509.8002, L501.9985, L3890.6301, L509.4006 ####[facility] [address] [place], [address] Monocytes/100 WBC (Bld) 5.3 % Normal 0-10 [facility] Comment on above: Performed By: #### L 3890.6102, L100.0100, BTS, L3890.6006, L509.8002, L501.9985, L3890.6301, L509.4006 ####[facility] [address] [place], [address] Neutrophils/100 WBC (Bld) 76.1 % High 47-70 [facility] Comment on above: Performed By: #### L 3890.6102, L100.0100, BTS, L3890.6006, L509.8002, L501.9985, L3890.6301, L509.4006 ####[facility] [address] [place], [address] Nucleated RBC (Bld) [#/Vol] 0 10*3/uL Normal 0-5 [facility] Comment on above: Performed By: #### L 3890.6102, L100.0100, BTS, L3890.6006, L509.8002, L501.9985, L3890.6301, L509.4006 ####[facility] [address] [place], [address] Platelet mean volume (Bld) [Entitic vol] 10.6 fL Normal 6.2-12.0 [facility] Comment on above: Performed By: #### L 3890.6102, L100.0100, BTS, L3890.6006, L509.8002, L501.9985, L3890.6301, L509.4006 ####[facility] [address] [place], [address] Platelets (Bld) [#/Vol] 275 10*3/uL Normal 150-450 [facility] Comment on above: Performed By: #### L 3890.6102, L100.0100, BTS, L3890.6006, L509.8002, L501.9985, L3890.6301, L509.4006 ####[facility] [address] [place], [address] RBC (Bld) [#/Vol] 4.66 10*6/uL Normal 4.2-5.4 [facility] Comment on above: Performed By: #### L 3890.6102, L100.0100, BTS, L3890.6006, L509.8002, L501.9985, L3890.6301, L509.4006 ####[facility] [address] [place], [address] RDW SD 36.7 fl Normal 35.1-43.9 [facility] Comment on above: Performed By: #### L 3890.6102, L100.0100, BTS, L3890.6006, L509.8002, L501.9985, L3890.6301, L509.4006 ####[facility] [address] [place], [address] WBC (Bld) [#/Vol] 11.9 10*3/uL High 4.4-11.0 [facility] Comment on above: Performed By: #### L 3890.6102, L100.0100, BTS, L3890.6006, L509.8002, L501.9985, L3890.6301, L509.4006 ####[facility] [address] [place], [address] Eosinophil percentageOrdered By: Ceci Hall on 01-29-2025 Eosinophils/100 WBC (Bld) 0.9 % 0-5 [facility] Erythrocyte distribution wid th ratioOrdered By: Ceci Hall on 01-29-2025 Erythrocyte distribution width (RBC) [Ratio] 12.2 % 11.6-14.6 [facility] Erythrocyte distribution wid th standard deviationOrdered By: Ceci Hall on 01-29-2025 Erythrocyte distribution width (RBC) [Ratio] 36.7 fl 35.1-43.9 [facility] HIVon 01-29-2025 HIV Non-Reactive Normal Nonreactive [facility] Comment on above: Result Comment: Non- Reactive Reactive Repeatedly reactive samples must be confirmed according to CDC recommended confirmatory algorithms. The subresults for either HIVAG or AHIV can be used as an aid in the selection of the confirmation algorithm for reactive samples. Send out specimens with Reactive results to [facility] for confirmation. Order the HIV antibody detection and differentiation: lc#[id number] Performed By: #### L 3890.6102, L100.0100, BTS, L3890.6006, L509.8002, L501.9985, L3890.6301, L509.4006 ####[facility] [address] [place], [place], [address] Hematocrit Auto (Bld) [Volum e fraction]Ordered By: Ceci Hall on 01-29-2025 Hematocrit (Bld) [Volume fraction] 39.2 % 37-47 [facility] Hemoglobin A1con 01-29-2025 HbA1c (Bld) [Mass fraction] 5.0 % Normal <=5.6 [facility] Comment on above: Result Comment: Norm al < 5.7 % Prediabetic 5.7 - 6.4 % Diabetic >or= 6.5 % Please note range changes. Performed By: #### L 3890.6102, L100.0100, BTS, L3890.6006, L509.8002, L501.9985, L3890.6301, L509.4006 ####[facility] [address] [place], [place], [id number]) Hemoglobin A1c percentageOrd ered By: Ceci Hall on 01-29-2025 HbA1c (Bld) [Mass fraction] 5.0 % <5.7 [facility] Comment on above: Normal < 5.7 % Predi abetic 5.7 - 6.4 % Diabetic >or= 6.5 % Please note range changes. Hemoglobin measurementOrdere d By: Ceci Hall on 01-29-2025 Hemoglobin (Bld) [Mass/Vol] 13.6 g/dL 12.0-15.0 [facility] Hepatitis C Antibodyon 01-29 Hepatitis C Ab Non-Reactive Normal Nonreactive [facility] Comment on above: Result Comment: Reac tive: Presumptive evidence of antibodies to HCV. Follow CDC recommendations for supplemental testing. Non-Reactive: Antibodies to HCV were not detected; does not exclude the possibility of exposure to HCV Reactive Results are presumptive evidence of antibodies to HCV. Follow CDC recommendations for supplemental testing. Order confirmation testing: HCV Quant by PCR testing - HCVPCR #[id number] Non Reactive: < 0.8 Equivocal: >/= 0.8 to < 1.0 Reactive: >/= 1.0 The [facility] requires that a reactive/equivocal HCV antibody result be sent out for confirmation. HCV Quant by PCR testing. Performed By: #### L 3890.6102, L100.0100, BTS, L3890.6006, L509.8002, L501.9985, L3890.6301, L509.4006 ####[facility] [address] [place], [place], [id number] Immature granulocytes/100 WB C Auto (Bld)Ordered By: Ceci Hall on 01-29-2025 Immature granulocytes/100 WBC (Bld) 0.500 % 0.0-0.9 [facility] Comment on above: IG% - Immature Granu locytes (promyelocytes, myelocytes and metamyelocytes) > 1% indicates that a LEFT SHIFT is Present. L3890.6102on 01-29-2025 HEP B Surf Ag Non-Reactive Normal Nonreactive [facility] Comment on above: Result Comment: Reac tive: Presumptive evidence of HBV. Repeatedly reactive samples must be confirmed using a neutralization test ([employer] HBsAg Confirmatory Test) Non-Reactive: HBsAg not detected; does not exclude the possibility of exposure to HBV Performed By: #### L 3890.6102, L100.0100, BTS, L3890.6006, L509.8002, L501.9985, L3890.6301, L509.4006 ####[facility] [address] [place], [place], [address] L509.4006on 01-29-2025 Rubella IgG REAC Normal Nonreactive [facility] Comment on above: Result Comment: Anti body Result: Interpretation Non-Reactive: Non-Immune Reactive: Immune The following results were obtained with the [employer] Rubella IgG assay. Results from assays of other manufacturers cannot be used interchangeably. Performed By: #### L 3890.6102, L100.0100, BTS, L3890.6006, L509.8002, L501.9985, L3890.6301, L509.4006 ####[facility] [address] [place], [address] Laboratory - Chemistry and C hemistry - challengeOrdered By: Edita Pena on 01-29-2025 Glucose Ql (U) Negative [facility] Laboratory - Microbiology an d Antimicrobial susceptibilityOrdered By: Ceci Hall on 01-29-2025 HBV surface Ag Ql (S) Non-Reactive Nonreactive [facility] Comment on above: Reactive: Presumptiv e evidence of HBV. Repeatedly reactive samples must be confirmed using a neutralization test ([employer] HBsAg Confirmatory Test)Non-Reactive: HBsAg not detected; does not exclude the possibility of exposure to HBV Laboratory - UrinalysisOrder ed By: Edita Pena on 01-29-2025 Protein Ql (U) Negative [facility] MCV (mean corpuscular volume ) determinationOrdered By: Ceci Hall on 01-29-2025 MCV (RBC) [Entitic vol] 84.1 fL 81-99 [facility] Mean corpuscular hemoglobin (MCH) determinationOrdered By: Ceci Hall on 01-29-2025 MCH (RBC) [Entitic mass] 29.2 pg 27.0-32.0 [facility] Mean corpuscular hemoglobin concentration (MCHC) determinationOrdered By: Ceci Hall on 01-29-2025 MCHC (RBC) [Mass/Vol] 34.7 g/dL 32-36 [facility] Mean platelet volume determi nationOrdered By: Ceci Hall on 01-29-2025 Platelet mean volume (Bld) [Entitic vol] 10.6 fL 6.2-12.0 [facility] Monocyte percentageOrdered B y: Ceci Hall on 01-29-2025 Monocytes/100 WBC (Bld) 5.3 % 0-10 [facility] NATERAon 01-29-2025 NATURA SEE SCANNED REPORT Normal [facility] Comment on above: Performed By: #### L 900.0098 ####[facility] [address] [place], [address] Neutrophil percentageOrdered By: Ceci Hall on 01-29-2025 Neutrophils/100 WBC (Bld) 76.1 % High 47-70 [facility] No Panel InformationOrdered By: Ceci Hall on 01-29-2025 HIV (1&2) Antibody Non-Reactive Nonreactive [facility] Comment on above: Non-ReactiveReactive Repeatedly reactive samples must be confirmed according to CDC recommended confirmatory algorithms. The subresults for either HIVAG or AHIV can be used as an aid in the selection of the confirmation algorithm for reactive samples.Send out specimens with Reactive results to [facility] for confirmation.Order the HIV antibody detection and differentiation: #[id number] Nucleated red blood cell per centageOrdered By: Ceci Hall on 01-29-2025 Nucleated RBC/100 WBC (Bld) [Ratio] 0 % 0-5 [facility] Fuel Dock Attendant Office Visit Reporton 01-29-2025 Fuel Dock Attendant Office Visit Report [facility]'[address], [address] [place] [address] OFFICE VISIT Date of Service: 01/29/25 MR#: [id number] Acct: [id number] Name: JOSE L MANZO Rep #: [id number] : 1995 Provider: HERMILA richmond Age/Sex: 29/F Location: [facility] [place] Status: Signed Intake Vital Signs 03/04/24 14:15 01/24/25 14:51 01/29/25 14:04 Height 5 ft 3 in 5 ft 3 in 5 ft 3 in Weight: 188 lb 4 oz BMI 33.3 BP 120/78 Intake Visit Reasons: 12wk ob Chief Complaint: 12 Week 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 Is patient in pain?: No Allergies No Known Allergies Allergy (Verified 01/29/25 14:06) Medications ???Medication ???Instructions ???Recorded ???Confirmed ???Type multivitamin no.47-iron fum 27 cap PO 12/24/24 01/29/25 History mg-folate no.1 1 mg-dha 300 mg capsule (PNV-DHA) Last Menstrual Period: 11/02/24 Zika: Zika virus screening: Negative : No PFSH PFSH Medical History FH: ovarian cancer Surgical History [place] teeth extracted H/O thumb surgery Family History [...] 3-4 times per week duration: 15-30 minutes/day zoe/hinduism: Nondenominational seatbelt use: always do you feel safe at home: Yes 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 Normal [facility] Platelet countOrdered By: Jovan Hall on 01-29-2025 Platelets (Bld) [#/Vol] 275 10*3/uL 150-450 [facility] RBC Auto (Bld) [#/Vol]Ordere d By: Ceci Hall on 01-29-2025 RBC (Bld) [#/Vol] 4.66 10*6/uL 4.2-5.4 [facility] Syphilis Antibodieson 2024 Syphilis Abs Non-Reactive Normal Nonreactive [facility] Comment on above: Performed By: #### L 3890.6102, L100.0100, BTS, L3890.6006, L509.8002, L501.9985, L3890.6301, L509.4006 ####[facility] [address] [place], [address] Type AND Screenon 01-29-2025 ABO and Rh group Nom (Bld) Blood group O Rh(D) positive Normal [facility] Comment on above: Order Comment: PN Performed By: #### L 3890.6102, L100.0100, BTS, L3890.6006, L509.8002, L501.9985, L3890.6301, L509.4006 ####[facility] [address] [place], [address] White blood cell (WBC) count Ordered By: Ceci Hall on 01-29-2025 WBC (Bld) [#/Vol] 11.9 10*3/uL High 4.4-11.0 [facility] Laboratory - Chemistry and C hemistry - challengeOrdered By: Caro Cho on 01-24-2025 Glucose Ql (U) Negative [facility] Laboratory - UrinalysisOrder ed By: Caro Cho on 01-24-2025 Protein Ql (U) Negative [facility] Fuel Dock Attendant Office Visit Reporton 01-24-2025 Fuel Dock Attendant Office Visit Report [facility] [address], [address] [place] [address] OFFICE VISIT Date of Service: 01/24/25 MR#: [id number] Acct: [id number] Name: JOSE L MANZO Rep #: [id number] : 1995 Provider: MIYA Alaniz ams Age/Sex: 29/F Location: [facility] [place] Status: Signed Intake Vital Signs 01/02/25 14:13 01/24/25 11:10 01/24/25 14:51 Height 5 ft 3 in 5 ft 3 in 5 ft 3 in Weight: 190 lb 4 oz BMI 33.7 BP 135/82 H Intake Visit Reasons: Heartbeat Check *spotting Chief Complaint: Spotting- Heartbeat check 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: No Is patient in pain?: No Allergies No Known Allergies Allergy (Verified 01/24/25 14:50) Medications ???Medication ???Instructions ???Recorded ???Confirmed ???Type multivitamin no.47-iron fum 27 cap PO 12/24/24 01/24/25 History mg-folate no.1 1 mg-dha 300 mg capsule (PNV-DHA) Last Menstrual Period: 11/02/24 Zika: Zika virus screening: Negative : No PFSH PFSH Surgical History [place] teeth extracted H/O thumb surgery Family History [...] 3-4 times per week duration: 15-30 minutes/day zoe/hinduism: Nondenominational seatbelt use: always do you feel safe at home: Yes 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 Normal [facility] PAP I-G w/rfx hrHPV-Aptimaon 01-07-2025 ADEQ Comment Normal . [facility] Comment on above: Order Comment: Coy gaines Comment: [id number] Comment: No. of containers..01 ThinPrep Vial Result Comment: Sati sfactory for evaluation. No endocervical component is identified. An endocervical component is not commonly seen in the patient. Performed By: #### L 7000.1800, L7400.0353, M100.2200 ####[facility] [address] [place], [address] COMM . Normal . [facility] Comment on above: Order Comment: Coy gaines Comment: [id number] Comment: No. of containers..01 ThinPrep Vial Performed By: #### L 7000.1800, L7400.0353, M100.2200 ####[facility] [address] [place], [place], [address] COMMENT Comment Normal . [facility] Comment on above: Order Comment: Speci men Comment: [id number] Comment: No. of containers..01 ThinPrep Vial Result Comment: This liquid based ThinPrep(R) pap test was screened with the use of an image guided system. Performed By: #### L 7000.1800, L7400.0353, M100.2200 ####[facility] [address] [place], [place], [address] DIAG Comment Normal . [facility] Comment on above: Order Comment: Speci men Comment: [id number] Comment: No. of containers..01 ThinPrep Vial Result Comment: NEGA TIVE FOR INTRAEPITHELIAL LESION OR MALIGNANCY. Performed By: #### L 7000.1800, L7400.0353, M100.2200 ####[facility] [address] [place], [place], [address] HPV RFLX Comment Normal . [facility] Comment on above: Order Comment: Speci men Comment: [id number] Comment: No. of containers..01 ThinPrep Vial Result Comment: The HPV DNA reflex criteria were not met with this specimen result therefore, no HPV testing was performed. Performed at: - [address] [id number] Starch Crab: Nereida Garcia MD, Phone: [phone] Performed By: #### L 7000.1800, L7400.0353, M100.2200 ####[facility] [address] [place], [place], [address] PAPSMR Comment Normal . [facility] Comment on above: Order Comment: Speci men Comment: [id number] Comment: No. of containers..01 ThinPrep Vial Result Comment: The Pap smear is a screening test designed to aid in the detection of premalignant and malignant conditions of the uterine cervix. It is not a diagnostic procedure and should not be used as the sole means of detecting cervical cancer. Both false-positive and false-negative reports do occur. Performed By: #### L 7000.1800, L7400.0353, M100.2200 ####[facility] [address] [place], [address] PERFORM Comment Normal . [facility] Comment on above: Order Comment: Speci men Comment: [id number] Comment: No. of containers..01 ThinPrep Vial Result Comment: Carol Ann Car, Trimmer Buffing Wheel (ASCP) Performed By: #### L 7000.1800, L7400.0353, M100.2200 ####[facility] [address] [place], [address] Chlamydia/GC DEEPALI aptimaon CHLAMY,NUC ACID Negative Normal Negative [facility] Comment on above: Performed By: #### L 7000.1800, L7400.0353, M100.2200 ####[facility] [address] [place], [address] GC BY NUC ACID Negative Normal Negative [facility] Comment on above: Result Comment: Perf ormed at: =G - [facility] [address] [id number] Starch Crab: Nereida Garcia MD, Phone: [phone] Performed By: #### L 7000.1800, L7400.0353, M100.2200 ####[facility] [address] [place], [address] Urine Cultureon 01-03-2025 URC Culture exhibits no growth. Normal [facility] Comment on above: Performed By: #### L 7000.1800, L7400.0353, M100.2200 ####[facility] [address] [place], [address] Cervical or vagninal specime n microscopic examination by cytology stain (reported asOrdered By: Ceci Hall on 01-02-2025 Cytology report Cyto stain Doc (Cvx/Vag) Comment . [facility] Comment on above: The Pap smear is [...] rRNA DEEPALI+probe Ql (Unsp spec) Negative Negative [facility] Laboratory - CytologyOrdered By: Ceci Hall on 01-02-2025 Trimmer Buffing Wheel Cyto stain Nom (Cvx/Vag) [ID] Comment . [facility] Comment on above: Amita Car Cytolog ist (ASCP) Laboratory - Miscellaneous t estsOrdered By: Ceci Hall on 01-02-2025 Service comment (Unsp spec) [Interp] . . [facility] Neisseria gonorrhoeae nuclei c acid detection by amplified probe techniqueOrdered By: Ceci Hall on 01-02-2025 N. gonorrhoeae DNA DEEPALI+probe Ql (Unsp spec) Negative Negative [facility] Comment on above: Performed at: =[address] [id number] Director: Nereida Garcia MD, Phone: [phone] No Panel InformationOrdered By: Ceci Hall on 01-02-2025 Pap Smear Specimen Adequacy Comment . [facility] Comment on above: Satisfactory for rosario luation. No endocervical component is identified.An endocervical component is not commonly seen in the patient. Fuel Dock Attendant Office Visit Reporton 01-02-2025 Fuel Dock Attendant Office Visit Report [facility] [address], [address] [place] [address] OFFICE VISIT Date of Service: 01/02/25 MR#: [id number] Acct: [id number] Name: JOSE L MANZO Rep #: [id number] : 1995 Provider: MIYA Alaniz ams Age/Sex: 29/F Location: [facility] 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 Is patient in pain?: No Allergies No Known Allergies Allergy (Verified 01/02/25 14:11) Medications ???Medication ???Instructions ???Recorded ???Confirmed ???Type multivitamin no.47-iron fum 27 cap PO 12/24/24 01/02/25 History mg-folate no.1 1 mg-dha 300 mg capsule (PNV-DHA) Last Menstrual Period: 11/02/24 : Yes PFSH PFSH Surgical History [place] teeth extracted H/O thumb surgery Family History [...] 3-4 times per week duration: 15-30 minutes/day zoe/hinduism: Nondenominational seatbelt use: always do you feel safe at home: Yes 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 Normal [facility] Urine cultureOrdered By: Diane Hall on 01-02-2025 Bacteria identified Cx Nom (U) Culture exhibits no growth. [facility] Serum human chorionic gonado tropin detection for pregnancyOrdered By: Ceci Hall on 12-25-2024 HCG ( test) [place]l [address] mIU/mL High <9 [facility] Comment on above: Gestational Age0.2-1 Week: 5-50 mIU/mL1-2 Weeks: 50-500 mIU/mL2-3 Weeks: 100-5000 mIU/mL3-4 Weeks: 500-10,000 mIU/mL4-5 Weeks:1000-50,000 mIU/mL5-6 Weeks: 10,000-100,000 mIU/mL6-8 Weeks: 15,000-200,000 mIU/mL2-3 Months:10,000-100,000 mIU/mL hCG Titer Quant., Serumon HCG QUANT. 57627 mIU/mL High <9 non-preg [facility] Comment on above: Order Comment: itz dumas 50H Result Comment: Gest ational Age 0.2-1 Week: 5-50 mIU/mL 1-2 Weeks: 50-500 mIU/mL 2-3 Weeks: 100-5000 mIU/mL 3-4 Weeks: 500-10,000 mIU/mL 4-5 Weeks:1000-50,000 mIU/mL 5-6 Weeks: 10,000-100,000 mIU/mL 6-8 Weeks: 15,000-200,000 mIU/mL 2-3 Months:10,000-100,000 mIU/mL Performed By: #### L 700.8000 ####[facility] [address] [place], [address] Laboratory - Chemistry and C hemistry - challengeOrdered By: Ceci Hall on 12-24-2024 HCG ( test) Ql (U) Positive [facility] Office Visit Reporton 2024 Office Visit Report [facility] [address] [place] [address] OFFICE VISIT Date of Service: 12/24/24 MR#: [id number] Acct: [id number] Patient: JOSE L MANZO Rep #: [id number] : 1995 Provider: Dr. Ceci Daniels DO Age/Sex: 29/F Location: [facility] Status: Signed Intake Vital Signs 03/04/24 14:15 12/24/24 11:14 Height 5 ft 3 in 5 ft 3 in Weight: 189 lb 4 oz BMI 33.5 BP 110/72 Blood Pressure Location Rt brachial Position Sitting Intake Visit Reasons: pre new ob, est/ vitals 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: No Is patient in pain?: No [...] soon 12/26/24 1419 Date Ceci Spencer DO [facility] Signature: Date (if applicable) CC: Normal [facility] Serum human chorionic gonado tropin detection for pregnancyOrdered By: Ceci Hall on 12-23-2024 HCG ( [place]) [place]l [address] mIU/mL High <9 [facility] Comment on above: Gestational Age0.2-1 Week: 5-50 mIU/mL1-2 Weeks: 50-500 mIU/mL2-3 Weeks: 100-5000 mIU/mL3-4 Weeks: 500-10,000 mIU/mL4-5 Weeks:1000-50,000 mIU/mL5-6 Weeks: 10,000-100,000 mIU/mL6-8 Weeks: 15,000-200,000 mIU/mL2-3 Months:10,000-100,000 mIU/mL hCG Titer Quant., Serumon HCG QUANT. 44897 mIU/mL High <9 non-preg [facility] Comment on above: Order Comment: PER P T JUST THIS TEST Result Comment: Gest ational Age 0.2-1 Week: 5-50 mIU/mL 1-2 Weeks: 50-500 mIU/mL 2-3 Weeks: 100-5000 mIU/mL 3-4 Weeks: 500-10,000 mIU/mL 4-5 Weeks:1000-50,000 mIU/mL 5-6 Weeks: 10,000-100,000 mIU/mL 6-8 Weeks: 15,000-200,000 mIU/mL 2-3 Months:10,000-100,000 mIU/mL Performed By: #### L 700.8000 #### [facility] [address] [place], [address] HCG ( test) QlOrder ed By: Ceci Hall on 12-04-2024 Human Chorionic Gonadotropin, Quant 1022 mIU/mL High <9 [facility] Comment on above: Gestational Age0.2-1 Week: 5-50 mIU/mL1-2 Weeks: 50-500 mIU/mL2-3 Weeks: 100-5000 mIU/mL3-4 Weeks: 500-10,000 mIU/mL4-5 Weeks:1000-50,000 mIU/mL5-6 Weeks: 10,000-100,000 mIU/mL6-8 Weeks: 15,000-200,000 mIU/mL2-3 Months:10,000-100,000 mIU/mL Serum human chorionic gonado tropin detection for pregnancyOrdered By: Ceci Hall on 12-04-2024 HCG ( test) Ql 1022 mIU/mL High <9 [facility] Comment on above: Gestational Age0.2-1 Week: 5-50 mIU/mL1-2 Weeks: 50-500 mIU/mL2-3 Weeks: 100-5000 mIU/mL3-4 Weeks: 500-10,000 mIU/mL4-5 Weeks:1000-50,000 mIU/mL5-6 Weeks: 10,000-100,000 mIU/mL6-8 Weeks: 15,000-200,000 mIU/mL2-3 Months:10,000-100,000 mIU/mL hCG Titer Quant., Serumon HCG QUANT. 1022 mIU/mL High <9 non-preg [facility] Comment on above: Result Comment: Gest ational Age 0.2-1 Week: 5-50 mIU/mL 1-2 Weeks: 50-500 mIU/mL 2-3 Weeks: 100-5000 mIU/mL 3-4 Weeks: 500-10,000 mIU/mL 4-5 Weeks:1000-50,000 mIU/mL 5-6 Weeks: 10,000-100,000 mIU/mL 6-8 Weeks: 15,000-200,000 mIU/mL 2-3 Months:10,000-100,000 mIU/mL Performed By: #### L 700.8000 ####[facility] [address] [place], [address] HCG ( test) QlOrder ed By: eCci Hall on 12-02-2024 Human Chorionic Gonadotropin, Quant 457 mIU/mL High <9 [facility] Comment on above: Gestational Age0.2-1 Week: 5-50 mIU/mL1-2 Weeks: 50-500 mIU/mL2-3 Weeks: 100-5000 mIU/mL3-4 Weeks: 500-10,000 mIU/mL4-5 Weeks:1000-50,000 mIU/mL5-6 Weeks: 10,000-100,000 mIU/mL6-8 Weeks: 15,000-200,000 mIU/mL2-3 Months:10,000-100,000 mIU/mL Serum human chorionic gonado tropin detection for pregnancyOrdered By: Ceci Hall on 12-02-2024 HCG ( test) Ql 457 mIU/mL High <9 [facility] Comment on above: Gestational Age0.2-1 Week: 5-50 mIU/mL1-2 Weeks: 50-500 mIU/mL2-3 Weeks: 100-5000 mIU/mL3-4 Weeks: 500-10,000 mIU/mL4-5 Weeks:1000-50,000 mIU/mL5-6 Weeks: 10,000-100,000 mIU/mL6-8 Weeks: 15,000-200,000 mIU/mL2-3 Months:10,000-100,000 mIU/mL hCG Titer Quant., Serumon HCG QUANT. 457 mIU/mL High <9 non-preg [facility] Comment on above: Result Comment: Gest ational Age 0.2-1 Week: 5-50 mIU/mL 1-2 Weeks: 50-500 mIU/mL 2-3 Weeks: 100-5000 mIU/mL 3-4 Weeks: 500-10,000 mIU/mL 4-5 Weeks:1000-50,000 mIU/mL 5-6 Weeks: 10,000-100,000 mIU/mL 6-8 Weeks: 15,000-200,000 mIU/mL 2-3 Months:10,000-100,000 mIU/mL Performed By: #### L 700.8000 #### [facility] [address] [place], [address] CNCOon 10-13-2017 CNCO Letter TextLuann Maher RN, MSN, CNPCertified Nurse PractitionerTallmad Express [facility] [place], [place] [address]Xhsqge:[phone] [place]upotsdam 2017[address] [place] [address]RMZ#: [id number] Esvin Eagle,This letter is to notify you of your positive influenza culture. The resultsheet is attached for your information. If you have any questions pleasefeel free to call.Yours Truly,Luann Maher RN, MSN, DRYER FEEDER [facility] (EXPTALAG) JOSE L EAGLE ([id number]) 1995 FDate Time Provider Department10/10/17 6:45 PM LUANN MAHER (VANESSA) EXPTALAG During your visit today, we recorded [...] The history is providedby the patient. No manager skilled was used.CoughThis is a new problem. The [...] conditionsDiseases requiring long-term aspirin therapy.In 2006, the [place] [employer] added all children age [...] days.You have other questions or concerns.Published by [employer].This content is reviewed periodically and is subject to change as new healthinformation becomes available. The information is intended to inform andeducate and is not a replacement for medical evaluation, advice, diagnosis ortreatment by a healthcare professional.Written by Mehrdad Padilla M.D., author of ANDquot;Your Child's Health,ANDquot;[employer].Copyright ? 2007 [employer] and/or one of its subsidiaries. AllRights Reserved.Copyright ? [employer] 2008Pediatric AdvisorIf you begin to experience a severe reaction or complication from the treatmentyou received at the [facility], please go to the nearest emergency [...] AND B (AG/LAKEWOOD/SHEFF/AMHERST ONLY) [SQFLUEIA] Order #: [id number] FUTURE [] oseltamivir (TAMIFLU) 75 mg capsuleTake [...] requiring long-term aspirin therapy. In 2006, the [place] [employer] added all children age [...] have other questions or concerns. Published by [employer]. This content is reviewed periodically and is subject to change as new health information becomes available. The information is intended to inform and educate and is not a replacement for medical evaluation, advice, diagnosis or treatment by a healthcare professional. Written by Mehrdad Padilla M.D., author of Your Child's Health, [employer]. Copyright ? 2006 [employer] and/or one of its subsidiaries. All Rights Reserved. Copyright ? [employer] 2008 Pediatric Advisor If you begin to experience a severe reaction or complication from the treatment you received at the [facility], please go to the nearest emergency [...] for up to 10 days.Letter TextEncounter Number: [id number] Status:Closed by LUANN MAHER CNP on 10/10/17 [facility] PROGRESSon 10-10-2017 PROGRESS HNO ID: [id number] thor: Luann (Vanessa) NikaService: (none)Author Type: Nurse PractitionerType: Progress NotesFiled: 10/10/2017 6:48 PMNote Text:SubjectiveHPI Comments: Presents for evaluation of: body aches, sore throat, chills,fever (100 TMAX yesterday), and cough for one day.OTC: Ibuprofen, Tylenol, SudafedReports influenza vaccination this year.Patient is a 22 year old female presenting with cough. The history isprovided by the patient. No manager skilled was used.CoughThis is a new problem. The [...] fail toimprove- RAPID FLU A AND B (AG/NEWTON/NAVIN/YISSELERST ONLY)- OSELTAMIVIR 75 MG CAPSULE- BENZONATATE 100 MG CAPSULELuann Maher CNP Normal [facility] Rapid Influenza A/B Agon Rapid Influenza A/B Ag Test performed at [facility] Influenza A antigen detected Presumptive negative for the presence of Influenza B antigen Normal [facility] Comment on above: Performed By: #### I NAB3 ####[facility] [place], [place] [address] Vital Signs Date Time Vital Sign Value Performing Clinician Luiz coronado 06-17-2025 15:07-0400 Body height 160.[address] Yao Owusu MD Work Phone: [facility] 06-17-2025 15:07-0400 Body mass index (BMI) [Ratio] 36 kg/m2 Dr. Yao Owusu MD Work Phone: 7(072)403-496790 [place] [address] 06-17-2025 15:07-0400 Body weight 92.[address] Yao Owusu MD Work Phone: 4(957)350-567190 [place] [address] 06-17-2025 15:07-0400 Diastolic blood pressure 73 mm[Hg] Dr. Yao Owusu MD Work Phone: 5(908)810-229330 [address] 06-17-2025 15:07-0400 Systolic blood pressure 111 mm[Hg] Dr. Yao Owusu MD Work Phone: 4(475)279-520923 [place] [address] 06-05-2025 15:57-0400 Body height 160.[address] Yao Owusu MD Work Phone: 7(463)561-259523 [place] [address] 06-05-2025 15:55-0400 Body mass index (BMI) [Ratio] 35.4 kg/m2 Dr. Yao Owusu MD Work Phone: 1(114)487-108823 [place] [address] 06-05-2025 15:55-0400 Body weight 90.[address] Yao Owusu MD Work Phone: 5(182)469-513823 [place] [address] 06-05-2025 15:55-0400 Diastolic blood pressure 81 mm[Hg] Dr. Yao Owusu MD Work Phone: 6(371)106-344923 [place] [address] 06-05-2025 15:55-0400 Systolic blood pressure 124 mm[Hg] Dr. Yao Owusu MD Work Phone: 1(505)418-918290 [place] [address] 05-19-2025 15:12-0400 Body height 160.[address] Yao Owusu MD Work Phone: 4(906)494-474030 [address] 05-19-2025 15:10-0400 Body mass index (BMI) [Ratio] 35.1 kg/m2 Dr. Yao Owusu MD Work Phone: 5(711)312-906190 [place] [address] 05-19-2025 15:10-0400 Body weight 89.[address] Yao Owusu MD Work Phone: 2(650)474-194090 [place] [address] 05-19-2025 15:10-0400 Diastolic blood pressure 79 mm[Hg] Dr. Yao Owusu MD Work Phone: [facility] 05-19-2025 15:10-0400 Systolic blood pressure 121 mm[Hg] Dr. Yao Owusu MD Work Phone: [facility] 2025 15:11-0400 Body height 160.[address] Yao Owusu MD Work Phone: 3(061)247-058290 [place] [address] 2025 15:11-0400 Body mass index (BMI) [Ratio] 34.4 kg/m2 Dr. Yao Owusu MD Work Phone: 0(648)759-236090 [place] [address] 2025 15:11-0400 Body weight 88.[address] Yao Owusu MD Work Phone: 2(816)355-247630 [address] 2025 15:11-0400 Diastolic blood pressure 62 mm[Hg] Dr. Yao Owusu MD Work Phone: 3(879)152-634790 [place] [address] 2025 15:11-0400 Systolic blood pressure 103 mm[Hg] Dr. Yao Owusu MD Work Phone: 1(805)790-001990 [place] [address] 03-25-2025 15:55-0400 Body height 160.[address] Yao Owusu MD Work Phone: 2(776)806-112090 [place] [address] 03-25-2025 15:55-0400 Body mass index (BMI) [Ratio] 33.5 kg/m2 Dr. Yao Owusu MD Work Phone: [facility] 03-25-2025 15:55-0400 Body weight 85.[address] Yao Owusu MD Work Phone: [facility] 03-25-2025 15:55-0400 Diastolic blood pressure 86 mm[Hg] Dr. Yao Owusu MD Work Phone: [facility] 03-25-2025 15:55-0400 Systolic blood pressure 127 mm[Hg] Dr. Yao Owusu MD Work Phone: [facility] 02-26-2025 15:52-0400 Body height 160.[address] Yao Owusu MD Work Phone: 6(382)240-251790 [place] [address] 02-26-2025 15:52-0400 Body mass index (BMI) [Ratio] 33.7 kg/m2 Dr. Yao Owusu MD Work Phone: 6(853)389-283990 [place] [address] 02-26-2025 15:52-0400 Body weight 86.[address] Yao Owusu MD Work Phone: 7(830)654-122290 [place] [address] 02-26-2025 15:52-0400 Diastolic blood pressure 77 mm[Hg] Dr. Yao Owusu MD Work Phone: 9(822)087-748923 [place] [address] 02-26-2025 15:52-0400 Systolic blood pressure 114 mm[Hg] Dr. Yao Owusu MD Work Phone: 9(884)150-324323 [place] [address] 01-29-2025 14:04-0400 Body height 160.[address] Yao Owusu MD Work Phone: 1(161)504-963923 [place] [address] 01-29-2025 14:04-0400 Body mass index (BMI) [Ratio] 33.3 kg/m2 Dr. Yao Owusu MD Work Phone: 5(938)442-206023 [place] [address] 01-29-2025 14:04-0400 Body weight 85.[address] Yao Owusu MD Work Phone: 5(674)320-692623 [place] [address] 01-29-2025 14:04-0400 Diastolic blood pressure 78 mm[Hg] Dr. Yao Owusu MD Work Phone: 2(148)810-509430 [address] 01-29-2025 14:04-0400 Systolic blood pressure 120 mm[Hg] Dr. Yao Owusu MD Work Phone: 9(671)799-971223 [place] [address] 01-24-2025 14:51-0400 Body height 160.[address] Yao Owusu MD Work Phone: 4(869)482-576823 [place] [address] 01-24-2025 14:51-0400 Body mass index (BMI) [Ratio] 33.7 kg/m2 Dr. Yao Owusu MD Work Phone: 0(710)416-276890 [place] [address] 01-24-2025 14:51-0400 Body weight 86.[address] Yao Owusu MD Work Phone: 6(115)269-741090 [place] [address] 01-24-2025 14:51-0400 Diastolic blood pressure 82 mm[Hg] Dr. Yao Owusu MD Work Phone: 6(745)507-611490 [place] [address] 01-24-2025 14:51-0400 Systolic blood pressure 135 mm[Hg] Dr. Yao Owusu MD Work Phone: 6(902)836-736330 [address] 01-02-2025 14:13-0400 Body height 160.[address] Yao Owusu MD Work Phone: 4(376)859-103123 [place] [address] 01-02-2025 14:13-0400 Body mass index (BMI) [Ratio] 33.3 kg/m2 Dr. Yao Owusu MD Work Phone: 1(098)252-353923 [place] [address] 01-02-2025 14:13-0400 Body weight 85.[address] Yao Owusu MD Work Phone: 1(155)822-620323 [place] [address] 01-02-2025 14:13-0400 Diastolic blood pressure 84 mm[Hg] Dr. Yao Owusu MD Work Phone: 7(169)246-137130 [address] 01-02-2025 14:13-0400 Systolic blood pressure 132 mm[Hg] Dr. Yao Owusu MD Work Phone: 7(146)116-574330 [address] 12-24-2024 11:14-0400 Body height 160.[address] Yao Owusu MD Work Phone: 3(885)957-131930 [address] 12-24-2024 11:14-0400 Body mass index (BMI) [Ratio] 33.5 kg/m2 Dr. Yao Owusu MD Work Phone: 2(181)098-211530 [address] 12-24-2024 11:14-0400 Body weight 85.[address] Yao Owusu MD Work Phone: 4(829)771-666190 [place] [address] 12-24-2024 11:14-0400 Diastolic blood pressure 72 mm[Hg] Dr. Yao Owusu MD Work Phone: 3(794)088-552130 [address] 12-24-2024 11:14-0400 Systolic blood pressure 110 mm[Hg] Dr. Yao Owusu MD Work Phone: [facility] Encounters Encounter Date Encounter Type Care Provider Facility Start: 07-02-2025 ambulatory Isabel Andinomarni lity:[facility] Start: 06-17-2025 End: 06-17-2025 ambulatory Isabel Muñoz Facility:[facility] Start: 06-05-2025 End: 06-05-[address] Ceci Spencer DO -[facility] Work Phone: Start: 06-05-2025 End: 06-05-[address] Yao Owusu MD Work Phone: -[facility] Start: 05-28-2025 End: 05-28-[address] Isabel Muñoz MD -Laboratory Work Phone: Start: 05-28-2025 End: 05-28-[address] Yao Owusu MD Work Phone: -Laboratory Start: 05-19-2025 End: 05-19-2025 Patient encounter procedure Caro Cho CNM -[facility] Work Phone: Start: 05-19-2025 End: 05-19-[address] Yao Owusu MD Work Phone: [facility] Start: 05-19-2025 End: 05-19-2025 ambulatory Isabel Muñoz Facility:[facility] Start: 2025 End: 2025 Patient encounter procedure Caro Cho CNM -[facility] Work Phone: Start: 2025 End: [address] Yao Owusu MD Work Phone: -[facility] Start: 2025 End: 2025 ambulatory NICHOLAS D [facility] Start: 03-25-2025 End: 03-25-[address] Ceci Spencer DO -[facility] Work Phone: Start: 03-25-2025 End: 03-25-[address] Yao Owusu MD Work Phone: [facility] Start: 03-17-2025 End: 03-17-2025 ambulatory PAUL [facility] Start: 02-26-2025 End: 02-26-[address] Yao Owusu MD Work Phone: [facility] Start: 02-26-2025 End: 02-26-2025 Patient encounter procedure Edita Pena BUTCHER ASSISTANT-C -[facility] Work Phone: Start: 01-29-2025 End: 01-29-2025 Patient encounter procedure Edita Pena BUTCHER ASSISTANT-C -[facility] Work Phone: Start: 01-29-2025 End: 01-29-[address] Yao Owusu MD Work Phone: [facility] Work Phone: Start: 01-29-2025 End: 01-29-2025 ambulatory Caro Cho Facility:[facility] Start: 01-24-2025 End: 01-24-2025 Patient encounter procedure Caro Cho [facility] -[facility] Work Phone: Start: 01-24-2025 End: 01-24-[address] Yao Owusu MD Work Phone: [facility] Work Phone: Start: 01-02-2025 End: 01-02-[address] Yao Owusu MD Work Phone: [facility] Work Phone: Start: 01-02-2025 End: 01-02-[address] Ceci Spencer DO -Laboratory Specimen Work Phone: Start: 01-02-2025 End: 01-02-2025 Patient encounter procedure Caro Cho [facility] Work Phone: Start: 01-02-2025 End: 01-02-[address] Yao Owusu MD Work Phone: [facility] Work Phone: Start: 01-02-2025 End: 01-02-2025 ambulatory [facility] Start: 12-25-2024 End: 12-25-[address] Yao Owusu MD Work Phone: [facility] Work Phone: Start: 12-25-2024 End: 12-25-[address] Ceci Urbina, [facility] Start: 12-24-2024 End: 12-24-[address] Ceci Spencer DO [facility] Work Phone: Start: 12-24-2024 End: 12-25-2024 ambulatory [facility] Facility:[facility] Start: 12-23-2024 End: 12-23-[address] Yao Owusu MD Work Phone: [facility] Work Phone: Start: 12-23-2024 End: 12-23-[address] Ceci Urbina, [facility] Start: 12-23-2024 End: 12-23-2024 ambulatory Yao Owusu Facility:[facility] Start: 12-04-2024 End: 12-04-[address] Yao Owusu MD Work Phone: [facility] Work Phone: Start: 12-04-2024 End: 12-04-[address] Isabel Muñoz MD -Lab, [facility] Start: 12-04-2024 End: 12-04-2024 ambulatory Isabel Muñoz Facility:[facility] Start: 12-02-2024 End: 12-02-[address] Yao Owusu MD Work Phone: [facility] Work Phone: Start: 12-02-2024 End: 12-02-[address] Ceci Spencer DO -Lab, [facility] Start: 12-02-2024 End: 12-02-2024 ambulatory Ceic Spencer Facility:[facility] Start: 07-27-2023 Non-patient / Non-visit DO Sandra Kimbrough Work Phone: [facility] Start: 07-27-2023 End: 07-27-2023 ambulatory DO Sandra Kimbrough Work Phone: [facility] Work Phone: Start: 07-27-2023 End: 07-27-2023 Patient encounter procedure DO Sandra Kimbrough Work Phone: [facility] Work Phone: Start: 10-11-2017 Ambulatory LUANN (DRYER FEEDER) NIKA [facility] Start: 10-10-2017 Ambulatory LUANN (DRYER FEEDER) NIKA Fa cility:[facility] Start: 10-10-2017 End: 10-11-2017 Ambulatory LUANN (DRYER FEEDER) NIKA Facility:[facility] Procedures Date Procedure Procedure Detail [...] HCV Quant by PCR testing - HCVPCR #[id number] Non Reactive: < 0.8 Equivocal: >/= 0.8 [...] therefore, no HPV testing was performed.Performed at: [facility] [id number] Director: Nereida Garcia MD, Phone: [phone] Start: 01-02-[address] Yao Owusu MD Work Phone: Plan of Treatment Date Care Activity Detail Author Start: 06-17-2025 End: 06-17-2025 Patient encounter procedure Abnormal glucose affecting -[facility] Work Phone: Start: 01-29-2025 CBC W Auto Differential panel - Blood [facility] Start: 01-29-2025 Hemoglobin A1c/Hemoglobin.total in Blood [facility] Start: 01-29-2025 Hepatitis C antibody measurement [facility] Start: 01-29-2025 Rubella IgG measurement [facility] [place] Start: 01-29-2025 Serologic test for syphilis [facility] Start: 01-29-2025 [facility] Start: 01-02-2025 Liquid based cervical cytology screening [facility] CBC W Auto Different ial panel - Blood [facility] CBC W Auto Different ial panel - Blood [facility] Chlamydia deoxyribon ucleic acid detection [facility] Chlamydia deoxyribon ucleic acid detection [facility] Erythrocyte mean cor puscular volume determination [facility] Hematocrit [Volume F raction] of Blood [facility] Hemoglobin [Mass/vol ume] in Blood [facility] Hemoglobin A1c/Hemoglobin.total in Blood [facility] Hepatitis B virus rene rface Ag [Presence] in Serum [facility] Hepatitis C antibody measurement [facility] Leukocytes [#/volume ] in Blood [facility] Liquid based cervica l cytology screening [facility] Mean corpuscular hem oglobin concentration determination [facility] Mean corpuscular hem oglobin determination [facility] Measurement of gluco se 2 hours after glucose challenge for glucose tolerance test [facility] Neutrophil count [facility] Neutrophil percent differential count [facility] Platelets [#/volume] in Blood [facility] Procedure [facility] Red blood cell count [facility] Red cell distributio n width determination [facility] Rubella IgG measurement [facility] Serologic test for syphilis [facility] Serologic test for syphilis [facility] Immunizations Immunization Date Immunization Notes Care Provider Fa willem 06-05-2025 tetanus toxoid, redu bertha diphtheria toxoid, and acellular pertussis vaccine, adsorbed Dr. Yao Owusu MD Work Phone: [facility] Payers Date Payer Category Payer Private Health Insurance [id number] 2024 Self-pay [id number] 1995 Unknown [id number] 1995 Unknown [id number] .[id number]. [id number] Unknown [id number] Unknown [id number] .16.8 [id number] Unknown [id number] 2.16.8 [id number] Unknown [id number] 2.16.8 [id number] Unknown [id number] 2.16.8 [id number] Unknown [id number] 2.16.8 [id number] Unknown [id number] 2.16.8 [id number] Unknown [id number] 2.16.8 [id number] Unknown [id number] 2.16.8 [id number] Unknown [id number] 2.16.8 [id number] Unknown [id number] 2.16.8 [id number] Unknown [id number] 2.16.8 [id number] Unknown [id number] 2.16.8 [id number] Unknown [id number] 2.16.8 [id number] Unknown [id number] 2.16.8 [id number] Unknown [id number] 2.16.8 [id number] Unknown [id number] 2.16.8 [id number] Unknown [id number] 2.16.8 [id number] Unknown [id number] 2.16.8 [id number] Unknown [id number] 2.16.8 [id number] Social History Date Type Detail Facility Start: 11-29-2022 Tobacco smoking stat us NHIS Unknown if ever smoked [facility] Start: 1995 Sex Assigned At Female [facility] Start: 03-04-2024 End: 01-24-2025 Tobacco smoking status NHIS Never smoked tobacco (finding) [facility] Start: 12-05-2024 End: 12-11-2024 Sex Female (finding) [facility] Gender Identity Identifies as fe male gender (finding) [facility] Clinical Notes 12-24-2024 to 06-05-2025 Note Date & Type Note Facility 06-05-2025 Progress note [facility] 06-05-2025 Progress note Note Date/Time June 05, 2025 4:28pm [facility] [address], [address] [place] [address] OFFICE VISIT Date of Service: 06/05/25 MR#: [id number] Acct: [id number] Name: JOSE L MANZO Rep #: [id number] : 1995 Provider: Dr. 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 Is patient in pain?: No Allergies No Known Allergies Allergy (Verified 06/05/25 15:55) Medications ?Medication ?Instructions ?Recorded ?Confirmed ?Type multivitamin no.47-iron fum 27 cap PO 12/24/24 5 History mg-folate no.1 1 mg-dha 300 mg capsule (PNV-DHA) Last Menstrual Period: 11/02/24 Zika: Zika virus screening: Negative : No PFSH PFSH Medical History Cystic fibrosis carrier FH: ovarian cancer Surgical History [place] teeth extracted H/O thumb surgery Family History [...] 3-4 times per week duration: 15-30 minutes/day zoe/hinduism: Nondenominational seatbelt use: always do you feel safe at home: Yes 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 no vb/cramping. 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 05/19/25 -?-?-?-?-?-?-?-?-?-?-?-?- 28w 2d [...] Symptoms of Preeclampsia, Infant Feeding No , [place] Education and Family Medical Leave or Disability Forms Results POC Urinalysis 2 Dip (Clinic) Office Urine Glucose Negative Last Edit by Lexus Jimenez on 06/05/25 16: 08 Office Urine Protein Negative Last Edit by Lexus Jimenez on 06/05/25 16: 08 Immunizations Adacel(Tdap Adolesn/Adult)(PF) 2 Lf-(2.5-5-3-5)-5 Lf/0.5 mL IM syringe Performing Provider: Ceci Spencer DO Performing Location: [facility] Administered by: Lexus Jimenez on 06/05/25 16:06 Dose Route Admin Location Dispensed Lot Number Expiration Date Pack age NDC NDC Ship Steward 0.5 mL IM Left Deltoid 0.5 mL [id number] 04/20/27 94719-329-46 [id number] SANOFI- PASTEUR VIS Given Date VIS Provided [...] Cosigner Signature: Date (if applicable) CC: ~ [facility] Work Phone: 1(237) 992-342809-29-2025 Progress [facility] [address], [address] [place] [address] OFFICE VISIT Date of Service: 05/19/25 MR#: [id number] Acct: [id number] Name: JOSE L MANZO Rep #: [id number] : 1995 Provider: MIYA Cho Age/Sex: 30/F Location: [facility] Status: Signed Intake Vital Signs 02/26/25 15:52 04/24/25 15:11 05/19/25 15:10 05/19/25 15:12 Height 5 ft 3 in 5 ft 3 in 5 ft 3 in 5 ft 3 in Weight: 198 lb 6 oz BMI 35.1 BP 121/79 H Intake 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 Is patient in pain?: No Allergies No Known Allergies Allergy (Verified 05/19/25 15:10) Medications ?Medication ?Instructions ?Recorded ?Confirmed ?Type multivitamin no.47-iron fum 27 cap PO 12/24/24 5 History mg-folate no.1 1 mg-dha 300 mg capsule (PNV-DHA) Last Menstrual Period: 11/02/24 Zika: Zika virus screening: Negative : No PFSH PFSH Medical History Cystic fibrosis carrier FH: ovarian cancer Surgical History [place] teeth extracted H/O thumb surgery Family History [...] 3-4 times per week duration: 15-30 minutes/day zoe/hinduism: Nondenominational seatbelt use: always do you feel safe at home: Yes 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 no vb/cramping. yessy munson. 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 05/19/25 -?-?-?-?-?-?-?-?-?-?-?-?- 28w 2d [...] Symptoms of Preeclampsia, Infant Feeding No , [place] Education and Family Medical Leave or Disability [...] Cosigner Signature: Date (if applicable) CC: ~ [facility]09-29-2025 Progress note Author Caro Cho [facility] Note Date/Time May 19, 2025 3:42pm [facility]'s [address], [address] [place] [address] OFFICE VISIT Date of Service: 05/19/25 MR#: [id number] Acct: [id number] Name: JOSE L MANZO Rep #: [id number] : 1995 Provider: MIYA Cho Age/Sex: 30/F Location: [facility] Status: Signed Intake Vital Signs 02/26/25 15:52 04/24/25 15:11 05/19/25 15:10 05/19/25 15:12 Height 5 ft 3 in 5 ft 3 in 5 ft 3 in 5 ft 3 in Weight: 198 lb 6 oz BMI 35.1 BP 121/79 H Intake 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 Is patient in pain?: No Allergies No Known Allergies Allergy (Verified 05/19/25 15:10) Medications ?Medication ?Instructions ?Recorded ?Confirmed ?Type multivitamin no.47-iron fum 27 cap PO 12/24/24 5 History mg-folate no.1 1 mg-dha 300 mg capsule (PNV-DHA) Last Menstrual Period: 11/02/24 Zika: Zika virus screening: Negative : No PFSH PFSH Medical History Cystic fibrosis carrier FH: ovarian cancer Surgical History [place] teeth extracted H/O thumb surgery Family History [...] 3-4 times per week duration: 15-30 minutes/day zoe/hinduism: Nondenominational seatbelt use: always do you feel safe at home: Yes 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 no vb/cramping. yessy munson. 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 05/19/25 -?-?-?-?-?-?-?-?-?-?-?-?- 28w 2d [...] this visit. [place] appropriate handout given. 05/19/25 4736 <Electronically signed by Caro gonzalez CNM> Date _ Caro Maldonado Signature: Date (if applicable) CC: ~ [facility] Work Phone: 1(313) 579-637509-04-2025 Progress [facility] [address] [place] [address], [address] [place] [address] OFFICE VISIT Date of Service: 04/24/25 MR#: [id number] Acct: [id number] Name: JOSE L MANZO Rep #: [id number] : 1995 Provider: MIYA Cho Age/Sex: 30/F Location: [facility] Status: Signed Intake Vital Signs 01/29/25 14:04 03/25/25 15:55 04/24/25 15:11 Height 5 ft 3 in 5 ft 3 in 5 ft 3 in Weight: 194 lb 6 oz BMI 34.4 BP 103/62 Intake Visit Reasons: 24 WK 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 Is patient in pain?: No Allergies No Known Allergies Allergy (Verified 04/24/25 15:14) Medications ?Medication ?Instructions ?Recorded ?Confirmed ?Type multivitamin no.47-iron fum 27 cap PO 12/24/24 5 History mg-folate no.1 1 mg-dha 300 mg capsule (PNV-DHA) Last Menstrual Period: 11/02/24 Zika: Zika virus screening: Negative : No PFSH PFSH Medical History Cystic fibrosis carrier FH: ovarian cancer Surgical History [place] teeth extracted H/O thumb surgery Family History [...] 3-4 times per week duration: 15-30 minutes/day zoe/hinduism: Nondenominational seatbelt use: always do you feel safe at home: Yes 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 no vb/cramping. 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 ACOG First Trimester First [...] Cosigner Signature: Date (if applicable) CC: ~ [facility]09-04-2025 Progress note Author Caro Cho [facility] Note Date/Time 2025 3:53pm [facility] [address] [place] [address], [address] [place] [address] OFFICE VISIT Date of Service: 04/24/25 MR#: [id number] Acct: [id number] Name: JOSE L MANZO Rep #: [id number] : 1995 Provider: MIYA Cho Age/Sex: 30/F Location: [facility] Status: Signed Intake Vital Signs 01/29/25 14:04 03/25/25 15:55 04/24/25 15:11 Height 5 ft 3 in 5 ft 3 in 5 ft 3 in Weight: 194 lb 6 oz BMI 34.4 BP 103/62 Intake Visit Reasons: 24 WK 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 Is patient in pain?: No Allergies No Known Allergies Allergy (Verified 04/24/25 15:14) Medications ?Medication ?Instructions ?Recorded ?Confirmed ?Type multivitamin no.47-iron fum 27 cap PO 12/24/24 5 History mg-folate no.1 1 mg-dha 300 mg capsule (PNV-DHA) Last Menstrual Period: 11/02/24 Zika: Zika virus screening: Negative : No PFSH PFSH Medical History Cystic fibrosis carrier FH: ovarian cancer Surgical History [place] teeth extracted H/O thumb surgery Family History [...] 3-4 times per week duration: 15-30 minutes/day zoe/hinduism: Nondenominational seatbelt use: always do you feel safe at home: Yes 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 no vb/cramping. 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 ACOG First Trimester First [...] Symptoms of Preeclampsia, Infant Feeding No , [place] Education and Family Medical Leave or Disability [...] this visit. [place] appropriate handout given. 04/24/25 5316 <Electronically signed by Caro gonzalez CNM> Date _ [facility]o hCo [facility] Signature: Date (if applicable) CC: ~ [facility] Work Phone: 1(229) 720-972408-05-2025 Progress [facility] Women[facility] [address], [address] [place] [address] OFFICE VISIT Date of Service: 03/25/25 MR#: [id number] Acct: [id number] Name: JOSE L MANZO Rep #: [id number] : 1995 Provider: Dr. 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 Is patient in pain?: No Allergies No Known Allergies Allergy (Verified 03/25/25 15:54) Medications ?Medication ?Instructions ?Recorded ?Confirmed ?Type multivitamin no.47-iron fum 27 cap PO 12/24/24 5 History mg-folate no.1 1 mg-dha 300 mg capsule (PNV-DHA) Last Menstrual Period: 11/02/24 Zika: Zika virus screening: Negative : No PFSH PFSH Medical History Cystic fibrosis carrier FH: ovarian cancer Surgical History [place] teeth extracted H/O thumb surgery Family History [...] 3-4 times per week duration: 15-30 minutes/day zoe/hinduism: Nondenominational seatbelt use: always do you feel safe at home: Yes 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 History 1 Elective abortions Hx Para 0 [...] Symptoms of Preeclampsia, Infant Feeding No , [place] Education and Family Medical Leave or Disability [...] Isabel DO> Date _ Ceci Spencer DO [facility] Signature: Date (if applicable) CC: ~ [facility]08-05-2025 Progress note Author Ceci Hall [facility] Note Date/Time March 25, 2025 4:3 0pm [facility] [address], [address] [place] [address] OFFICE VISIT Date of Service: 03/25/25 MR#: [id number] Acct: [id number] Name: JOSE L MANZO Rep #: [id number] : 1995 Provider: Dr. 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 Is patient in pain?: No Allergies No Known Allergies Allergy (Verified 03/25/25 15:54) Medications ?Medication ?Instructions ?Recorded ?Confirmed ?Type multivitamin no.47-iron fum 27 cap PO 12/24/24 5 History mg-folate no.1 1 mg-dha 300 mg capsule (PNV-DHA) Last Menstrual Period: 11/02/24 Zika: Zika virus screening: Negative : No PFSH PFSH Medical History Cystic fibrosis carrier FH: ovarian cancer Surgical History [place] teeth extracted H/O thumb surgery Family History [...] 3-4 times per week duration: 15-30 minutes/day zoe/hinduism: Nondenominational seatbelt use: always do you feel safe at home: Yes 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 History 1 Elective abortions Hx Para 0 [...] and Symptoms of Preeclampsia, Feeding No , [place] Education and Family Medical Leave or Disability [...] Cosigner Signature: Date (if applicable) CC: ~ [facility] Work Phone: 1(448) 337-746807-09-2025 Evaluation note* Diagnosis Onset Date Resolution Status [...] Supervision of high-risk acute June 05 3:53pm [facility] Work Phone: [phone]) 240-851107-09-2025 Evaluation note* Diagnosis Onset Date Resolution Status [...] 2025 3:49pm Lumbar disc herniation resolved Au oamr 2024 3:49pm Spotting in early resolved March [...] Supervision of high-risk acute June 17 3:04pm [facility] Work Phone: 1([phone]) 510-897806-06-2025 Evaluation note* Diagnosis Onset Date Resolution Status [...] of high-risk acute May 19, 2025 3:09pm [facility] Work Phone: 1(223) 607-476006-06-2025 Progress [facility] [address] [place] [address], [address] [place] [address] OFFICE VISIT Date of Service: 01/24/25 MR#: [id number] Acct: [id number] Name: JOSE L MANZO Rep #: [id number] : 1995 Provider: MIYA Cho Age/Sex: 29/F Location: [facility] Status: Signed Intake Vital Signs 01/02/25 14:13 01/24/25 11:10 01/24/25 14:51 Height 5 ft 3 in 5 ft 3 in 5 ft 3 in Weight: 190 lb 4 oz BMI 33.7 BP 135/82 H Intake Visit Reasons: Heartbeat Check *spotting Chief Complaint: Spotting- Heartbeat check 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: No Is patient in pain?: No Allergies No Known Allergies Allergy (Verified 01/24/25 14:50) Medications ?Medication ?Instructions ?Recorded ?Confirmed ?Type multivitamin no.47-iron fum 27 cap PO 12/24/24 5 History mg-folate no.1 1 mg-dha 300 mg capsule (PNV-DHA) Last Menstrual Period: 11/02/24 Zika: Zika virus screening: Negative : No PFSH PFSH Surgical History [place] teeth extracted H/O thumb surgery Family History [...] 3-4 times per week duration: 15-30 minutes/day zoe/hinduism: Nondenominational seatbelt use: always do you feel safe at home: Yes 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 History 1 Elective abortions Hx Para 0 [...] Cosigner Signature: Date (if applicable) CC: ~ [facility]06-06-2025 Progress note Author Caro Cho [facility] Note Date/Time January 24, 2025 3:24p [facility] [address], [address] [place] [address] OFFICE VISIT Date of Service: 01/24/25 MR#: [id number] Acct: [id number] Name: JOSE L MANZO Rep #: [id number] : 1995 Provider: MIYA Cho Age/Sex: 29/F Location: [facility] Status: Signed Intake Vital Signs 01/02/25 14:13 01/24/25 11:10 01/24/25 14:51 Height 5 ft 3 in 5 ft 3 in 5 ft 3 in Weight: 190 lb 4 oz BMI 33.7 BP 135/82 H Intake Visit Reasons: Heartbeat Check *spotting Chief Complaint: Spotting- Heartbeat check 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: No Is patient in pain?: No Allergies No Known Allergies Allergy (Verified 01/24/25 14:50) Medications ?Medication ?Instructions ?Recorded ?Confirmed ?Type multivitamin no.47-iron fum 27 cap PO 12/24/24 5 History mg-folate no.1 1 mg-dha 300 mg capsule (PNV-DHA) Last Menstrual Period: 11/02/24 Zika: Zika virus screening: Negative : No PFSH PFSH Surgical History [place] teeth extracted H/O thumb surgery Family History [...] 3-4 times per week duration: 15-30 minutes/day zoe/hinduism: Nondenominational seatbelt use: always do you feel safe at home: Yes 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 History 1 Elective abortions Hx Para 0 [...] Symptoms of Preeclampsia, Infant Feeding No , [place] Education and Family Medical Leave or Disability [...] Cosigner Signature: Date (if applicable) CC: ~ [facility] Work Phone: 1([phone]) [phone] Evaluation note* Diagnosis Onset Date Resolution Status [...] of high-risk acute April 24, 025 3:29pm [facility] Work Phone: 1(772) 503-501105-15-2025 Progress [facility] [address] [place] [address], [address] [place] [address] OFFICE VISIT Date of Service: 01/02/25 MR#: [id number] Acct: [id number] Name: JOSE L MANZO Rep #: [id number] : 1995 Provider: MIYA Cho Age/Sex: 29/F Location: [facility] Status: Signed Intake Vital Signs 03/04/24 14:15 12/24/24 11:14 01/02/25 14:13 Height 5 ft 3 in 5 ft 3 in 5 ft 3 in Weight: 188 lb 8 oz BMI 33.3 BP 132/84 H Intake Visit Reasons: NOB LMP 11/02 [facility] 08/09 Chief Complaint: New 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 Is patient in pain?: No Allergies No Known Allergies Allergy (Verified 01/02/25 14:11) Medications ?Medication ?Instructions ?Recorded ?Confirmed ?Type multivitamin no.47-iron fum 27 cap PO 12/24/24 5 History mg-folate no.1 1 mg-dha 300 mg capsule (PNV-DHA) Last Menstrual Period: 11/02/24 : Yes PFSH PFSH Surgical History [place] teeth extracted H/O thumb surgery Family History [...] 3-4 times per week duration: 15-30 minutes/day zoe/hinduism: Nondenominational seatbelt use: always do you feel safe at home: Yes 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 History 1 Elective abortions Hx Para 0 [...] Pulmonary (e.g.,TB,Asthma), Seasonal allergies, Drug/latex allergies/reactions, Breast, Mrb Engineer surgery, Anesthetic complications, History of abnormal pap, [...] and Symptoms of Preeclampsia, Feeding Yes , [place] Education and Family Medical Leave or Disability [...] Cosigner Signature: Date (if applicable) CC: ~ [facility]05-15-2025 Progress note Author Caro Cho [facility] Note Date/Time January 02, 2025 2:52p [facility] [address], [address] [place] [address] OFFICE VISIT Date of Service: 01/02/25 MR#: [id number] Acct: [id number] Name: JOSE L MANZO Rep #: [id number] : 1995 Provider: MIYA Cho Age/Sex: 29/F Location: [facility] Status: Signed Intake Vital Signs 03/04/24 14:15 12/24/24 11:14 01/02/25 14:13 Height 5 ft 3 in 5 ft 3 in 5 ft 3 in Weight: 188 lb 8 oz BMI 33.3 BP 132/84 H Intake Visit Reasons: NOB LMP 11/02 [place] 08/09 Chief Complaint: New 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 Is patient in pain?: No Allergies No Known Allergies Allergy (Verified 01/02/25 14:11) Medications ?Medication ?Instructions ?Recorded ?Confirmed ?Type multivitamin no.47-iron fum 27 cap PO 12/24/24 5 History mg-folate no.1 1 mg-dha 300 mg capsule (PNV-DHA) Last Menstrual Period: 11/02/24 : Yes PFSH PFSH Surgical History [place] teeth extracted H/O thumb surgery Family History [...] 3-4 times per week duration: 15-30 minutes/day zoe/hinduism: Nondenominational seatbelt use: always do you feel safe at home: Yes 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 History 1 Elective abortions Hx Para 0 [...] Pulmonary (e.g.,TB,Asthma), Seasonal allergies, Drug/latex allergies/reactions, Breast, Mrb Engineer surgery, Anesthetic complications, History of abnormal pap, [...] Symptoms of Preeclampsia, Infant Feeding Yes , [place] Education and Family Medical Leave or Disability [...] and patient chose: NIPT and carrier 01/02/25 1666 <Electronically signed by Caro Rigoberto s CNM> Date _ Caro Cho CNM Cosigner Signature: Date (if applicable) CC: ~ [facility] Work Phone: 1([phone]) [phone] Evaluation note* Diagnosis Onset Date Resolution Status [...] high-risk a cute December 24, 2024 9:58am [facility] Work Phone: [phone]) [phone] Evaluation note* Diagnosis Onset Date Resolution Status [...] high-risk a cute January 02, 2025 2:09pm [facility] Work Phone: [phone]) [phone] Evaluation note* Diagnosis Onset Date Resolution Status [...] high-risk a cute January 24, 2025 2:47pm [facility] Work Phone: [phone]) [phone] Evaluation note* Diagnosis Onset Date Resolution Status [...] of high-risk acute January 29, 2025 2:00pm [facility] Work Phone: [phone]) [phone] Evaluation note* Diagnosis Onset Date Resolution Status [...] of high-risk acute January 29, 2025 2:00pm [facility] Work Phone: [phone]) [phone] Evaluation note* Diagnosis Onset Date Resolution Status [...] high-risk acute February 26, 2025 3 :50pm [facility] Work Phone: [phone]) [phone] Evaluation note* Diagnosis Onset Date Resolution Status [...] of high-risk acute March 25, 2025 3:49pm [facility] Work Phone: Evaluation noteNo assessment information available [facility] Work Phone: Reason for referral (narrative)No reason for referral [facility] Work Phone: Summary Purpose Family History No [...] content) DATE CREATED AUTHOR 02/09/2018 Barrie Marie [facility] DATE CREATED AUTHOR AUTHOR'S ORGANIZ ATION 02/09/2018 [facility] DATE CREATED AUTHOR AUTHOR'S ORGANIZ ATION 04/26/2025 [facility] DATE CREATED AUTHOR AUTHOR'S ORGANIZ ATION 07/02/2025 [facility] Care Teams (unrecognized sec tion and content) [...] 29, 2025 End: January 29, 2025 Edita Pean NP, BUTCHER ASSISTANT-C Attending Provider Active Start: January 29, 2025 [...] End: January 29, 2025 Edita Pena NP, BUTCHER ASSISTANT-C Attending Provider Active Start: January 29, 2025 [...] 2025 End: February 26, 2025 Edita Pena BUTCHER ASSISTANT, BUTCHER ASSISTANT-C Attending Provider Active Start: February 26, 2025 [...] End: January 29, 2025 Edita Pena NP, BUTCHER ASSISTANT-C Attending Provider Active Start: January 29, 2025 [...] End: February 26, 2025 Edita Pena NP, BUTCHER ASSISTANT-C Attending Provider Active Start: February 26, 2025 End: February 26, 2025 Team Status: Inactive Member Role/Relationship Status Dates Dr. Yao wOusu MD Primary Care Provider Active Start: March [...] End: January 29, 2025 Edita Pena NP BUTCHER ASSISTANT-C Attending physician Active Start: January 29, 2025 [...] End: February 26, 2025 Edita Pena NP BUTCHER ASSISTANT-C Attending physician Active Start: February 26, 2025 [...] End: February 26, 2025 Edita Pena NP, BUTCHER ASSISTANT-C Attending physician Active Start: February 26, 2025 [...] BE BASED ON THE PRIMARY CLINICAL RECORDS. [employer] [facility]. provides no warranty or guarantee of the accuracy or completeness of information in this document.
[2025-08-12] MEDS: Oxytocin 15 Units/NS 250ml 15 UNITS/250 ML IV.SOLN 83 UNITS IV (01:53)
[2025-08-12] MEDS: Ketorolac 30 MG/ML Syringe IM (02:05)
[2025-08-12] MEDS: 0.9% Saline Lock 10 ML Syringe IV ×2 (02:06→18:10)
[2025-08-12] MEDS: Cefazolin 2 GM in 0.9% Normal Saline (100mL Bag) 100 ML IV (02:08)
[2025-08-12] MEDS: Senna/Docusate Sodium 1 Tablet PO (09:46)
[2025-08-12] MEDS: SELF ADMINISTRATION OF MEDS 1 EACH NOTE (09:46)
[2025-08-12] MEDS: GLYCERIN/WITCH HAZEL (TUCKS) MED..PAD 1 EACH TOPICAL (09:47)
[2025-08-13 01:55] VITALS: BP 123/79; PULSE 99; RESP 16; TEMP 36.4; O2SAT 99
--- NOTE | 2025-08-13 07:39 | PN.OBGYN_ITS ---
Subjective Subjective Patient doing well without complaints. Tolerating PO. Ambulating and voiding without difficulty. Feeding well. Denies chest pain, shortness of breath, calf pain/swelling, fevers, chills, lightheadedness. Objective Data Objective Data Vital Signs: Vital Signs Temp Pulse Resp BP Pulse Ox O2 Del Method 97.6 F L 99 16 123/79 H 99 Room Air 08/13/25 01:55 08/13/25 01:55 08/13/25 01:55 08/13/25 01:55 08/13/25 01:55 08/13/25 01:55 Oxygen Delivery Method Room Air Weight: 213 lb Body Mass Index (BMI) 37.7 Intake & Output: Intake and Output for Last 24 Hours 08/11/25 08/12/25 08/13/25 23:59 23:59 23:59 Intake Total 2453.13 / 2453.13 1693 / 1693 Output Total 600 / 600 600 / 600 Balance 1853.13 / 1853.13 1093 / 1093 Lab / Micro Data Attestation: I reviewed the patient's lab results. 08/11/25 08:15 08/11/25 08:15 ROS Constitutional Constitutional: Reports systems reviewed and no addt'l complaints, except as documented; Denies anorexia or headache(s) Cardiovascular Cardiovascular: Reports systems reviewed and no addt'l complaints, except as documented; Denies dizziness, dyspnea, nausea or tachypnea Respiratory/Chest Respiratory/Chest: Reports systems reviewed and no addt'l complaints, except as documented; Denies cough, dyspnea, shortness of breath at rest or tachypnea Gastrointestinal Gastrointestinal: Reports systems reviewed and no addt'l complaints, except as documented; Denies abdominal pain, constipation or nausea Genitourinary Genitourinary: Reports systems reviewed and no addt'l complaints, except as documented; Denies burning urination, difficulty urinating, dysuria, urinary frequency or urinary incontinence Musculoskeletal Musculoskeletal: Reports systems reviewed and no addt'l complaints, except as documented Integumentary Integumentary: Reports systems reviewed and no addt'l complaints, except as documented Neurologic Neurologic: Reports systems reviewed and no addt'l complaints, except as documented; Denies abnormal speech, dizziness or headache(s) Psychiatric Psychiatric: Reports systems reviewed and no addt'l complaints, except as documented Endocrine Endocrinology: Reports systems reviewed and no addt'l complaints, except as documented Hematologic/Lymphatic Hematologic/Lymphatic: Reports systems reviewed and no addt'l complaints, except as documented Physical Exam Const alert, oriented x3 and no apparent distress Neck full ROM Resp normal respiratory effort, normal air movement and no retractions Effort and Inspection: able to speak in complete sentences and symmetric chest movement GI soft to palpation Bladder / Kidney Exam: bladder normal to palpation Uterus Palpation: uterus fundus firm Extremity normal to inspection and full ROM Psych mental status grossly normal, thought process normal and cooperative Assessment & Plan (1) Vaginal delivery: COMMENT: SM vaVD IAL pushed 4 1/2 hours SROM preeclampsia girl adelyn 39 (2) Gestational hypertension: COMMENT: labetalol sent home-will hold if BP is under 140/90. to check BP 2x daily and BP check next week in office (3) SROM (spontaneous rupture of membranes): (4) Lightheadedness: (5) Extremity edema: (6) Uterine size-date discrepancy, third trimester: COMMENT: growth US at 35w3d EFW 2543g 34%, AC 55% (7) Abnormal glucose affecting : COMMENT: nl GTT (8) Obesity affecting : QUALIFIERS: Trimester: second trimester Obesity type affecting : unspecified obesity Qualified Code(s): O99.212 - Obesity complicating , second trimester COMMENT: HgbA1c 5.0 at NOB (9) Supervision of high-risk : QUALIFIERS: Trimester: third trimester Qualified Code(s): O09.93 - Supervision of high risk , unspecified, third trimester COMMENT: PRR , WARREN 08/09/25, girl Wade (10) : QUALIFIERS: Weeks of gestation: 39 weeks Qualified Code(s): Z 3A.39 - 39 weeks gestation of COMMENT: low risk NIPT, carrier +CF neg for . nl anatomy. GBS Neg. (11) Cystic fibrosis carrier: COMMENT: FOB negative Charges/Coding Multi Select Codes Urinary/Genital Urinary/Genital CPT Codes: No Charge
[2025-08-13 07:52] VITALS: BP 137/87; PULSE 104; RESP 16; TEMP 36.3; O2SAT 99
[2025-08-13 12:18] VITALS: BP 114/78; PULSE 96; RESP 16; TEMP 36.5; O2SAT 99
== END 2025-08-13 12:50 | disposition home or self-care (01) | DRG 768 ==
LOC: WPOUT 07:58 → WP 08-12 01:16
PROVIDERS: Admitting Provider Obstetrics & Gynecology; PCP Family Medicine; Referring Provider Obstetrics & Gynecology; Visit Provider Obstetrics & Gynecology
DX: O42.02 Full-term premature rupture of membranes, onset of labor within 24 hours of rupture (principal); Z37.0 Single live birth; O70.20 Third degree perineal laceration during delivery, unspecified; O13.4 Gestational [pregnancy-induced] hypertension without significant proteinuria, complicating childbirth; O99.214 Obesity complicating childbirth; O32.4XX0 Maternal care for high head at term, not applicable or unspecified; O26.843 Uterine size-date discrepancy, third trimester; Z3A.40 40 weeks gestation of pregnancy; Z14.1 Cystic fibrosis carrier
CPT/HCPCS: 59025; 59050; 82565; 82570; 84112; 84156; 84450; 84460; 84550; 85025; 86780; 86850; 86900; 86901; 99221; A4216; G0378; J2405